=== PATIENT | male | born 1955 | race Two or more races ===

== ENCOUNTER 2020-07-17 12:47 | Outpatient (REF) | payer MEDICARE, SELFPAY | END 2020-07-17 12:48 | disposition home or self-care (01) | LOC: HO.LAB 12:47 | PROVIDERS: Visit Provider Internal Medicine | DX: Z20.828 Contact with and (suspected) exposure to other viral communicable diseases (principal) | CPT/HCPCS: C9803; U0003 ==

== ENCOUNTER 2020-08-19 13:10 | Emergency (ER) | payer MEDICARE, SELFPAY ==
[2020-08-19 13:46] VITALS: BP 115/77; PULSE 86; RESP 18; TEMP 37.2; O2SAT 95; BMI 30.9
--- NOTE | 2020-08-19 13:50 | XR_ITS ---
EXAMINATION: XR HIP, RIGHT CLINICAL INFORMATION: Pain COMPARISON: None TECHNIQUE: Two views of the right hip and one view of the pelvis. FINDINGS: Bone alignment is normal. No fracture or dislocation is seen. There is mild arthritis at the right hip joint with small osteophytes. There is soft tissue calcification adjacent to the right greater trochanter. Bones of the pelvis are unremarkable. There are degenerative changes of the visualized lower lumbar spine. XR/XR hip RT min 2V IMPRESSION: Mild right hip arthritis. Soft tissue calcification adjacent to the right greater trochanter.
[2020-08-19 14:00] VITALS: BP 122/78; PULSE 88; RESP 16; TEMP 37.2; O2SAT 99
--- NOTE | 2020-08-19 15:16 | ED.GENADULT ---
HPI - General Adult General Chief complaint: Extremity Injury, Lower Stated complaint: rt hip pain Time Seen by Provider: 08/19/20 13:50 Source: patient Mode of arrival: ambulatory Limitations: no limitations History of Present Illness HPI narrative: 65-year-old male presenting to the ED with complaints of acute on chronic right hip pain for the past few weeks similar compared to his prior episode in the summer time. Denies any injuries or any other additional complaints or concerns at this time. Related Data Previous Rx's Medication Instructions Recorded oxycodone 5 mg PO Q8H PRN #14 tab 08/19/20 Allergies Allergy/AdvReac Type Severity Reaction Status Date / Time ibuprofen [From MOTRIN] Allergy Intermediate KIDNEY Unverified 04/30/20 15:13 INJURY tramadol [TRAMADOL] Allergy Mild ITCHING Unverified 04/30/20 15:13 Motrin Allergy Unknown Uncoded 04/09/20 00:00 Review of Systems Review of Systems: Constitutional : No trauma, No Weight loss, No Fever, No Chills, ENT/Mouth : No Hearing loss, No Ear Pain, No Nasal Congestion, No Sinus Pain, No Hoarseness, No sore throat, No Rhinorrhea, No Swallowing Difficulty Cardiovascular : No Chest Pain, No SOB Respiratory : No Cough, No Dyspnea Gastrointestinal : No Nausea, No Vomiting, No Diarrhea, No abdominal Pain, No Hematochezia, No Melena Genitourinary : No Dysuria, No Urinary Frequency, No Hematuria, No Urinary or Bowel Incontinence/retention Musculoskeletal : No Back pain, No neck pain, No joint stiffness, + joint swelling Skin : No Skin Lesions, No rash or signs of infection Neuro : No Weakness, No radiation, No Numbness, No Paresthesias, No headache, no loss of bowel or bladder incontinence, no saddle anesthesia Denies history of IV drug usage. Yes all other systems are reviewed and are negative PMFSH Past Medical History Attestation statement: The following information was validated with the patient. Medical History Asthma High cholesterol HTN (hypertension) Hypokalemia Pacemaker Social History Social History Advance Directives: No Advance Directives Information Provided: Yes Physical Exam Vital Signs: Vital Signs: Last Vital Signs Temp 98.9 F 08/19/20 14:00 Pulse 88 08/19/20 14:00 Resp 16 08/19/20 14:00 BP 122/78 08/19/20 14:00 Pulse Ox 99 08/19/20 14:00 Body Mass Index 30.9 vital signs have been reviewed as normal and appeared to be correct. Blood pressure normal. Heart rate normal. Respiration rate normal. Temperature normal. Oxygen saturation normal. Appearance: Alert. Oriented X3. No acute distress. Head: Normal external exam. Normocephalic. Atraumatic. No Spaulding signs noted. No raccoon eyes noted Eyes: PERRLA. EOMI. Conjunctiva and sclera normal. Eyelids normal. ENT: EAC normal. TM's Normal. Pharynx normal. Uvula midline. Moist mucous membranes. No trismus noted. No drooling noted. No muffled voice noted. Neck: Normal inspection. Neck supple. FROM. No adenopathy. Thyroid Normal. No meningeal signs. No neck mass noted. CVS: Normal heart rate and rhythm. Heart sound normal. No murmurs noted. Pulses normal throughout. Respiratory: No respiratory distress. Painless inspiration. Breath sounds normal. No wheezes/rales/rhonchi noted. Chest nontender. No accessory muscle usage noted or decreased air movement noted. Abdomen: Soft and nontender. Bowel sounds normal in all 4 quadrants. No distention noted. No organomegaly noted. No visible injury noted. Back: No CVA tenderness. Full range of motion noted. No obvious deformities, or edema. Mild para-spinal muscular tenderness from lumbar region to coccyx. Full ROM in back and lower extremities. 5/5 strength hip extension/flexion, abduction, adduction. Mild Lumbar pain with hip flexion against resistance. Straight leg raise test negative on right; Straight leg raise test negative on left; Reflexes normal ankle and knee bilaterally; EHL motor strength normal bilaterally Skin: Skin warm and dry. Normal skin color. Normal skin turgor. No rashes/lesions/lacerations noted. Extremities: No lower extremity edema. Extremities exhibit normal range of motion. Extremities nontender. Neuro: Oriented X 3. No motor deficit. No sensory deficit. Reflexes normal. Course Course Course Narrative: Pt c likely muscular pain, but could be herniated disc. Neuro exam shows no deficits. Not c/w AAA/epidural abscess/dissection.No high risk Hx (Incont, fever, immunosupp, recent surgery/LP, coag, signif trauma, wt loss, puls mass, hx/o Ca, TB, or IVDU) to warrant MRI/CT today. Not c/w Pyelo/UTI/kidney stone/spinal fx. Not cauda equina syndrome. Imaging not currently indicated. DC c meds and f/u. Medical Decision Making Medical Records Medical records reviewed: Yes I reviewed the patient's medical records. Discharge Plan Discharge Clinical Impression: Arthritis of hip Patient Disposition: Home, Self-Care Instructions: Arthritis (ED) Prescriptions: New oxycodone 5 mg tablet 5 mg PO Q8H PRN (Reason: pain) Qty: 14 RF: 0 Referrals: Carina Moore MD [Primary Care Provider] - 2 days Print Language: Citizen Of [place]
== END 2020-08-19 16:18 | disposition home or self-care (01) ==
PROVIDERS: Emergency Provider Emergency Medicine; PCP Internal Medicine
DX: M16.11 Unilateral primary osteoarthritis, right hip (principal); Z79.899 Other long term (current) drug therapy
CPT/HCPCS: 73502; 99283; 99284

== ENCOUNTER 2021-01-22 08:58 | Emergency (ER) | payer OTHER, MEDICARE, SELFPAY ==
--- NOTE | 2021-01-22 | ECG_ITS ---
Test Reason : DYSPNEA Blood Pressure : / mmHG Vent. Rate : 072 BPM Atrial Rate : 072 BPM P-R Int : 130 ms QRS Dur : 140 ms QT Int : 424 ms P-R-T Axes : 072 052 097 degrees QTc Int : 464 ms Atrial-sensed ventricular-paced rhythm Abnormal ECG When compared with ECG of 24-SEP-2018 01:22, No significant change was found Referred By: India Patel Electronically Signed By:SHERYL EVANS MD
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
[2021-01-22 09:20] VITALS: BP 138/70; PULSE 73; RESP 16; TEMP 36.8; O2SAT 95; BMI 30.9
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
[2021-01-22] MEDS: oxyCODONE HCl Immed Release 5 MG TABLET PO (10:03)
[2021-01-22 11:17] VITALS: BP 117/68; PULSE 64; RESP 18; TEMP 37.1; O2SAT 96
== END 2021-01-22 11:49 | disposition home or self-care (01) ==
PROVIDERS: Emergency Provider Emergency Medicine; PCP Internal Medicine
DX: S13.4XXA Sprain of ligaments of cervical spine, initial encounter (principal); S29.011A Strain of muscle and tendon of front wall of thorax, initial encounter; S76.011A Strain of muscle, fascia and tendon of right hip, initial encounter; S39.92XA Unspecified injury of lower back, initial encounter; S29.9XXA Unspecified injury of thorax, initial encounter; V43.52XA Car driver injured in collision with other type car in traffic accident, initial encounter; M62.830 Muscle spasm of back; R00.1 Bradycardia, unspecified; I10 Essential (primary) hypertension; E78.5 Hyperlipidemia, unspecified; J45.909 Unspecified asthma, uncomplicated; Z95.0 Presence of cardiac pacemaker; Y93.89 Activity, other specified; Y92.411 Interstate highway as the place of occurrence of the external cause; Y99.8 Other external cause status
CPT/HCPCS: 71046; 72070; 72100; 72125; 73502; 93005; 99284

== ENCOUNTER 2021-03-16 08:45 | Outpatient (REF) | payer MEDICARE, SELFPAY | END 2021-03-16 08:46 | disposition home or self-care (01) | LOC: HO.LAB 08:45 | PROVIDERS: PCP Internal Medicine; Visit Provider Internal Medicine | DX: Z20.822 Contact with and (suspected) exposure to COVID-19 (principal) | CPT/HCPCS: C9803; U0003; U0005 ==

== ENCOUNTER 2021-03-30 12:21 | Emergency (ER) | payer MEDICARE, SELFPAY ==
[2021-03-30 13:20] VITALS: BP 157/84; PULSE 70; RESP 18; TEMP 36.8; O2SAT 98; BMI 30.9
== END 2021-03-30 16:04 | disposition left against medical advice (07) ==
PROVIDERS: Emergency Provider Emergency Medicine; PCP Internal Medicine
DX: R06.02 Shortness of breath (principal)
CPT/HCPCS: 99282; 99283

== ENCOUNTER → 2021-05-03 12:50 | Outpatient (BNVA) | payer MEDICARE, SELFPAY | PROVIDERS: PCP Internal Medicine; Visit Provider Nurse Practitioner Family | DX: M16.11 Unilateral primary osteoarthritis, right hip (principal); M54.2 Cervicalgia | CPT/HCPCS: 99212 ==

== ENCOUNTER → 2021-05-17 13:11 | Outpatient (BNVA) | payer MEDICARE, SELFPAY | PROVIDERS: PCP Internal Medicine; Visit Provider Orthopaedic Surgery | DX: M54.50 Low back pain, unspecified (principal) | CPT/HCPCS: 99202 ==

== ENCOUNTER 2021-09-06 11:58 | Outpatient (REF) | payer MEDICARE, SELFPAY ==
[2021-09-06 12:19] LABS: Binax Internal Control QC Valid; Binax Now Covid-19 Ag Positive (Negative)
== END 2021-09-06 11:59 | disposition home or self-care (01) ==
LOC: HO.LAB 11:58
PROVIDERS: Visit Provider Internal Medicine
DX: Z20.822 Contact with and (suspected) exposure to COVID-19 (principal)
CPT/HCPCS: C9803

== ENCOUNTER → 2021-12-14 07:54 | Outpatient (RCR) | payer MEDICARE, SELFPAY ==
--- NOTE | 2020-05-20 10:04 | MHC.OT.DC ---
[address] [phone] F: [phone] Occupational Therapy Discharge Note Provider: Izzy Kebede MD Diagnosis: L HAND OA Date of Surgery: Date of Evaluation: 04/27/20 Date of Discharge: 05/18/20 Treatments to Date: 6 Cancellations to Date: No Shows to Date: Discharge Status: Achieved Goals Improved Function Independent with HEP Discharge Summary: MR. GEE HAS BEEN SEEN IN OT FOR L HAND OA, WELL TRIGGER FINGER OF INDEX FINGER. HE HAS TIP TO PALM FLEX OF L HAND , FUNCTIONAL GRASP, NO FURTHER LOCKING OF INDEX FINGER AND IMPROVED STRENGTH. HIS RESTING HAND PAIN HAS IMPROVED, HOWEVER, HE STILL EXPERIENCES PAIN WITH END RANGE FLEXION AT [facility]. HIS OT GOALS HAVE BEEN MET. IT IS RECOMMENDED THAT HE TRANSITION TO A HOME BASED PROGRAM FOR ONGOING MANAGEMENT OF HIS OA SYMPTOMS. Please Sign and return to therapist, thank you for your referral.
== END | disposition home or self-care (01) ==
LOC: HO.OT 05-18 11:24
PROVIDERS: PCP Internal Medicine; Visit Provider Student in an Organized Health Care Education/Training Program
DX: M19.042 Primary osteoarthritis, left hand (principal)
CPT/HCPCS: 97035; 97110

== ENCOUNTER 2022-01-28 07:31 | Outpatient (REF) | payer MEDICARE, SELFPAY ==
--- NOTE | ~2022-01-28 | XR_ITS ---
EXAMINATION: XR HIP, RIGHT CLINICAL INFORMATION: Pain COMPARISON: Previous x-ray January 2021 TECHNIQUE: Two views of the right hip. FINDINGS: Bone alignment is normal. No fracture or dislocation is seen. There is mild joint space narrowing at the right hip joint. No osteophyte formation is seen. There is faint soft tissue calcification or ossification adjacent to the greater trochanter. XR/XR hip RT min 2V IMPRESSION: Mild joint space narrowing. Faint soft tissue calcification or ossification adjacent to the greater trochanter.
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
== END 2022-01-28 07:32 | disposition home or self-care (01) ==
LOC: HO.XRAY 07:31
PROVIDERS: PCP Internal Medicine; Visit Provider Internal Medicine
DX: M54.50 Low back pain, unspecified (principal); M25.551 Pain in right hip
CPT/HCPCS: 72110; 73502

== ENCOUNTER → 2022-03-28 13:03 | Outpatient (BNVA) | payer MEDICARE, SELFPAY | PROVIDERS: PCP Internal Medicine; Visit Provider Orthopaedic Surgery | DX: M70.71 Other bursitis of hip, right hip (principal) | CPT/HCPCS: 99212 ==

== ENCOUNTER → 2022-05-03 13:12 | Outpatient (BNVA) | payer MEDICARE, SELFPAY | PROVIDERS: PCP Internal Medicine; Visit Provider Student in an Organized Health Care Education/Training Program | DX: M25.551 Pain in right hip (principal); G89.29 Other chronic pain; M25.511 Pain in right shoulder; E11.9 Type 2 diabetes mellitus without complications; M54.50 Low back pain, unspecified; M54.2 Cervicalgia; M25.542 Pain in joints of left hand; M25.541 Pain in joints of right hand | CPT/HCPCS: 99212 ==

== ENCOUNTER → 2022-05-04 12:37 | Outpatient (BNVA) | payer MEDICARE, SELFPAY | PROVIDERS: PCP Internal Medicine; Visit Provider Nurse Practitioner Family | DX: G47.33 Obstructive sleep apnea (adult) (pediatric) (principal); E66.9 Obesity, unspecified; R40.0 Somnolence; Z95.0 Presence of cardiac pacemaker | CPT/HCPCS: 99202 ==

== ENCOUNTER 2022-05-05 10:47 | Outpatient (REF) | payer MEDICARE, SELFPAY ==
--- NOTE | ~2022-05-05 | XR_ITS ---
EXAMINATION: XR HAND/WRIST, RIGHT XR HAND/WRIST, LEFT CLINICAL INFORMATION: Pain. COMPARISON: Left hand radiographs dated 01/01/2020. TECHNIQUE: AP, oblique, lateral, and scaphoid views of the right and left hand and wrist. FINDINGS: Right Hand and Wrist: Remote amputations of the 2nd middle and distal phalanges as well as the 3rd proximal, middle, and distal phalanges. No associated osseous erosion or abnormal soft tissue calcification. No acute fracture or dislocation. Joint space narrowing with marginal osteophytes at the 4th metacarpophalangeal joint. Tiny marginal osteophytes at the 1st carpometacarpal joint. No concerning lytic or blastic osseous lesion. Left Hand and Wrist: No acute fracture or dislocation. Normal carpal alignment. Mild joint space narrowing at the 1st carpometacarpal joint. No concerning lytic or blastic osseous lesion. No abnormal soft tissue calcification. 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 Remote amputations at the 2nd and 3rd digits without evidence of complication. Left Hand and Wrist: Mild arthrosis at the 1st carpometacarpal joint. No acute osseous abnormality.
--- NOTE | ~2022-05-05 | XR_ITS ---
EXAMINATION: XR HAND/WRIST, RIGHT XR HAND/WRIST, LEFT CLINICAL INFORMATION: Pain. COMPARISON: Left hand radiographs dated 01/01/2020. TECHNIQUE: AP, oblique, lateral, and scaphoid views of the right and left hand and wrist. FINDINGS: Right Hand and Wrist: Remote amputations of the 2nd middle and distal phalanges as well as the 3rd proximal, middle, and distal phalanges. No associated osseous erosion or abnormal soft tissue calcification. No acute fracture or dislocation. Joint space narrowing with marginal osteophytes at the 4th metacarpophalangeal joint. Tiny marginal osteophytes at the 1st carpometacarpal joint. No concerning lytic or blastic osseous lesion. Left Hand and Wrist: No acute fracture or dislocation. Normal carpal alignment. Mild joint space narrowing at the 1st carpometacarpal joint. No concerning lytic or blastic osseous lesion. No abnormal soft tissue calcification. 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 Remote amputations at the 2nd and 3rd digits without evidence of complication. Left Hand and Wrist: Mild arthrosis at the 1st carpometacarpal joint. No acute osseous abnormality.
[2022-05-05 11:07] LABS: MANUAL DIFF FLAG NO
[2022-05-05 11:41] LABS: Basophils Absolute Auto 0.1 X10*3/uL (0.0-0.2); Eosinophils Absolute Auto 1.6 X10*3/uL (0.0-0.4); Eosinophils Percent Auto 15.2 % (0-4); Hematocrit 41.6 % (42.0-52.0); Hemoglobin 13.4 g/dl (14.0-18.0); Imm Gran Abs Auto 0.04 X10*3/uL (0.00-0.03); Imm Gran Pct Auto 0.4 % (0.0-0.4); Lymphocytes Absolute Auto 2.8 X10*3/uL (1.2-4.9); Lymphocytes Percent Auto 27.2 % (20-40); Mean Corpuscular HGB Conc 32.2 g/dl (31.0-36.0); Mean Corpuscular Hemoglobin 29.8 pg (27.0-33.0); Mean Corpuscular Volume 92.4 fL (80.0-98.0); Mean Platelet Volume 9.5 fL (9.4-12.4); Monocytes Absolute Auto 1.1 X10*3/uL (0.1-1.2); Monocytes Percent Auto 10.9 % (2-11); Neutrophils Absolute Auto 4.6 x10*3/uL (2.0-8.3); Neutrophils Percent Auto 45.3 % (45-73); Platelet Count 408 X10*3/uL (160-400); Red Cell Distribution Width 13.6 % (11.0-16.0); White Blood Count 10.2 X10*3/uL (4.8-10.8)
[2022-05-05 11:48] LABS: Estimated Average Glucose 151 mg/dL; Hemoglobin A1C 180.3764 umol/L; Hemoglobin A1c % 6.9 %
[2022-05-05 12:20] LABS: Alanine Aminotransferase 21 U/L (0-40); Albumin Level 4.3 g/dL (3.5-5.0); Alkaline Phosphatase 64 U/L (39-117); Anion Gap 15 (12-20); Aspartate Amino Transferase 20 U/L (5-37); Bilirubin Total 0.4 mg/dL (0.0-1.0); Blood Urea Nitrogen 16 mg/dL (9-16); C Reactive Protein 1.02 mg/dL (< or = 0.50); Calcium 10.2 mg/dL (8.4-10.2); Carbon Dioxide 34 mmol/L (22-29); Chloride 95 mmol/L (96-108); Estimated Glomerular Filt Rate > 60; Glucose Random 157 mg/dL (60-115); Potassium 4.7 mmol/L (3.3-5.1); Sodium 139 mmol/L (135-145); Total Protein 8.2 g/dL (6.5-8.0)
[2022-05-05 12:40] LABS: Erythrocyte Sedimentation Rate 30 MM/HR (0-15)
== END 2022-05-05 10:48 | disposition home or self-care (01) ==
LOC: HO.LAB 10:47
PROVIDERS: PCP Internal Medicine; Visit Provider Student in an Organized Health Care Education/Training Program
DX: M25.541 Pain in joints of right hand (principal); M25.542 Pain in joints of left hand; E11.9 Type 2 diabetes mellitus without complications
CPT/HCPCS: 36415; 73110; 73130; 80053; 83036; 85025; 85652; 86140

== ENCOUNTER → 2022-05-10 10:33 | Outpatient (BNVA) | payer MEDICARE, SELFPAY | PROVIDERS: PCP Internal Medicine; Visit Provider Urology | DX: E11.69 Type 2 diabetes mellitus with other specified complication (principal); N52.1 Erectile dysfunction due to diseases classified elsewhere; F52.0 Hypoactive sexual desire disorder | CPT/HCPCS: 99202 ==

== ENCOUNTER → 2022-05-31 09:57 | Outpatient (BNVA) | payer MEDICARE, SELFPAY | PROVIDERS: PCP Internal Medicine; Visit Provider Nurse Practitioner Family | DX: M54.50 Low back pain, unspecified (principal); M62.838 Other muscle spasm; M25.551 Pain in right hip; M70.61 Trochanteric bursitis, right hip; M16.11 Unilateral primary osteoarthritis, right hip; M47.812 Spondylosis without myelopathy or radiculopathy, cervical region | CPT/HCPCS: 99202 ==

== ENCOUNTER → 2022-07-05 13:46 | Outpatient (BNVA) | payer MEDICARE, SELFPAY | PROVIDERS: PCP Internal Medicine; Visit Provider Nurse Practitioner Family | DX: G47.33 Obstructive sleep apnea (adult) (pediatric) (principal); R40.0 Somnolence; E66.9 Obesity, unspecified; Z68.31 Body mass index [BMI] 31.0-31.9, adult | CPT/HCPCS: 99212 ==

== ENCOUNTER → 2022-07-25 10:42 | Outpatient (REF) | payer MEDICARE, SELFPAY | LOC: HO.SL 10:42 | PROVIDERS: Visit Provider Nurse Practitioner Family | DX: R40.0 Somnolence (principal); E66.9 Obesity, unspecified; G47.33 Obstructive sleep apnea (adult) (pediatric) | CPT/HCPCS: 95806 ==

== ENCOUNTER 2022-08-01 11:47 | Outpatient (REF) | payer OTHER, SELFPAY ==
[2022-08-06 23:28] LABS: Testosterone, Free 25.9 pg/mL (35.0-155.0); Testosterone, Total 169 ng/dL (250-1100)
== END 2022-08-01 11:48 | disposition home or self-care (01) ==
LOC: HO.LAB 11:47
PROVIDERS: PCP Internal Medicine; Visit Provider Urology
DX: E29.1 Testicular hypofunction (principal); F52.0 Hypoactive sexual desire disorder
CPT/HCPCS: 36415; 84402; 84403

== ENCOUNTER → 2022-08-23 13:34 | Outpatient (BNVA) | payer OTHER, SELFPAY | PROVIDERS: PCP Internal Medicine; Visit Provider Urology | DX: E11.69 Type 2 diabetes mellitus with other specified complication (principal); N52.1 Erectile dysfunction due to diseases classified elsewhere; E29.1 Testicular hypofunction; Z79.899 Other long term (current) drug therapy | CPT/HCPCS: 99212 ==

== ENCOUNTER → 2022-10-07 18:30 | Outpatient (REF) | payer OTHER, SELFPAY | LOC: HO.SL 18:30 | PROVIDERS: PCP Internal Medicine; Visit Provider Nurse Practitioner Family | DX: G47.33 Obstructive sleep apnea (adult) (pediatric) (principal) | CPT/HCPCS: 95811 ==

== ENCOUNTER → 2022-10-31 08:45 | Outpatient (BNVA) | payer OTHER, SELFPAY | PROVIDERS: PCP Internal Medicine; Visit Provider Nurse Practitioner Family | DX: G47.33 Obstructive sleep apnea (adult) (pediatric) (principal); R40.0 Somnolence | CPT/HCPCS: 99212 ==

== ENCOUNTER 2023-02-22 10:26 | Outpatient (REF) | payer OTHER, SELFPAY ==
[2023-02-22 12:48] LABS: Prostate Specific Antigen 2.37 ng/mL (<0.05-4.0)
[2023-02-28 14:34] LABS: Testosterone, Free 28.9 pg/mL (35.0-155.0); Testosterone, Total 190 ng/dL (250-1100)
== END 2023-02-22 10:27 | disposition home or self-care (01) ==
LOC: HO.LAB 10:26
PROVIDERS: PCP Internal Medicine; Visit Provider Urology
DX: E11.69 Type 2 diabetes mellitus with other specified complication (principal); N52.1 Erectile dysfunction due to diseases classified elsewhere; F52.0 Hypoactive sexual desire disorder; Z12.5 Encounter for screening for malignant neoplasm of prostate
CPT/HCPCS: 36415; 84153; 84402; 84403

== ENCOUNTER 2023-03-03 13:05 | Outpatient (AMB) | payer OTHER, SELFPAY ==
--- NOTE | 2023-03-03 13:13 | A.OFFVIS_ITS ---
Intake Intake Visit Reasons: 6 month labs Intake Note: Patient is present for follow up labs/erectile dysfunction (psa 2.37) (testosterone total 190) Urology Medications: tadalafil Blood Thinner: none Associate Counsel Required: Yes Associate Counsel Name: Fabrice [id number] Accompanied by: Self / Same As Patient Allergies ibuprofen [From MOTRIN] Allergy (Intermediate, Verified 03/03/23 13:50) KIDNEY INJURY tramadol [TRAMADOL] Allergy (Mild, Verified 03/03/23 13:50) ITCHING Motrin Allergy (Mild, Uncoded 03/03/23 13:50) rash Medication List - Last Reconciled 03/03/23 by TRACY NunezP- acetaminophen (Tylenol Extra Strength) 1,000 mg (2 x 500 mg) PO QID PRN albuterol sulfate 90 mcg/actuation (Ventolin HFA) 0 mcg inhalation alcohol swabs (Alcohol Prep Pads) 0 pad topical amlodipine 5 mg PO DAILY blood sugar diagnostic (FreeStyle Lite Strips) As directed blood-glucose meter (FreeStyle [place] Lite kit) As directed chlorthalidone 25 mg PO DAILY clonazepam 0.5 mg PO ONCE PRN diclofenac sodium 1% (Arthritis Pain (diclofenac)) 4 grams topical QID 30 days fluticasone propionate 220 mcg/actuation (Flovent HFA) 2 puffs inhalation BID glipizide ER 2.5 mg PO QAM ketotifen fumarate 0.025%(0.035%) 1 drp ophthalmic (eye) BID PRN lancets (FreeStyle Lancets) As directed metformin 500 mg PO BID methocarbamol 750 mg PO Q8H 30 days metoprolol succinate ER 100 mg PO DAILY montelukast 10 mg PO BEDTIME pantoprazole 40 mg PO DAILY tadalafil 10 mg PO DAILY 90 days tramadol 50 mg PO Q8H PRN zolpidem 10 mg PO BEDTIME HPI HPI Comments History of Present Illness Details Fabrice is a pleasant 67 year old male patient of Dr. Emery. He has a PMH of anal fistula, anxiety, asthma, cervical radiculitis, diabetes mellitus, diverticulosis, dysphagia, fibromatosis, finger amputee, hypercholesteremia, sleep apnea, hypertension, hyperlipidemia, hypogonadism, hypokalemia, and pacemaker. He presents to the office today for follow-up of his erectile dysfunction in the setting of diabetes and hypogonadism in the setting of obstructive sleep apnea. In discussion with the patient today he reports to be doing and feeling well. Of note, patient previously followed up on with Dr. Jackson approximately 6 months ago at which time PSA and testosterone levels were ordered. These results were reviewed with the patient today. PSA 03/05--2.4 Total Testosterone 03/05--190 Total Testosterone 08/04--169 Patient reports to be having somewhat manageable erections on 10 mg of Cialis and would like a refill on the medication. However, he continues with fatigue and moodiness. He reports to have been on testosterone injection therapy many years ago however due to COVID had not been following up with Urology to continue. Discussed redraw of Testosterone upon 2 hours of wakening. Discussed at length the importance of managing diabetes for improvement in erections, testosterone levels, and overall health and well being. Also discussed importance of compliance with CPAP machine for improvement in erections, testosterone levels, and overall health and well being. In office urinalysis results reviewed with the patient. When asked patient denies any urinary issues or concerns. He denies urinary urgency, urinary frequency, incontinence, nocturia, hematuria, dysuria, foul smelling urine, changes to urinary stream, flank pain, fever, and or chills. He is happy with his current voiding parameters. Erectile dysfunction Diabetic Progressive Failed on demand medications Current therapy tadalafil 10 mg daily Multiple cardiovascular risk factors - hypertension, dyslipidemia, cardiomyopathy Investigations - 08/04 T 170 F 26 HBA1c 6.9 PFSH Medical History Anal fistula Anxiety Asthma Cervical radiculitis Diabetes mellitus Diverticulosis of large intestine without hemorrhage Dysphagia Erectile dysfunction due to diseases classified elsewhere Fibromatosis Finger amputee High cholesterol HTN (hypertension) Hyperlipidemia Hypogonadism in male Hypokalemia Pacemaker Surgical History History of surgery History of surgery on arm Family History Father Stroke Maternal Uncle Diabetes Mother Asthma Diabetes Arthritis Social History Household Members: None Housing: Apartment Alcohol intake: current Alcohol intake frequency: a few times a month Alcohol type: hard liquor Patient Tobacco Use Status: Former Tobacco user Quit Date: 47 years ago Current occupational status: disabled Review of Systems Const Reports as per HPI Eyes Reports no additional complaints ENT Reports no additional complaints Card Reports as per HPI Resp Reports as per HPI GI Reports as per HPI Reports as per HPI Musc Reports as per HPI Neuro Reports as per HPI Psych Reports as per HPI Endo Reports as per HPI Physical Exam Const General: cooperative, comfortable, no acute distress, well developed, alert and awake Nutritional Appearance: overweight Orientation/consciousness: patient oriented x3 Limitations: no limitations HEENT Head: Yes normal to inspection, Yes normocephalic and Yes atraumatic Ears: hearing grossly normal bilaterally Eyes General: appearance normal, both eyes and all related structures Neck Neck: Yes normal visual inspection and Yes trachea midline Chest Chest palpation & inspection: normal inspection of the chest Resp Effort & Inspection: normal respiratory effort and able to speak in complete sentences Cardio Rate: regular rate GI Inspection: Yes normal to inspection General: Yes no CVA tenderness Back/Spine/Pelvis Back: no CVA tenderness Skin General skin exam: no rashes or lesions noted Neuro General: patient oriented x3 Extrem General: Yes normal to inspection Psych Appearance: grossly normal and well kempt Mental Status: mental status grossly normal Speech and movement: Normal speech and movement present and Clear speech present Affect: normal affect Attitude: cooperative Thought process: Normal thought process present Thought content: Normal thought content present Insight: Fair insight present (Psych) Judgement: Fair judgement present (Psych) Results AMB Urinalysis, Automated UA Leukoctes 0 Jose/uL Last Edit by Kivun Hadash on 03/03/23 13:28 UA Nitrite Last Edit by Kivun Hadash on 03/03/23 13:28 UA Urobilinogen 0.2 mg/dL Last Edit by Kivun Hadash on 03/03/23 13:28 UA Protein 0 mg/dL Last Edit by Kivun Hadash on 03/03/23 13:28 UA pH 6.0 Last Edit by Kivun Hadash on 03/03/23 13:28 UA Blood 0 Kaveh/uL Last Edit by Kivun Hadash on 03/03/23 13:28 UA Specific [place] 1.020 Last Edit by Kivun Hadash on 03/03/23 13:28 UA Ketone Last Edit by Angelo Weiss on 03/03/23 13:28 UA Bilirubin 0 mg/dL Last Edit by Angelo Weiss on 03/03/23 13:28 UA Glucose 0 mg/dL Last Edit by Angelo Weiss on 03/03/23 13:28 Results Reviewed Results Reviewed: Laboratory Last Values Urine pH (Auto) 6.0 03/03/23 13:18 Specific [place] (Auto) 1.020 03/03/23 13:18 Urine Protein (Auto) 0 mg/dL 03/03/23 13:18 Glucose (UA)(Auto) 0 mg/dL 03/03/23 13:18 Urine Blood (Auto) 0 Kaveh/uL 03/03/23 13:18 Urine Bilirubin (Auto) 0 mg/dL 03/03/23 13:18 Urine Urobilinogen (Auto) 0.2 mg/dL 03/03/23 13:18 Leukocyte Esterase (Auto) 0 Jose/uL 03/03/23 13:18 Assessment & Plan Assessment & Plan (1) Hypogonadism in male: Code(s): E29.1 - Testicular hypofunction (2) Erectile dysfunction associated with type 2 diabetes mellitus: Code(s): E11.69 - Type 2 diabetes mellitus with other specified complication; N52.1 - Erectile dysfunction due to diseases classified elsewhere Plan In office urinalysis results reviewed with the patient today; as noted above Recent testosterone and PSA results reviewed with the patient today. Patient reports somewhat improvement in erections with 10 mg of Cialis; refill provided Discussed redraw of testosterone free and total to hours upon wakening Patient otherwise denies any urinary issues or concerns at this time Discussed at length importance of weight loss, brisk walking, and adequate sleep to assist with improvement in erections, testosterone levels, and overall health and well-being. Discussed at length importance of compliance with CPAP machine as well as managing diabetes for improvement in erections, testosterone levels, and overall health and well-being. Testosterone free and total ordered Follow-up in 1-2 months with lab to be completed prior; or sooner with any issues, concerns, and or questions. Orders: Orders Testosterone, Free/Total Today E11.69 - Type 2 diabetes mellitus with other specified complication, N52.1 - Erectile dysfunction due to diseases classified elsewhere AMB Urinalysis Automated Today Z13.9 - Encounter for screening, unspecified Medications: Refilled tadalafil 10 mg PO DAILY 90 days 90 tabs 1RF sexual activity E11.69 - Type 2 diabetes mellitus with other specified complication, N52.1 - Erectile dysfunction due to diseases classified elsewhere Patient Instructions: The patient had an opportunity to ask questions regarding the treatment plan. All questions were answered. Physical exam, labs, and imaging were discussed and reviewed in detail. As well as risks, benefits, and discussion of treatment choices. No major barriers to understanding were identified. The patient expressed understanding and agreement with the above treatment plan. The patient was made aware they should contact our office by phone for worsening of their current condition, the appearance of new symptoms, or with any questions or concerns. Compliance is encouraged with any medications and follow up testing that is ordered. It is a privilege to be allowed the opportunity to participate in? your urological care.? Again, if you have any questions or concerns If you have any questions or concerns please do not hesitate to contact me. The office is [phone]. This note is constructed using voice recognition software. While every effort has been made to ensure accuracy siebel administrator errors may have been included. Yours sincerely, FILEMON Nunez Coding Level of Care Code Est Pt Level 4 (57406) Diagnoses Hypogonadism in male E29.1 Erectile dysfunction associated with type 2 diabetes mellitus E11.69; N52.1 Time Spent (min) 45
== END 2023-03-03 14:27 | disposition home or self-care (01) ==
PROVIDERS: Visit Provider Nurse Practitioner Family
DX: E29.1 Testicular hypofunction (principal); E11.69 Type 2 diabetes mellitus with other specified complication; N52.1 Erectile dysfunction due to diseases classified elsewhere
CPT/HCPCS: 99214

== ENCOUNTER → 2023-03-03 13:05 | Outpatient (BNVA) | payer OTHER, SELFPAY | PROVIDERS: Visit Provider Nurse Practitioner Family | DX: E11.69 Type 2 diabetes mellitus with other specified complication (principal); N52.1 Erectile dysfunction due to diseases classified elsewhere; E29.1 Testicular hypofunction; Z79.899 Other long term (current) drug therapy | CPT/HCPCS: 99212 ==

== ENCOUNTER 2023-03-06 07:56 | Outpatient (REF) | payer OTHER, SELFPAY ==
[2023-03-10 18:14] LABS: Testosterone, Free 26.1 pg/mL (35.0-155.0); Testosterone, Total 174 ng/dL (250-1100)
== END 2023-03-06 07:57 | disposition home or self-care (01) ==
LOC: HO.LAB 07:56
PROVIDERS: PCP Internal Medicine; Visit Provider Nurse Practitioner Family
DX: E11.69 Type 2 diabetes mellitus with other specified complication (principal); N52.1 Erectile dysfunction due to diseases classified elsewhere
CPT/HCPCS: 36415; 84402; 84403

== ENCOUNTER 2023-03-24 15:28 | Outpatient (AMB) | payer OTHER, SELFPAY ==
--- NOTE | 2023-03-24 15:29 | A.OFFVIS_ITS ---
Intake Intake Visit Reasons: 3 week labs(set) Intake Note: Patient is present for tele visit follow up labs/erectile dysfunction (free testosterone 26.1) (testosterone total 174) Urology Medications: tadalafil Blood Thinner: none Bag Sealer Required: Yes Allergies ibuprofen [From MOTRIN] Allergy (Intermediate, Verified 03/27/23 22:07) KIDNEY INJURY tramadol [TRAMADOL] Allergy (Mild, Verified 03/27/23 22:07) ITCHING Motrin Allergy (Mild, Uncoded 03/27/23 22:07) rash Medication List - Last Reconciled 03/27/23 by BRAYDEN Nunez- acetaminophen (Tylenol Extra Strength) 1,000 mg (2 x 500 mg) PO QID PRN albuterol sulfate 90 mcg/actuation (Ventolin HFA) 0 mcg inhalation alcohol swabs (Alcohol Prep Pads) 0 pad topical amlodipine 5 mg PO DAILY blood sugar diagnostic (FreeStyle Lite Strips) As directed blood-glucose meter (FreeStyle [place] Lite kit) As directed chlorthalidone 25 mg PO DAILY clonazepam 0.5 mg PO ONCE PRN diclofenac sodium 1% (Arthritis Pain (diclofenac)) 4 grams topical QID 30 days fluticasone propionate 220 mcg/actuation (Flovent HFA) 2 puffs inhalation BID glipizide ER 2.5 mg PO QAM ketotifen fumarate 0.025%(0.035%) 1 drp ophthalmic (eye) BID PRN lancets (FreeStyle Lancets) As directed metformin 500 mg PO BID methocarbamol 750 mg PO Q8H 30 days metoprolol succinate ER 100 mg PO DAILY montelukast 10 mg PO BEDTIME needle (disp) 18 G (BD Regular Bevel [place]) As directed pantoprazole 40 mg PO DAILY sacubitril-valsartan 24-26 mg (Entresto) 1 tab PO BID syringe with needle (BD Luer-Janet Syringe) As directed tadalafil 10 mg PO DAILY 90 days testosterone cypionate (Depo-Testosterone) 200 mg IM Q2W 4 weeks tramadol 50 mg PO Q8H PRN zolpidem 10 mg PO BEDTIME HPI HPI Comments History of Present Illness Details Fabrice is a pleasant 67 year old male patient of Dr. Emery. He has a PMH of anal fistula, anxiety, asthma, cervical radiculitis, diabetes mellitus, diverticulosis, dysphagia, fibromatosis, finger amputee, hypercholesteremia, sleep apnea, hypertension, hyperlipidemia, hypogonadism, hypokalemia, and pacemaker. He is being followed-up on today via telehealth for his erectile dysfunction in the setting of diabetes and hypogonadism in the setting of obstructive sleep apnea. Of note, patient was seen approximately 3 weeks ago at which time redraw of testosterone was ordered for further assessment evaluation. These results reviewed with the patient today. In discussion with the patient today he reports to be doing and feeling well. PSA 03/05--2.4 Total Testoserone 03/05--174 Total Testosterone 03/05--190 Total Testosterone 08/04--169 Patient reports to be having somewhat manageable erections on 10 mg of Cialis. However, he continues with fatigue and moodiness. Patient with a history of testosterone injection therapy many years ago however due to COVID had not been following up with Urology at which time refills were not provided and patient has since been off Testosterone replacment. Discussed at length the importance of managing diabetes for improvement in erections, testosterone levels, and overall health and well being. Also discussed importance of compliance with CPAP machine for improvement in erections, testosterone levels, and overall health a nd well being. When asked patient denies any urinary issues or concerns. He denies urinary urgency, urinary frequency, incontinence, nocturia, hematuria, dysuria, foul smelling urine, changes to urinary stream, flank pain, fever, and or chills. He is happy with his current voiding parameters. Erectile dysfunction Diabetic Progressive Failed on demand medications Current therapy tadalafil 10 mg daily Multiple cardiovascular risk factors - hypertension, dyslipidemia, cardiomyopathy Investigations - 08/04 T 170 F 26 HBA1c 6.9 [facility] Medical History Anal fistula Anxiety Asthma Cervical radiculitis Diabetes mellitus Diverticulosis of large intestine without hemorrhage Dysphagia Erectile dysfunction due to diseases classified elsewhere Fibromatosis Finger amputee High cholesterol HTN (hypertension) Hyperlipidemia Hypogonadism in male Hypokalemia Pacemaker Surgical History History of surgery History of surgery on arm Family History Father Stroke Maternal Uncle Diabetes Mother Asthma Diabetes Arthritis Social History Household Members: None Housing: Apartment Alcohol intake: current Alcohol intake frequency: a few times a month Alcohol type: hard liquor Patient Tobacco Use Status: Former Tobacco user Quit Date: 47 years ago Current occupational status: disabled Review of Systems Const Reports as per HPI Eyes Reports no additional complaints ENT Reports no additional complaints Card Reports as per HPI Resp Reports as per HPI GI Reports as per HPI Reports as per HPI Musc Reports as per HPI Neuro Reports as per HPI Psych Reports as per HPI Endo Reports as per HPI Physical Exam Const General: cooperative Orientation/consciousness: patient oriented x3 Resp Effort & Inspection: able to speak in complete sentences Neuro General: patient oriented x3 Psych Speech and movement: Clear speech present Attitude: cooperative Thought process: Normal thought process present Thought content: Normal thought content present Insight: Fair insight present (Psych) Judgement: Fair judgement present (Psych) Assessment & Plan Assessment & Plan (1) Hypogonadism in male: Code(s): E29.1 - Testicular hypofunction (2) Erectile dysfunction associated with type 2 diabetes mellitus: Code(s): E11.69 - Type 2 diabetes mellitus with other specified complication; N52.1 - Erectile dysfunction due to diseases classified elsewhere (3) Lack of libido: Code(s): F52.0 - Hypoactive sexual desire disorder (4) Daytime sleepiness: Code(s): R40.0 - Somnolence Plan Recent testosterone results reviewed with the patient today as noted above. Patient reports somewhat improvement in erections with 10 mg of Cialis; will continue Patient otherwise denies any urinary issues or concerns at this time Discussed at length importance of weight loss, brisk walking, and adequate sleep to assist with improvement in erections, testosterone levels, and overall health and well-being. Discussed at length importance of compliance with CPAP machine as well as managing diabetes for improvement in erections, testosterone levels, and overall health and well-being. Testosterone ordered; educated patient to obtain from pharmacy (testosterone and syringes) and follow-up with nursing in 1-2 weeks for injection teaching with supplies and medication to be brought to office day of nursing appointment. Follow-up in 3 months with labs to be completed prior; or sooner with any issues, concerns, and or questions. Orders: Orders Testosterone, Total 3 Months E29.1 - Testicular hypofunction Complete Blood Count no Diff 3 Months E29.1 - Testicular hypofunction Medications: New testosterone cypionate (Depo-Testosterone) 200 mg IM Q2W 2 mL 5RF 4 weeks [id number] syringe with needle (BD Luer-Janet Syringe) As directed 30 ea 0RF E29.1 - Test icular hypofunction needle (disp) 18 G (BD Regular Bevel [place]) As directed 30 ea 0RF E29.1 - Testicular hypofunction Patient Instructions: The patient had an opportunity to ask questions regarding the treatment plan. All questions were answered. Physical exam, labs, and imaging were discussed and reviewed in detail. As well as risks, benefits, and discussion of treatment choices. No major barriers to understanding were identified. The patient expressed understanding and agreement with the above treatment plan. The patient was made aware they should contact our office by phone for worsening of their current condition, the appearance of new symptoms, or with any questions or concerns. Compliance is encouraged with any medications and follow up testing that is ordered. It is a privilege to be allowed the opportunity to participate in? your urological care.? Again, if you have any questions or concerns If you have any questions or concerns please do not hesitate to contact me. The office is [phone]. This note is constructed using voice recognition software. While every effort has been made to ensure accuracy cup machine operator errors may have been included. Yours sincerely, [facility] Telehealth Location of provider rendering services: practice address Location of patient: address on file Patient Identification confirmed using: Name, : Yes Telehealth method: voice only Patient verbally consented to treatment: Yes Patient verbally consented to billing insurance company: Yes Patient informed of any privacy concerns related to visit: Yes Minutes spent on Phone/Video with Pt.: 20 Coding Level of Care Code Tele Est Pt Level 4 (20214) Diagnoses Hypogonadism in male E29.1 Erectile dysfunction associated with type 2 diabetes mellitus E11.69; N52.1 Lack of libido F52.0 Daytime sleepiness R40.0
== END 2023-03-24 15:55 | disposition home or self-care (01) ==
LOC: HO.HUSH 15:28
PROVIDERS: PCP Internal Medicine; Visit Provider Nurse Practitioner Family
DX: E29.1 Testicular hypofunction (principal); N52.1 Erectile dysfunction due to diseases classified elsewhere; F52.0 Hypoactive sexual desire disorder; R40.0 Somnolence; E11.69 Type 2 diabetes mellitus with other specified complication
CPT/HCPCS: 99442

== ENCOUNTER → 2023-03-24 15:28 | Outpatient (BNVA) | payer OTHER, SELFPAY | PROVIDERS: PCP Internal Medicine; Visit Provider Nurse Practitioner Family ==

== ENCOUNTER 2023-04-21 13:55 | Outpatient (AMB) | payer OTHER, SELFPAY ==
--- NOTE | 2023-04-21 13:58 | A.OFFVIS_ITS ---
Intake Vital Signs 04/21/23 14:01 Height 5 ft 4 in Weight 183 lb 6 oz BMI 31.5 BP 130/76 Blood Pressure Location Rt brachial Position Sitting Pulse 81 Pulse Source Pulse Oximeter Pulse Oximetry (%) 94 Oxygen Delivery Method Room Air Intake Visit Reasons: 3m follow up - LVM Intake Note: pt presents todat for REGLA fup. States he doesnt use machine, says asthma doesnt let him use it Allergies ibuprofen [From MOTRIN] Allergy (Intermediate, Verified 04/21/23 14:03) KIDNEY INJURY tramadol [TRAMADOL] Allergy (Mild, Verified 04/21/23 14:03) ITCHING Motrin Allergy (Mild, Uncoded 03/27/23 22:07) rash HPI HPI Comments History of Present Illness Details 68 y/o male patient presents for follow up REGLA on BiPAP. Pt's home sleep study result was significant for severe degree of sleep apnea and hypoxemia. The AHI was 34/hr and oxygen nikki was 62%. The patient underwent titration study, titrated on CPAP 5-58meF4O and BiPAP 15/10-20/11. The breathing stabilized on BiPAP 20/11. The oxygen remained in mid 80s. A short run of V tach was seen. He did not tolerate with previous CPAP. Pt started BiPAP 20/11. The compliance and therapy response (01/13/23-04/12/23) reviewed. The usage days 8 days and the average usage hours 3 hrs and 50 min. The AHI was 3/hr. Pt reports that he has asthma, and has more asthma attack after using BiPAP. Using BiPAP makes his mouth and throat very dry and difficulty breathing. He can't sleep with CPAP, he only sleeps 2 hrs. [facility] Medical History (Updated 04/21/23 @ 14:16 by Jack Daugherty CNP) Hyperlipidemia Fibromatosis Dysphagia Anxiety Cervical radiculitis Hypogonadism in male Erectile dysfunction due to diseases classified elsewhere Anal fistula Diverticulosis of large intestine without hemorrhage Diabetes mellitus Finger amputee Pacemaker High cholesterol Hypokalemia HTN (hypertension) Surgical History History of surgery History of surgery on arm Family History Father Stroke Maternal Uncle Diabetes Mother Asthma Diabetes Arthritis Social History Household Members: None Housing: Apartment Alcohol intake: current Alcohol intake frequency: a few times a month Alcohol type: hard liquor Patient Tobacco Use Status: Former Tobacco user Quit Date: 47 years ago Current occupational status: disabled Review of Systems Const All systems reviewed & are unremarkable except as noted in HPI and below ENT Reports Normal hearing present Neuro Reports Normal hearing present Physical Exam Vital Signs: Last Vital Signs Pulse 81 04/21/23 14:01 BP 130/76 04/21/23 14:01 Pulse Ox 94 04/21/23 14:01 Oxygen Delivery Method Room Air 04/21/23 14:01 BMI result Body Mass Index 31.5 Const General: cooperative and tired appearing Nutritional Appearance: overweight Orientation/consciousness: patient oriented x3 Neck Neck: Yes full ROM and Yes supple Resp Effort & Inspection: normal respiratory effort and able to speak in complete sentences Neuro General: patient oriented x3 and moves all extremities Cranial nerves: Yes Normal facial strength present, Yes Midline tongue present, Yes Symmetric palate elevation present, Yes Normal hearing present, Yes Ability to bilaterally rotate head present and Yes Ability to bilaterally elevate shoulders present Cognition (Neuro): normal cognition Psych Appearance: grossly normal Mental Status: mental status grossly normal Speech and movement: Normal speech and movement present Affect: normal affect Attitude: cooperative Assessment & Plan Assessment & Plan (1) Asthma: Code(s): J45.909 - Unspecified asthma, uncomplicated Plan Refer patient to [facility]yster opener for asthma evaluation and REGLA treatment. Orders: Referrals Pulmonology Referral G47.33 - Obstructive sleep apnea (adult) (pediatric), J45.909 - Unspecified asthma, uncomplicated Coding Level of Care Code Est Pt Level 3 (37714) Diagnoses Asthma J45.909
[2023-04-21 14:01] VITALS: BP 130/76; PULSE 81; O2SAT 94; BMI 31.5
== END 2023-04-21 14:18 | disposition home or self-care (01) ==
PROVIDERS: Visit Provider Nurse Practitioner Family
DX: J45.909 Unspecified asthma, uncomplicated (principal)
CPT/HCPCS: 99213

== ENCOUNTER → 2023-04-21 13:55 | Outpatient (BNVA) | payer OTHER, SELFPAY | PROVIDERS: Visit Provider Nurse Practitioner Family | DX: J45.909 Unspecified asthma, uncomplicated (principal); G47.33 Obstructive sleep apnea (adult) (pediatric) | CPT/HCPCS: 99212 ==

== ENCOUNTER → 2023-07-19 09:47 | Outpatient (BNVA) | payer OTHER, SELFPAY | PROVIDERS: PCP Internal Medicine; Visit Provider Nurse Practitioner Family ==

== ENCOUNTER 2023-09-08 11:19 | Outpatient (REF) | payer OTHER, SELFPAY ==
[2023-09-08 11:57] LABS: Hematocrit 43.3 % (42.0-52.0); Hemoglobin 13.9 g/dl (14.0-18.0); Mean Corpuscular HGB Conc 32.1 g/dl (31.0-36.0); Mean Corpuscular Hemoglobin 30.4 pg (27.0-33.0); Mean Corpuscular Volume 94.7 fL (80.0-98.0); Mean Platelet Volume 9.6 fL (9.4-12.4); Platelet Count 349 X10*3/uL (160-400); Red Blood Count 4.57 X10*6/uL (4.60-5.80); Red Cell Distribution Width 13.7 % (11.0-16.0); White Blood Count 9.5 X10*3/uL (4.8-10.8)
[2023-09-08 12:55] LABS: PSA,Total (Free>4and<10) 2.97 ng/mL (0.00-4.00)
[2023-09-13 16:04] LABS: Testosterone, Total 392 ng/dL (250-1100)
== END 2023-09-08 11:20 | disposition home or self-care (01) ==
LOC: HO.LAB 11:19
PROVIDERS: PCP Internal Medicine; Visit Provider Nurse Practitioner Family
DX: Z12.5 Encounter for screening for malignant neoplasm of prostate (principal); E29.1 Testicular hypofunction
CPT/HCPCS: 36415; 84153; 84402; 84403; 85027

== ENCOUNTER 2023-09-29 12:50 | Outpatient (AMB) | payer OTHER, SELFPAY ==
--- NOTE | 2023-09-29 13:00 | A.OFFVIS_ITS ---
Intake Intake Visit Reasons: 3 month follow up/ labs(set) Intake Note: Patient is present for tele visit follow up labs/erectile dysfunction Free testosterone: 67 Testosterone total: 392 PSA: 2.97 Urology Medications: tadalafil, xyosted Blood Thinner: Aspirin low dose Patient stated he uses Aspirin as needed for chest pain. Novelty Balloon Assembler And Packer Required: Yes Novelty Balloon Assembler And Packer Name: KEVIN HAINES-CMI Accompanied by: Self / Same As Patient Allergies ibuprofen [From MOTRIN] Allergy (Intermediate, Verified 09/29/23 14:09) KIDNEY INJURY tramadol [TRAMADOL] Allergy (Mild, Verified 09/29/23 14:09) ITCHING Motrin Allergy (Mild, Uncoded 09/29/23 14:09) rash Medication List - Last Reconciled 09/29/23 by BRAYDEN Nunez-VAN acetaminophen (Tylenol Extra Strength) 1,000 mg (2 x 500 mg) PO QID PRN albuterol sulfate 90 mcg/actuation (Ventolin HFA) 0 mcg inhalation alcohol swabs (Alcohol Prep Pads) 0 pad topical amlodipine 5 mg PO DAILY aspirin 81 mg PO DAILY PRN blood sugar diagnostic (FreeStyle Lite Strips) As directed blood-glucose meter (FreeStyle [place] Lite kit) As directed chlorthalidone 25 mg PO DAILY clonazepam 0.5 mg PO ONCE PRN fluticasone propionate 220 mcg/actuation (Flovent HFA) 2 puffs inhalation BID glipizide ER 2.5 mg PO QAM ketotifen fumarate 0.025%(0.035%) 1 drp ophthalmic (eye) BID PRN lancets (FreeStyle Lancets) As directed metformin 500 mg PO BID metoprolol succinate ER 100 mg PO DAILY montelukast 10 mg PO BEDTIME multivitamin (Multiple Vitamins tablet) 1 tab PO DAILY needle (disp) 18 G (BD Regular [place]) As directed pantoprazole 40 mg PO DAILY sacubitril-valsartan 24-26 mg (Entresto) 1 tab PO BID syringe with needle (BD Luer-Janet Syringe) As directed tadalafil 10 mg PO DAILY 90 days testosterone enanthate (Xyosted) 50 mg (0.5 mL) subcut QWEEK 4 weeks tramadol 50 mg PO Q8H PRN ubidecarenone-omega 3-vit E 25-150-200 mg-mg-unit (Co Z-[id number] E-Fish Oil) 1 cap PO DAILY zolpidem 10 mg PO BEDTIME HPI HPI Comments History of Present Illness Details Fabrice is a pleasant 68 year old male patient of Dr. Emery. He has a PMH of anal fistula, anxiety, asthma, cervical radiculitis, diabetes mellitus, diverticulosis, dysphagia, fibromatosis, finger amputee, hypercholesteremia, sleep apnea, hypertension, hyperlipidemia, hypogonadism, hypokalemia, and pacemaker. He presents to the office today for follow-up of his erectile dysfunction in the setting of diabetes and hypogonadism in the setting of obstructive sleep apnea. Since his last office visit here approximately 6 months ago patient was switched over to Zyosted given variability in labs and patient was reporting continuation of fatigue and moodiness. In discussion with the patient today he reports feeling significantly better with Zyosted. Recent CBC, PSA, and testosterone labs reviewed with the patient today. PSA: 03/05 2.3, 09/06 3.0 Total Testoserone: 08/04 169, 03/05 190, 03/05 174, 09/06 392 Free Testosterone: 08/04 25.9, 03/05 28.9, 03/05 26.1, 09/06 67.0 H&H: 13.9/43.3 Patient reports to be having manageable erections on 10 mg of Cialis. Discussed at length the importance of managing diabetes for improvement in erections, testosterone levels, and overall health and well being. Also discussed importance of compliance with CPAP machine for improvement in erections, testosterone levels, and overall health and well being. When asked patient denies any urinary issues or concerns. He denies urinary urgency, urinary frequency, incontinence, nocturia, hematuria, dysuria, foul smelling urine, changes to urinary stream, flank pain, fever, and or chills. He is happy with his current voiding parameters. Erectile dysfunction Diabetic Progressive Failed on demand medications Current therapy tadalafil 10 mg daily Multiple cardiovascular risk factors - hypertension, dyslipidemia, cardiomyopathy Investigations - 08/04 T 170 F 26 HBA1c 6.9 PFSH Medical History Hyperlipidemia Fibromatosis Dysphagia Anxiety Cervical radiculitis Hypogonadism in male Erectile dysfunction due to diseases classified elsewhere Anal fistula Diverticulosis of large intestine without hemorrhage Diabetes mellitus Finger amputee Pacemaker High cholesterol Hypokalemia HTN (hypertension) Surgical History History of surgery History of surgery on arm Family History Father Stroke Maternal Uncle Diabetes Mother Asthma Diabetes Arthritis Social History Household Members: None Housing: Apartment Alcohol intake: current Alcohol intake frequency: a few times a month Alcohol type: hard liquor Patient Tobacco Use Status: Former Tobacco user Quit Date: 47 years ago Current occupational status: disabled Review of Systems Const Reports as per HPI Eyes Reports no additional complaints ENT Reports no additional complaints Card Reports as per HPI Resp Reports as per HPI GI Reports as per HPI Reports as per HPI Musc Reports as per HPI Neuro Reports as per HPI Psych Reports as per HPI Endo Reports as per HPI Physical Exam Const General: cooperative Orientation/consciousness: patient oriented x3 Resp Effort & Inspection: able to speak in complete sentences Neuro General: patient oriented x3 Psych Speech and movement: Clear speech present Attitude: cooperative Thought process: Normal thought process present Thought content: Normal thought content present Insight: Fair insight present (Psych) Judgement: Fair judgement present (Psych) Assessment & Plan Assessment & Plan (1) Hypogonadism in male: Code(s): E29.1 - Testicular hypofunction (2) Erectile dysfunction associated with type 2 diabetes mellitus: Code(s): E11.69 - Type 2 diabetes mellitus with other specified complication; N52.1 - Erectile dysfunction due to diseases classified elsewhere (3) Lack of libido: Code(s): F52.0 - Hypoactive sexual desire disorder (4) Daytime sleepiness: Code(s): R40.0 - Somnolence Plan Recent labs reviewed with results reviewed with the patient today as noted above. Continue 10 mg of Cialis as prescribed; refill provided Continued Zyosted as prescribed; refill provided Patient otherwise denies any urinary issues or concerns at this time. He is happy with his current voiding parameters. Discussed at length importance of weight loss, brisk walking, and adequate sleep to assist with improvement in erections, testosterone levels, and overall health and well-being. Discussed at length importance of compliance with CPAP machine as well as managing diabetes for improvement in erections, testosterone levels, and overall health and well-being. Will obtain CBC, Testosterone free and total and PSA in 3 months Follow-up in 3 months with labs to be completed prior; or sooner with any issues, concerns, and or questions. Orders: Orders AMB Urinalysis Automated 09/29/23 R33.9 - Retention of urine, unspecified Complete Blood Count no Diff 3 Months E29.1 - Testicular hypofunction Testosterone, Free/Total 3 Months E11.69 - Type 2 diabetes mellitus with other specified complication, N52.1 - Erectile dysfunction due to diseases classified elsewhere Prostate Specific Antigen 3 Months E11.69 - Type 2 diabetes mellitus with other specified complication, E29.1 - Testicular hypofunction, F52.0 - Hypoactive sexual desire disorder, N52.1 - Erectile dysfunction due to diseases classified elsewhere Medications: Refilled tadalafil 10 mg PO DAILY 90 days 90 tabs 1RF sexual activity E11.69 - Type 2 diabetes mellitus with other specified complication, N52.1 - Erectile dysfunction due to diseases classified elsewhere testosterone enanthate (Xyosted) 50 mg (0.5 mL) subcut QWEEK 4 weeks 2 mL 5RF Patient Instructions: The patient had an opportunity to ask questions regarding the treatment plan. All questions were answered. Physical exam, labs, and imaging were discussed and reviewed in detail. As well as risks, benefits, and discussion of treatment choices. No major barriers to understanding were identified. The patient expressed understanding and agreement with the above treatment plan. The patient was made aware they should contact our office by phone for worsening of their current condition, the appearance of new symptoms, or with any questions or concerns. Compliance is encouraged with any medications and follow up testing that is ordered. It is a privilege to be allowed the opportunity to participate in? your urological care.? Again, if you have any questions or concerns If you have any questions or concerns please do not hesitate to contact me. The office is [phone]. This note is constructed using voice recognition software. While every effort has been made to ensure accuracy kitchen bath designer errors may have been included. Yours sincerely, FILEMON Nunez Coding Level of Care Code Est Pt Level 3 (67809) Diagnoses Hypogonadism in male E29.1 Erectile dysfunction associated with type 2 diabetes mellitus E11.69; N52.1 Lack of libido F52.0 Daytime sleepiness R40.0
== END 2023-09-29 13:28 | disposition home or self-care (01) ==
PROVIDERS: PCP Internal Medicine; Visit Provider Nurse Practitioner Family
DX: E29.1 Testicular hypofunction (principal); E11.69 Type 2 diabetes mellitus with other specified complication; N52.1 Erectile dysfunction due to diseases classified elsewhere; F52.0 Hypoactive sexual desire disorder; R40.0 Somnolence
CPT/HCPCS: 99213

== ENCOUNTER → 2023-09-29 12:50 | Outpatient (BNVA) | payer OTHER, SELFPAY | PROVIDERS: PCP Internal Medicine; Visit Provider Nurse Practitioner Family | DX: E29.1 Testicular hypofunction (principal); E11.69 Type 2 diabetes mellitus with other specified complication; N52.1 Erectile dysfunction due to diseases classified elsewhere; F52.0 Hypoactive sexual desire disorder; R40.0 Somnolence | CPT/HCPCS: 99212 ==

== ENCOUNTER 2023-12-22 12:35 | Outpatient (REF) | payer OTHER, SELFPAY ==
[2023-12-22 14:03] LABS: Hematocrit 50.8 % (42.0-52.0); Hemoglobin 16.4 g/dl (14.0-18.0); Mean Corpuscular HGB Conc 32.3 g/dl (31.0-36.0); Mean Corpuscular Hemoglobin 30.5 pg (27.0-33.0); Mean Corpuscular Volume 94.4 fL (80.0-98.0); Mean Platelet Volume 9.7 fL (9.4-12.4); Platelet Count 314 X10*3/uL (160-400); Red Blood Count 5.38 X10*6/uL (4.60-5.80); Red Cell Distribution Width 13.9 % (11.0-16.0); White Blood Count 9.8 X10*3/uL (4.8-10.8)
[2023-12-22 15:12] LABS: Prostate Specific Antigen 4.07 ng/mL (<0.05-4.0)
[2023-12-28 16:43] LABS: Testosterone, Free 152.8 pg/mL (35.0-155.0); Testosterone, Total 564 ng/dL (250-1100)
== END 2023-12-22 12:36 | disposition home or self-care (01) ==
LOC: HO.LAB 12:35
PROVIDERS: PCP Internal Medicine; Visit Provider Nurse Practitioner Family
DX: Z12.5 Encounter for screening for malignant neoplasm of prostate (principal); E29.1 Testicular hypofunction; E11.69 Type 2 diabetes mellitus with other specified complication; F52.0 Hypoactive sexual desire disorder; N52.1 Erectile dysfunction due to diseases classified elsewhere
CPT/HCPCS: 36415; 84153; 84402; 84403; 85027

== ENCOUNTER 2024-01-01 13:30 | Outpatient (AMB) | payer OTHER, SELFPAY ==
--- NOTE | 2024-01-01 13:34 | MHC.OFFVIS ---
Vital Signs 01/01/24 13:35 01/01/24 14:16 Height 5 ft 4 in Weight 191 lb 12.835 oz BMI 32.9 BP 79/40 L 90/60 Blood Pressure Location Lt brachial Lt brachial Position Sitting Sitting Pulse 81 76 Pulse Source Palpation Intake Visit Reasons: Epigastric Pains Intake Note: Fabrice presents in the office as a new patient for epigastric pains. CC: sometime she gets pains in his stomach and when he has it it can get very severe. Right now he has pains in his ribs and thinks they may be broken he fell 15 days ago. Paint Maker Required: No Allergies ibuprofen [From MOTRIN] Allergy (Intermediate, Verified 01/01/24 15:13) KIDNEY INJURY tramadol [TRAMADOL] Allergy (Mild, Verified 01/01/24 15:13) ITCHING Motrin Allergy (Mild, Uncoded 01/01/24 15:13) rash HPI Comments Details: A 68 y/o DM male- multiple comorbid illness- referred for abdominal pain and nausea- he says he had nausea- and pain after eating- a few months ago- he has been taking pantoprazole but the pain has improved-he has not had any further issues with his diet He tells me that he has had 2 colonoscopies-not sure when or where. He says he feel about 3 weeks ago- and fx ribs- he is going-to see pcp-however does not know when, but soon per his report He has rib pain-- taking tylenol- does nothing- pain has not improved- he has increased pain when he coughs- jordan can move left arm-and other times he is able to raise it above his head as well as back in 4 - but unable to take a deep breath-he has SOBOE-worse when he climbs stairs He wants to go to ED- He has not been evaluated-not seen by U/c or walk in Appetite is good No bowel issues He says he has no longer a diabetic-reviewed medication list -however taking farxiga- metformin and glipizide [facility] Medical History Hyperlipidemia Fibromatosis Dysphagia Anxiety Cervical radiculitis Hypogonadism in male Erectile dysfunction due to diseases classified elsewhere Anal fistula Diverticulosis of large intestine without hemorrhage Diabetes mellitus Finger amputee Pacemaker High cholesterol Hypokalemia HTN (hypertension) Surgical History History of surgery History of surgery on arm Family History Father Stroke Maternal Uncle Diabetes Mother Asthma Diabetes Arthritis Social History Household Members: None Housing: Apartment Alcohol intake: current Alcohol intake frequency: a few times a week Alcohol type: hard liquor Patient Tobacco Use Status: Former Tobacco user Quit Date: 47 years ago Smoked in Last 30 Days: No Use of substances other than those prescribed or required for medical reasons: No Advance Directives: No Advance Directives Information Provided: No Do you have a plan to hurt others: No Plan Current occupational status: disabled Review of Systems Const All systems reviewed & are unremarkable except as noted in HPI and below Card Denies chest pain, Reports dyspnea and Reports dyspnea on exertion Resp Reports dyspnea and Reports dyspnea on exertion GI Denies heartburn, Denies nausea and Denies vomiting Psych Reports anxiety Physical Exam Vital Signs: Last Vital Signs Pulse 76 01/01/24 14:16 BP 90/60 01/01/24 14:16 BMI result Body Mass Index 32.9 PE not completed Const General: No comfortable Orientation/consciousness: patient oriented x3 Limitations: no limitations Eyes Conjunctivae: conjunctival abnormal (Injected no drainage) bilateral Resp Other: unable to perform Effort & Inspection: normal respiratory effort and able to speak in complete sentences Neuro General: patient oriented x3 Psych Mental Status: mental status grossly normal Speech and movement: Clear speech present Affect: Labile affect present Attitude: cooperative Thought content: Normal thought content present Assessment & Plan Assessment & Plan (1) GERD (gastroesophageal reflux disease): Code(s): K21.9 - Gastro-esophageal reflux disease without esophagitis Category: Medical Plan: Improved with PPI Dietary modification (2) Rib pain on right side: Comment: Unable to complete physical exam-unable to take deep breath, uncomfortable-pacing Code(s): R07.81 - Pleurodynia Category: Medical Plan: To ED-likely get image (3) Poor historian: Code(s): Z78.9 - Other specified health status Category: Medical Plan: Slow detail Plan TO ED-he will call to rule follow-up for GI Patient Instructions: To ED Coding Level of Care Code New Pt Level 4 (79068) Diagnoses GERD (gastroesophageal reflux disease) K21.9 Rib pain on right side R07.81 Poor historian Z78.9 Time Spent (min) 15 Comment To ED
[2024-01-01 13:35] VITALS: BP 79/40; PULSE 81; BMI 32.9
[2024-01-01 14:16] VITALS: BP 90/60; PULSE 76
== END 2024-01-01 15:13 | disposition home or self-care (01) ==
PROVIDERS: PCP Internal Medicine; Visit Provider Physician Assistant
DX: K21.9 Gastro-esophageal reflux disease without esophagitis (principal); R07.81 Pleurodynia; Z78.9 Other specified health status
CPT/HCPCS: 99204

== ENCOUNTER → 2024-01-01 13:30 | Outpatient (BNVA) | payer OTHER, SELFPAY | PROVIDERS: PCP Internal Medicine; Visit Provider Physician Assistant ==

== ENCOUNTER 2024-01-01 14:22 | Emergency (ER) | payer OTHER, SELFPAY ==
--- NOTE | ~2024-01-01 | XR_ITS ---
EXAMINATION: XR RIBS, RIGHT CLINICAL INFORMATION: Right rib pain COMPARISON: Chest x-ray on 01/22/2021 TECHNIQUE: 3 views of the right ribs, PA chest x-ray were obtained. INDICATION: Right chest and rib pain FINDINGS: PA chest x-ray, frontal and oblique x-rays of Right ribs show normal cardiac size and prominent pulmonary vascularity. Diffuse vascular and interstitial prominence is seen. There is persistent effacement of left lateral costophrenic angle. Left subclavian approach triple chamber combined implantable cardiac defibrillator and pacemaker is seen with pacemaker wires ending in expected location of right atrium and coronary sinus, defibrillator wire ending in expected location of right ventricle. No pneumothorax is seen. The visualized Right ribs are intact without focal lesion. XR/XR ribs RT min 3V w CXR1V IMPRESSION: 1. Recurrent Pulmonary vascular congestion. 2. Persistent effacement of left lateral costophrenic angle, compatible with chronic lateral left lung base atelectasis or small left pleural effusion. 3. No interval change in position of pacemaker wires and defibrillator wire. 4. No evidence of right rib fracture.
--- NOTE | ~2024-01-01 | CT_ITS ---
EXAMINATION: CT CHEST WITHOUT CONTRAST CLINICAL INFORMATION: Rib pain after fall COMPARISON: Rib radiographs performed immediately prior CT abdomen pelvis 03/09/2018 Thoracic spine radiographs 01/22/2021 TECHNIQUE: Multidetector volumetric CT imaging of the chest was done. Axial MIP volume rendering provided. Sagittal and coronal reformatted images were obtained. This CT examination was performed using dose optimization techniques as appropriate, variously including the following: *Automated exposure control *Adjustment of mA and/or kV according to patient size (this includes techniques or standardized protocols for targeted exams where dose is matched to indication/reason for exam; i.e. extremities or head) *Use of iterative reconstruction technique DLP: 314 mGy-cm FINDINGS: COMPUTER SYSTEMS INFORMATION DIRECTOR: A left chest wall 3-lead pacemaker is present. LUNGS: Some left basilar atelectasis is present. Mild diffuse bronchial thickening is seen. There is a small perifissural lymph node seen in the right upper lobe measuring 4 mm (5:217). The lungs are otherwise clear with no evidence of inflammation or concerning nodules. MEDIASTINUM: The mediastinum is normal. CORONARY ARTERY CALCIFICATION: None visualized on this study. PLEURA: There is no pleural effusion. No pleural mass or thickening. AXILLA: No lymphadenopathy. 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 The pancreatic tail and left kidney are in the splenic fossa. OSSEOUS STRUCTURES: Mild degenerative changes are present. Some minimal compression of an upper thoracic vertebral body unchanged when compared to the chest CT from 03/15/2010. CT/CT chest wo IV con IMPRESSION: 1. No evidence of a rib fracture. 2. Incidental note made of mild bronchial thickening, 4 mm right upper lobe perifissural lymph node and unchanged mild compression of an upper thoracic vertebral body. Fleischner guidelines were followed.
[2024-01-01 15:11] VITALS: BP 116/71; PULSE 78; RESP 16; TEMP 36.4; O2SAT 94; BMI 33.1
--- NOTE | 2024-01-01 15:11 | ED_ITS ---
HPI - General Adult General Chief complaint: Fall Stated complaint: Fall/Broken R rib? Time Seen by Provider: 01/01/24 22:06 Source: patient Mode of arrival: ambulatory Limitations: no limitations History of Present Illness ED Provider: Dr Interiano HPI narrative: Patient apparently had a mechanical fall 2 weeks ago tripped and fell landed on his fist on the right side complaining of pain in the right lower ribs since then pain gets worse when he takes a deep breath cough no shortness a breath no other injuries Related Data Home Medications ?Medication ?Instructions ?Recorded ?Confirmed albuterol sulfate 90 mcg/actuation 0 mcg inhalation 05/03/22 09/29/23 aerosol inhaler (Ventolin HFA) chlorthalidone 25 mg tablet 25 mg PO DAILY 05/03/22 09/29/23 fluticasone propionate 220 2 puff inhalation BID 05/03/22 09/29/23 mcg/actuation HFA aerosol inhaler (Flovent HFA) glipizide 2.5 mg tablet, extended 2.5 mg PO QAM 05/03/22 09/29/23 release 24 hr ketotifen fumarate 0.025 % (0.035 1 drp ophthalmic (eye) BID PRN 05/03/22 09/29/23 %) eye drops allergies metformin 500 mg tablet 500 mg PO BID 05/03/22 09/29/23 metoprolol succinate 100 mg 100 mg PO DAILY 05/03/22 09/29/23 tablet,extended release 24 hr montelukast 10 mg tablet 10 mg PO BEDTIME 05/03/22 09/29/23 pantoprazole 40 mg tablet,delayed 40 mg PO DAILY 05/03/22 09/29/23 release zolpidem 10 mg tablet 10 mg PO BEDTIME 05/03/22 09/29/23 alcohol swabs (Alcohol Prep Pads) 0 pad topical 05/04/22 09/29/23 blood sugar diagnostic (FreeStyle #10 ea 05/04/22 09/29/23 Lite Strips) blood-glucose meter (FreeStyle #1 ea 05/04/22 09/29/23 [place] Lite kit) lancets 28 gauge (FreeStyle #100 ea 05/04/22 09/29/23 Lancets) clonazepam 0.5 mg tablet 0.5 mg PO ONCE PRN 07/05/22 09/29/23 aspirin 81 mg chewable tablet 81 mg PO DAILY PRN 09/29/23 09/29/23 multivitamin (Multiple Vitamins 1 tab PO DAILY 09/29/23 09/29/23 tablet) ubidecarenone-omega 3-vit E 25 1 cap PO DAILY 09/29/23 09/29/23 mg-150 (90-60) mg-200 unit capsule (Co P-30-Posemii E-Fish Oil) amlodipine 10 mg tablet 10 mg PO DAILY 01/01/24 dapagliflozin propanediol 10 mg 10 mg PO DAILY 01/01/24 tablet (Farxiga) fluticasone furoate 200 1 inh inhalation DAILY 01/01/24 mcg/actuation blister powder for inhalation (Arnuity Ellipta) sacubitril 49 mg-valsartan 51 mg 1 tab PO BID 01/01/24 tablet (Entresto) Previous Rx's ?Medication ?Instructions ?Recorded acetaminophen 500 mg tablet 1,000 mg (2 x 500 mg) PO QID PRN 01/22/21 (Tylenol Extra Strength) fever or pain #14 tabs needle (disp) 18 G 18 gauge x 1 #30 ea 03/24/23 1/2 (BD Regular Bevel [place]) syringe with needle 3 mL 22 gauge #30 ea 03/24/23 x 1 (BD Luer-Janet Syringe) tadalafil 10 mg tablet 10 mg PO DAILY sexual activity 90 09/30/23 days #90 tabs testosterone enanthate 50 mg/0.5 50 mg (0.5 mL) subcut QWEEK 4 09/30/23 mL subcutaneous auto-injector weeks #2 mL (Xyosted) oxycodone 5 mg tablet 5 mg PO Q6H PRN pain #20 tabs 01/01/24 Allergies Allergy/AdvReac Type Severity Reaction Status Date / Time ibuprofen [From MOTRIN] Allergy Intermediate KIDNEY Verified 01/01/24 15:13 INJURY tramadol [TRAMADOL] Allergy Mild ITCHING Verified 01/01/24 15:13 Motrin Allergy Mild rash Uncoded 01/01/24 15:13 Review of Systems Review of Systems: Yes all other systems are reviewed and are negative PMFSH Past Medical History Medical History Hyperlipidemia Fibromatosis Dysphagia Anxiety Cervical radiculitis Hypogonadism in male Erectile dysfunction due to diseases classified elsewhere Anal fistula Diverticulosis of large intestine without hemorrhage Diabetes mellitus Finger amputee Pacemaker High cholesterol Hypokalemia HTN (hypertension) Surgical History History of surgery History of surgery on arm Family History Family History Father Stroke Maternal Uncle Diabetes Mother Asthma Diabetes Arthritis Social History Social History Household Members: None Housing: Apartment Alcohol intake: current Alcohol intake frequency: a few times a week Alcohol type: hard liquor Patient Tobacco Use Status: Former Tobacco user Quit Date: 47 years ago Smoked in Last 30 Days: No Use of substances other than those prescribed or required for medical reasons: No Advance Directives: No Advance Directives Information Provided: No Do you have a plan to hurt others: No Plan Current occupational status: disabled Physical Exam ED Vital Signs: Vital Signs - 24 hr 01/01/24 15:11 01/01/24 21:20 01/01/24 21:32 Temperature 97.6 F 97.6 F 98.0 F Pulse Rate 78 77 74 Respiratory Rate 16 18 16 Blood Pressure 116/71 125/79 124/74 Pulse Oximetry 94 97 96 Oxygen Delivery Method Room Air Room Air Room Air BMI result Body Mass Index 33.1 Appearance: Alert. Oriented X3. No acute distress. ENT: Pharynx normal. Oral Mucosa moist Neck: Normal inspection. Neck supple. CVS: Normal heart rate and rhythm. Pulses normal. Respiratory: No respiratory distress. Equal air entry bilateral, prolonged expiration, local tenderness right 6th -7th rib right axillary area Abdomen: Soft and nontender. Bowel sounds are present, no mass palpable, no CVA tenderness Skin: Skin warm and dry. Normal skin color. Normal skin turgor. Extremities: No lower extremity edema. No calf tenderness Neuro: Oriented X 3. Course Course Course Narrative: This is an RME: Additional HPI, ROS, PE not included below will be deferred to primary provider. RME assessment and note performed by: Violet Torres PA-C This is a 68 y/o M, hx of hyperlipidemia, anxiety, diverticulosis, DM, HLD, HTN, who presents to the ER with complaints of right sided rib pain s/p mechanical fall which occured 2 weeks ago. He tripped and fell onto his right rib. Plan: xr ribs and chest ordered Medical Decision Making Medical Decision Making [facility] Narrative: Will discharge patient home on oxycodone CT scan negative for rib fracture no internal injury Differential Diagnosis Differential Diagnoses: The differential diagnosis associated with the presentation includes Rib fracture/rib contusion/lung contusion Independent Interpretation I performed an independent interpretation of an: Plain X-Ray and CT Scan Interpretation: No rib fracture Radiology Impression Discussion of test interpretation with radiology: I have reviewed the radiologist's reading. Discharge Plan Discharge Clinical Impression: Contusion of rib on right side Patient Disposition: Home, Self-Care Instructions: Rib Contusion (ED) Additional Instructions: Your CT scan is negative for rib fracture likely you have rib contusion from the fall take pain medication as prescribed for severe pain Prescriptions: New oxycodone 5 mg tablet 5 mg PO Q6H PRN (Reason: pain) Qty: 20 0RF Rx Instructions: Partial Fill upon patient request. No Action acetaminophen [Tylenol Extra Strength] 500 mg tablet 1,000 mg PO QID PRN (Reason: fever or pain) Qty: 14 0RF fluticasone propionate [Flovent HFA] 220 mcg/actuation HFA aerosol inhaler 2 puff inhalation BID zolpidem 10 mg tablet 10 mg PO BEDTIME ketotifen fumarate 0.025 % (0.035 %) drops 1 drp ophthalmic (eye) BID PRN (Reason: allergies) albuterol sulfate [Ventolin HFA] 90 mcg/actuation HFA aerosol inhaler 0 mcg inhalation pantoprazole 40 mg tablet,delayed release (DR/EC) 40 mg PO DAILY montelukast 10 mg tablet 10 mg PO BEDTIME metoprolol succinate 100 mg tablet extended release 24 hr 100 mg PO DAILY chlorthalidone 25 mg tablet 25 mg PO DAILY metformin 500 mg tablet 500 mg PO BID glipizide 2.5 mg tablet extended release 24hr 2.5 mg PO QAM clonazepam 0.5 mg tablet 0.5 mg PO ONCE PRN (DME) FreeStyle Lite Strips Strip See Rx Instructions .ROUTE BID Qty: 10 Rx Instructions: As directed alcohol swabs [Alcohol Prep Pads] Pads, Medicated 0 pad topical (DME) lancets [FreeStyle Lancets] 28 gauge misc See Rx Instructions .ROUTE BID Qty: 100 Rx Instructions: As directed (DME) blood-glucose meter [FreeStyle [place] Lite] Kit See Rx Instructions .ROUTE .MEDSUPPLY Qty: 1 Rx Instructions: As directed Co X-37-[id number] E-Fish Oil 25-150-200 mg-mg-unit capsule 1 cap PO DAILY multivitamin [Multiple Vitamins] Tablet 1 tab PO DAILY aspirin 81 mg tablet,chewable 81 mg PO DAILY PRN tadalafil 10 mg tablet 10 mg PO DAILY 90 Days Qty: 90 1RF Xyosted 50 mg/0.5 mL auto-injector 50 mg subcut QWEEK 28 Days Qty: 2 5RF (DME) BD Luer-Janet Syringe 3 mL 22 gauge x 1 syringe See Rx Instructions .MEDSUPPLY Qty: 30 0RF Rx Instructions: As directed (DME) BD Regular Bevel Underwood 18 gauge x 1 1/2 needle See Rx Instructions .MEDSUPPLY Qty: 30 0RF Rx Instructions: As directed Entresto 49-51 mg tablet 1 tab PO BID dapagliflozin propanediol [Farxiga] 10 mg tablet 10 mg PO DAILY Arnuity Ellipta 200 mcg/actuation blister with device 1 inh inhalation DAILY amlodipine 10 mg tablet 10 mg PO DAILY Print Language: Romanian
[2024-01-01 21:20] VITALS: BP 125/79; PULSE 77; RESP 18; TEMP 36.4; O2SAT 97
[2024-01-01 21:32] VITALS: BP 124/74; PULSE 74; RESP 16; TEMP 36.7; O2SAT 96
[2024-01-01] MEDS: oxyCODONE HCl Immed Release 5 MG TABLET PO (22:45)
[2024-01-01 22:49] VITALS: BP 124/72; PULSE 74; RESP 16; TEMP 36.7; O2SAT 96
== END 2024-01-01 22:49 | disposition home or self-care (01) ==
PROVIDERS: Emergency Provider Internal Medicine; PCP Internal Medicine
DX: S20.211A Contusion of right front wall of thorax, initial encounter (principal); W01.0XXA Fall on same level from slipping, tripping and stumbling without subsequent striking against object, initial encounter; Y93.9 Activity, unspecified; Y92.9 Unspecified place or not applicable; Y99.9 Unspecified external cause status
CPT/HCPCS: 71101; 71250; 99202; 99284

== ENCOUNTER 2024-01-05 09:14 | Outpatient (AMB) | payer OTHER, SELFPAY ==
--- NOTE | 2024-01-05 09:15 | MHC.OFFVIS ---
Intake Visit Reasons: Follow up labs Intake Note: Patient is present for tele visit follow up labs/erectile dysfunction Free testosterone: 152.8 Testosterone total: 564 PSA: 4.07 Urology Medications: tadalafil, xyosted Blood Thinner: Aspirin Patient stated he uses Aspirin as needed for chest pain. 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 Accompanied by: Self / Same As Patient Allergies ibuprofen [From MOTRIN] Allergy (Intermediate, Verified 01/05/24 09:18) KIDNEY INJURY tramadol [TRAMADOL] Allergy (Mild, Verified 01/05/24 09:18) ITCHING Motrin Allergy (Mild, Uncoded 01/05/24 09:18) rash Medication List - Last Reconciled 01/05/24 by BRAYDEN Nunez-VAN acetaminophen (Tylenol Extra Strength) 1,000 mg (2 x 500 mg) PO QID PRN albuterol sulfate 90 mcg/actuation (Ventolin HFA) 0 mcg inhalation alcohol swabs (Alcohol Prep Pads) 0 pad topical amlodipine 10 mg PO DAILY aspirin 81 mg PO DAILY PRN blood sugar diagnostic (FreeStyle Lite Strips) As directed blood-glucose meter (FreeStyle [place] Lite kit) As directed chlorthalidone 25 mg PO DAILY clonazepam 0.5 mg PO ONCE PRN dapagliflozin propanediol (Farxiga) 10 mg PO DAILY fluticasone furoate 200 mcg/actuation (Arnuity Ellipta) 1 inh inhalation DAILY fluticasone propionate 220 mcg/actuation (Flovent HFA) 2 puffs inhalation BID glipizide ER 2.5 mg PO QAM ketotifen fumarate 0.025%(0.035%) 1 drp ophthalmic (eye) BID PRN lancets (FreeStyle Lancets) As directed metformin 500 mg PO BID metoprolol succinate ER 100 mg PO DAILY montelukast 10 mg PO BEDTIME multivitamin (Multiple Vitamins tablet) 1 tab PO DAILY needle (disp) 18 G (BD Regular Bevel [place]) As directed oxycodone 5 mg PO Q6H PRN pantoprazole 40 mg PO DAILY sacubitril-valsartan 49-51 mg (Entresto) 1 tab PO BID syringe with needle (BD Luer-Janet Syringe) As directed tadalafil 10 mg PO DAILY 90 days testosterone enanthate (Xyosted) 50 mg (0.5 mL) subcut QWEEK 4 weeks ubidecarenone-omega 3-vit E 25-150-200 mg-mg-unit (Co Y-76-Xtpgefp E-Fish Oil) 1 cap PO DAILY zolpidem 10 mg PO BEDTIME HPI Comments Details: Fabrice is a pleasant 68 year old male patient of Dr. Emery. He has a PMH of anal fistula, anxiety, asthma, cervical radiculitis, diabetes mellitus, diverticulosis, dysphagia, fibromatosis, finger amputee, hypercholesteremia, sleep apnea, hypertension, hyperlipidemia, hypogonadism, hypokalemia, and pacemaker. He presents to the office today for follow-up of his erectile dysfunction in the setting of diabetes and hypogonadism in the setting of obstructive sleep apnea via telehealth. In discussion with the patient today he reports to be doing and feeling well. Recent labs reviewed with the patient today as noted and trended below. PSA: 03/05 2.3, 09/06 3.0, 01/04 4.1 Total Testoserone: 08/04 169, 03/05 190, 03/05 174, 09/06 392, 01/04 564 Free Testosterone: 08/04 25.9, 03/05 28.9, 03/05 26.1, 09/06 67.0, H&H: 09/06 13.9/43.3, 01/04 16.4/50.8 Patient reports to be having somewhat manageable erections on 10 mg of Cialis daily however at times does continue to be unable to obtain erections. Discussed at length the importance of managing diabetes for improvement in erections, testosterone levels, and overall health and well being. Also discussed importance of compliance with CPAP machine for improvement in erections, testosterone levels, and overall health and well being. When asked patient denies any urinary issues or concerns. He denies urinary urgency, urinary frequency, incontinence, nocturia, hematuria, dysuria, foul smelling urine, changes to urinary stream, flank pain, fever, and or chills. He is happy with his current voiding parameters. Erectile dysfunction Diabetic Progressive Failed on demand medications Current therapy tadalafil 10 mg daily Multiple cardiovascular risk factors - hypertension, dyslipidemia, cardiomyopathy Investigations - 08/04 T 170 F 26 HBA1c 6.9 PFSH Medical History Hyperlipidemia Fibromatosis Dysphagia Anxiety Cervical radiculitis Hypogonadism in male Erectile dysfunction due to diseases classified elsewhere Anal fistula Diverticulosis of large intestine without hemorrhage Diabetes mellitus Finger amputee Pacemaker High cholesterol Hypokalemia HTN (hypertension) Surgical History History of surgery History of surgery on arm Family History Father Stroke Maternal Uncle Diabetes Mother Asthma Diabetes Arthritis Social History Household Members: None Housing: Apartment Alcohol intake: current Alcohol intake frequency: a few times a week Alcohol type: hard liquor Patient Tobacco Use Status: Former Tobacco user Quit Date: 47 years ago Current occupational status: disabled Review of Systems Const Reports as per HPI Eyes Reports no additional complaints ENT Reports no additional complaints Card Reports as per HPI Resp Reports as per HPI GI Reports as per HPI Reports as per HPI Musc Reports as per HPI Neuro Reports as per HPI Psych Reports as per HPI Endo Reports as per HPI Physical Exam Const General: cooperative Resp Effort & Inspection: able to speak in complete sentences Psych Attitude: cooperative Thought process: Normal thought process present Thought content: Normal thought content present Insight: Fair insight present (Psych) Judgement: Fair judgement present (Psych) Telehealth Telehealth Telehealth Platform: [employer] Location of provider rendering services: practice address Location of patient: address on file Patient Identification confirmed using: Name, : Yes Telehealth method: voice only Patient verbally consented to treatment: Yes Patient verbally consented to billing insurance company: Yes Minutes spent on Phone/Video with Pt.: 15 Assessment & Plan Assessment & Plan (1) Hypogonadism in male: Code(s): E29.1 - Testicular hypofunction Category: Medical (2) Erectile dysfunction associated with type 2 diabetes mellitus: Code(s): E11.69 - Type 2 diabetes mellitus with other specified complication; N52.1 - Erectile dysfunction due to diseases classified elsewhere Category: Medical (3) Lack of libido: Code(s): F52.0 - Hypoactive sexual desire disorder Category: Medical (4) Daytime sleepiness: Code(s): R40.0 - Somnolence Category: Medical Plan Recent labs reviewed with results reviewed with the patient today as noted above; discussed slightly elevated PSA Will continue with surveillance monitoring at this time. Continue 10 mg of Cialis as prescribed; refill provided Discussed taking 10 mg p.r.n. 1 hour prior to sexual activity as well as daily dosing. Continued Zyosted as prescribed; refill provided Patient otherwise denies any urinary issues or concerns at this time. He is happy with his current voiding parameters. Discussed at length importance of weight loss, brisk walking, and adequate sleep to assist with improvement in erections, testosterone levels, and overall health and well-being. Discussed at length importance of compliance with CPAP machine as well as managing diabetes for improvement in erections, testosterone levels, and overall health and well-being. Will obtain CBC, Testosterone free and total and PSA in 3 months Follow-up in 3 months with labs to be completed prior; or sooner with any issues, concerns, and or questions. Orders: Orders Testosterone, Free/Total 3 Months E29.1 - Testicular hypofunction PSA,Total (Free>4and<10) 3 Months E29.1 - Testicular hypofunction Complete Blood Count no Diff 3 Months E29.1 - Testicular hypofunction Medications: Refilled testosterone enanthate (Xyosted) 50 mg (0.5 mL) subcut QWEEK 4 weeks 2 mL 5RF tadalafil 10 mg PO DAILY 90 days 90 tabs 1RF sexual activity E11.69 - Type 2 diabetes mellitus with other specified complication, N52.1 - Erectile dysfunction due to diseases classified elsewhere Patient Instructions: The patient had an opportunity to ask questions regarding the treatment plan. All questions were answered. Physical exam, labs, and imaging were discussed and reviewed in detail. As well as risks, benefits, and discussion of treatment choices. No major barriers to understanding were identified. The patient expressed understanding and agreement with the above treatment plan. The patient was made aware they should contact our office by phone for worsening of their current condition, the appearance of new symptoms, or with any questions or concerns. Compliance is encouraged with any medications and follow up testing that is ordered. It is a privilege to be allowed the opportunity to participate in? your urological care.? Again, if you have any questions or concerns If you have any questions or concerns please do not hesitate to contact me. The office is [phone]. This note is constructed using voice recognition software. While every effort has been made to ensure accuracy virtual recruiter errors may have been included. Yours sincerely, BRAYDEN Nunez-VAN Coding Level of Care Code Tele Est Pt Level 3 (69712) Diagnoses Hypogonadism in male E29.1 Erectile dysfunction associated with type 2 diabetes mellitus E11.69; N52.1 Lack of libido F52.0 Daytime sleepiness R40.0
== END 2024-01-05 11:18 | disposition home or self-care (01) ==
LOC: HO.HUSH 09:14
PROVIDERS: PCP Internal Medicine; Visit Provider Nurse Practitioner Family
DX: E29.1 Testicular hypofunction (principal); E11.69 Type 2 diabetes mellitus with other specified complication; N52.1 Erectile dysfunction due to diseases classified elsewhere; F52.0 Hypoactive sexual desire disorder; R40.0 Somnolence
CPT/HCPCS: 99442

== ENCOUNTER → 2024-01-05 09:14 | Outpatient (BNVA) | payer OTHER, SELFPAY | PROVIDERS: PCP Internal Medicine; Visit Provider Nurse Practitioner Family ==

== ENCOUNTER 2024-02-29 09:15 | Outpatient (REF) | payer OTHER, SELFPAY ==
[2024-02-29 10:29] LABS: Hematocrit 52.4 % (42.0-52.0); Hemoglobin 17.2 g/dl (14.0-18.0); Mean Corpuscular HGB Conc 32.8 g/dl (31.0-36.0); Mean Corpuscular Hemoglobin 30.4 pg (27.0-33.0); Mean Corpuscular Volume 92.7 fL (80.0-98.0); Mean Platelet Volume 9.5 fL (9.4-12.4); Platelet Count 287 X10*3/uL (160-400); Red Blood Count 5.65 X10*6/uL (4.60-5.80); Red Cell Distribution Width 15.3 % (11.0-16.0); White Blood Count 7.6 X10*3/uL (4.8-10.8)
[2024-02-29 11:31] LABS: PSA,Total (Free>4and<10) 3.47 ng/mL (0.00-4.00)
[2024-03-05 19:43] LABS: Testosterone, Free 134.8 pg/mL (35.0-155.0); Testosterone, Total 807 ng/dL (250-1100)
== END 2024-02-29 09:16 | disposition home or self-care (01) ==
LOC: HO.LAB 09:15
PROVIDERS: PCP Internal Medicine; Visit Provider Nurse Practitioner Family
DX: E29.1 Testicular hypofunction (principal); Z12.5 Encounter for screening for malignant neoplasm of prostate
CPT/HCPCS: 36415; 84153; 84402; 84403; 85027

== ENCOUNTER 2024-03-14 09:12 | Outpatient (REF) | payer OTHER, SELFPAY ==
[2024-03-14 10:08] LABS: Cholesterol 221 mg/dL (<200); HDL Cholesterol 32 mg/dL (>40); LDL Cholesterol Calculated 154 mg/dL (<100); Triglycerides 177 mg/dL (<150)
[2024-03-14 11:08] LABS: Reflex LDLD? No
== END 2024-03-14 09:13 | disposition home or self-care (01) ==
LOC: HO.LAB 09:12
PROVIDERS: PCP Internal Medicine; Visit Provider Internal Medicine
DX: I10 Essential (primary) hypertension (principal)
CPT/HCPCS: 36415; 80061

== ENCOUNTER 2024-03-18 14:11 | Outpatient (AMB) | payer OTHER, SELFPAY ==
--- NOTE | 2024-03-18 14:12 | MHC.OFFVIS ---
Intake Visit Reasons: 3m/PSA(set) Intake Note: Patient is present for tele visit follow up labs/erectile dysfunction Free testosterone: 134.8 Testosterone total: 807 PSA: 3.47 Urology Medications: tadalafil, xyosted Blood Thinner: Aspirin Nutrition Instructor Required: No Accompanied by: Self / Same As Patient Allergies ibuprofen [From MOTRIN] Allergy (Intermediate, Verified 03/18/24 14:24) KIDNEY INJURY tramadol [TRAMADOL] Allergy (Mild, Verified 03/18/24 14:24) ITCHING Motrin Allergy (Mild, Uncoded 03/18/24 14:24) rash Medication List - Last Reconciled 03/18/24 by BRAYDEN Nunez- acetaminophen (Tylenol Extra Strength) 1,000 mg (2 x 500 mg) PO QID PRN albuterol sulfate 90 mcg/actuation (Ventolin HFA) 0 mcg inhalation alcohol swabs (Alcohol Prep Pads) 0 pad topical amlodipine 10 mg PO DAILY aspirin 81 mg PO DAILY PRN blood sugar diagnostic (FreeStyle Lite Strips) As directed blood-glucose meter (FreeStyle [place] Lite kit) As directed chlorthalidone 25 mg PO DAILY clonazepam 0.5 mg PO ONCE PRN dapagliflozin propanediol (Farxiga) 10 mg PO DAILY fluticasone furoate 200 mcg/actuation (Arnuity Ellipta) 1 inh inhalation DAILY fluticasone propionate 220 mcg/actuation (Flovent HFA) 2 puffs inhalation BID glipizide ER 2.5 mg PO QAM ketotifen fumarate 0.025%(0.035%) 1 drp ophthalmic (eye) BID PRN lancets (FreeStyle Lancets) As directed metformin 500 mg PO BID metoprolol succinate ER 100 mg PO DAILY montelukast 10 mg PO BEDTIME multivitamin (Multiple Vitamins tablet) 1 tab PO DAILY needle (disp) 18 G (BD Regular Bevel [place]) As directed oxycodone 5 mg PO Q6H PRN pantoprazole 40 mg PO DAILY sacubitril-valsartan 49-51 mg (Entresto) 1 tab PO BID syringe with needle (BD Luer-Janet Syringe) As directed tadalafil 10 mg PO DAILY 90 days testosterone enanthate (Xyosted) 50 mg (0.5 mL) subcut QWEEK 4 weeks ubidecarenone-omega 3-vit E 25-150-200 mg-mg-unit (Co P-52-Uiwyiqx E-Fish Oil) 1 cap PO DAILY zolpidem 10 mg PO BEDTIME HPI Comments Details: Fabrice is a pleasant 68 year old male patient of Dr. Emery. He has a PMH of anal fistula, anxiety, asthma, cervical radiculitis, diabetes mellitus, diverticulosis, dysphagia, fibromatosis, finger amputee, hypercholesteremia, sleep apnea, hypertension, hyperlipidemia, hypogonadism, hypokalemia, and pacemaker. He is being followed up on today via telehealth for his erectile dysfunction in the setting of diabetes and hypogonadism in the setting of obstructive sleep apnea. In discussion with the patient today he reports to be doing and feeling well. Recent labs reviewed with the patient today as noted and trended below. PSA: 03/05 2.3, 09/06 3.0, 01/04 4.1, 03/06 3.4 Total Testoserone: 08/04 169, 03/05 190, 03/05 174, 09/06 392, 01/04 564, 03/06 807 Free Testosterone: 08/04 25.9, 03/05 28.9, 03/05 26.1, 09/06 67.0, 03/06 134.5 H&H: 09/06 13.9/43.3, 01/04 16.4/50.8, 03/06 17.2/52.4 Patient reports to be having manageable erections on 10 mg of Cialis daily. Discussed at length the importance of managing diabetes for improvement in erections, testosterone levels, and overall health and well being. Also discussed importance of compliance with CPAP machine for improvement in erections, testosterone levels, and overall health and well being. When asked patient denies any urinary issues or concerns. He denies urinary urgency, urinary frequency, incontinence, nocturia, hematuria, dysuria, foul smelling urine, changes to urinary stream, flank pain, fever, and or chills. He is happy with his current voiding parameters. Erectile dysfunction Diabetic Progressive Failed on demand medications Current therapy tadalafil 10 mg daily Multiple cardiovascular risk factors - hypertension, dyslipidemia, cardiomyopathy Investigations - 08/04 T 170 F 26 HBA1c 6.9 PFSH Medical History Hyperlipidemia Fibromatosis Dysphagia Anxiety Cervical radiculitis Hypogonadism in male Erectile dysfunction due to diseases classified elsewhere Anal fistula Diverticulosis of large intestine without hemorrhage Diabetes mellitus Finger amputee Pacemaker High cholesterol Hypokalemia HTN (hypertension) Surgical History History of surgery History of surgery on arm Family History Father Stroke Maternal Uncle Diabetes Mother Asthma Diabetes Arthritis Social History Household Members: None Housing: Apartment Alcohol intake: current Alcohol intake frequency: a few times a week Alcohol type: hard liquor Patient Tobacco Use Status: Former Tobacco user Current occupational status: disabled Review of Systems Const Reports as per HPI Eyes Reports no additional complaints ENT Reports no additional complaints Card Reports as per HPI Resp Reports as per HPI GI Reports as per HPI Reports as per HPI Musc Reports as per HPI Neuro Reports as per HPI Psych Reports as per HPI Endo Reports as per HPI Physical Exam Const General: cooperative Resp Effort & Inspection: able to speak in complete sentences Psych Attitude: cooperative Thought process: Normal thought process present Thought content: Normal thought content present Insight: Fair insight present (Psych) Judgement: Fair judgement present (Psych) Telehealth Telehealth Telehealth Platform: [employer] [facility] Location of provider rendering services: practice address Location of patient: address on file Patient Identification confirmed using: Name, : Yes Telehealth method: video Patient verbally consented to treatment: Yes Patient verbally consented to billing insurance company: Yes Patient informed of any privacy concerns related to visit: Yes Assessment & Plan Assessment & Plan (1) Hypogonadism in male: Code(s): E29.1 - Testicular hypofunction Category: Medical (2) Erectile dysfunction associated with type 2 diabetes mellitus: Code(s): E11.69 - Type 2 diabetes mellitus with other specified complication; N52.1 - Erectile dysfunction due to diseases classified elsewhere Category: Medical (3) Lack of libido: Code(s): F52.0 - Hypoactive sexual desire disorder Category: Medical (4) Daytime sleepiness: Code(s): R40.0 - Somnolence Category: Medical Plan Recent labs reviewed with results reviewed with the patient today as noted above; Continue 10 mg of Cialis as prescribed; refill provided Discussed taking 10 mg p.r.n. 1 hour prior to sexual activity as well as daily dosing; refills provided. Continued Zyosted as prescribed; refill provided Patient otherwise denies any urinary issues or concerns at this time. He is happy with his current voiding parameters. Discussed at length importance of weight loss, brisk walking, and adequate sleep to assist with improvement in erections, testosterone levels, and overall health and well-being. Discussed at length importance of compliance with CPAP machine as well as managing diabetes for improvement in erections, testosterone levels, and overall health and well-being. Will obtain CBC, Testosterone free and total and PSA in 3 months Follow-up in 3 months with labs to be completed prior; or sooner with any issues, concerns, and or questions. Orders: Orders PSA,Total (Free>4and<10) 3 Months E29.1 - Testicular hypofunction Testosterone, Free/Total 3 Months E29.1 - Testicular hypofunction Complete Blood Count no Diff 3 Months E29.1 - Testicular hypofunction Medications: Refilled testosterone enanthate (Xyosted) 50 mg (0.5 mL) subcut QWEEK 4 weeks 2 mL 5RF E29.1 - Testicular hypofunction tadalafil 10 mg PO DAILY 90 days 90 tabs 1RF sexual activity E11.69 - Type 2 diabetes mellitus with other specified complication, N52.1 - Erectile dysfunction due to diseases classified elsewhere Patient Instructions: The patient had an opportunity to ask questions regarding the treatment plan. All questions were answered. Physical exam, labs, and imaging were discussed and reviewed in detail. As well as risks, benefits, and discussion of treatment choices. No major barriers to understanding were identified. The patient expressed understanding and agreement with the above treatment plan. The patient was made aware they should contact our office by phone for worsening of their current condition, the appearance of new symptoms, or with any questions or concerns. Compliance is encouraged with any medications and follow up testing that is ordered. It is a privilege to be allowed the opportunity to participate in? your urological care.? Again, if you have any questions or concerns If you have any questions or concerns please do not hesitate to contact me. The office is [phone]. This note is constructed using voice recognition software. While every effort has been made to ensure accuracy evp and chief operating officer errors may have been included. Yours sincerely, BRAYDEN Nunez-VAN Coding Level of Care Code Tele Est Pt Level 3 (94929) Complex EM visit Add On G2211 Diagnoses Hypogonadism in male E29.1 Erectile dysfunction associated with type 2 diabetes mellitus E11.69; N52.1 Lack of libido F52.0 Daytime sleepiness R40.0 Time Spent (min) 15
== END 2024-03-18 14:28 | disposition home or self-care (01) ==
LOC: HO.HUSH 14:11
PROVIDERS: PCP Internal Medicine; Visit Provider Nurse Practitioner Family
DX: E29.1 Testicular hypofunction (principal); E11.69 Type 2 diabetes mellitus with other specified complication; N52.1 Erectile dysfunction due to diseases classified elsewhere; F52.0 Hypoactive sexual desire disorder; R40.0 Somnolence
CPT/HCPCS: 99213; G2211

== ENCOUNTER → 2024-03-18 14:11 | Outpatient (BNVA) | payer OTHER, SELFPAY | PROVIDERS: PCP Internal Medicine; Visit Provider Nurse Practitioner Family ==

== ENCOUNTER 2024-05-22 11:56 | Outpatient (REF) | payer OTHER, SELFPAY ==
[2024-05-22 13:53] LABS: Hematocrit 50.5 % (42.0-52.0); Hemoglobin 16.7 g/dl (14.0-18.0); Mean Corpuscular HGB Conc 33.1 g/dl (31.0-36.0); Mean Corpuscular Hemoglobin 31.1 pg (27.0-33.0); Mean Platelet Volume 10.2 fL (9.4-12.4); Platelet Count 308 X10*3/uL (160-400); Red Blood Count 5.37 X10*6/uL (4.60-5.80); Red Cell Distribution Width 14.2 % (11.0-16.0); White Blood Count 10.6 X10*3/uL (4.8-10.8)
[2024-05-22 14:24] LABS: PSA,Total (Free>4and<10) 3.46 ng/mL (0.00-4.00)
[2024-06-04 11:42] LABS: Testosterone, Total 457 ng/dL (250-1100)
== END 2024-05-22 11:57 | disposition home or self-care (01) ==
LOC: HO.LAB 11:56
PROVIDERS: PCP Internal Medicine; Visit Provider Nurse Practitioner Family
DX: E29.1 Testicular hypofunction (principal); Z12.5 Encounter for screening for malignant neoplasm of prostate
CPT/HCPCS: 36415; 84153; 84402; 84403; 85027

== ENCOUNTER → 2024-06-18 11:21 | Outpatient (AMB) | payer OTHER, SELFPAY ==
--- NOTE | 2024-06-18 11:23 | A.OFFVIS_ITS ---
Intake Visit Reasons: 3 montth follow up Intake Note: Patient is present for 3M F/U Urology Medication:TADALAFIL,TESTOSTERONE Antibiotic Allergy:NONE Blood Thinner:ASPIRIN Presser And Blocker Knitted Goods Required: Yes Presser And Blocker Knitted Goods Name: BEATRICE OSBORNEVANGIE Allergies ibuprofen [From MOTRIN] Allergy (Intermediate, Verified 06/18/24 13:18) KIDNEY INJURY tramadol [TRAMADOL] Allergy (Mild, Verified 06/18/24 13:18) ITCHING Motrin Allergy (Mild, Uncoded 06/18/24 13:18) rash Medication List - Last Reconciled 06/18/24 by BRAYDEN Nunez- acetaminophen (Tylenol Extra Strength) 1,000 mg (2 x 500 mg) PO QID PRN albuterol sulfate 90 mcg/actuation (Ventolin HFA) 0 mcg inhalation alcohol swabs (Alcohol Prep Pads) 0 pad topical amlodipine 10 mg PO DAILY aspirin 81 mg PO DAILY PRN blood sugar diagnostic (FreeStyle Lite Strips) As directed blood-glucose meter (FreeStyle [place] Lite kit) As directed chlorthalidone 25 mg PO DAILY clonazepam 0.5 mg PO ONCE PRN dapagliflozin propanediol (Farxiga) 10 mg PO DAILY fluticasone furoate 200 mcg/actuation (Arnuity Ellipta) 1 inh inhalation DAILY fluticasone propionate 220 mcg/actuation (Flovent HFA) 2 puffs inhalation BID glipizide ER 2.5 mg PO QAM ketotifen fumarate 0.025%(0.035%) 1 drp ophthalmic (eye) BID PRN lancets (FreeStyle Lancets) As directed metformin 500 mg PO BID metoprolol succinate ER 100 mg PO DAILY montelukast 10 mg PO BEDTIME multivitamin (Multiple Vitamins tablet) 1 tab PO DAILY needle (disp) 18 G (BD Regular Bevel [place]) As directed oxycodone 5 mg PO Q6H PRN pantoprazole 40 mg PO DAILY sacubitril-valsartan 49-51 mg (Entresto) 1 tab PO BID syringe with needle (BD Luer-Janet Syringe) As directed tadalafil 10 mg PO DAILY 90 days testosterone enanthate (Xyosted) 50 mg (0.5 mL) subcut QWEEK 4 weeks ubidecarenone-omega 3-vit E 25-150-200 mg-mg-unit (Co F-21-Ixpwvxk E-Fish Oil) 1 cap PO DAILY zolpidem 10 mg PO BEDTIME HPI Comments Details: Fabrice is a pleasant 69 year old male patient of Dr. Emery. He has a PMH of anal fistula, anxiety, asthma, cervical radiculitis, diabetes mellitus, diverticulosis, dysphagia, fibromatosis, finger amputee, hypercholesteremia, sleep apnea, hypertension, hyperlipidemia, hypogonadism, hypokalemia, and pacemaker. He presents to the office today for follow-up of his erectile dysfunction in the setting of diabetes and hypogonadism in the setting of obstructive sleep apnea. In discussion with the patient today he reports to be doing and feeling well. Recent labs reviewed with the patient today as noted and trended below. PSA: 03/05 2.3, 09/06 3.0, 01/04 4.1, 03/06 3.4, 06/06 3.46 Total Testoserone: 08/04 169, 03/05 190, 03/05 174, 09/06 392, 01/04 564, 03/06 807, 06/06 457 Free Testosterone: 08/04 25.9, 03/05 28.9, 03/05 26.1, 09/06 67.0, 03/06 134.5, 06/06 TNP H&H: 09/06 13.9/43.3, 01/04 16.4/50.8, 03/06 17.2/52.4, 06/06 16.7/50.5 Patient reports to be having manageable erections on 10 mg of Cialis daily. Discussed at length the importance of managing diabetes for improvement in erections, testosterone levels, and overall health and well being. Also discussed importance of compliance with CPAP machine for improvement in erections, testosterone levels, and overall health and well being. When asked patient denies any urinary issues or concerns. He denies urinary urgency, urinary frequency, incontinence, nocturia, hematuria, dysuria, foul smelling urine, changes to urinary stream, flank pain, fever, and or chills. In office urinalysis results reviewed with the patient today. He is happy with his current voiding parameters. Erectile dysfunction Diabetic Progressive Failed on demand medications Current therapy tadalafil 10 mg daily Multiple cardiovascular risk factors - hypertension, dyslipidemia, cardiomyopathy Investigations - 08/04 T 170 F 26 HBA1c 6.9 PFSH Medical History Hyperlipidemia Fibromatosis Dysphagia Anxiety Cervical radiculitis Hypogonadism in male Erectile dysfunction due to diseases classified elsewhere Anal fistula Diverticulosis of large intestine without hemorrhage Diabetes mellitus Finger amputee Pacemaker High cholesterol Hypokalemia HTN (hypertension) Surgical History History of surgery History of surgery on arm Family History Father Stroke Maternal Uncle Diabetes Mother Asthma Diabetes Arthritis Social History Household Members: None Housing: Apartment Alcohol intake: current Alcohol intake frequency: a few times a week Alcohol type: hard liquor Patient Tobacco Use Status: Former Tobacco user Current occupational status: disabled Review of Systems Const Reports as per HPI Eyes Reports no additional complaints ENT Reports no additional complaints Card Reports as per HPI Resp Reports as per HPI GI Reports as per HPI Reports as per HPI Musc Reports as per HPI Neuro Reports as per HPI Psych Reports as per HPI Endo Reports as per HPI Physical Exam Const General: cooperative, healthy appearing, comfortable, no acute distress, well developed, alert and awake Nutritional Appearance: overweight Orientation/consciousness: patient oriented x3 Limitations: no limitations HEENT Head: Yes normal to inspection, Yes normocephalic and Yes atraumatic Ears: hearing grossly normal bilaterally Eyes General: appearance normal, both eyes and all related structures Neck Neck: Yes normal visual inspection and Yes trachea midline Chest Chest palpation & inspection: normal inspection of the chest Resp Effort & Inspection: normal respiratory effort and able to speak in complete sentences Cardio Rate: regular rate GI Inspection: Yes normal to inspection General: Yes no CVA tenderness Back/Spine/Pelvis Back: no CVA tenderness Skin General skin exam: no rashes or lesions noted Neuro General: patient oriented x3 Extrem General: Yes normal to inspection Psych Appearance: grossly normal and well kempt Mental Status: mental status grossly normal Speech and movement: Normal speech and movement present and Clear speech present Affect: normal affect Attitude: cooperative Thought process: Normal thought process present Thought content: Normal thought content present Insight: Fair insight present (Psych) Judgement: Fair judgement present (Psych) Results AMB Urinalysis, Automated UA Leukoctes 0 Jose/uL Last Edit by Jose Rice [facility] on 06/18/24 11:35 UA Nitrite Negative Last Edit by Jose Rice [facility] on 06/18/24 11:35 UA Urobilinogen 0.2 mg/dL Last Edit by Jose Rice [facility] on 06/18/24 11:3 5 UA Protein 0 mg/dL Last Edit by Jose Rice [facility] on 06/18/24 11:35 UA pH 6.0 Last Edit by Jose Rice [facility] on 06/18/24 11:35 UA Blood 0 Kaveh/uL Last Edit by Jose Rice [facility] on 06/18/24 11:35 UA Specific Line [place] 1.010 Last Edit by Jose Rice [facility] on 06/18/24 11: 35 UA Ketone Negative Last Edit by Jose Rice [facility] on 06/18/24 11:35 UA Bilirubin 0 mg/dL Last Edit by Jose Rice [facility] on 06/18/24 11:35 UA Glucose 1000 mg/dL Last Edit by Jose Rice [facility] on 06/18/24 11:35 Results Reviewed Results Reviewed: Laboratory Last Values Urine pH (Auto) 6.0 06/18/24 11:34 Specific Line [place] (Auto) 1.010 06/18/24 11:34 Urine Protein (Auto) 0 mg/dL 06/18/24 11:34 Glucose (UA)(Auto) 1000 mg/dL 06/18/24 11:34 Urine Ketones (Auto) Negative 06/18/24 11:34 Urine Blood (Auto) 0 Kaveh/uL 06/18/24 11:34 Urine Nitrite (Auto) Negative 06/18/24 11:34 Urine Bilirubin (Auto) 0 mg/dL 06/18/24 11:34 Urine Urobilinogen (Auto) 0.2 mg/dL 06/18/24 11:34 Leukocyte Esterase (Auto) 0 Jose/uL 06/18/24 11:34 Assessment & Plan Assessment & Plan (1) Hypogonadism in male: Code(s): E29.1 - Testicular hypofunction Category: Medical (2) Erectile dysfunction associated with type 2 diabetes mellitus: Code(s): E11.69 - Type 2 diabetes mellitus with other specified complication; N52.1 - Erectile dysfunction due to diseases classified elsewhere Category: Medical (3) Lack of libido: Code(s): F52.0 - Hypoactive sexual desire disorder Category: Medical (4) Daytime sleepiness: Code(s): R40.0 - Somnolence Category: Medical Plan In office urinalysis results reviewed with the patient today; as noted above Recent labs reviewed with results reviewed with the patient today as noted abov e; Continue 10 mg of Cialis as prescribed; refill provided Discussed taking 10 mg p.r.n. 1 hour prior to sexual activity as well as daily dosing; refills provided. Continued Zyosted as prescribed; refill provided Patient otherwise denies any urinary issues or concerns at this time. He is happy with his current voiding parameters. Discussed at length importance of weight loss, brisk walking, and adequate sleep to assist with improvement in erections, testosterone levels, and overall health and well-being. Discussed at length importance of compliance with CPAP machine as well as managing diabetes for improvement in erections, testosterone levels, and overall health and well-being. Will obtain CBC, Testosterone free and total and PSA in 6months Follow-up in 6 months with labs to be completed prior; or sooner with any issues, concerns, and or questions. Orders: Orders Complete Blood Count no Diff 6 Months E29.1 - Testicular hypofunction Testosterone, Free/Total 6 Months E11.69 - Type 2 diabetes mellitus with other specified complication, N52.1 - Erectile dysfunction due to diseases classified elsewhere AMB Urinalysis Automated Today Z13.9 - Encounter for screening, unspecified Prostate Specific Antigen 6 Months E11.69 - Type 2 diabetes mellitus with other specified complication, E29.1 - Testicular hypofunction, N52.1 - Erectile dysfunction due to diseases classified elsewhere Patient Instructions: The patient had an opportunity to ask questions regarding the treatment plan. All questions were answered. Physical exam, labs, and imaging were discussed and reviewed in detail. As well as risks, benefits, and discussion of treatment choices. No major barriers to understanding were identified. The patient expressed understanding and agreement with the above treatment plan. The patient was made aware they should contact our office by phone for worsening of their current condition, the appearance of new symptoms, or with any questions or concerns. Compliance is encouraged with any medications and follow up testing that is ordered. It is a privilege to be allowed the opportunity to participate in? your urological care.? Again, if you have any questions or concerns If you have any questions or concerns please do not hesitate to contact me. The office is [phone]. This note is constructed using voice recognition software. While every effort has been made to ensure accuracy chemical processing laborer errors may have been included. Yours sincerely, FILEMON Nunez Coding Level of Care Code Est Pt Level 3 (69081) Complex EM visit Add On G2211 Diagnoses Hypogonadism in male E29.1 Erectile dysfunction associated with type 2 diabetes mellitus E11.69; N52.1 Lack of libido F52.0 Daytime sleepiness R40.0
== END ==
LOC: HO.HUSH 11:22
PROVIDERS: PCP Internal Medicine; Visit Provider Nurse Practitioner Family
DX: E29.1 Testicular hypofunction (principal); E11.69 Type 2 diabetes mellitus with other specified complication; N52.1 Erectile dysfunction due to diseases classified elsewhere; F52.0 Hypoactive sexual desire disorder; R40.0 Somnolence; Z13.9 Encounter for screening, unspecified
CPT/HCPCS: 99213; G2211

== ENCOUNTER → 2024-06-18 11:21 | Outpatient (BNVA) | payer OTHER, SELFPAY | PROVIDERS: PCP Internal Medicine; Visit Provider Nurse Practitioner Family | DX: E29.1 Testicular hypofunction (principal); E11.69 Type 2 diabetes mellitus with other specified complication; N52.1 Erectile dysfunction due to diseases classified elsewhere; F52.0 Hypoactive sexual desire disorder | CPT/HCPCS: 81003; 99212 ==

== ENCOUNTER 2024-08-20 12:14 | Outpatient (REF) | payer OTHER, SELFPAY ==
[2024-08-20 14:01] LABS: Microalbumin Urine < 5.0 mg/L
[2024-08-20 14:17] LABS: Alanine Aminotransferase 42 U/L (0-40); Albumin Level 4.2 g/dL (3.5-5.0); Alkaline Phosphatase 68 U/L (39-117); Anion Gap 10 (12-20); Aspartate Amino Transferase 39 U/L (5-37); Bilirubin Total 0.5 mg/dL (0.0-1.0); Blood Urea Nitrogen 25 mg/dL (9-16); Calcium 9.7 mg/dL (8.4-10.2); Carbon Dioxide 32 mmol/L (22-29); Chloride 103 mmol/L (96-108); Cholesterol 179 mg/dL (<200); Estimated Glomerular Filt Rate > 60; Glucose Random 86 mg/dL (60-115); HDL Cholesterol 39 mg/dL (>40); LDL Cholesterol Calculated 102 mg/dL (<100); Potassium 4.8 mmol/L (3.3-5.1); Sodium 140 mmol/L (135-145); Total Protein 8.6 g/dL (6.5-8.0); Triglycerides 192 mg/dL (<150)
== END 2024-08-20 12:15 | disposition home or self-care (01) ==
LOC: HO.HHCL 12:14
PROVIDERS: Visit Provider Internal Medicine
DX: E11.9 Type 2 diabetes mellitus without complications (principal)
CPT/HCPCS: 36415; 80053; 80061; 82043; 82570

== ENCOUNTER 2024-08-29 16:09 | Outpatient (REF) | payer OTHER, SELFPAY ==
[2024-09-02 10:02] LABS: Aminoclonazepam, GCMS Urine 61 (H)
[2024-09-02 10:03] LABS: Alphahydroxymidazolam,GCMS Ur NEGATIVE; Alphahydroxytriazolam, GCMS Ur NEGATIVE; Alprazolam, GCMS Urine NEGATIVE; Flurazepam Metabolite,GCMS Ur NEGATIVE; Lorazepam GCMS Urine NEGATIVE; Nordiazepam, GCMS Urine NEGATIVE; Oxazepam, GCMS Urine NEGATIVE; Temazepam, GCMS Urine NEGATIVE
== END 2024-08-29 16:10 | disposition home or self-care (01) ==
LOC: HO.HHCLNP 16:09
PROVIDERS: Visit Provider Internal Medicine
DX: G89.29 Other chronic pain (principal)
CPT/HCPCS: 80346

== ENCOUNTER 2024-12-16 10:25 | Outpatient (REF) | payer OTHER, SELFPAY ==
[2024-12-16 10:56] LABS: Hemoglobin 12.9 g/dl (14.0-18.0); Mean Corpuscular HGB Conc 32.3 g/dl (31.0-36.0); Mean Corpuscular Volume 96.2 fL (80.0-98.0); Mean Platelet Volume 10.1 fL (9.4-12.4); Platelet Count 292 X10*3/uL (160-400); Red Blood Count 4.16 X10*6/uL (4.60-5.80); Red Cell Distribution Width 14.2 % (11.0-16.0); White Blood Count 9.5 X10*3/uL (4.8-10.8)
--- OUTSIDE RECORDS SUMMARY | 2024-12-16 11:47 | XMS_ITS | Encounter Summary ---
Author Organization [employer] Address [address] [place] [address] Care Team Providers Care Grove Superintendent Name Role Phone Carina Moore MD Primary Care Provide r Encounter Details Date Type Department Care Team (Late st Contact Info) Description 02/07/2024 Telephone [facility] MEDICINE [address] [place], [place] [phone] Carina Moore MD [address] [place], [place] [phone] Social History Tobacco Use Types Packs/Day Years Used Date Smoking Tobacco: Never Passive Smoke Exposure: Never Smokeless Tobacco: Never Depression Answer Date Recorded Patient Health Questionnaire-9 Score 0 12/20/2022 Housing Stability Answer Date Recorded What is your housing situation today? I have nino ortega 05/29/[address] you li ve. Do you have problems with any of the following? None of the above 05/29/2023 Food Insecurity Answer Date Recorded Within the past 12 months, y ou worried that your food would run out before you got money to buy more: Never True 05/29/2023 Within the past 12 months,th e food you bought just didn't last and you didn't have enough money to get more: Never True Transportation Answer Date Recorded In the past 12 months, has l ack of transportation kept you from medical appts, meetings, work or from getting things needed for daily living? No 05/29/2023 Utilities Answer Date Recorded In the past 12 months, has t he electric, gas, oil or water company threatened to shut off services in your home? No 05/29/2023 Depression Answer Date Recorded Patient Health Questionnaire-2 Score 0 12/20/2022 Sex and Gender Information Value Date Recorded Sex Assigned at Male 06/13/2022 10:14 AM EDT Legal Sex Male 10:14 AM EDT Gender Identity Male 06/13/2022 10:14 AM EDT Sexual Orientation Straight 06/13/2022 10 :14 AM EDT documented as of this encounter Plan of Treatment Upcoming Encounters Date Type Department Care Team (Late st Contact Info) Description 03/10/2025 11:15 AM EDT Office Visit [facility] MEDICINE [address] [place] [address] Carina Moore MD [address] [place], [place] [phone] documented as of this encounter Visit Diagnoses Not on filedocumented in this encounter Additional Health Concerns Assessment Noted Time PHQ-9 Depression Total Score: 0 12/21/19 23 10:37 AM EDT documented as of this encounter Care Teams Grove Superintendent Relationship Specialty Start Date End Date Carina Moore MD [address] [place] [address] PCP - General Family Medicine 04/25/18 documented as of this encounter
--- OUTSIDE RECORDS SUMMARY | 2024-12-16 11:48 | XMS_ITS | Encounter Summary ---
Author Organization [employer] Address [address] [facility] [address] [place] [address] Care Team Providers Care Feedlot Manager Name Role Phone Carina Moore MD Primary Care Provide r Reason for Visit * Reason Comments Med Refill Encounter Details Date Type Department Care Team ([facility] st Contact Info) Description 10/14/2024 Refill [facility] [place] [facility] [address] [place], [place] [phone] Carina Moore MD [address] [place], [place] [phone] Other chronic pain; Anxiety Social History Tobacco Use Types Packs/Day Years [...] Description 03/10/2025 11:15 AM EDT Office Visit [facility] [place] [facility] [address] [place] [address] Carina Moore MD [address] [place] [address] documented as of this encounter Visit Diagnoses Diagnosis Other chronic pain Anxiety Anxiety state, unspecified documented in this encounter Additional Health Concerns Assessment Noted Time PHQ-9 Depression Total Score: 0 12/21/19 23 10:37 AM EDT documented as of this encounter Care Teams Feedlot Manager Relationship Specialty Start Date End Date Carina Moore MD [address] [place] [address] PCP - General Family Medicine 04/25/18 documented as of this encounter
--- OUTSIDE RECORDS SUMMARY | 2024-12-16 11:48 | XMS_ITS | Clinical Summary ---
Author Organization [employer] Address [address] [facility] 7[address] [place] [address] Care Team Providers Care Food Preparation Kitchen Aide Name Role Phone Carina Moore MD Primary Care Provide r Allergies Active Allergy Reactions Criticality Noted Date Comments Ibuprofen 01/27/2015 Levofloxacin 06/22/2016 Other reaction(s): Rash Medications FREESTYLE LITE test stripIndication s:Type 2 diabetes mellitus with hyperglycemia, unspecified whether long-term insulin use ([facility]) CHECK BY FINGERSTICK ROUTE 2 TIMES EVERY DAY 100 each 3 09/07/19 23 Active metoprolol succinate XL (Toprol-XL) 100 MG 24 hr tablet TOME RYLAN TABLETA TODOS LOS D 11/12/19 23 Active metoprolol succinate XL (Toprol-XL) 100 MG 24 hr tablet TAKE 1 TABLET BY MOUTH EVERY DAY 90 tablet 3 02/08/20 24 Active Diclofenac Sodium 1 % gelIndications: Other chronic pain Apply 2 g topically if needed in the morning, at noon, in the evening, and at bedtime (pain). 150 g 3 05/14/20 24 Active naloxone (Narcan) 4 mg/0.1 mL nasal sprayIndication s:Other chronic pain Administer 1 spray (4 mg) into affected nostril(s) if needed for opioid reversal. May repeat every 2-3 minutes if needed, alternating nostrils, until medical assistance becomes available. 2 each 3 05/14/20 24 025 Active metFORMIN (Glucophage) 500 MG tabletIndicatio ns:Type 2 diabetes mellitus without complication, unspecified whether ferry terminal agent insulin use ([facility]) TOME 1 TABLETA POR VIA ORAL DOS VECES AL MIKE 180 tablet 1 07/17/20 24 Active fluticasone furoate (Arnuity Ellipta) 200 MCG/ACT inhaler INHALE UN SOPLIDO POR VIA ORAL TODOS [place] 30 each 3 07/17/20 24 Active chlorthalidone (Hygroton) 25 MG tablet TOME RYLAN TABLETA TODOS [place] [facility] 90 tablet 3 09/09/19 25 Active pantoprazole (ProtoNix) 40 MG EC tablet TOME 1 TABLETA POR VIA ORAL TODOS [place] 90 tablet 1 09/09/19 25 Active Ketotifen Fumarate 0.035 % solution PLACE 1 DROP IN THE AFFECTED EYE(S) TWICE DAILY NEEDED FOR ALLERGIES 15 mL 1 09/24/19 25 Active montelukast (Singulair) 10 MG tabletIndicatio ns:Mild intermittent asthma without complication TAKE 1 TABLET BY MOUTH EVERY DAY 90 tablet 1 10/29/19 25 Active atorvastatin (Lipitor) 40 MG tabletIndicatio ns:Essential hypertension TOME 1 TABLETA POR VIA ORAL TODOS [place] 90 tablet 1 11/02/19 25 Active traMADol (Ultram) 50 MG tabletIndicatio ns:Other chronic pain TOME RYLAN TABLETA POR VIA ORAL CADA OCHO HORAS PARA DOLOR JAVY CUANDO SEA NECESARIO 84 tablet 11/23/19 25 025 Active clonazePAM (KlonoPIN) 0.5 MG tabletIndicatio ns:Anxiety TOME 1 TABLETA POR VIA ORAL DOS VECES AL MIKE 28 tablet 11/23/19 25 Active albuterol 108 (90 Base) MCG/ACT inhalerIndicati ons:Mild persistent asthma without complication INHALE DANDO DOS SOPLIDOS POR VIA ORAL CADA CUATRO A SEIS HORAS CUANDO SEA NECESARIO 18 g 1 11/23/19 25 Active acetaminophen (Tylenol 8 Hour) 650 MG ER tabletIndicatio ns:Polyarthralg ia Take 2 tablets (1,300 mg) by mouth every 8 (eight) hours if needed for mild pain for up to 20 days. Do not crush, chew, or split. 60 tablet 1 12/07/19 25 025 Active Multiple Vitamin (multivitamin) tabletIndicatio ns:Polyarthralg ia Take 1 tablet by mouth Once per day. 30 tablet 2 12/07/19 Active terbinafine (LamISIL) 250 MG tabletIndicatio ns:Onychomycosi s Take 1 tablet (250 mg) by mouth Once per day. 90 tablet 08/20/19 25 025 albuterol 108 (90 Base) MCG/ACT inhalerIndicati ons:Mild persistent asthma without complication INHALE DANDO DOS SOPLIDOS POR VIA ORAL CADA CUATRO A SEIS HORAS CUANDO SEA NECESARIO 18 g 1 09/24/19 25 025 Discontinued clonazePAM (KlonoPIN) 0.5 MG tabletIndicatio ns:Anxiety TOME 1 TABLETA POR VIA ORAL DOS VECES AL MIKE 14 tablet 10/23/19 25 025 Discontinued traMADol (Ultram) 50 MG tabletIndicatio ns:Other chronic pain TOME RYLAN TABLETA POR VIA ORAL CADA OCHO HORAS PARA DOLOR JAVY CUANDO SEA NECESARIO 84 tablet 10/26/19 25 025 Discontinued Active Problems Problem Noted Date Diagnosed Date Stage 3a chronic kidney disease 12/06/2024 Assessment & Plan (12/06/2024 5:00 PM EDT): I reviewed cardiology note, it is concerning that he is creatinine is climbing up now to 1.4 I will refer this patient to nephrology for further workup and recommendations Cardiomyopathy 01/10/2024 CS (cervical spondylosis) 01/10/2024 GERD (gastroesophageal reflux disease) Myofascial pain 01/10/2024 Epigastric pain 11/08/2023 Polyarthralgia 11/08/2023 Fall against object 03/16/2023 Assessment & Plan (03/16/2023 12:30 PM EDT): Physical exam reassuring, I advise to f/u also with cardiology Type 2 diabetes mellitus 12/20/2022 Assessment & Plan (12/06/2024 5:01 PM EDT): Diabetes is: controlled - Lab Results Component Value Date HGBA1C 6.9 (A) 12/06/2024 HGBA1C 7.1 (A) 08/20/2024 HGBA1C 6.1 (A) 11/08/2023 - Lab Results Component Value Date MICROALBUR <5.0 08/20/2024 CREATININE 1.15 08/20/2024 -Changes: None - Diabetic eye exam: Pending - Diabetic foot exam: Pending - Continue lifestyle modifications - Continue current medications - Follow up: 3 months Assessment & Plan (08/20/2024 4:00 PM EST): Diabetes is: almost at goal - Lab Results Component Value Date HGBA1C 7.1 (A) 08/20/2024 HGBA1C 6.1 (A) 11/08/2023 HGBA1C 6.5 (A) 12/20/2022 - Lab Results Component Value Date MICROALBUR <5.0 08/20/2024 CREATININE 1.15 08/20/2024 -Changes: none - Diabetic eye exam:pending - Diabetic foot exam:pending - Continue lifestyle modifications - Continue current medications - Follow up: 3 months Assessment & Plan (11/08/2023 4:29 PM EDT): Diabetes is: controlled - Lab Results Component Value Date HGBA1C 6.1 (A) 11/08/2023 HGBA1C 6.5 (A) 12/20/2022 HGBA1C 10.2 (H) 02/09/2022 - Lab Results Component Value Date CREATININE 1.09 05/05/2022 -Changes: I disocntinue glipizide - Diabetic eye exam:up to date - Diabetic foot exam:up to date - Continue lifestyle modifications - Continue current medications - Follow up: 3 months Assessment & Plan (03/16/2023 12:30 PM EDT): Controled continue with current interventions Assessment & Plan (12/21/2022 4:34 PM EDT): - Lab Results Component Value Date HGBA1C 6.5 (A) 12/20/2022 HGBA1C 10.2 (H) 02/09/2022 - Lab Results Component Value Date CREATININE 1.09 05/05/2022 - - Diabetic eye exam:up to date - Diabetic foot exam: pending - Continue lifestyle modifications - Continue current medications Chronic low back pain 12/13/2022 Erectile dysfunction 12/13/2022 Heel pain 12/13/2022 Hip pain 12/13/2022 Moderate asthma 12/13/2022 Neck pain 12/13/2022 Perirectal abscess 12/17/2018 Gastrointestinal hemorrhage 05/15/2018 Insomnia 05/03/2018 Allergic conjunctivitis 02/19/2018 Benzodiazepine dependence 02/19/2018 Chronic generalized pain disorder 02/19/2018 Assessment & Plan (03/16/2023 12:31 PM EDT): Patient will be schedule for COT appointment Left bundle branch block (LBBB) 02/19/2018 Assessment & Plan (12/21/2022 4:35 PM EDT): F/u with cardiology he has an appointment 12/21/22 Hypertension 02/19/2018 Assessment & Plan (12/06/2024 5:00 PM EDT): Blood pressure seems to be under control continue with low-sodium diet and send medication regimen Assessment & Plan (08/20/2024 4:01 PM EST): I advised: - Aerobic exercise to reduce BP. Initial goal of 30 min walk 3-5x/week. Increase as tolerated. - low-sodium diet (goal: <2g/day) and heart healthy diet such as DASH to reduce BP and prevent ASCVD. - Home BP monitoring 1-2 x day with goal of <140/90. - Seek immediate medical attention for chest pain, palpitations, SOB, syncope, or sudden changes in mental status. - Do not change or discontinue current prescriptions without first consulting health care provider Assessment & Plan (11/08/2023 4:29 PM EDT): - Aerobic exercise to reduce BP. Initial goal of 30 min walk 3-5x/week. Increase as tolerated. - low-sodium diet (goal: <2g/day) and heart healthy diet such as DASH to reduce BP and prevent ASCVD. - Home BP monitoring 1-2 x day with goal of <140/90. - Seek immediate medical attention for chest pain, palpitations, SOB, syncope, or sudden changes in mental status. - Do not change or discontinue current prescriptions without first consulting health care provider Assessment & Plan (03/16/2023 12:29 PM EDT): - Aerobic exercise to reduce BP. Initial goal of 30 min walk 3-5x/week. Increase as tolerated. - low-sodium diet (goal: <2g/day) and heart healthy diet such as DASH to reduce BP and prevent ASCVD. - Home BP monitoring 1-2 x day with goal of <140/90. - Seek immediate medical attention for chest pain, palpitations, SOB, syncope, or sudden changes in mental status. - Do not change or discontinue current prescriptions without first consulting health care provider Assessment & Plan (12/21/2022 4:33 PM EDT): - Aerobic exercise to reduce BP. Initial goal of 30 min walk 3-5x/week. Increase as tolerated. - low-sodium diet (goal: <2g/day) and heart healthy diet such as DASH to reduce BP and prevent ASCVD. - Home BP monitoring 1-2 x day with goal of <140/90. - Seek immediate medical attention for chest pain, palpitations, SOB, syncope, or sudden changes in mental status. - Do not change or discontinue current prescriptions without first consulting health care provider Hyperlipidemia 02/19/2018 Cardiac resynchronization th erapy defibrillator (POSTING CLERK-D) in place 02/19/2018 Male hypogonadism 02/19/2018 Uncomplicated asthma 02/19/2018 Class 1 obesity 02/19/2018 REGLA (obstructive sleep apnea) 02/19/2018 Onychomycosis 02/19/2018 Cardiac pacemaker in situ 06/23/2017 Encounters Date Type Department Care Team Description 12/16/2024 Orders Only GENERIC EXTERNAL DATA DEPARTMENT Provider, Generic External Data 12/06/2024 11:00 AM EDT Office Visit [facility] MEDICINE [address] [place] [address] Carina Moore MD Primary hypertension (Primary Dx); Type 2 diabetes mellitus without complication, without long-term current use of insulin (CMS/HCC); Polyarthralgia; Stage 3a chronic kidney disease (CMS/HCC) 12/06/2024 Travel 12/04/2024 Telephone [facility] MED[facility] [address] [place] [address] Carina Moore MD Chart Prep 11/22/2024 Refill [facility] [address] [place] [address] Carina Moore MD Other chronic pain; Anxiety; Mild persistent asthma without complication 11/06/2024 Telephone [facility] [address] [place] [address] Carina Moore MD telephone call 11/01/2024 Refill [facility] [address] [place] [address] Carina Moore MD Essential hypertension 10/28/2024 Refill [facility] [address] [place] [address] Tigist Paul NP Mild intermittent asthma without complication 10/21/2024 Refill [facility] [address] [place] [address] Carina Moore MD Anxiety; Other chronic pain 10/14/2024 Refill [facility] [address] [place] [address] Carina Moore MD Other chronic pain; Anxiety 09/24/2024 Refill [facility] [address] [place] [address] Cyndi Leach MD 09/24/2024 Refill [facility] MED[facility] [address] [place] [address] Carina Moore MD Other chronic pain; Anxiety; Mild persistent asthma without complication from Last 3 Months Immunizations Name Administration Dates Next Due Influenza Whole 06/16/2014,06/06/2013,06/02/2008 Influenza injectable quadriv alent IIV4 with preservative 06/05/2015 Influenza, Split (incl. arin fied surface antigen) 06/28/2012 Influenza, seasonal, injecta ble, preservative free 06/15/2016 Pneumococcal Conjugate PCV 20 11/08/2023 Pneumococcal Polysaccharide PPSV23 08/14/2008 Tdap 06/28/2012 Zoster, live 09/25/2018 Social History Tobacco Use Types Packs/Day Years Used Date Smoking Tobacco: Never Passive Smoke Exposure: Never Smokeless Tobacco: Never Tobacco Cessation:Counseling Given: Not Answered Alcohol Use Standard Drinks/Week Comments Never 0 (1 standard drink = 0.6 oz pur e alcohol) Depression Answer Date Recorded Patient Health Questionnaire-9 [...] Orientation Straight 06/13/2022 10 :14 AM EDT Last Filed Vital Signs Vital Sign Reading Time Taken Comments Blood Pressure 121/69 12/06/2024 10:59 AM EDT Pulse 78 12/06/2024 10:59 AM EDT Temperature 36.7 ??C (98 ??F) 12/06/2024 10:59 AM EDT Respiratory Rate 20 12/06/2024 10:59 AM EDT Oxygen Saturation 99% 08/20/2024 11:41 AM EST Inhaled Oxygen Concentration - - Weight 85.7 kg (189 lb) 12/06/2024 10:59 AM EDT Height 162.6 cm (5' 4 ) 12/06/2024 10:59 AM EDT Body Mass Index 32.44 12/06/2024 10:59 AM EDT Plan of Treatment Upcoming Encounters Date Type Department Care Team (Late st Contact Info) Description 03/10/2025 11:15 AM EDT Office Visit [facility] MEDICINE [address] [place] [address] Carina Moore MD [address] [place], [place] [phone] Health Maintenance Due Date Last Done Comments CT Colonography 1954 FIT DNA/Cologuard 1954 FIT 1954 FOBT 1954 Sigmoidoscopy 1954 Diabetes: Foot Exam 1964 Eye Exam 1964 Alcohol/Substance Use Screening 1966 Hepatitis C Screening 1972 RSV Patients and Patients Aged 60 years or older (1 - Risk 60-74 years 1-dose series) 2014 Zoster Vaccines (2 of 3) 11/20/2018 09/25/2018 DTaP/Tdap/Td Vaccines (2 - Td or Tdap) 06/28/2022 06/28/2012 Depression Screening 12/21/2023 12/20/2022, 12/21/19 23 COVID-19 Vaccine (3 - season) 2024 12/23/2020, 11/25/2020 Influenza Vaccine (#1) 2024 6, 06/05/2015, 06/16/2014, Additional history exists SDOH Screening 10/30/2024 10/31/2023 Diabetes: Hemoglobin A1C 06/07/2025 025, 08/20/2024, 11/08/2023, Additional history exists Diabetes: Urine Protein Screening 08/20/2025 08/20/2024 Lipid Panel 08/20/2025 08/20/2024, 08/0 08/2023, 02/09/2022 Colonoscopy 11/18/2025 11/19/2015 Colorectal Cancer Screening 11/18/2025 Tobacco Screening 12/06/2025 12/06/2024 Pneumococcal Vaccine: 50+ Years Completed 11/08/2023, 08/14/2008 HIB Vaccines Aged Out No longer eligi ble based on patient's age to complete this topic HPV Vaccines Aged Out No longer eligi ble based on patient's age to complete this topic Hepatitis A Vaccines Aged Out No long er eligible based on patient's age to complete this topic Hepatitis B Vaccines Aged Out No long er eligible based on patient's age to complete this topic IPV Vaccines Aged Out No longer eligi ble based on patient's age to complete this topic Meningococcal Vaccine Aged Out No mt [facility] eligible based on patient's age to complete this topic RSV under 20 months Aged Out No longe r eligible based on patient's age to complete this topic Rotavirus Vaccines Aged Out No longer eligible based on patient's age to complete this topic Procedures Procedure Name Priority Date/Time Associated Diagnosis Comments CBC Routine 12/16/2024 10:40 AM EDT POCT GLYCATED HEMOGLOBIN, TOTAL Routine 12/06/2024 11:00 AM EDT Type 2 diabetes mellitus without complication, without long-term current use of insulin ([facility]/HCC) POCT GLUCOSE Routine 12/06/2024 11:00 AM EDT Type 2 diabetes mellitus without complication, without long-term current use of insulin (CMS/HCC) ALBUMIN, RANDOM URINE W/CREATININE Routine 08/20/2024 12:15 PM EST Type 2 diabetes mellitus without complication, without long-term current use of insulin (CMS/HCC) LIPID PANEL, STANDARD Routine 08/20/2024 12:15 PM EST Type 2 diabetes mellitus without complication, without long-term current use of insulin (CMS/HCC) HM COLONOSCOPY Routine 11/19/2015 from Last 3 Months or Most Recently Relevant to Health Maintenance Results * (ABNORMAL) CBC (12/16/2024 10:40 AM EDT) White Blood Count 9.5 4.8 - 10.8 X10*3/uL [facility] Red Blood Count 4.16(L) 4.60 - 5.80 X10*6/uL [facility] Hemoglobin 12.9(L) 14.0 - 18.0 g/dl [facility] Hematocrit 40.0(L) 42.0 - 52.0 % [facility] Mean Corpuscular Volume 96.2 80.0 - 98.0 fL [facility] Mean Corpuscular Hemoglobin 31.0 27.0 - 33.0 pg [facility] Mean Corpuscular HGB Conc 32.3 31.0 - 36.0 g/dl [facility] Red Cell Distribution Width 14.2 11.0 - 16.0 % [facility] Platelet Count 292 160 - 400 X10*3/uL [facility] Mean Platelet Volume 10.1 9.4 - 12.4 fL [facility] NRBC Pct Auto 0.0 0.0 - 0.2 /100WBC [facility] NRBC Abs Auto 0.000 0.0 - 0.012 X10*3/uL [facility] 12/16/2024 10:4 0 AM EDT 12/16/2024 10:40 AM EDT us Generic External Data Provider LAB BLOOD ORDERAB LES Final Result Performing Organization Address City/State/[facility] Co de Phone Number [facility] [address] [place] [phone] * (ABNORMAL) POCT HGB A1C (12/06/2024 11:00 AM EDT) Pathologist [facility] Hemoglobin A1C 6.9(A) 4.0 - 6.0 % QC Media Lot # [id number] Lot# Expiration Date 805,[id number] Blood 12/06/2024 11:0 0 AM EDT us Carina Emery MD POINT OF CARE TEST EN TER/EDIT ORDERABLES Final Result * POCT Glucose (12/06/2024 11:00 AM EDT) Glucose Blood, POC 158 60 - 200 mg/dL QC Media Lot # [id number] Lot# Expiration Date ,[id number],010 Blood Capillary blood specimen / Unknown 12/06/2024 11:00 AM EDT us Carina Emery MD POINT OF CARE TEST EN TER/EDIT ORDERABLES Final Result * Albumin, Random Urine W/Creatinine (08/20/2024 12:15 PM EST) Pathologist [facility] Creatinine, Urine 58.40 mg/dL [facility] Microalbumin Urine <5.0 mg/L [facility] Microalbum Creatinine Ratio Ur TNP <30 ug/mg cr [facility] Comment:Unable to calculate albumin/creatinine ratio due to lowmicroalbumin or creatinine result. Urine (Urine, Random) 08/20/2024 12:15 PM EST 08/20/2024 1:02 PM EST us Carina Emery MD LAB URINE ORDERABLES Final Result [facility] [address] [place] [phone] * (ABNORMAL) Lipid Panel, Standard (08/20/2024 12:15 PM EST) Triglycerides 192(H) <150 mg/dL [facility] Comment:Desirable Triglyceri de: less than 150 mg/dLBorderline High Triglyceride 150-199 mg/dLHigh Triglyceride: 200-499 mg/dLVery High Triglyceride: greater than or equal to 5OO mg/dL Cholesterol 179 <200 mg/dL [facility] Comment:Desirable Cholestero l: less than 200 mg/dLBorderline High Cholesterol: 200-239 mg/dLHigh Cholesterol: greater than 239 mg/dL LDL Cholesterol Calculated 102(H) <100 mg/dL [facility] Comment:Desirable LDL: less than 100 mg/dLNear Optimal/Above Optimal LDL: 110- 129 mg/dLBorderline High LDL: 130-159 mg/dLHigh LDL: 160-189 mg/dLVery High LDL: greater than or equal to 190 mg/dL HDL Cholesterol 39(L) >40 mg/dL [facility] Comment:Desirable HDL: great er than 40 mg/dL Note: This HDL assay may give artificially low results in patients with liver disease. Blood Venous blood specimen / Unknown 08/20/2024 12:15 PM EST 08/20/2024 1:00 PM EST us Carina Emery MD LAB BLOOD ORDERABLES Final Result [facility] [address] [place] [phone] [phone] * Colonoscopy (11/19/2015) us Historical Provider HEALTH MAINTENANCE Final Result from Last 3 Months or Most Recently Relevant to Health Maintenance Insurance [facility] LONG-TERM OPTIONS (O D-SNP) Care Teams Food Preparation Kitchen Aide Relationship Specialty Start Date End Date Carina Moore MD [address] [place] [address] PCP - General Family Medicine 04/25/18
--- OUTSIDE RECORDS SUMMARY | 2024-12-16 11:48 | XMS_ITS | Encounter Summary ---
Author Organization [email or web address] Address [address] [facility] [address] [place] [address] Care Team Providers Care Informix Developer Name Role Phone Carina Moore MD Primary Care Provide r Reason for Visit * Reason Comments Med Refill Encounter Details Date Type Department Care Team ([facility] st Contact Info) Description 04/09/2024 Refill [facility] [address] [place], [place] [phone] Carina Moore MD [address] [place], [place] [phone] Type 2 diabetes mellitus without complication, unspecified whether alf insulin use ([facility]) Social History Tobacco Use Types Packs/Day Years Used Date Smoking Tobacco: Never Passive Smoke Exposure: Never Smokeless Tobacco: Never Depression Answer Date Recorded Patient Health Questionnaire-9 Score 0 12/20/2022 Housing Stability Answer Date Recorded What is your housing situation today? I have ninocarrie ortega 05/29/[address] you [...] Description 03/10/2025 11:15 AM EDT Office Visit [facility] [address] [place] [address] Carina Moore MD [address] [place] [address] documented as of this encounter Visit Diagnoses Diagnosis Type 2 diabetes mellitus without complication, unspecified whether alf insulin use ([facility]) documented in this encounter Additional Health Concerns Assessment Noted Time PHQ-9 Depression Total Score: 0 12/21/19 23 10:37 AM EDT documented as of this encounter Care Teams Informix Developer Relationship Specialty Start Date End Date Carina Moore MD [address] [place] [address] PCP - General Family Medicine 04/25/18 documented as of this encounter
--- OUTSIDE RECORDS SUMMARY | 2024-12-16 11:48 | XMS_ITS | Encounter Summary ---
Author Organization [facility] Address [address] [place] [address] [address] [place] [address] Care Team Providers Care Drilling Field Operator Name Role Phone Carina Moore MD Primary Care Provide r Encounter Details Date Type Department Care Team ([facility] Contact Info) Description 12/22/2022 Telephone [facility] MEDICINE [address] [place] [phone] Carina Moore MD [address] [place] [phone] Social History Tobacco Use Types Packs/Day Years Used Date Smoking Tobacco: Never Passive Smoke Exposure: Never Smokeless Tobacco: Never Depression Answer Date Recorded Patient Health Questionnaire-9 Score 0 12/20/2022 Depression Answer Date Recorded Patient Health Questionnaire-2 Score 0 12/20/2022 Sex and Gender Information Value Date Recorded Sex Assigned at Male 06/13/2022 10:14 AM EDT Legal Sex Male 10:14 AM EDT Gender Identity Male 06/13/2022 10:14 AM EDT Sexual Orientation Straight 06/13/2022 10 :14 AM EDT COVID-19 Exposure Response Date Recorded In the last 10 days, have yo u been in contact with someone who was confirmed or suspected to have Coronavirus/COVID-19? No / Unsure 12/20/2022 10:23 AM EDT documented as of this encounter Plan of Treatment Upcoming Encounters Date Type Department Care Team ([facility] Contact Info) Description 03/10/2025 11:15 AM EDT Office Visit [facility] MED[facility]INE [address] [place] [phone] Carina Moore MD [address] [place] [address] documented as of this encounter Visit Diagnoses Not on filedocumented in this encounter Additional Health Concerns Assessment Noted Time PHQ-9 Depression Total Score: 0 12/21/19 23 10:37 AM EDT documented as of this encounter Care Teams Drilling Field Operator Relationship Specialty Start Date End Date Carina Moore MD [address] [place] [address] PCP - General Family Medicine 04/25/18 documented as of this encounter
--- OUTSIDE RECORDS SUMMARY | 2024-12-16 11:48 | XMS_ITS | Encounter Summary ---
Author Organization [employer] Address [address] [facility] 7t [place] [address] Care Team Providers Care Lead Assembler Name Role Phone Carina Moore MD Primary Care Provide r Encounter Details Date Type Department Care Team (Late Contact Info) Description 02/07/2023 Orders Only [facility] MED [facility] PEDS [address] [place], [place] [phone] Tabby Howe LPN Social History Tobacco Use Types Packs/Day Years [...] Encounters Date Type Department Care Team (Late Contact Info) Description 03/10/2025 11:15 AM EDT Office Visit [facility] MEDICINE [address] [place] [address] Carina Moore MD [address] [place], [place] [phone] documented as of this encounter Visit Diagnoses Not on filedocumented in this encounter Additional Health Concerns Assessment Noted Time PHQ-9 Depression Total Score: 0 12/21/19 23 10:37 AM EDT documented as of this encounter Care Teams Lead Assembler Relationship Specialty Start Date End Date Carina Moore MD [address] [place] [phone] PCP - General Family Medicine 04/25/18 documented as of this encounter
--- OUTSIDE RECORDS SUMMARY | 2024-12-16 11:48 | XMS_ITS | Encounter Summary ---
Author Organization [employer] [facility] Address [address] [place] [address] [address] [place] [address] Care Team Providers Care Coke Drawer Name Role Phone Carina Moore MD Primary Care Provide r Reason for Visit * Reason Comments Med Refill Encounter Details Date Type Department Care Team (Late Contact Info) Description 10/14/2022 Refill [facility] MED[facility]INE [address] [place] [phone] Cyndi Leach MD [address] [place] [phone] Other chronic pain; Anxiety; Insomnia, unspecified type Social History Tobacco Use Types Packs/Day Years Used Date Smoking Tobacco: Never Assessed Sex and Gender Information Value Date Recorded [...] Visit [facility] [address] [place] [phone] Carina Moore MD [address] [place] [address] [phone] documented as of this encounter Visit Diagnoses Diagnosis Other chronic pain Anxiety Anxiety state, unspecified Insomnia, unspecified type documented in this encounter Care Teams Coke Drawer Relationship Specialty Start Date End Date Carina Moore MD [address] [place] [address] PCP - General Family Medicine 04/25/18 documented as of this encounter
--- OUTSIDE RECORDS SUMMARY | 2024-12-16 11:48 | XMS_ITS | Encounter Summary ---
Author Organization [facility] Address [address] [place] [address] 7t [place] [address] Care Team Providers Care Machine Set Up Operator Paper Goods Name Role Phone Carina Moore MD Primary Care Provide r Reason for Visit * Reason Comments Med Refill Encounter Details Date Type Department Care Team ([facility] Contact Info) Description 12/19/2022 Refill [facility] MEDICINE [address] [place] [phone] Carina Moore MD [address] [place] [address] [phone] Anxiety; Other chronic pain; Insomnia, unspecified type Social History Tobacco Use Types Packs/Day Years Used Date Smoking Tobacco: Never Assessed Depression Answer Date Recorded Patient Health Questionnaire-9 [...] Upcoming Encounters Date Type Department Care Team ([facility] Contact Info) Description 03/10/2025 11:15 AM EDT Office Visit [facility] MEDICINE [address] [place] [phone] Carina Moore MD [address] [place] [address] documented as of this encounter Visit Diagnoses Diagnosis Anxiety Anxiety state, unspecified Other chronic pain Insomnia, unspecified type documented in this encounter Care Teams Machine Set Up Operator Paper Goods Relationship Specialty Start Date End Date Carina Moore MD [address] [place] [phone] PCP - General Family Medicine 04/25/18 documented as of this encounter
--- OUTSIDE RECORDS SUMMARY | 2024-12-16 11:48 | XMS_ITS | Encounter Summary ---
Author Organization [facility] Address [address] [facility] 7t [place] [address] Care Team Providers Care Conveyor Weigher Operator Name Role Phone Carina Moore MD Primary Care Provide r Encounter Details Date Type Department Care Team (Late st Contact Info) Description 09/19/2022 Orders Only [facility] MED & PEDS [address] [place] [address] Tabby Howe LPN Social History Tobacco Use [...] Description 03/10/2025 11:15 AM EDT Office Visit [facility] MEDICINE [address] [place] [address] Carina oMore MD [address] [place] [address] documented as of this encounter Visit Diagnoses Not on filedocumented in this encounter Care Teams Conveyor Weigher Operator Relationship Specialty Start Date End Date Carina Moore MD [address] [place] [address] [phone] PCP - General Family Medicine 04/25/18 documented as of this encounter
--- OUTSIDE RECORDS SUMMARY | 2024-12-16 11:48 | XMS_ITS | Encounter Summary ---
Author Organization [employer] Address [address] [facility] [address]t [place] [address] Care Team Providers Care Paint Grinder Stone Mill Name Role Phone Carina Moore MD Primary Care Provide r Encounter Details Date Type Department Care Team ([facility] Contact Info) Description 12/20/2022 Orders Only [facility] CH[facility] MED & PEDS [address] [place], [place] [phone] Tabby Howe LPN Social History Tobacco Use [...] Upcoming Encounters Date Type Department Care Team ([facility] Contact Info) Description 03/10/2025 11:15 AM EDT Office Visit [facility] MEDICINE [address] [place] [address] Carina Moore MD [address] [place], [place] [phone] documented as of this encounter Visit Diagnoses Not on filedocumented in this encounter Additional Health Concerns Assessment Noted Time PHQ-9 Depression Total Score: 0 12/21/19 23 10:37 AM EDT documented as of this encounter Care Teams Paint Grinder Stone Mill Relationship Specialty Start Date End Date Carina Moore MD [address] [place] [address] PCP - General Family Medicine 04/25/18 documented as of this encounter
--- OUTSIDE RECORDS SUMMARY | 2024-12-16 11:48 | XMS_ITS | Encounter Summary ---
Author Organization [employer] Address [address] [facility] 7t [place] [address] Care Team Providers Care Employment Coordinator Name Role Phone Carina Moore MD Primary Care Provide r Encounter Details Date Type Department Care Team (Late st Contact Info) Description 09/08/[address] [facility] MED & PEDS [address] [place], [place] [phone] Sarah Acuña LPN Social History Tobacco Use Types Packs/Day [...] Description 03/10/2025 11:15 AM EDT Office [address] [facility] MEDICINE [address] [place], [place] [phone] Carina Moore MD [address] [place], [place] [phone] documented as of this encounter Procedures Procedure Name Priority Date/Time Associated Diagnosis Comments PSA, TOTAL WITH REFLEX TO PSA, FREE Routine 09/08/2023 11:32 AM EST CBC Routine 09/08/2023 11:32 AM EST TESTOSTERONE, FREE (DIALYSIS) AND TOTAL,MS Routine 09/08/2023 11:32 AM EST documented in this encounter Results * Testosterone, Free (Dialysis) And Total, MS (09/08/2023 11:32 AM EST) Testosterone, Total 392 250 - 1100 ng/dL [facility] Comment:Men with clinically significant hypogonadalsymptoms and testosterone values repeatedly inthe range of the 200-300 ng/dL or less, maybenefit from testosterone treatment afteradequate risk and benefits counseling.For additional information, please refer [email or web address].Dovetail/faq/[email or web address](This link is being provided for informational/educational purposes only.)This test was developed and its analytical performancecharacteristics have been determined by [employer] [place], [place]. It hasnot been cleared or approved by the U.S. Food and DrugAdministration. This assay has been validated pursuantto the CLIA regulations and is used for clinicalpurposes. Testosterone, Free 67.0 35.0 - 155.0 pg/mL [facility] Comment:This test was develo ped and its analytical performancecharacteristics have been determined by [employer] [place], [place]. It hasnot been cleared or approved by the U.S. Food and DrugAdministration. This assay has been validated pursuantto the CLIA regulations and is used for clinicalpurposes.THIS TEST WAS PERFORMED AT:[employer] [place] [address]QHLNVQTWARREN STEEL MD,PHD 09/08/2023 11:3 2 AM EST 09/08/2023 11:32 AM EST us Generic External Data Provider LAB BLOOD ORDERAB LES Final Result Performing Organization Address [facility] Co de Phone Number [facility] [address] [place] [phone] * PSA, Total With Reflex to PSA, Free (09/08/2023 11:32 AM EST) PSA,Total (Free>4and<10) 2.97 0.00 - 4.00 ng/mL [facility] Comment:A Free PSA was not p erformed: The percentage of Free PSA can be used to enhance the differentiation of prostate cancer from benign prostatic disease in subjects whose PSA levels are between 4.0 and 10.0 ng/mL. For subjects whose PSA levels are below 4.0 or above 10.0 ng/mL, the risk of prostate cancer is determined on the basis of the PSA alone. Therefore the % Free PSA is recommended only for those subjects whose PSA levels are between 4.0 and 10.0 ng/mL.PSA methodology: Armando Alinity i ChemiluminescentMicroparticle Immunoassay (CMIA) 09/08/2023 11:3 2 AM EST 09/08/2023 11:32 AM EST us Generic External Data Provider LAB BLOOD ORDERAB LES Final Result Performing Organization Address [facility]/ZIP Co de Phone Number [facility] [address] [place] [phone] * (ABNORMAL) CBC (09/08/2023 11:32 AM EST) White Blood Count 9.5 4.8 - 10.8 X10*3/uL [facility] Red Blood Count 4.57(L) 4.60 - 5.80 X10*6/uL [facility] Hemoglobin 13.9(L) 14.0 - 18.0 g/dl [facility] Hematocrit 43.3 42.0 - 52.0 % [facility] Mean Corpuscular Volume 94.7 80.0 - 98.0 fL [facility] Mean Corpuscular Hemoglobin 30.4 27.0 - 33.0 pg [facility] Mean Corpuscular HGB Conc 32.1 31.0 - 36.0 g/dl [facility] Red Cell Distribution Width 13.7 11.0 - 16.0 % [facility] Platelet Count 349 160 - 400 X10*3/uL [facility] Mean Platelet Volume 9.6 9.4 - 12.4 fL [facility] NRBC Pct Auto 0.0 0.0 - 0.2 /100WBC [facility] NRBC Abs Auto 0.000 0.0 - 0.012 X10*3/uL [facility] 09/08/2023 11:3 2 AM EST 09/08/2023 11:32 AM EST us Generic External Data Provider LAB BLOOD ORDERAB LES Final Result [facility] [address] [place] [phone] documented in this encounter Visit Diagnoses Not on filedocumented in this encounter Additional Health Concerns Assessment Noted Time PHQ-9 Depression Total Score: 0 12/21/19 23 10:37 AM EDT documented as of this encounter Care Teams Employment Coordinator Relationship Specialty Start Date End Date Carina Moore MD [address] [place] [phone] PCP - General Family Medicine 04/25/18 documented as of this encounter
--- OUTSIDE RECORDS SUMMARY | 2024-12-16 11:48 | XMS_ITS | Encounter Summary ---
Author Organization [employer] [facility] Address [address] [place] [address] 7t [place] [address] Care Team Providers Care Fluid Power Mechanic Name Role Phone Carina Moore MD Primary Care Provide r Encounter Details Date Type Department Care Team (Late Contact Info) Description 04/24/2023 Orders Only [facility] MEDICINE [address] [place] [phone] Provider, MD Charu Social History Tobacco Use Types Packs/Day Years [...] Description 03/10/2025 11:15 AM EDT Office Visit [facility] MEDICINE [address] [place] [phone] Carina Moore MD [address] [place] [phone] documented as of this encounter Procedures Procedure Name Priority Date/Time Associated Diagnosis Comments HM COLONOSCOPY Routine 11/19/2015 documented in this encounter Results * Hm Colonoscopy (11/19/2015) Historical Provider HEALTH MAINTENANCE Final Result documented in this encounter Visit Diagnoses Not on filedocumented in this encounter Additional Health Concerns Assessment Noted Time PHQ-9 Depression Total Score: 0 12/21/19 23 10:37 AM EDT documented as of this encounter Care Teams Fluid Power Mechanic Relationship Specialty Start Date End Date Carina Moore MD [address] [place] [phone] PCP - General Family Medicine 04/25/18 documented as of this encounter
--- OUTSIDE RECORDS SUMMARY | 2024-12-16 11:48 | XMS_ITS | Encounter Summary ---
Author Organization [employer] Address [address] [facility] 7t [place] [address] Care Team Providers Care Crowning Hammer Operator Name Role Phone Carina Moore MD Primary Care Provide r Encounter Details Date Type Department Care Team ([facility] Contact Info) Description 12/16/2024 Orders Only [facility] EXTERNAL DATA DEPARTMENT Provider, Generic External Data Social History Tobacco Use Types Packs/Day Years Used Date Smoking Tobacco: Never Passive Smoke Exposure: Never Smokeless Tobacco: Never Alcohol Use Standard Drinks/Week Comments Never 0 [...] Description 03/10/2025 11:15 AM EDT Office Visit [facility] MEDICINE [address] [place] [address] Carina Moore MD [address] [place] [address] documented as of this encounter Procedures Procedure Name Priority Date/Time Associated Diagnosis Comments CBC Routine 12/16/2024 10:40 AM EDT documented in this encounter Results * (ABNORMAL) CBC (12/16/2024 10:40 AM EDT) White Blood Count 9.5 4.8 - 10.8 X10*3/uL [facility] Red Blood Count 4.16(L) 4.60 - 5.80 X10*6/uL [facility] Hemoglobin 12.9(L) 14.0 - 18.0 g/dl [facility] Hematocrit 40.0(L) 42.0 - 52.0 % [facility] Mean Corpuscular Volume 96.2 80.0 - 98.0 fL [facility] Mean Corpuscular Hemoglobin 31.0 27.0 - 33.0 pg [facility] Mean Corpuscular HGB Conc 32.3 31.0 - 36.0 g/dl [facility] Red Cell Distribution Width 14.2 11.0 - 16.0 % [facility] Platelet Count 292 160 - 400 X10*3/uL [facility] Mean Platelet Volume 10.1 9.4 - 12.4 fL [facility] NRBC Pct Auto 0.0 0.0 - 0.2 /100WBC [facility] NRBC Abs Auto 0.000 0.0 - 0.012 X10*3/uL [facility] 12/16/2024 10:4 0 AM EDT 12/16/2024 10:40 AM EDT us Generic External Data Provider LAB BLOOD ORDERAB LES Final Result [facility] [address] [place] [phone] documented in this encounter Visit Diagnoses Not on filedocumented in this encounter Additional Health Concerns Assessment Noted Time PHQ-9 Depression Total Score: 0 12/21/19 23 10:37 AM EDT documented as of this encounter Care Teams Crowning Hammer Operator Relationship Specialty Start Date End Date Carina Moore MD [address] [place] [phone] PCP - General Family Medicine 04/25/18 documented as of this encounter
--- OUTSIDE RECORDS SUMMARY | 2024-12-16 11:48 | XMS_ITS | Encounter Summary ---
Author Organization [employer] Address [address] [facility] 7t [place] [address] Care Team Providers Care School Clerk Name Role Phone Carina Moore MD Primary Care Provide r Reason for Visit * Reason Comments Med Refill Encounter Details Date Type Department Care Team ([facility] st Contact Info) Description 06/12/2023 Refill [facility] MEDICINE [address] [place], [place] [phone] Carina Moore MD [address] [place], [place] [phone] Onychomycosis Social History Tobacco Use Types Packs/Day Years [...] Description 03/10/2025 11:15 AM EDT Office Visit [facility] MEDICINE [address] [place] [address] Carina Moore MD [address] [place] [address] documented as of this encounter Visit Diagnoses Diagnosis Onychomycosis Dermatophytosis of nail documented in this encounter Additional Health Concerns Assessment Noted Time PHQ-9 Depression Total Score: 0 12/21/19 23 10:37 AM EDT documented as of this encounter Care Teams School Clerk Relationship Specialty Start Date End Date Carina Moore MD [address] [place] [address] PCP - General Family Medicine 04/25/18 documented as of this encounter
[2024-12-16 12:22] LABS: Prostate Specific Antigen 3.07 ng/mL (<0.05-4.0)
[2024-12-21 11:13] LABS: Testosterone, Free 12 pg/mL (30.0-135.0); Testosterone, Total 100 ng/dL (250-1100)
== END 2024-12-16 10:26 | disposition home or self-care (01) ==
LOC: HO.LAB 10:25
PROVIDERS: PCP Internal Medicine; Visit Provider Nurse Practitioner Family
DX: E29.1 Testicular hypofunction (principal); E11.69 Type 2 diabetes mellitus with other specified complication; N52.1 Erectile dysfunction due to diseases classified elsewhere; Z12.5 Encounter for screening for malignant neoplasm of prostate
CPT/HCPCS: 36415; 84153; 84402; 84403; 85027

== ENCOUNTER 2025-01-15 10:44 | Outpatient (AMB) | payer OTHER, SELFPAY ==
--- NOTE | 2025-01-15 10:42 | MHC.OFFVIS ---
Intake Visit Reasons: Labs f/u Intake Note: Pt presents to the office today for a follow up/labs Urology meds:Tadalafil Blood thinners:Aspirin Nursing Home Admissions Director Services: Nursing Home Admissions Director Present Nursing Home Admissions Director Name: jose f Arteaga Allergies ibuprofen [From MOTRIN] Allergy (Intermediate, Verified 01/15/25 21:56) KIDNEY INJURY tramadol [TRAMADOL] Allergy (Mild, Verified 01/15/25 21:56) ITCHING Motrin Allergy (Mild, Uncoded 01/15/25 21:56) rash Medication List - Last Reconciled 01/15/25 by BRAYDEN Nunez- albuterol sulfate 90 mcg/actuation (Ventolin HFA) 0 mcg inhalation amlodipine 5 mg PO DAILY atorvastatin 40 mg PO DAILY blood sugar diagnostic (FreeStyle Lite Strips) As directed blood-glucose meter (FreeStyle [place] Lite kit) As directed chlorthalidone 25 mg PO DAILY clonazepam 0.5 mg PO ONCE PRN dapagliflozin propanediol (Farxiga) 10 mg PO DAILY fluticasone furoate 200 mcg/actuation (Arnuity Ellipta) 1 inh inhalation DAILY lancets (FreeStyle Lancets) As directed metformin 500 mg PO DAILY metoprolol succinate ER 200 mg PO DAILY montelukast 10 mg PO BEDTIME multivitamin (Multiple Vitamins tablet) 1 tab PO DAILY needle (disp) 18 G (BD Regular [place]) As directed pantoprazole 40 mg PO DAILY sacubitril-valsartan 49-51 mg (Entresto) 0.5 tabs PO BID syringe with needle (BD Luer-Janet Syringe) As directed tadalafil 10 mg PO DAILY 90 days testosterone enanthate (Xyosted) 50 mg (0.5 mL) subcut QWEEK 4 weeks HPI Comments Details: Fabrice is a pleasant 69 year old Armenian speaking male patient of Dr. Emery. He has a PMH of anal fistula, anxiety, asthma, cervical radiculitis, diabetes mellitus, diverticulosis, dysphagia, fibromatosis, finger amputee, hypercholesteremia, sleep apnea, hypertension, hyperlipidemia, hypogonadism, hypokalemia, and pacemaker. He presents to the office today for follow-up of his erectile dysfunction in the setting of diabetes and hypogonadism in the setting of obstructive sleep apnea. In discussion with the patient today he reports to be doing and feeling well. He reports since his last office visit here he was unable to obtain Xyosted as pharmacy stated it was not covered by his insurance. He reports previously he was able to obtain prescription without any issues and has not change his insurance. He discusses his frustration regarding this issue. Recent labs reviewed with the patient today as noted and trended below. PSA: 03/05 2.3, 09/06 3.0, 01/04 4.1, 03/06 3.4, 06/06 3.46, 01/05 3.1 Total Testoserone: 08/04 169, 03/05 190, 03/05 174, 09/06 392, 01/04 564, 03/06 807, 06/06 457, 01/05 100 Free Testosterone: 08/04 25.9, 03/05 28.9, 03/05 26.1, 09/06 67.0, 03/06 134.5, 06/06 TNP, 01/05 12 H&H: 09/06 13.9/43.3, 01/04 16.4/50.8, 03/06 17.2/52.4, 06/06 16.7/50.5, 01/05 12.9/40.0 Patient reports to be having manageable erections on 10 mg of Cialis daily. Discussed at length the importance of managing diabetes for improvement in erections, testosterone levels, and overall health and well being. Also discussed importance of compliance with CPAP machine for improvement in erections, testosterone levels, and overall health and well being. When asked patient denies any urinary issues or concerns. He denies urinary urgency, urinary frequency, incontinence, nocturia, hematuria, dysuria, foul smelling urine, changes to urinary stream, flank pain, fever, and or chills. In office urinalysis results reviewed with the patient today. He is happy with his current voiding parameters. Erectile dysfunction Diabetic Progressive Failed on demand medications Current therapy tadalafil 10 mg daily Multiple cardiovascular risk factors - hypertension, dyslipidemia, cardiomyopathy Investigations - 08/04 T 170 F 26 HBA1c 6.9 PFSH Medical History Chronic kidney disease, stage 3a Myofascial pain GERD (gastroesophageal reflux disease) Cervical spondylosis Cardiomyopathy Polyarthralgia Epigastric pain Type 2 diabetes mellitus Perirectal abscess Onychomycosis REGLA (obstructive sleep apnea) Neck pain Class 1 obesity Moderate asthma Insomnia Cardiac resynchronization therapy defibrillator (HEALTH COORDINATOR-D) in place Gastrointestinal hemorrhage Left bundle branch block Chronic generalized pain disorder Chronic low back pain Benzodiazepine dependence Allergic conjunctivitis Hyperlipidemia Fibromatosis Dysphagia Anxiety Cervical radiculitis Hypogonadism in male Erectile dysfunction due to diseases classified elsewhere Anal fistula Diverticulosis of large intestine without hemorrhage Diabetes mellitus Finger amputee Pacemaker High cholesterol Hypokalemia HTN (hypertension) Surgical History History of surgery History of surgery on arm Family History Father Stroke Maternal Uncle Diabetes Mother Asthma Diabetes Arthritis Social History Household Members: None Housing: Apartment Alcohol intake: current Alcohol intake frequency: a few times a week Alcohol type: hard liquor Patient Tobacco Use Status: Former Tobacco user Current occupational status: disabled Review of Systems Const Reports as per HPI Eyes Reports no additional complaints ENT Reports no additional complaints Card Reports as per HPI Resp Reports as per HPI GI Reports as per HPI Reports as per HPI Musc Reports as per HPI Neuro Reports as per HPI Psych Reports as per HPI Endo Reports as per HPI Physical Exam Const General: cooperative, healthy appearing, comfortable, no acute distress, well developed, alert and awake Nutritional Appearance: overweight Orientation/consciousness: patient oriented x3 Limitations: no limitations HEENT Head: Yes normal to inspection, Yes normocephalic and Yes atraumatic Ears: hearing grossly normal bilaterally Eyes General: appearance normal, both eyes and all related structures Neck Neck: Yes normal visual inspection and Yes trachea midline Chest Chest palpation & inspection: normal inspection of the chest Resp Effort & Inspection: normal respiratory effort and able to speak in complete sentences Cardio Rate: regular rate GI Inspection: Yes normal to inspection General: Yes no CVA tenderness Back/Spine/Pelvis Back: no CVA tenderness Skin General skin exam: no rashes or lesions noted Neuro General: patient oriented x3 Extrem General: Yes normal to inspection Psych Appearance: grossly normal and well kempt Mental Status: mental status grossly normal Speech and movement: Normal speech and movement present and Clear speech present Affect: normal affect Attitude: cooperative Thought process: Normal thought process present Thought content: Normal thought content present Insight: Fair insight present (Psych) Judgement: Fair judgement present (Psych) Results AMB Urinalysis, Automated UA Leukoctes 0 Jose/uL Last Edit by Shelly Grant CMA on 01/15/25 10:51 UA Nitrite Negative Last Edit by Shelly Grant CMA on 01/15/25 10:51 UA Urobilinogen 0.2 mg/dL Last Edit by Shelly Grant CMA on 01/15/25 10:51 UA Protein 15 mg/dL Last Edit by Shelly Grant CMA on 01/15/25 10:51 UA pH 5.5 Last Edit by Shelly Grant, JETHRO on 01/15/25 10:51 UA Blood 0 Kaveh/uL Last Edit by Shelly Grant, JETHRO on 01/15/25 10:51 UA Specific [place] 1.015 Last Edit by Shelly Grant CMA on 01/15/25 10:51 UA Ketone Negative Last Edit by Shelly Grant CMA on 01/15/25 10:51 UA Bilirubin 0 mg/dL Last Edit by Shelly Grant CMA on 01/15/25 10:51 UA Glucose 1000 mg/dL Last Edit by Shelly Grant CMA on 01/15/25 10:51 Results Reviewed Results Reviewed: Laboratory Last Values Urine pH (Auto) 5.5 01/15/25 10:49 Specific [place] (Auto) 1.015 01/15/25 10:49 Urine Protein (Auto) 15 mg/dL 01/15/25 10:49 Glucose (UA)(Auto) 1000 mg/dL 01/15/25 10:49 Urine Ketones (Auto) Negative 01/15/25 10:49 Urine Blood (Auto) 0 Kaveh/uL 01/15/25 10:49 Urine Nitrite (Auto) Negative 01/15/25 10:49 Urine Bilirubin (Auto) 0 mg/dL 01/15/25 10:49 Urine Urobilinogen (Auto) 0.2 mg/dL 01/15/25 10:49 Leukocyte Esterase (Auto) 0 Jose/uL 01/15/25 10:49 Assessment & Plan Assessment & Plan (1) Hypogonadism in male: Code(s): E29.1 - Testicular hypofunction Category: Medical (2) Erectile dysfunction associated with type 2 diabetes mellitus: Code(s): E11.69 - Type 2 diabetes mellitus with other specified complication; N52.1 - Erectile dysfunction due to diseases classified elsewhere Category: Medical (3) Lack of libido: Code(s): F52.0 - Hypoactive sexual desire disorder Category: Medical Plan In office urinalysis results reviewed with the patient today; as noted above Recent labs reviewed with results reviewed with the patient today as noted above. Continue 10 mg of Cialis as prescribed; refill provided Restart Zyosted as prescribed; will attempt to obtain PA if needed. We discussed reassessment/ further treatment options of testosterone replacement if Zyosted unable to be convered by insurance. Patient otherwise denies any urinary issues or concerns at this time. He is happy with his current voiding parameters. Discussed at length importance of weight loss, brisk walking, and adequate sleep to assist with improvement in erections, testosterone levels, and overall health and well-being. Discussed at length importance of compliance with CPAP machine as well as managing diabetes for improvement in erections, testosterone levels, and overall health and well-being. Will obtain CBC, Testosterone free and total and PSA in 3 months Follow-up in 3 months with labs to be completed prior; or sooner with any issues, concerns, and or questions. Orders: Orders AMB Urinalysis Automated Today Z13.9 - Encounter for screening, unspecified Prostate Specific Antigen 3 Months E29.1 - Testicular hypofunction Testosterone, Free/Total 3 Months E29.1 - Testicular hypofunction Complete Blood Count no Diff 3 Months E29.1 - Testicular hypofunction Medications: Refilled testosterone enanthate (Xyosted) 50 mg (0.5 mL) subcut QWEEK 4 weeks 2 mL 3RF E29.1 - Testicular hypofunction Patient Instructions: The patient had an opportunity to ask questions regarding the treatment plan. All questions were answered. Physical exam, labs, and imaging were discussed and reviewed in detail. As well as risks, benefits, and discussion of treatment choices. No major barriers to understanding were identified. The patient expressed understanding and agreement with the above treatment plan. The patient was made aware they should contact our office by phone for worsening of their current condition, the appearance of new symptoms, or with any questions or concerns. Compliance is encouraged with any medications and follow up testing that is ordered. It is a privilege to be allowed the opportunity to participate in? your urological care.? Again, if you have any questions or concerns If you have any questions or concerns please do not hesitate to contact me. The office is [phone]. This note is constructed using voice recognition software. While every effort has been made to ensure accuracy bottle and glass inspector errors may have been included. Yours sincerely, FILEMON Nunez Coding Level of Care Code Est Pt Level 4 (45504) Complex EM visit Add On G2211 Diagnoses Hypogonadism in male E29.1 Erectile dysfunction associated with type 2 diabetes mellitus E11.69; N52.1 Lack of libido F52.0 Time Spent (min) 30
--- OUTSIDE RECORDS SUMMARY | 2025-01-15 11:30 | XMS_ITS | Encounter Summary ---
Author Organization [employer] Address [address] [place] [address] Care Team Providers Care Advisory Internship Name Role Phone Carina Moore MD Primary Care Provide r Encounter Details Date Type Department Care Team (Late st Contact Info) Description 02/07/2024 Telephone [facility] [address] [place], [place] [phone] Carina Moore MD [address] [place], [place] [phone] Social History Tobacco Use Types Packs/Day Years [...] Description 03/10/2025 11:15 AM EDT Office Visit [facility] [address] [place] [address] Carina Moore MD [address] [place], [place] [phone] documented as of this encounter Visit Diagnoses Not on filedocumented in this encounter Additional Health Concerns Assessment Noted Time PHQ-9 Depression Total Score: 0 12/21/19 23 10:37 AM EDT documented as of this encounter Care Teams Advisory Internship Relationship Specialty Start Date End Date Carina Moore MD [address] [place] [id number] PCP - General Family Medicine 04/25/18 documented as of this encounter
== END 2025-01-15 11:23 | disposition home or self-care (01) ==
LOC: HO.HUSH 10:44
PROVIDERS: PCP Internal Medicine; Visit Provider Nurse Practitioner Family
DX: E29.1 Testicular hypofunction (principal); E11.69 Type 2 diabetes mellitus with other specified complication; N52.1 Erectile dysfunction due to diseases classified elsewhere; F52.0 Hypoactive sexual desire disorder; Z13.9 Encounter for screening, unspecified
CPT/HCPCS: 99214; G2211

== ENCOUNTER → 2025-01-15 10:44 | Outpatient (BNVA) | payer OTHER, SELFPAY | PROVIDERS: PCP Internal Medicine; Visit Provider Nurse Practitioner Family | DX: E11.22 Type 2 diabetes mellitus with diabetic chronic kidney disease (principal); I12.9 Hypertensive chronic kidney disease with stage 1 through stage 4 chronic kidney disease, or unspecified chronic kidney disease; N18.31 Chronic kidney disease, stage 3a; E11.69 Type 2 diabetes mellitus with other specified complication; E29.1 Testicular hypofunction; F52.0 Hypoactive sexual desire disorder; N52.1 Erectile dysfunction due to diseases classified elsewhere | CPT/HCPCS: 81003; 99202; 99212 ==

== ENCOUNTER 2025-01-15 13:01 | Outpatient (AMB) | payer OTHER, SELFPAY ==
--- NOTE | 2025-01-15 13:47 | HO.NEPHOV_ITS ---
Vital Signs 01/15/25 13:50 Height 5 ft 4 in Weight 185 lb 2 oz BMI 31.8 BP 84/60 L Blood Pressure Location Rt brachial Position Sitting Pulse 75 Pulse Source Pulse Oximeter Pulse Oximetry (%) 95 Oxygen Delivery Method Room Air Intake Visit Reasons: ENP: Primary HTN, CKD Stage 3a Fitter Tacker Required: Yes Fitter Tacker Language: Ur Coordinator Services: Fitter Tacker Offered & Declined ([facility] Fitter Tacker services refused ) Accompanied by: Self / Same As Patient Allergies ibuprofen (From MOTRIN) Allergy (Intermediate, Verified 01/15/25 21:56) KIDNEY INJURY tramadol (TRAMADOL) Allergy (Mild, Verified 01/15/25 21:56) ITCHING Motrin Allergy (Mild, Uncoded 01/15/25 21:56) rash HPI Comments Details: Thank you for referring Fabrice for evaluation of his AMRITA on CKD. He is 69 years of age and has H/O DM, HTN as well as cardiomyopathy. He is on Farxiga as well as Entresto. He denies any SOB, weight gain, PND, orthostatic symptoms edema, orthopnea, deafness, sinusitis, hematuria, proteinuria or retinopathy. He has no H/O hepatitis, skin rashes, hypercalcemia, new bone or back pain . He does not take excess NSAID's. 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-D) in place Gastrointestinal hemorrhage Left bundle branch block Chronic generalized pain disorder Chronic low back pain Benzodiazepine dependence Allergic conjunctivitis Hyperlipidemia Fibromatosis Dysphagia Anxiety Cervical radiculitis Hypogonadism in male Erectile dysfunction due to diseases classified elsewhere Anal fistula Diverticulosis of large intestine without hemorrhage Diabetes mellitus Finger amputee Pacemaker High cholesterol Hypokalemia HTN (hypertension) Surgical History History of surgery History of surgery on arm Family History Father Stroke Maternal Uncle Diabetes Mother Asthma Diabetes Arthritis Social History Household Members: None Housing: Apartment Alcohol intake: current Alcohol intake frequency: a few times a week Alcohol type: hard liquor Patient Tobacco Use Status: Former Tobacco user Current occupational status: disabled Review of Systems Const All systems reviewed & are unremarkable except as noted in HPI and below Physical Exam Vital Signs: Last Vital Signs Pulse 75 01/15/25 13:50 BP 84/60 L 01/15/25 13:50 Pulse Ox 95 01/15/25 13:50 Oxygen Delivery Method Room Air 01/15/25 13:50 BMI result Body Mass Index 31.8 Const General: comfortable and no acute distress Orientation/consciousness: patient oriented x3 HEENT Head: Yes normocephalic Mouth: Normal oral and palatal mucosa present Eyes EOM: EOMs intact bilaterally Neck Neck: Yes supple Resp Auscultation: clear to auscultation bilaterally Cardio Jugular venous distension: no JVD Rate: regular rate GI Palpation (GI): Soft to palpation Auscultation: normal bowel sounds General: Yes no CVA tenderness Back/Spine/Pelvis Back: no CVA tenderness Skin General skin exam: no rashes or lesions noted Neuro General: patient oriented x3 and moves all extremities Extrem General: Yes no pedal edema Results AMB Urinalysis, Automated UA Leukoctes 0 Jose/uL Last Edit by Shelly Grant CMA on 01/15/25 10:51 UA Nitrite Negative Last Edit by Shelly Grant CMA on 01/15/25 10:51 UA Urobilinogen 0.2 mg/dL Last Edit by Shelly Grant CMA on 01/15/25 10:51 UA Protein 15 mg/dL Last Edit by Shelly Grant CMA on 01/15/25 10:51 UA pH 5.5 Last Edit by Shelly Grant CMA on 01/15/25 10:51 UA Blood 0 Kaveh/uL Last Edit by Shelly Grant CMA on 01/15/25 10:51 UA Specific [place] 1.015 Last Edit by Shelly Grant CMA on 01/15/25 10:51 UA Ketone Negative Last Edit by Shelly Grant CMA on 01/15/25 10:51 UA Bilirubin 0 mg/dL Last Edit by Shelly Grant CMA on 01/15/25 10:51 UA Glucose 1000 mg/dL Last Edit by Shelly Grant CMA on 01/15/25 10:51 Results Reviewed Nephrology Results: Hgb, (14.0-18.0) 12.9 g/dl L Δ 12/16/24 WBC, (4.8-10.8) 9.5 X10*3/uL 12/16/24 Plt Count, (160-400) 292 X10*3/uL 12/16/24 Sodium, (135-145) 140 mmol/L 08/20/24 Potassium, (3.3-5.1) 4.8 mmol/L 08/20/24 Chloride, (96-108) 103 mmol/L 08/20/24 Carbon Dioxide, (22-29) 32 mmol/L H 08/20/24 BUN, (9-16) 25 mg/dL H 08/20/24 Creatinine, (0.5-1.4) 1.15 mg/dL 08/20/24 Calcium, (8.4-10.2) 9.7 mg/dL 08/20/24 Urine Creatinine 58.40 mg/dL 08/20/24 Assessment & Plan Assessment & Plan (1) Chronic kidney disease, stage 3a: Code(s): N18.31 - Chronic kidney disease, stage 3a Category: Medical (2) HTN (hypertension): Code(s): I10 - Essential (primary) hypertension Category: Medical Qualifiers: Hypertension type: primary hypertension Qualified Code(s): I10 - Essential (primary) hypertension Plan Fabrice has CKD 3 at baseline most likely due to vascular disease. He has long standing DM without proteinuria. He intermittently may be having altered autoregulation within the kidney due to fluctuant hemodynamics due to his cardiomyopathy and being on Entresto as well as chlorthalidone & Farxiga. He needs to monitor his weight, limit his salt intake and avoid NSAID's. I have ordered imaging studies and follow up blood work . I shall adjust his medications based on evolving data. Answered all questions and F/U was given Orders: Orders US renal doppler 1 Month N18.31 - Chronic kidney disease, stage 3a US renal BI 1 Month N18.31 - Chronic kidney disease, stage 3a Creatinine 1 Month N18.31 - Chronic kidney disease, stage 3a Blood Urea Nitrogen 1 Month N18.31 - Chronic kidney disease, stage 3a Electrolytes 1 Month N18.31 - Chronic kidney disease, stage 3a Coding Level of Care Code New Pt Level 4 (28689) Diagnoses Chronic kidney disease, stage 3a N18.31 Primary hypertension I10 Hypertension type: primary hypertension
[2025-01-15 13:50] VITALS: BP 84/60; PULSE 75; O2SAT 95; BMI 31.8
== END 2025-01-15 14:12 | disposition home or self-care (01) ==
LOC: HO.HKA 13:02
PROVIDERS: PCP Internal Medicine; Referring Provider Internal Medicine; Visit Provider Internal Medicine Nephrology
DX: N18.31 Chronic kidney disease, stage 3a (principal); I10 Essential (primary) hypertension
CPT/HCPCS: 99204

== ENCOUNTER 2025-03-06 08:17 | Outpatient (REF) | payer OTHER, SELFPAY ==
--- NOTE | ~2025-03-06 | US_ITS ---
EXAMINATION: Ultrasound renal Doppler. Ultrasound renal bilaterally. CLINICAL INFORMATION: CKD Stage 3a . COMPARISON: Correlated to CT dated December 27, 2018. TECHNIQUE: Real-time ultrasound kidneys using grayscale and color Doppler technique. Spectral color Doppler analysis of the main renal arteries and the abdominal aorta at the main renal artery origin. FINDINGS: Right kidney: 11 x 5 x 5 cm. Volume: 121 cc. Normal echotexture. Normal renal cortical thickness. No hydronephrosis. No gross solid or cystic lesion. Left kidney: 10 x 4 x 4 cm. Volume: 92 cc. Normal echotexture. Normal renal cortical thickness. No hydronephrosis. No gross solid or cystic lesion. Spectral Doppler analysis: Right Kidney: -Peak systolic velocity in the proximal right renal artery = 100 cm/s. Normal waveforms. -Peak systolic velocity in the mid right renal artery = 120 cm/s. Normal waveforms. -Peak systolic velocity in the distal right renal artery = 76 cm/s. Normal waveforms. -Patent right renal vein. -Upper pole interlobar artery resistive index of 0.7. -Midpole interlobar artery resistive index of 0.6. -Lower pole interlobar artery resistive index of 0.7. RAR right = 1.28 Left Kidney: -Peak systolic velocity in the proximal left renal artery = 85 cm/s. Normal waveforms. -Peak systolic velocity in the mid left renal artery = 92 cm/s. Normal waveforms. -Peak systolic velocity in the distal left renal artery = 69 cm/s. Normal waveforms. -Patent left renal vein. -Upper pole interlobar artery resistive index of 0.7. -Mid pole interlobar artery resistive index of 0.7. -lower pole interlobar artery resistive index of 0.76. RAR left = 1.08 Aorta: -Peak systolic velocity = 78 cm/s. US/US renal doppler IMPRESSION: No hydronephrosis. No hemodynamically significant stenosis by ultrasound criteria at either main renal artery. Electronically signed by: Chandu Haider MD 03/06/2025 10:17 AM EDT
--- NOTE | ~2025-03-06 | US_ITS ---
EXAMINATION: Ultrasound renal Doppler. Ultrasound renal bilaterally. CLINICAL INFORMATION: CKD Stage 3a . COMPARISON: Correlated to CT dated December 27, 2018. TECHNIQUE: Real-time ultrasound kidneys using grayscale and color Doppler technique. Spectral color Doppler analysis of the main renal arteries and the abdominal aorta at the main renal artery origin. FINDINGS: Right kidney: 11 x 5 x 5 cm. Volume: 121 cc. Normal echotexture. Normal renal cortical thickness. No hydronephrosis. No gross solid or cystic lesion. Left kidney: 10 x 4 x 4 cm. Volume: 92 cc. Normal echotexture. Normal renal cortical thickness. No hydronephrosis. No gross solid or cystic lesion. Spectral Doppler analysis: Right Kidney: -Peak systolic velocity in the proximal right renal artery = 100 cm/s. Normal waveforms. -Peak systolic velocity in the mid right renal artery = 120 cm/s. Normal waveforms. -Peak systolic velocity in the distal right renal artery = 76 cm/s. Normal waveforms. -Patent right renal vein. -Upper pole interlobar artery resistive index of 0.7. -Midpole interlobar artery resistive index of 0.6. -Lower pole interlobar artery resistive index of 0.7. RAR right = 1.28 Left Kidney: -Peak systolic velocity in the proximal left renal artery = 85 cm/s. Normal waveforms. -Peak systolic velocity in the mid left renal artery = 92 cm/s. Normal waveforms. -Peak systolic velocity in the distal left renal artery = 69 cm/s. Normal waveforms. -Patent left renal vein. -Upper pole interlobar artery resistive index of 0.7. -Mid pole interlobar artery resistive index of 0.7. -lower pole interlobar artery resistive index of 0.76. RAR left = 1.08 Aorta: -Peak systolic velocity = 78 cm/s. US/US renal BI IMPRESSION: No hydronephrosis. No hemodynamically significant stenosis by ultrasound criteria at either main renal artery. Electronically signed by: Chandu Haider MD 03/06/2025 10:17 AM EDT
--- OUTSIDE RECORDS SUMMARY | 2025-03-06 08:30 | XMS_ITS | Encounter Summary ---
Author Organization [employer] Address [address] [place] [address] Care Team Providers Care Supervisor Forming And Tempering Name Role Phone Carina Moore MD Primary Care Provide r Encounter Details Date Type Department Care Team (Late st Contact Info) Description 02/07/2024 Telephone [facility] [address] [place] [address] Carina Moore MD [address] [place], [place] [phone] Social History Tobacco Use Types Packs/Day Years [...] Description 03/10/2025 11:15 AM EDT Office Visit [facility] [address] [place] [phone] Carina Moore MD [address] [place] [phone] 04/04/2025 10:30 AM EDT Telemedicine [address] [phone] Myra Bishop RN documented as of this encounter Visit Diagnoses Not on filedocumented in this encounter Additional Health Concerns Assessment Noted Time PHQ-9 Depression Total Score: 0 12/21/19 23 10:37 AM EDT documented as of this encounter Care Teams Supervisor Forming And Tempering Relationship Specialty Start Date End Date Carina Moore MD [address] [place] [phone] PCP - General Family Medicine 04/25/18 documented as of this encounter
== END 2025-03-06 08:18 | disposition home or self-care (01) ==
LOC: HO.US 08:17
PROVIDERS: PCP Internal Medicine; Visit Provider Internal Medicine Nephrology
DX: N18.31 Chronic kidney disease, stage 3a (principal)
CPT/HCPCS: 76775; 93975

== ENCOUNTER → 2025-03-06 08:19 | Outpatient (BNV) | payer OTHER, SELFPAY | PROVIDERS: PCP Internal Medicine; Visit Provider Radiology Diagnostic Radiology | DX: N18.31 Chronic kidney disease, stage 3a (principal) | CPT/HCPCS: 76775; 93975 ==

== ENCOUNTER 2025-03-10 12:02 | Outpatient (REF) | payer OTHER, SELFPAY ==
--- OUTSIDE RECORDS SUMMARY | 2025-03-10 13:05 | XMS_ITS | Encounter Summary ---
Author Organization [employer] Address [address] [facility] [address] [place] [address] Care Team Providers Care Community Service Aide Name Role Phone Carina Moore MD Primary Care Provide r Encounter Details Date Type Department Care Team (Late st Contact Info) Description 02/07/2024 Telephone [facility] [address] [place] [address] Carina Moore MD [address] [place], [place] [phone] Social History Tobacco Use Types Packs/Day Years [...] Care Team (Late st Contact Info) Description 04/04/2025 10:30 AM EDT Telemedicine [facility] [address] [place] [address] Myra Bishop, TOÑO documented as of this encounter Visit Diagnoses Not on filedocumented in this encounter Additional Health Concerns Assessment Noted Time PHQ-9 Depression Total Score: 0 12/21/19 23 10:37 AM EDT documented as of this encounter Care Teams Community Service Aide Relationship Specialty Start Date End Date Carina Moore MD [address] [place] [address] PCP - General Family Medicine 04/25/18 documented as of this encounter
[2025-03-10 13:39] LABS: Blood Urea Nitrogen 24 mg/dL (9-16)
[2025-03-10 13:43] LABS: Alanine Aminotransferase 26 U/L (0-40); Albumin Level 4.2 g/dL (3.5-5.0); Alkaline Phosphatase 55 U/L (39-117); Anion Gap 13 (12-20); Aspartate Amino Transferase 36 U/L (5-37); Blood Urea Nitrogen 24 mg/dL (9-16); Calcium 9.4 mg/dL (8.4-10.2); Carbon Dioxide 30 mmol/L (22-29); Chloride 103 mmol/L (96-108); Cholesterol 168 mg/dL (<200); Estimated Glomerular Filt Rate > 60; HDL Cholesterol 42 mg/dL (>40); Potassium 5.5 mmol/L (3.3-5.1); Sodium 140 mmol/L (135-145); Total Protein 7.5 g/dL (6.5-8.0); Triglycerides 179 mg/dL (<150)
== END 2025-03-10 12:03 | disposition home or self-care (01) ==
LOC: HO.HHCL 12:02
PROVIDERS: Internal Medicine Nephrology; PCP Internal Medicine; Visit Provider Internal Medicine
DX: E11.22 Type 2 diabetes mellitus with diabetic chronic kidney disease (principal); N18.31 Chronic kidney disease, stage 3a
CPT/HCPCS: 36415; 80053; 80061; 82043; 82570; 84520

== ENCOUNTER 2025-03-14 14:07 | Outpatient (AMB) | payer OTHER, SELFPAY ==
--- OUTSIDE RECORDS SUMMARY | 2025-03-14 14:10 | XMS_ITS | Encounter Summary ---
Author Organization [employer] Address [address] [facility] [address] [place] [address] Care Team Providers Care Supervisor Scrap Preparation Name Role Phone Carina Moore MD Primary Care Provide r Encounter Details Date Type Department Care Team (Late st Contact Info) Description 02/07/2024 Telephone [facility] [address] [place], [place] [phone] Carina Moore MD [address] [place], [place] [phone] Social History Tobacco Use Types Packs/Day Years [...] Info) Description 04/04/2025 10:30 AM EDT Telemedicine [facility] [address] [place] [address] Myra Bishop, TOÑO documented as of this encounter Visit Diagnoses Not on filedocumented in this encounter Additional Health Concerns Assessment Noted Time PHQ-9 Depression Total Score: 0 12/21/19 23 10:37 AM EDT documented as of this encounter Care Teams Supervisor Scrap Preparation Relationship Specialty Start Date End Date Carina Moore MD [address] [place] [address] PCP - General Family Medicine 04/25/18 documented as of this encounter
--- NOTE | 2025-03-14 14:22 | HO.NEPHOV ---
Vital Signs 03/14/25 14:23 Height 5 ft 4 in Weight 184 lb 6 oz BMI 31.6 BP 94/60 Blood Pressure Location Rt brachial Position Sitting Pulse 75 Pulse Source Pulse Oximeter Pulse Oximetry (%) 94 Oxygen Delivery Method Room Air Intake Visit Reasons: FU/ Conf Psychiatry Adult Physician Required: Yes Psychiatry Adult Physician Language: Mortgage Loan Assistant Services: Psychiatry Adult Physician [place]fered & Declined [place] [place] Accompanied by: Self / Same As Patient Allergies ibuprofen (From MOTRIN) Allergy (Intermediate, Verified 03/14/25 14:22) KIDNEY INJURY tramadol (TRAMADOL) Allergy (Mild, Verified 03/14/25 14:22) ITCHING Motrin Allergy (Mild, Uncoded 01/15/25 21:56) rash Medication List - Last Reconciled 03/14/25 by Marlyn Pablo, DNP, PULP GRINDER FEEDER-BC albuterol sulfate 90 mcg/actuation (Ventolin HFA) 0 mcg inhalation amlodipine 5 mg PO DAILY atorvastatin 40 mg PO DAILY blood sugar diagnostic (FreeStyle Lite Strips) As directed blood-glucose meter (FreeStyle [place] Lite kit) As directed chlorthalidone 25 mg PO DAILY clonazepam 0.5 mg PO ONCE PRN dapagliflozin propanediol (Farxiga) 10 mg PO DAILY fluticasone furoate 200 mcg/actuation (Arnuity Ellipta) 1 inh inhalation DAILY lancets (FreeStyle Lancets) As directed metformin 500 mg PO DAILY metoprolol succinate ER 200 mg PO DAILY montelukast 10 mg PO BEDTIME multivitamin (Multiple Vitamins tablet) 1 tab PO DAILY needle (disp) 18 G (BD Regular Bevel [place]) As directed pantoprazole 40 mg PO DAILY sacubitril-valsartan 49-51 mg (Entresto) 0.5 tabs PO BID syringe with needle (BD Luer-Janet Syringe) As directed tadalafil 10 mg PO DAILY 90 days testosterone enanthate (Xyosted) 50 mg (0.5 mL) subcut QWEEK 4 weeks HPI Comments Details: Fabrice is followed by Dr Hemphill for CKD, referred originally for AMRITA. He is 69 years of age and has H/O DM, HTN as well as cardiomyopathy. He is on Farxiga as well as Entresto. He denies any SOB, weight gain, PND, orthostatic symptoms edema, orthopnea, deafness, sinusitis, hematuria, proteinuria or retinopathy. He has no H/O hepatitis, skin rashes, hypercalcemia, new bone or back pain . He does not take excess NSAID's. His serum creatinine is stable at 1.13, in October was 1.15. [facility] Medical History Chronic kidney disease, stage 3a Myofascial pain GERD (gastroesophageal reflux disease) Cervical spondylosis Cardiomyopathy Polyarthralgia Epigastric pain Type 2 diabetes mellitus Perirectal abscess Onychomycosis REGLA (obstructive sleep apnea) Neck pain Class 1 obesity Moderate asthma Insomnia Cardiac resynchronization therapy defibrillator (ELECTRICAL WORKER-D) in place Gastrointestinal hemorrhage Left bundle branch block Chronic generalized pain disorder Chronic low back pain Benzodiazepine dependence Allergic conjunctivitis Hyperlipidemia Fibromatosis Dysphagia Anxiety Cervical radiculitis Hypogonadism in male Erectile dysfunction due to diseases classified elsewhere Anal fistula Diverticulosis of large intestine without hemorrhage Diabetes mellitus Finger amputee Pacemaker High cholesterol Hypokalemia HTN (hypertension) Surgical History History of surgery History of surgery on arm Family History Father Stroke Maternal Uncle Diabetes Mother Asthma Diabetes Arthritis Social History Household Members: None Housing: Apartment Alcohol intake: current Alcohol intake frequency: a few times a week Alcohol type: hard liquor Patient Tobacco Use Status: Former Tobacco user Current occupational status: disabled Physical Exam Vital Signs: Last Vital Signs Pulse 75 03/14/25 14:23 BP 94/60 03/14/25 14:23 Pulse Ox 94 03/14/25 14:23 Oxygen Delivery Method Room Air 03/14/25 14:23 BMI result Body Mass Index 31.6 Const General: comfortable and no acute distress Orientation/consciousness: patient oriented x3 HEENT Head: Yes normocephalic Mouth: Normal oral and palatal mucosa present Eyes EOM: EOMs intact bilaterally Neck Neck: Yes supple Resp Auscultation: clear to auscultation bilaterally Cardio Jugular venous distension: no JVD Rate: regular rate GI Palpation (GI): Soft to palpation Auscultation: normal bowel sounds General: Yes no CVA tenderness Back/Spine/Pelvis Back: no CVA tenderness Skin General skin exam: no rashes or lesions noted Neuro General: patient oriented x3 and moves all extremities Extrem General: Yes no pedal edema and No edema Results Reviewed Nephrology Results: Hgb, (14.0-18.0) 12.9 g/dl L Δ 12/16/24 WBC, (4.8-10.8) 9.5 X10*3/uL 12/16/24 Plt Count, (160-400) 292 X10*3/uL 12/16/24 Sodium, (135-145) 140 mmol/L 03/10/25 Potassium, (3.3-5.1) 5.5 mmol/L H 03/10/25 Chloride, (96-108) 103 mmol/L 03/10/25 Carbon Dioxide, (22-29) 30 mmol/L H 03/10/25 BUN, (9-16) 24 mg/dL H 03/10/25 Creatinine, (0.5-1.4) 1.13 mg/dL 03/10/25 Calcium, (8.4-10.2) 9.4 mg/dL 03/10/25 Urine Creatinine 76.07 mg/dL 03/10/25 Renal US 03/06/25 Assessment & Plan Assessment & Plan (1) HTN (hypertension): Code(s): I10 - Essential (primary) hypertension Category: Medical Qualifiers: Hypertension type: primary hypertension Qualified Code(s): I10 - Essential (primary) hypertension (2) Chronic kidney disease, stage 3a: Code(s): N18.31 - Chronic kidney disease, stage 3a Category: Medical (3) Hyperkalemia: Code(s): E87.5 - Hyperkalemia Category: Medical Plan Fabrice has CKD 3 at baseline most likely due to vascular disease. He has long standing DM without proteinuria. He intermittently may be having altered autoregulation within the kidney due to fluctuant hemodynamics due to his cardiomyopathy and being on Entresto as well as chlorthalidone & Farxiga. His potassium is low, his blood pressure is also on the low side today- pt is not symptomatic. Will give 30gm kayexalate x3 days and re-check BMP next week. Will reduce blood pressure medications, though patient is not clear on current medication list, states some of medications on current list are inaccurrate, but he cannot verify which ones he is currently taking. Asked him to return next week and bring his prescription medications with him so we can verify which pills he is taking, and will adjust from there given hypotension. Also advised to start low potassium diet. He needs to monitor his weight, limit his salt intake and avoid NSAID's. Answered all questions and F/U was given. Medications: New sodium polystyrene sulfonate 30 grams PO DAILY 90 grams 0RF 3 days E87.5 - Hyperkalemia Coding Level of Care Code Est Pt Level 4 (59848) Diagnoses Primary hypertension I10 Hypertension type: primary hypertension Chronic kidney disease, stage 3a N18.31 Hyperkalemia E87.5
[2025-03-14 14:23] VITALS: BP 94/60; PULSE 75; O2SAT 94; BMI 31.6
== END 2025-03-14 14:42 | disposition home or self-care (01) ==
LOC: HO.HKA 14:08
PROVIDERS: PCP Internal Medicine; Visit Provider Internal Medicine Nephrology
DX: I10 Essential (primary) hypertension (principal); N18.31 Chronic kidney disease, stage 3a; E87.5 Hyperkalemia
CPT/HCPCS: 99214

== ENCOUNTER → 2025-03-14 14:07 | Outpatient (BNVA) | payer OTHER, SELFPAY | PROVIDERS: PCP Internal Medicine; Visit Provider Internal Medicine Nephrology | DX: I10 Essential (primary) hypertension (principal); N18.31 Chronic kidney disease, stage 3a; E87.5 Hyperkalemia | CPT/HCPCS: 99212 ==

== ENCOUNTER 2025-03-20 10:49 | Outpatient (REF) | payer OTHER, SELFPAY ==
[2025-03-20 12:55] LABS: Anion Gap 12 (12-20); Carbon Dioxide 29 mmol/L (22-29); Chloride 105 mmol/L (96-108); Potassium 5.1 mmol/L (3.3-5.1); Sodium 141 mmol/L (135-145)
== END 2025-03-20 10:50 | disposition home or self-care (01) ==
LOC: HO.LAB 10:49
PROVIDERS: Absent Provider Internal Medicine Nephrology; PCP Internal Medicine; Visit Provider Nurse Practitioner Family
DX: I12.9 Hypertensive chronic kidney disease with stage 1 through stage 4 chronic kidney disease, or unspecified chronic kidney disease (principal); E11.22 Type 2 diabetes mellitus with diabetic chronic kidney disease; N18.31 Chronic kidney disease, stage 3a; E78.5 Hyperlipidemia, unspecified; E11.69 Type 2 diabetes mellitus with other specified complication; N52.1 Erectile dysfunction due to diseases classified elsewhere; Z79.4 Long term (current) use of insulin; Z87.891 Personal history of nicotine dependence; Z79.899 Other long term (current) drug therapy; Z79.84 Long term (current) use of oral hypoglycemic drugs
CPT/HCPCS: 36415; 80051; 99212

== ENCOUNTER 2025-03-20 10:49 | Outpatient (AMB) | payer OTHER, SELFPAY ==
[2025-03-20 10:59] VITALS: BP 110/60; PULSE 73; O2SAT 95; BMI 31.8
--- NOTE | 2025-03-20 10:59 | HO.NEPHOV ---
Vital Signs 03/20/25 10:59 Height 5 ft 4 in Weight 185 lb BMI 31.8 BP 110/60 Blood Pressure Location Rt brachial Position Sitting Pulse 73 Pulse Source Pulse Oximeter Pulse Oximetry (%) 95 Oxygen Delivery Method Room Air Intake Visit Reasons: 1wk f/u-LVM Excavator Operator Required: No Excavator Operator Services: Excavator Operator Offered & Declined Accompanied by: Self / Same As Patient Allergies ibuprofen (From MOTRIN) Allergy (Intermediate, Verified 03/20/25 11:02) KIDNEY INJURY tramadol (TRAMADOL) Allergy (Mild, Verified 03/20/25 11:02) ITCHING Motrin Allergy (Mild, Uncoded 01/15/25 21:56) rash Medication List - Last Reconciled 03/20/25 by Marlyn Pablo, DNP, DIESEL STATIONARY ENGINEER-BC albuterol sulfate 90 mcg/actuation (Ventolin HFA) 0 mcg inhalation atorvastatin 40 mg PO DAILY blood sugar diagnostic (FreeStyle Lite Strips) As directed blood-glucose meter (FreeStyle [place] Lite kit) As directed clonazepam 0.5 mg PO ONCE PRN dapagliflozin propanediol (Farxiga) 10 mg PO DAILY fluticasone furoate 200 mcg/actuation (Arnuity Ellipta) 1 inh inhalation DAILY lancets (FreeStyle Lancets) As directed metformin 500 mg PO DAILY metoprolol succinate ER 200 mg PO DAILY montelukast 10 mg PO BEDTIME multivitamin (Multiple Vitamins tablet) 1 tab PO DAILY needle (disp) 18 G (BD Regular Bevel [place]) As directed pantoprazole 40 mg PO DAILY sacubitril-valsartan 49-51 mg (Entresto) 1 tab PO BID syringe with needle (BD Luer-Janet Syringe) As directed tadalafil 10 mg PO DAILY PRN tirzepatide (Mounjaro) 2.5 mg subcut QWEEK tramadol 50 mg PO DAILY PRN HPI Comments Details: Fabrice is followed by Dr Hemphill for CKD, referred originally for AMRITA. He is 69 years of age and has H/O DM, HTN as well as cardiomyopathy. He is on Farxiga as well as Entresto. He denies any SOB, weight gain, PND, orthostatic symptoms edema, orthopnea, deafness, sinusitis, hematuria, proteinuria or retinopathy. He has no H/O hepatitis, skin rashes, hypercalcemia, new bone or back pain . He does not take excess NSAID's. His serum creatinine is stable at 1.13, in October was 1.15. potassium was elevated at 5.5, pt given 30grams kayexalate x3 days. Reports dizziness resolved. blood pressures improved today. Patient confirms he is taking entresto and metoprolol as listed above. 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 Gastrointestinal hemorrhage Left bundle branch block Chronic generalized pain disorder Chronic low back pain Benzodiazepine dependence Allergic conjunctivitis Hyperlipidemia Fibromatosis Dysphagia Anxiety Cervical radiculitis Hypogonadism in male Erectile dysfunction due to diseases classified elsewhere Anal fistula Diverticulosis of large intestine without hemorrhage Diabetes mellitus Finger amputee Pacemaker High cholesterol Hypokalemia HTN (hypertension) Surgical History History of surgery History of surgery on arm Family History Father Stroke Maternal Uncle Diabetes Mother Asthma Diabetes Arthritis Social History Household Members: None Housing: Apartment Alcohol intake: current Alcohol intake frequency: a few times a week Alcohol type: hard liquor Patient Tobacco Use Status: Former Tobacco user Current occupational status: disabled Review of Systems Const All systems reviewed & are unremarkable except as noted in HPI and below Physical Exam Vital Signs: Last Vital Signs Pulse 73 03/20/25 10:59 BP 110/60 03/20/25 10:59 Pulse Ox 95 03/20/25 10:59 Oxygen Delivery Method Room Air 03/20/25 10:59 BMI result Body Mass Index 31.8 Const General: comfortable and no acute distress Orientation/consciousness: patient oriented x3 HEENT Head: Yes normocephalic Mouth: Normal oral and palatal mucosa present Eyes EOM: EOMs intact bilaterally Neck Neck: Yes supple Resp Auscultation: clear to auscultation bilaterally Cardio Jugular venous distension: no JVD Rate: regular rate GI Palpation (GI): Soft to palpation Auscultation: normal bowel sounds General: Yes no CVA tenderness Back/Spine/Pelvis Back: no CVA tenderness Skin General skin exam: no rashes or lesions noted Neuro General: patient oriented x3 and moves all extremities Extrem General: Yes no pedal edema and No edema Results Reviewed Nephrology Results: Hgb, (14.0-18.0) 12.9 g/dl L Δ 12/16/24 WBC, (4.8-10.8) 9.5 X10*3/uL 12/16/24 Plt Count, (160-400) 292 X10*3/uL 12/16/24 Sodium, (135-145) 140 mmol/L 03/10/25 Potassium, (3.3-5.1) 5.5 mmol/L H 03/10/25 Chloride, (96-108) 103 mmol/L 03/10/25 Carbon Dioxide, (22-29) 30 mmol/L H 03/10/25 BUN, (9-16) 24 mg/dL H 03/10/25 Creatinine, (0.5-1.4) 1.13 mg/dL 03/10/25 Calcium, (8.4-10.2) 9.4 mg/dL 03/10/25 Urine Creatinine 76.07 mg/dL 03/10/25 Renal US 03/06/25 Assessment & Plan Assessment & Plan (1) HTN (hypertension): Code(s): I10 - Essential (primary) hypertension Category: Medical Qualifiers: Hypertension type: primary hypertension Qualified Code(s): I10 - Essential (primary) hypertension (2) Chronic kidney disease, stage 3a: Code(s): N18.31 - Chronic kidney disease, stage 3a Category: Medical (3) Hyperkalemia: Code(s): E87.5 - Hyperkalemia Category: Medical Plan Fabrice has CKD 3 at baseline most likely due to vascular disease. He has long standing DM without proteinuria. He intermittently may be having altered autoregulation within the kidney due to fluctuant hemodynamics due to his cardiomyopathy and being on Entresto as well as metoprolol & Farxiga. His potassium was elevated and blood pressure low last visit- he took 30gm kayexalate x3 days as prescribed, will re-check potassium today. Advised to start low potassium diet. He needs to monitor his weight, limit his salt intake and avoid NSAID's. Answered all questions and F/U was given. Orders: Orders Electrolytes Today Marlyn Pablo DNP, DIESEL STATIONARY ENGINEER-BC E87.5 - Hyperkalemia Medications: Changed From tadalafil 10 mg PO DAILY 90 days 90 tabs 1RF sexual activity E11.69 - Type 2 diabetes mellitus with other specified complication, N52.1 - Erectile dysfunction due to diseases classified elsewhere To tadalafil 10 mg PO DAILY PRN E11.69 - Type 2 diabetes mellitus with other specified complication, N52.1 - Erectile dysfunction due to diseases classified elsewhere Sherron Gandhi, DIESEL STATIONARY ENGINEER-BC Coding Level of Care Code Est Pt Level 3 (45674) Diagnoses Primary hypertension I10 Hypertension type: primary hypertension Chronic kidney disease, stage 3a N18.31 Hyperkalemia E87.5
--- OUTSIDE RECORDS SUMMARY | 2025-03-20 11:32 | XMS_ITS | Encounter Summary ---
Author Organization [employer] Address [address] [place] [address] Care Team Providers Care Rock Singer Name Role Phone Carina Moore MD Primary Care Provide r Encounter Details Date Type Department Care Team (Late st Contact Info) Description 02/07/2024 Telephone [facility] [address] [place], [place] [phone] Carina Moore MD [address] [place], [place] [phone] Social History Tobacco Use Types Packs/Day Years [...] Info) Description 04/04/2025 10:30 AM EDT Telemedicine [facility] [address] [place] [address] Myra Bishop, TOÑO documented as of this encounter Visit Diagnoses Not on filedocumented in this encounter Additional Health Concerns Assessment Noted Time PHQ-9 Depression Total Score: 0 12/21/19 23 10:37 AM EDT documented as of this encounter Care Teams Rock Singer Relationship Specialty Start Date End Date Carina Moore MD [address] [place] [address] PCP - General Family Medicine 04/25/18 documented as of this encounter
== END 2025-03-20 11:26 | disposition home or self-care (01) ==
LOC: HO.HKA 10:50
PROVIDERS: PCP Internal Medicine; Visit Provider Nurse Practitioner Family
DX: I10 Essential (primary) hypertension (principal); N18.31 Chronic kidney disease, stage 3a; E87.5 Hyperkalemia
CPT/HCPCS: 99213

== ENCOUNTER 2025-04-10 10:29 | Outpatient (REF) | payer OTHER, SELFPAY ==
[2025-04-10 11:38] LABS: Hematocrit 36.7 % (42.0-52.0); Hemoglobin 12.3 g/dl (14.0-18.0); Mean Corpuscular HGB Conc 33.5 g/dl (31.0-36.0); Mean Corpuscular Hemoglobin 31.5 pg (27.0-33.0); Mean Corpuscular Volume 94.1 fL (80.0-98.0); NRBC Abs Auto 0.000 X10*3/uL (0.0-0.012); NRBC Pct Auto 0.0 /100WBC (0.0-0.2); Platelet Count 295 X10*3/uL (160-400); Red Blood Count 3.90 X10*6/uL (4.60-5.80); White Blood Count 7.9 X10*3/uL (4.8-10.8)
[2025-04-10 11:48] LABS: Anion Gap 9 (12-20); Carbon Dioxide 28 mmol/L (22-29); Chloride 106 mmol/L (96-108); Estimated Glomerular Filt Rate > 60; Potassium 4.3 mmol/L (3.3-5.1); Sodium 139 mmol/L (135-145)
--- OUTSIDE RECORDS SUMMARY | 2025-04-10 11:49 | XMS_ITS | Encounter Summary ---
Author Organization [employer] Address [address] [facility] 7t [place] [address] Care Team Providers Care Pound Attendant Name Role Phone Carina Moore MD Primary Care Provide r Reason for Visit * Reason Comments Med Refill Encounter Details Date Type Department Care Team (Late Contact Info) Description 10/14/2022 Refill [facility] [address] [place] [address] [phone] Cyndi Leach MD [address] [place] [address] [phone] Other chronic pain; Anxiety; Insomnia, unspecified type [...] Department Care Team (Late Contact Info) Description 06/13/2025 10:30 AM EDT Telemedicine [facility] [address] [place] [address] [phone] Myra Bishop RN 06/16/2025 11:15 AM EST Office Visit [facility] [address] [place] [address] [phone] Carina Moore MD [address] [place] [address] [phone] documented as of this encounter Visit Diagnoses Diagnosis Other chronic pain Anxiety Anxiety state, unspecified Insomnia, unspecified type documented in this encounter Care Teams Pound Attendant Relationship Specialty Start Date End Date Carina Moore MD [address] [place] [phone] PCP - General Family Medicine 04/25/18 documented as of this encounter
--- OUTSIDE RECORDS SUMMARY | 2025-04-10 11:49 | XMS_ITS | Encounter Summary ---
Author Organization [employer] Address [address] [facility] [address] [place] [address] Care Team Providers Care Incubator Operator Name Role Phone Carina Moore MD Primary Care Provide r Encounter Details Date Type Department Care Team ([facility] st Contact Info) Description 12/20/2022 Orders Only [facility] [address] [place] [address] Tabby Howe LPN Social History Tobacco Use [...] AM EDT documented as of this encounter Functional Status * Over the past 2 weeks, how often have you been bothered by any of the following problems? Question Answer Date of Assessment Author Patient Health Questionnaire -2 Score 0 12/20/2022 10:37 AM EDT Juanita Garcia MA * Over the past 2 weeks, how often have you been bothered by any of the following problems? Question Answer Date of Assessment Author Little interest or pleasure in doing things Not at all 12/20/2022 10:37 AM Juanita Sullivan MA Feeling down, depressed, or hopeless Not at all 12/20/2022 10:37 AM Juanita Sullivan MA Trouble falling or staying asleep, or sleeping too much Not at all 12/20/2022 10:37 AM Juanita Sullivan MA Feeling tired or having lambert le energy Not at all 12/20/2022 10:37 AM Juanita Sullivan MA Poor appetite or overeating Not at all 12/20/2022 10 :37 AM Juanita Sullivan MA Feeling bad about yourself - or that you are a failure or have let yourself or your family down Not at all 12/20/2022 10:37 AM Juanita Sullivan MA Trouble concentrating on things, such as reading the newspaper or watching television Not at all 12/20/2022 10:37 AM Juanita Sullivan MA Moving or speaking so slowly that other people could have noticed? Or the opposite - being so fidgety or restless that you have been moving around a lot more than usual. Not at all 12/20/2022 10:37 AM Juanita Sullivan MA Thoughts that you would be better off or hurting yourself in some way Not at all 12/20/2022 10:37 AM Juanita Sullivan MA Patient Health Questionnaire -9 Score 0 12/20/2022 10:37 AM Juanita Sullivan MA documented as of this encounter Plan of Treatment Upcoming Encounters Date Type Department Care Team (Late st Contact Info) Description 06/13/2025 10:30 AM EDT Telemedicine [facility] [address] [place] [phone] yMra Bishop RN 06/16/2025 11:15 AM EST Office Visit [facility] [address] [place] [phone] Carina Moore MD [address] [place] [address] documented as of this encounter Visit Diagnoses Not on filedocumented in this encounter Additional Health Concerns Assessment Noted Time PHQ-9 Depression Total Score: 0 12/21/19 23 10:37 AM EDT documented as of this encounter Care Teams Incubator Operator Relationship Specialty Start Date End Date Carina Moore MD [address] [place] [address] PCP - General Family Medicine 04/25/18 documented as of this encounter
--- OUTSIDE RECORDS SUMMARY | 2025-04-10 11:49 | XMS_ITS | Encounter Summary ---
Author Organization [employer] Address [address] [facility] 7t [place] [address] Care Team Providers Care Manager Branch Name Role Phone Carina Moore MD Primary Care Provide r Encounter Details Date Type Department Care Team (Late Contact Info) Description 12/22/2022 Telephone [facility] [address] [place] [phone] Carina Moore MD [address] [place] [phone] Social History Tobacco Use Types Packs/Day Years [...] Info) Description 06/13/2025 10:30 AM EDT Telemedicine [facility] [address] [place] [phone] Myra Bishop RN 06/16/2025 11:15 AM EST Office Visit [facility] [address] [place] [address] Carina Moore MD [address] [place] [address] documented as of this encounter Visit Diagnoses Not on filedocumented in this encounter Additional Health Concerns Assessment Noted Time PHQ-9 Depression Total Score: 0 12/21/19 23 10:37 AM EDT documented as of this encounter Care Teams Manager Branch Relationship Specialty Start Date End Date Carina Moore MD [address] [place] [address] PCP - General Family Medicine 04/25/18 documented as of this encounter
--- OUTSIDE RECORDS SUMMARY | 2025-04-10 11:49 | XMS_ITS | Encounter Summary ---
Author Organization [employer] Address [address] [facility] 7t [place] [address] Care Team Providers Care Space And Missile Operations Name Role Phone Carina Moore MD Primary Care Provide r Encounter Details Date Type Department Care Team ([facility] Contact Info) Description 04/10/2025 Orders Only GENERIC EXTERNAL DATA DEPARTMENT Provider, Generic External Data Social History Tobacco Use Types Packs/Day Years Used Date Smoking Tobacco: Former Cigarettes Passive Smoke Exposure: Past Smokeless Tobacco: Never Alcohol Use Standard Drinks/Week Comments Never 0 (1 standard drink = 0.6 oz pur e alcohol) Depression Answer Date Recorded Patient Health Questionnaire-9 Score 0 03/10/2025 Patient Health Questionnaire-9 Score 0 03/10/2025 Last PHQ-9: Questionnaire Data Not on file 0 03/10/2025 Housing Stability Answer Date Recorded What is your housing situation today? I have nino ortega 03/10/[address] you li ve. Do you have problems with any of the following? None of the above 03/10/2025 Food Insecurity Answer Date Recorded Within the past 12 months, y ou worried that your food would run out before you got money to buy more: Never True 03/10/2025 Within the past 12 months,th e food you bought just didn't last and you didn't have enough money to get more: Never True Transportation Answer Date Recorded In the past 12 months, has l ack of transportation kept you from medical appts, meetings, work or from getting things needed for daily living? No 03/10/2025 Utilities Answer Date Recorded In the past 12 months, has t he electric, gas, oil or water company threatened to shut off services in your home? No 03/10/2025 Depression Answer Date Recorded Patient Health Questionnaire-2 Score 0 03/10/2025 Internet Access Answer Date Recorded Internet Access Q1 Yes 03/10/2025 Internet Access Q2 Not on file 03/10/2025 Sex and Gender Information Value Date Recorded Sex Assigned at Male 06/13/2022 10:14 AM EDT Legal Sex Male 10:14 AM EDT Gender Identity Male 06/13/2022 10:14 AM EDT Sexual Orientation Straight 06/13/2022 10 :14 AM EDT documented as of this encounter Plan of Treatment Upcoming Encounters Date Type Department Care Team (Late st Contact Info) Description 06/13/2025 10:30 AM EDT Telemedicine [facility] [address] [place] [phone] Myra Bishop RN 06/16/2025 11:15 AM EST Office Visit [address] [phone] Carina Moore MD [address] [place] [address] [phone] documented as of this encounter Procedures Procedure Name Priority Date/Time Associated Diagnosis Comments CBC Routine 04/10/2025 10:55 AM EDT documented in this encounter Results * (ABNORMAL) CBC (04/10/2025 10:55 AM EDT) White Blood Count 7.9 4.8 - 10.8 X10*3/uL [facility] Red Blood Count 3.90(L) 4.60 - 5.80 X10*6/uL [facility] Hemoglobin 12.3(L) 14.0 - 18.0 g/dl [facility] Hematocrit 36.7(L) 42.0 - 52.0 % [facility] Mean Corpuscular Volume 94.1 80.0 - 98.0 fL [facility] Mean Corpuscular Hemoglobin 31.5 27.0 - 33.0 pg [facility] Mean Corpuscular HGB Conc 33.5 31.0 - 36.0 g/dl [facility] Red Cell Distribution Width 12.9 11.0 - 16.0 % [facility] Platelet Count 295 160 - 400 X10*3/uL [facility] Mean Platelet Volume 9.9 9.4 - 12.4 fL [facility] NRBC Pct Auto 0.0 0.0 - 0.2 /100WBC [facility] NRBC Abs Auto 0.000 0.0 - 0.012 X10*3/uL [facility] 04/10/2025 10:5 5 AM EDT 04/10/2025 10:55 AM EDT us Generic External Data Provider LAB BLOOD ORDERAB LES Final Result [facility] [address] [place] [phone] documented in this encounter Visit Diagnoses Not on filedocumented in this encounter Additional Health Concerns Assessment Noted Time PHQ-9 Depression Total Score: 0 03/10/20 25 11:35 AM EDT documented as of this encounter Care Teams Space And Missile Operations Relationship Specialty Start Date End Date Carina Moore MD [address] [place] [phone] PCP - General Family Medicine 04/25/18 documented as of this encounter
--- OUTSIDE RECORDS SUMMARY | 2025-04-10 11:49 | XMS_ITS | Encounter Summary ---
Author Organization [employer] Address [address] [facility] 7t [place] [address] Care Team Providers Care Customer Support Consultant Name Role Phone Carina Moore MD Primary Care Provide r Reason for Visit * Reason Comments Med Refill Encounter Details Date Type Department Care Team ([facility] st Contact Info) Description 12/19/2022 Refill [facility] [address] [place], [place] [phone] Carina Moore MD [address] [place], [place] [phone] Anxiety; Other chronic pain; Insomnia, unspecified type [...] Info) Description 06/13/2025 10:30 AM EDT Telemedicine [facility] [address] [place] [phone] Myra Bishop RN 06/16/2025 11:15 AM EST Office Visit [facility] [address] [place] [phone] Carina Moore MD [address] [place] [address] documented as of this encounter Visit Diagnoses Diagnosis Anxiety Anxiety state, unspecified Other chronic pain Insomnia, unspecified type documented in this encounter Care Teams Customer Support Consultant Relationship Specialty Start Date End Date Carina Moore MD [address] [place] [address] PCP - General Family Medicine 04/25/18 documented as of this encounter
--- OUTSIDE RECORDS SUMMARY | 2025-04-10 11:49 | XMS_ITS | Encounter Summary ---
Author Organization [employer] Address [address] [facility] 7t [place] [address] Care Team Providers Care Feed Mill Manager Name Role Phone Carina Moore MD Primary Care Provide r Encounter Details Date Type Department Care Team ([facility] st Contact Info) Description 04/04/2025 Orders Only [facility] [address] [place] [address] Carina Moore MD [address] [place] [address] Social History Tobacco Use Types Packs/Day Years [...] this encounter Functional Status * Over the last 2 weeks, how often have you been bothered by any of the following problems? Question Answer Date of Assessment Author Feeling nervous, anxious, or on edge 3 03/15 10:18 AM EWAT Myra Bishop RN Not being able to stop or co ntrol worrying 3 04/04/2025 10:18 AM EDT Myra Bishop R N Worrying too much about diff erent things 3 04/04/2025 10:18 AM Myra Sanchez R N Trouble relaxing 3 04/04/2025 10:18 AM Myra Sanchez RN Being so restless that it is hard to sit still 2 04/04/2025 10:18 AM Myra Sanchez R N Becoming easily annoyed or irritable 1 03/15 10:18 AM Myra Sanchez RN Feeling afraid as if somethi ng awful might happen 1 04/04/2025 10:18 AM Myra Sanchez R N FAVIAN-7 Total Score 16 04/04/2025 10:18 AM Myra Sanchez RN documented as of this encounter Plan of Treatment Upcoming Encounters Date Type Department Care Team (Late st Contact Info) Description 06/13/2025 10:30 AM EDT Telemedicine [facility] [address] [place] [address] [phone] Myra Bishop RN 06/16/2025 11:15 AM EST Office Visit [facility] [address] [place] [address] Carina Moore MD [address] [place] [address] documented as of this encounter Visit Diagnoses Not on filedocumented in this encounter Additional Health Concerns Assessment Noted Time PHQ-9 Depression Total Score: 0 03/10/20 25 11:35 AM EDT documented as of this encounter Care Teams Feed Mill Manager Relationship Specialty Start Date End Date Carina Moore MD [address] [place] [address] PCP - General Family Medicine 04/25/18 documented as of this encounter
--- OUTSIDE RECORDS SUMMARY | 2025-04-10 11:49 | XMS_ITS | Encounter Summary ---
Author Organization [employer] Address [address] [facility] 7t [place] [address] Care Team Providers Care Mill Tender Warm Up Name Role Phone Carina Moore MD Primary Care Provide r Reason for Visit * Reason Comments Med Refill Encounter Details Date Type Department Care Team ([facility] st Contact Info) Description 06/12/2023 Refill [facility] [address] [place], [place] [phone] Carina Moore MD [address] [place], [place] [phone] Onychomycosis Social History Tobacco Use Types Packs/Day [...] Info) Description 06/13/2025 10:30 AM EDT Telemedicine [facility] [address] [place] [phone] Myra Bishop RN 06/16/2025 11:15 AM EST Office Visit [facility] [address] [place] [phone] Carina Moore MD [address] [place] [phone] documented as of this encounter Visit Diagnoses Diagnosis Onychomycosis Dermatophytosis of nail documented in this encounter Additional Health Concerns Assessment Noted Time PHQ-9 Depression Total Score: 0 12/21/19 23 10:37 AM EDT documented as of this encounter Care Teams Mill Tender Warm Up Relationship Specialty Start Date End Date Carina Moore MD [address] [place] [phone] PCP - General Family Medicine 04/25/18 documented as of this encounter
--- OUTSIDE RECORDS SUMMARY | 2025-04-10 11:49 | XMS_ITS | Encounter Summary ---
Author Organization [employer] Address [address] [facility] 7t [place] [address] Care Team Providers Care Physicist Light And [employer] Name Role Phone Carina Moore MD Primary Care Provide r Reason for Visit * Reason Comments Med Refill Encounter Details Date Type Department Care Team ([facility] st Contact Info) Description 10/14/2024 Refill [facility] [address] [place], [place] [phone] Carina Moore MD [address] [place], [place] [phone] Other chronic pain; Anxiety Social History Tobacco [...] Info) Description 06/13/2025 10:30 AM EDT Telemedicine [facility] [address] [place] [phone] Myra Bishop RN 06/16/2025 11:15 AM EST Office Visit [facility] [address] [place] [phone] Carina Moore MD [address] [place] [address] [phone] documented as of this encounter Visit Diagnoses Diagnosis Other chronic pain Anxiety Anxiety state, unspecified documented in this encounter Additional Health Concerns Assessment Noted Time PHQ-9 Depression Total Score: 0 12/21/19 23 10:37 AM EDT documented as of this encounter Care Teams Physicist Light And Optics Relationship Specialty Start Date End Date Carina Moore MD [address] [place] [phone] PCP - General Family Medicine 04/25/18 documented as of this encounter
--- OUTSIDE RECORDS SUMMARY | 2025-04-10 11:49 | XMS_ITS | Encounter Summary ---
Author Organization [employer] Address [address] [facility] [address] 7[address] [place] [address] Care Team Providers Care Pulping Machine Operator Name Role Phone Carina Moore MD Primary Care Provide r Encounter Details Date Type Department Care Team (Late st Contact Info) Description 02/07/2024 Telephone [facility] [address] [place], [place] [phone] Carina Moore MD [address] [place], [place] [phone] Social History Tobacco Use Types Packs/Day Years [...] Info) Description 06/13/2025 10:30 AM EDT Telemedicine [facility] [address] [place] [phone] Myra Bishop RN 06/16/2025 11:15 AM EST Office Visit [facility] [address] [place] [phone] Carina Moore MD [address] [place] [phone] documented as of this encounter Visit Diagnoses Not on filedocumented in this encounter Additional Health Concerns Assessment Noted Time PHQ-9 Depression Total Score: 0 12/21/19 23 10:37 AM EDT documented as of this encounter Care Teams Pulping Machine Operator Relationship Specialty Start Date End Date Carina Moore MD [address] [place] [phone] PCP - General Family Medicine 04/25/18 documented as of this encounter
--- OUTSIDE RECORDS SUMMARY | 2025-04-10 11:49 | XMS_ITS | Clinical Summary ---
Author Organization [employer] Address [address] [place] [address] Care Team Providers Care Payroll Accounting Manager Name Role Phone Carina Moore MD Primary Care Provide r Allergies Active Allergy Reactions Criticality Noted Date Comments Ibuprofen 01/27/2015 Levofloxacin 06/22/2016 Other reaction(s): Rash Medications FREESTYLE LITE test stripIndication s:Type 2 diabetes mellitus with hyperglycemia, unspecified whether chcf insulin use ([facility]) CHECK BY FINGERSTICK ROUTE 2 TIMES EVERY DAY 100 each 3 09/07/19 23 Active Diclofenac Sodium 1 % gelIndications: Other [...] 2 each 3 05/14/20 24 025 Active pantoprazole (ProtoNix) 40 MG EC tablet TOME 1 TABLETA POR VIA ORAL TODOS [place] 90 tablet 1 09/09/19 25 Active montelukast (Singulair) 10 MG tabletIndicatio ns:Mild intermittent asthma without complication TAKE 1 TABLET BY MOUTH EVERY DAY 90 tablet 1 10/29/19 25 Active atorvastatin (Lipitor) 40 MG tabletIndicatio ns:Essential hypertension TOME 1 TABLETA POR VIA ORAL TODOS [place] 90 tablet 1 11/02/19 25 Active Arnuity Ellipta 200 MCG/ACT inhaler INHALE UN SOPLIDO POR VIA ORAL TODOS [place] 30 each 3 12/18/19 25 Active metFORMIN (Glucophage) 500 MG tabletIndicatio ns:Type 2 diabetes mellitus without complication, unspecified whether termite helper insulin use ([facility]) TAKE 1 TABLET BY MOUTH TWICE A DAY 180 tablet 1 01/14/20 25 Active Ketotifen Fumarate 0.035 % solution PLACE 1 DROP IN THE AFFECTED EYE(S) TWICE DAILY NEEDED FOR ALLERGIES 15 mL 1 02/28/20 25 Active Tirzepatide (Mounjaro) 2.5 MG/0.5ML solution auto-injectorIn dications:Type 2 diabetes mellitus with stage 3 chronic kidney disease, without long-term current use of insulin, unspecified whether stage 3a or 3b CKD ([facility]) Inject 2.5 mg under the skin 1 (one) time per week. 2 mL 2 03/10/20 25 Active metoprolol succinate XL (Toprol-XL) 100 MG 24 hr tablet TAKE 1 TABLET BY MOUTH EVERY DAY 90 tablet 3 03/14/20 25 Active Multiple Vitamin (One-Daily Multi-Vitamin) tabletIndicatio ns:Polyarthralg ia TAKE 1 TABLET BY MOUTH EVERY DAY 90 tablet 3 03/14/20 25 Active albuterol 108 (90 Base) MCG/ACT inhalerIndicati ons:Mild persistent asthma without complication INHALE DANDO DOS SOPLIDOS POR VIA ORAL CADA CUATRO A SEIS HORAS CUANDO SEA NECESARIO 18 g 1 03/20/20 25 Active traMADol (Ultram) 50 MG tabletIndicatio ns:Other chronic pain TAKE 1 TABLET (50 MG) BY MOUTH EVERY 8 (EIGHT) HOURS IF NEEDED FOR SEVERE PAIN FOR UP TO 28 DAYS *DNF 02/22/25* 84 tablet 03/26/20 25 025 Active clonazePAM (KlonoPIN) 0.5 MG tabletIndicatio ns:Anxiety TOME 1 TABLETA POR VIA ORAL DOS VECES AL MIKE 28 tablet 03/20/20 25 Active metoprolol succinate XL (Toprol-XL) 100 MG 24 hr tablet TOME RYLAN TABLETA TODOS LOS D 11/12/19 23 025 Discontinued metoprolol succinate XL (Toprol-XL) 100 MG 24 hr tablet TAKE 1 TABLET BY MOUTH EVERY DAY 90 tablet 3 02/08/20 24 025 Discontinued Multiple Vitamin (multivitamin) tabletIndicatio ns:Polyarthralg ia Take 1 tablet by mouth Once per day. 30 tablet 2 12/07/19 25 025 Discontinued albuterol 108 (90 Base) MCG/ACT inhalerIndicati ons:Mild persistent asthma without complication INHALE DANDO DOS SOPLIDOS POR VIA ORAL CADA CUATRO A SEIS HORAS CUANDO SEA NECESARIO 18 g 1 01/10/20 25 025 Discontinued clonazePAM (KlonoPIN) 0.5 MG tabletIndicatio ns:Anxiety TOME 1 TABLETA POR VIA ORAL DOS VECES AL MIKE 28 tablet 02/19/20 25 025 Discontinued traMADol (Ultram) 50 MG tabletIndicatio ns:Other chronic pain Take 1 tablet (50 mg) by mouth every 8 (eight) hours if needed for severe pain for up to 28 days. Do not start before February 22, 2025. 84 tablet 02/23/20 25 025 Discontinued Active Problems Problem Noted Date Diagnosed Date Long-term current use of opiate analgesic 2024 Long-term current use of benzodiazepine 04/04/20 Chronic congestive heart rafael lure, unspecified heart failure type 03/10/2025 Assessment & Plan (03/10/2025 1:47 PM EDT): Patient has been followed closely by cardiology Stage 3a chronic kidney disease 12/06/2024 Assessment & Plan (12/06/2024 5:00 PM EDT): I reviewed cardiology note, it is concerning that he is creatinine is climbing up now to 1.4 I will refer this patient to nephrology for further workup and recommendations Cardiomyopathy 01/10/2024 CS (cervical spondylosis) 01/10/2024 GERD (gastroesophageal reflux disease) Polyarthralgia 11/08/2023 Type 2 diabetes mellitus 12/20/2022 Assessment & Plan (03/10/2025 1:49 PM EDT): Diabetes is: almost at goal - Lab Results Component Value Date HGBA1C 6.9 (A) 12/06/2024 HGBA1C 7.1 (A) 08/20/2024 HGBA1C 6.1 (A) 11/08/2023 - Lab Results Component Value Date MICROALBUR <5.0 08/20/2024 CREATININE 1.13 03/10/2025 -Changes: Continue with metformin, Farxiga and I added today Mounjaro 2.5 mg weekly - Diabetic eye exam: Pending - Diabetic foot exam: Pending - Continue lifestyle modifications - Continue current medications - Follow up: 3 months Assessment & Plan (12/06/2024 5:01 PM EDT): [...] low back pain 12/13/2022 Erectile dysfunction 12/13/2022 Moderate asthma 12/13/2022 Neck pain 12/13/2022 Gastrointestinal hemorrhage 05/15/2018 Insomnia 05/03/2018 Benzodiazepine dependence 02/19/2018 Chronic generalized pain disorder 02/19/2018 Assessment & Plan (03/16/2023 12:31 PM EDT): Patient will be schedule for COT appointment Left bundle branch block (LBBB) 02/19/2018 Assessment & Plan (12/21/2022 4:35 PM EDT): F/u with cardiology he has an appointment 12/21/22 Hypertension 02/19/2018 Assessment & Plan (03/10/2025 1:48 PM EDT): In light of the pressure seems to be under control I discontinued both medications amlodipine 5 mg and chlorthalidone 25 mg, I advised to continue with metoprolol and Entresto, to monitor his blood pressure at home and bring log whenever he has an appointment with me or specialist like materials tech or trauma program manager Assessment & Plan (12/06/2024 5:00 PM EDT): [...] Hyperlipidemia 02/19/2018 Cardiac resynchronization th erapy defibrillator (PRODUCTION LINE OPERATOR-D) in place 02/19/2018 Male hypogonadism 02/19/2018 Class 1 obesity 02/19/2018 REGLA (obstructive sleep apnea) 02/19/2018 Onychomycosis 02/19/2018 Cardiac pacemaker in situ 06/23/2017 Resolved Problems Problem Noted Date Diagnosed Date Resolved Date Myofascial pain 01/10/2024 03/10/2025 Epigastric pain 11/08/2023 03/10/2025 Fall against object 03/16/2023 03/10/20 25 Assessment & Plan (03/16/2023 12:30 PM EDT): Physical exam reassuring, I advise to f/u also with cardiology Heel pain 12/13/2022 03/10/2025 Hip pain 12/13/2022 03/10/2025 Perirectal abscess 12/17/2018 Allergic conjunctivitis 02/19/201802/12 Uncomplicated asthma 02/19/2018 025 Encounters Date Type Department Care Team Description 04/10/2025 Orders Only GENERIC EXTERNAL DATA DEPARTMENT Provider, Generic External Data 04/04/2025 10:30 AM EDT Telemedicine [facility] [address] [place] [address] Myra Bishop RN Long-term current use of opiate analgesic; Long-term current use of benzodiazepine 04/04/2025 Orders Only [facility] [address] [place] [address] Carina Moore MD 04/04/2025 Telephone [facility] [address] [place] [address] Myra Bishop RN [employer] Agreement renewed 04/04/2025 Travel 03/20/2025 Refill [facility] [address] [place] [address] Carina Moore MD Other chronic pain; Anxiety 03/20/2025 Orders Only GENERIC EXTERNAL DATA DEPARTMENT Provider, Generic External Data 03/20/2025 Refill [facility] [address] [place] [address] Carina Moore MD Mild persistent asthma without complication 03/13/2025 Refill [facility] [address] [place] [address] Carina Moore MD Polyarthralgia 03/10/2025 11:15 AM EDT Office Visit [facility] [address] [place] [address] Carina Moore MD Primary hypertension (Primary Dx); Chronic congestive heart failure, unspecified heart failure type (CMS/HCC); Benzodiazepine dependence (CMS/HCC); Type 2 diabetes mellitus with stage 3 chronic kidney disease, without long-term current use of insulin, unspecified whether stage 3a or 3b CKD (CMS/HCC) 03/10/2025 Orders Only GENERIC EXTERNAL DATA DEPARTMENT Provider, Generic External Data 03/10/2025 Travel 03/06/2025 Telephone [facility] [address], [place] [phone] Carina Moore MD 03/06/2025 Orders Only [facility] External Provider, [facility] 02/28/2025 Patient Outreach [facility] [address] [place] [address] Carina Moore MD Pre-visit Planning ((Unable to reach for PVP screening, LVM) to be completed in office ) 02/26/2025 Refill [facility] [address], [place] [phone] Carina Moore MD 02/17/2025 Refill [facility] [address], [place] [phone] Tabby Cottrell DO Other chronic pain; Anxiety 01/23/2025 Refill [facility] [address], [place] [phone] Carina Moore MD Other chronic pain; Anxiety 01/12/2025 Refill [facility] [address] [place] [address] Carina Moore MD Type 2 diabetes mellitus without complication, unspecified whether termite helper insulin use ([facility]) 01/09/2025 Refill [facility] [address] [place] [address] Cyndi Leach MD Mild persistent asthma without complication from Last 3 Months Immunizations Immunization Administration Dates Next Due Influenza Whole 06/16/2014,06/06/2013,06/02/2008 [...] Passive Smoke Exposure: Past Smokeless Tobacco: Never Tobacco Cessation:Counseling Given: Not [...] t he electric, gas, oil or water [employer] threatened to shut off services in your [...] Sign Reading Time Taken Comments Blood Pressure 126/70 03/10/2025 11:31 AM EDT Pulse 70 03/10/2025 11:31 AM EDT Temperature 36.5 C (97.7 F) 03/10/2025 11:31 AM EDT Respiratory Rate 16 03/10/2025 11:31 AM EDT Oxygen Saturation 99% 08/20/2024 11:41 AM EST Inhaled Oxygen Concentration - - Weight 85 kg (187 lb 6 oz) 03/10/2025 11:31 AM E DT Height 162.6 cm (5' 4 ) 03/10/2025 11:31 AM EDT Body Mass Index 32.16 03/10/2025 11:31 AM EDT Plan of Treatment Upcoming Encounters Date Type Department Care Team (Late st Contact Info) Description 06/13/2025 10:30 AM EDT Telemedicine [address] [phone] Myra Bishop RN 06/16/2025 11:15 AM EST Office Visit [facility] [address] [place] [phone] Carina Moore MD [address] [place] [phone] Health Maintenance Due Date Last Done Comments CT Colonography 1955 FIT DNA/Cologuard 1955 FIT 1955 FOBT 1955 Sigmoidoscopy 1955 Diabetes: Foot Exam 1964 Eye Exam 1965 Hepatitis C Screening 1972 RSV Patients and Patients Aged 60 years or older (1 - Risk 60-74 years 1-dose series) 2014 Zoster Vaccines (2 of 3) 11/20/2018 09/25/2018 DTaP/Tdap/Td Vaccines (2 - Td or Tdap) 06/28/2022 06/28/2012 COVID-19 Vaccine (3 - season) 2024 12/23/2020, 11/25/2020 Influenza Vaccine (#1) 2025 6, 06/05/2015, 06/16/2014, Additional history exists Diabetes: Hemoglobin A1C 06/07/2025 025, 08/20/2024, 11/08/2023, Additional history exists Colonoscopy 11/18/2025 11/19/2015 Colorectal Cancer Screening 11/18/2025 Alcohol/Substance Use Screening 03/10/2026 03/10/2025 Depression Screening 03/10/2026 03/10/2025, 03/10/20 25 Lipid Panel 03/10/2026 03/10/2025, 01/0 02/2025, 03/14/2024, Additional history exists SDOH Screening 03/10/2026 03/10/2025 Tobacco Screening 03/10/2026 03/10/2025 Pneumococcal Vaccine: 50+ Years Completed 11/08/2023, 08/14/2008 [...] patient's age to complete this topic Meningococcal B Vaccine Aged Out No l onger eligible based on patient's age to complete [...] Comments CBC Routine 04/10/2025 10:55 AM EDT ELECTROLYTE PANEL Routine 03/20/2025 11: 54 AM EDT UREA NITROGEN (BUN) Routine 03/10/2025 1 2:06 PM EDT COMPREHENSIVE METABOLIC PANEL Routine 03/10/2025 12:06 PM EDT Type 2 diabetes mellitus with stage 3 chronic kidney disease, without long-term current use of insulin, unspecified whether stage 3a or 3b CKD (CMS/HCC) ALBUMIN, RANDOM URINE W/CREATININE Routine 03/10/2025 12:06 PM EDT Type 2 diabetes mellitus with stage 3 chronic kidney disease, without long-term current use of insulin, unspecified whether stage 3a or 3b CKD (CMS/HCC) LIPID PANEL, STANDARD Routine 03/10/2025 12:06 PM EDT Type 2 diabetes mellitus with stage 3 chronic kidney disease, without long-term current use of insulin, unspecified whether stage 3a or 3b CKD (CMS/HCC) US RENAL DOPPLER Routine 03/06/2025 9:15 AM EDT US RENAL COMPLETE Routine 03/06/2025 9:1 5 AM EDT POCT GLYCATED HEMOGLOBIN, TOTAL Routine 12/06/2024 11:00 AM EDT Type 2 diabetes mellitus without complication, without long-term current use of insulin (CMS/HCC) HM COLONOSCOPY Routine 11/19/2015 from Last 3 Months or Most Recently Relevant to Health Maintenance Results * (ABNORMAL) CBC (04/10/2025 10:55 AM EDT) White Blood Count 7.9 4.8 - 10.8 X10*3/uL [facility] Red Blood Count 3.90(L) 4.60 - 5.80 X10*6/uL [facility] Hemoglobin 12.3(L) 14.0 - 18.0 g/dl [facility] Hematocrit 36.7(L) 42.0 - 52.0 % [facility] Mean Corpuscular Volume 94.1 80.0 - 98.0 fL [facility] Mean Corpuscular Hemoglobin 31.5 27.0 - 33.0 pg [facility] Mean Corpuscular HGB Conc 33.5 31.0 - 36.0 g/dl [facility] Red Cell Distribution Width 12.9 11.0 - 16.0 % [facility] Platelet Count 295 160 - 400 X10*3/uL [facility] Mean Platelet Volume 9.9 9.4 - 12.4 fL [facility] NRBC Pct Auto 0.0 0.0 - 0.2 /100WBC [facility] NRBC Abs Auto 0.000 0.0 - 0.012 X10*3/uL [facility] 04/10/2025 10:5 5 AM EDT 04/10/2025 10:55 AM EDT us Generic External Data Provider LAB BLOOD ORDERAB LES Final Result Performing Organization Address [facility]/ZIP Co de Phone Number [facility] [address] [place] [address] [phone] * Electrolyte Panel (03/20/2025 11:54 AM EDT) Sodium 141 135 - 145 mmol/L [facility] Potassium 5.1 3.3 - 5.1 mmol/L [facility] Chloride 105 96 - 108 mmol/L [facility] Carbon Dioxide 29 22 - 29 mmol/L [facility] Anion Gap 12 12 - 20 [facility] 03/20/2025 11:5 4 AM EDT 03/20/2025 11:54 AM EDT us Generic External Data Provider LAB BLOOD ORDERAB LES Final Result Performing Organization Address City/[facility]/ZIP Co de Phone Number [facility] [address] [place] [phone] * Albumin, Random Urine W/Creatinine (03/10/2025 12:06 PM EDT) Creatinine, Urine 76.07 mg/dL [facility] Microalbumin Urine <5.0 mg/L [facility] Microalbum Creatinine Ratio Ur TNP <30 ug/mg cr [facility] Comment:Unable to calculate albumin/creatinine ratio due to lowmicroalbumin or creatinine result. Urine (Urine, Random) 03/10/2025 12:06 PM EDT 03/10/2025 1:39 PM EDT us Carina Emery MD LAB URINE ORDERABLES Final Result Performing Organization Address [facility]/ZIP Co de Phone Number [facility] [address] [place] [phone] * (ABNORMAL) BUN (Blood Urea Nitrogen) (03/10/2025 12:06 PM EDT) Urea Nitrogen (BUN) 24(H) 9 - 16 mg/dL [facility] 03/10/2025 12:0 6 PM EDT 03/10/2025 1:03 PM EDT us Generic External Data Provider LAB BLOOD ORDERAB LES Final Result Performing Organization Address [facility]/ZIP Co de Phone Number [facility] [address] [place] [phone] * (ABNORMAL) Lipid Panel, Standard (03/10/2025 12:06 PM EDT) Triglycerides 179(H) <150 mg/dL [facility] Comment:Desirable Triglyceri de: less than 150 mg/dLBorderline High Triglyceride 150-199 mg/dLHigh Triglyceride: 200-499 mg/dLVery High Triglyceride: greater than or equal to 5OO mg/dL Cholesterol 168 <200 mg/dL [facility] Comment:Desirable Cholestero l: less than 200 mg/dLBorderline High Cholesterol: 200-239 mg/dLHigh Cholesterol: greater than 239 mg/dL LDL Cholesterol Calculated 91 <100 mg/dL [facility] Comment:Desirable LDL: less than 100 mg/dLNear Optimal/Above Optimal LDL: 110- 129 mg/dLBorderline High LDL: 130-159 mg/dLHigh LDL: 160-189 mg/dLVery High LDL: greater than or equal to 190 mg/dL HDL Cholesterol 42 >40 mg/dL [facility] Comment:Desirable HDL: great er than 40 mg/dL Note: This HDL assay may give artificially low results in patients with liver disease. Blood Venous blood specimen / Unknown 03/10/2025 12:06 PM EDT 03/10/2025 1:03 PM EDT us Carina Emery MD LAB BLOOD ORDERABLES Final Result [facility] [address] [place] [phone] * (ABNORMAL) Comprehensive Metabolic Panel (03/10/2025 12:06 PM EDT) Sodium 140 135 - 145 mmol/L [facility] Potassium 5.5(H) 3.3 - 5.1 mmol/L [facility] Chloride 103 96 - 108 mmol/L [facility] Carbon Dioxide 30(H) 22 - 29 mmol/L [facility] Anion Gap 13 12 - 20 [facility] Urea Nitrogen (BUN) 24(H) 9 - 16 mg/dL [facility] Creatinine, Serum 1.13 0.5 - 1.4 mg/dL [facility] Estimated Glomerular Filt Rate >60 [facility] Comment:Chronic Kidney Disea se: Estimated GFR < 60 mL/min/[id number] Kidney Disease: Estimated GFR < 15 mL/min/1.73m2 Glucose 90 60 - 115 mg/dL [facility] Calcium 9.4 8.4 - 10.2 mg/dL [facility] Bilirubin, Total 0.4 0.0 - 1.0 mg/dL [facility] Aspartate Amino Transferase 36 5 - 37 U/L [facility] Alanine Aminotransferase 26 0 - 40 U/L [facility] Total Protein 7.5 6.5 - 8.0 g/dL [facility] Albumin Level 4.2 3.5 - 5.0 g/dL [facility] Alkaline Phosphatase 55 39 - 117 U/L [facility] Blood Venous blood specimen / Unknown 03/10/2025 12:06 PM EDT 03/10/2025 1:03 PM EDT us Carina Emery MD LAB BLOOD ORDERABLES Final Result Performing Organization Address City/State/[facility] Co de Phone Number [facility] [address] [place] [phone] * US RENAL DOPPLER (03/06/2025 9:15 AM EDT) Anatomical Region Laterality Modality Abdomen Ultrasound 03/06/2025 9:15 AM EDT Narrative 03/06/2025 10:20 AM EDT [place] [address] Ultrasound Report Signed Patient: Fabrice Hold[facility] MR#: [id number] : 1955 Acct:[id number] Age/Sex: 69 / M ADM Date: 03/06/25 Loc: . Attending Dr: Abran Hemphill MD Ordering Physician: Abran Hemphill MD Date of Service: 03/06/25 Procedure(s): US renal doppler Accession Number(s): [id number] cc: Carina Moore MD; Abran Hemphill MD EXAMINATION: Ultrasound renal Doppler. Ultrasound renal bilaterally. CLINICAL INFORMATION: CKD Stage 3a . COMPARISON: Correlated to CT dated December 27, 2018. TECHNIQUE: Real-time ultrasound kidneys using grayscale and color Doppler technique. Spectral color Doppler analysis of the main renal arteries and the abdominal aorta at the main renal artery origin. FINDINGS: Right kidney: 11 x 5 x 5 cm. Volume: 121 cc. Normal echotexture. Normal renal cortical thickness. No hydronephrosis. No gross solid or cystic lesion. Left kidney: 10 x 4 x 4 cm. Volume: 92 cc. Normal echotexture. Normal renal cortical thickness. No hydronephrosis. No gross solid or cystic lesion. Spectral Doppler analysis: Right Kidney: -Peak systolic velocity in the proximal right renal artery = 100 cm/s. Normal waveforms. -Peak systolic velocity in the mid right renal artery = 120 cm/s. Normal waveforms. -Peak systolic velocity in the distal right renal artery = 76 cm/s. Normal waveforms. -Patent right renal vein. -Upper pole interlobar artery resistive index of 0.7. -Midpole interlobar artery resistive index of 0.6. -Lower pole interlobar artery resistive index of 0.7. RAR right = 1.28 Left Kidney: -Peak systolic velocity in the proximal left renal artery = 85 cm/s. Normal waveforms. -Peak systolic velocity in the mid left renal artery = 92 cm/s. Normal waveforms. -Peak systolic velocity in the distal left renal artery = 69 cm/s. Normal waveforms. -Patent left renal vein. -Upper pole interlobar artery resistive index of 0.7. -Mid pole interlobar artery resistive index of 0.7. -lower pole interlobar artery resistive index of 0.76. RAR left = 1.08 Aorta: -Peak systolic velocity = 78 cm/s. US/US renal doppler IMPRESSION: No hydronephrosis. No hemodynamically significant stenosis by ultrasound criteria at either main renal artery. Electronically signed by: Chandu Haider MD 03/06/2025 10:17 AM EDT Dictated By: Chandu Carmichael MD Signed By: <Electronically signed by Chandu Swann MD in OV> 03/06/25 1017 DD/ 0915 TD/TT: 03/06/25 0942 Casino Supervisor: Procedure Note Donotuseinterpreter, Image - 03/06/2025 [place] [address] Ultrasound Report Signed Patient: Fabrice Holden AMR#: [id number] : 4Acct:[id number] Age/Sex: 69 / MADM Date: 03/06/25 Loc: HO.US Attending Dr: Abran Hemphill MD Ordering Physician: Abran Hemphill MD Date of Service: 03/06/25 Procedure(s): US renal doppler Accession Number(s): [id number] cc: Carina Moore MD; Abran Hemphill MD EXAMINATION: Ultrasound renal Doppler. Ultrasound renal bilaterally. CLINICAL INFORMATION: CKD Stage 3a . COMPARISON: Correlated to CT dated December 27, 2018. TECHNIQUE: Real-time ultrasound kidneys using grayscale and color Doppler technique. Spectral color Doppler analysis of the main renal arteries and the abdominal aorta at the main renal artery origin. FINDINGS: Right kidney: 11 x 5 x 5 cm. Volume: 121 cc. Normal echotexture. Normal renal cortical thickness. No hydronephrosis. No gross solid or cystic lesion. Left kidney: 10 x 4 x 4 cm. Volume: 92 cc. Normal echotexture. Normal renal cortical thickness. No hydronephrosis. No gross solid or cystic lesion. Spectral Doppler analysis: Right Kidney: -Peak systolic velocity in the proximal right renal artery = 100 cm/s. Normal waveforms. -Peak systolic velocity in the mid right renal artery = 120 cm/s. Normal waveforms. -Peak systolic velocity in the distal right renal artery = 76 cm/s. Normal waveforms. -Patent right renal vein. -Upper pole interlobar artery resistive index of 0.7. -Midpole interlobar artery resistive index of 0.6. -Lower pole interlobar artery resistive index of 0.7. RAR right = 1.28 Left Kidney: -Peak systolic velocity in the proximal left renal artery = 85 cm/s. Normal waveforms. -Peak systolic velocity in the mid left renal artery = 92 cm/s. Normal waveforms. -Peak systolic velocity in the distal left renal artery = 69 cm/s. Normal waveforms. -Patent left renal vein. -Upper pole interlobar artery resistive index of 0.7. -Mid pole interlobar artery resistive index of 0.7. -lower pole interlobar artery resistive index of 0.76. RAR left = 1.08 Aorta: -Peak systolic velocity = 78 cm/s. US/US renal doppler IMPRESSION: No hydronephrosis. No hemodynamically significant stenosis by ultrasound criteria at either main renal artery. Electronically signed by: Chandu Haider MD 03/06/2025 10:17 AM EDT RP Dictated By: Chandu Carmichael MD Signed By: <Electronically signed by Chandu Swann MDin OV> 03/06/25 1017 DD/ 0915 TD/TT: 03/06/25 0942 Casino Supervisor: us [facility] External Provider IMG US PROCEDURES Edited Result - Final * US Renal Complete (03/06/2025 9:15 AM EDT) Anatomical Region Laterality Modality Kidney Ultrasound 03/06/2025 9:15 AM EDT Narrative 03/06/2025 10:20 AM EDT [place] [address] Ultrasound Report Signed Patient: Fabrice Holden MR#: [id number] : 1955 Acct:[id number] Age/Sex: 69 / M ADM Date: 03/06/25 Loc: HO.US Attending Dr: Abran Hemphill MD Ordering Physician: Abran Hemphill MD Date of Service: 03/06/25 Procedure(s): US renal BI Accession Number(s): [id number] cc: Craina Moore MD; Abran Hemphill MD EXAMINATION: Ultrasound renal Doppler. Ultrasound renal bilaterally. CLINICAL INFORMATION: CKD Stage 3a . COMPARISON: Correlated to CT dated December 27, 2018. TECHNIQUE: Real-time ultrasound kidneys using grayscale and color Doppler technique. Spectral color Doppler analysis of the main renal arteries and the abdominal aorta at the main renal artery origin. FINDINGS: Right kidney: 11 x 5 x 5 cm. Volume: 121 cc. Normal echotexture. Normal renal cortical thickness. No hydronephrosis. No gross solid or cystic lesion. Left kidney: 10 x 4 x 4 cm. Volume: 92 cc. Normal echotexture. Normal renal cortical thickness. No hydronephrosis. No gross solid or cystic lesion. Spectral Doppler analysis: Right Kidney: -Peak systolic velocity in the proximal right renal artery = 100 cm/s. Normal waveforms. -Peak systolic velocity in the mid right renal artery = 120 cm/s. Normal waveforms. -Peak systolic velocity in the distal right renal artery = 76 cm/s. Normal waveforms. -Patent right renal vein. -Upper pole interlobar artery resistive index of 0.7. -Midpole interlobar artery resistive index of 0.6. -Lower pole interlobar artery resistive index of 0.7. RAR right = 1.28 Left Kidney: -Peak systolic velocity in the proximal left renal artery = 85 cm/s. Normal waveforms. -Peak systolic velocity in the mid left renal artery = 92 cm/s. Normal waveforms. -Peak systolic velocity in the distal left renal artery = 69 cm/s. Normal waveforms. -Patent left renal vein. -Upper pole interlobar artery resistive index of 0.7. -Mid pole interlobar artery resistive index of 0.7. -lower pole interlobar artery resistive index of 0.76. RAR left = 1.08 Aorta: -Peak systolic velocity = 78 cm/s. US/US renal BI IMPRESSION: No hydronephrosis. No hemodynamically significant stenosis by ultrasound criteria at either main renal artery. Electronically signed by: Chandu Haider MD 03/06/2025 10:17 AM EDT Dictated By: Chandu Carmichael MD Signed By: <Electronically signed by Chandu Swann MD in OV> 03/06/25 1017 DD/ 0915 TD/TT: 03/06/25 0942 Casino Supervisor: Procedure Note Donotuseinterpreter, Image - 03/06/[address] [address] Ultrasound Report Signed Patient: Fabrice Holden AMR#: [id number] : 4Acct:[id number] Age/Sex: 69 / MADM Date: 03/06/25 Loc: HO.US Attending Dr: Abran Hemphill MD Ordering Physician: Abran Hemphill MD Date of Service: 03/06/25 Procedure(s): US renal BI Accession Number(s): [id number] cc: Carina Moore MD; Abran Hemphill MD EXAMINATION: Ultrasound renal Doppler. Ultrasound renal bilaterally. CLINICAL INFORMATION: CKD Stage 3a . COMPARISON: Correlated to CT dated December 27, 2018. TECHNIQUE: Real-time ultrasound kidneys using grayscale and color Doppler technique. Spectral color Doppler analysis of the main renal arteries and the abdominal aorta at the main renal artery origin. FINDINGS: Right kidney: 11 x 5 x 5 cm. Volume: 121 cc. Normal echotexture. Normal renal cortical thickness. No hydronephrosis. No gross solid or cystic lesion. Left kidney: 10 x 4 x 4 cm. Volume: 92 cc. Normal echotexture. Normal renal cortical thickness. No hydronephrosis. No gross solid or cystic lesion. Spectral Doppler analysis: Right Kidney: -Peak systolic velocity in the proximal right renal artery = 100 cm/s. Normal waveforms. -Peak systolic velocity in the mid right renal artery = 120 cm/s. Normal waveforms. -Peak systolic velocity in the distal right renal artery = 76 cm/s. Normal waveforms. -Patent right renal vein. -Upper pole interlobar artery resistive index of 0.7. -Midpole interlobar artery resistive index of 0.6. -Lower pole interlobar artery resistive index of 0.7. RAR right = 1.28 Left Kidney: -Peak systolic velocity in the proximal left renal artery = 85 cm/s. Normal waveforms. -Peak systolic velocity in the mid left renal artery = 92 cm/s. Normal waveforms. -Peak systolic velocity in the distal left renal artery = 69 cm/s. Normal waveforms. -Patent left renal vein. -Upper pole interlobar artery resistive index of 0.7. -Mid pole interlobar artery resistive index of 0.7. -lower pole interlobar artery resistive index of 0.76. RAR left = 1.08 Aorta: -Peak systolic velocity = 78 cm/s. US/US renal BI IMPRESSION: No hydronephrosis. No hemodynamically significant stenosis by ultrasound criteria at either main renal artery. Electronically signed by: Chandu Haider MD 03/06/2025 10:17 AM EDT Dictated By: Chandu Carmichael MD Signed By: <Electronically signed by Chandu Swann MDin OV> 03/06/25 1017 DD/ 0915 TD/TT: 03/06/25 0942 Casino Supervisor: [facility] External Provider IMG US PROCEDURES Edited Result - Final * (ABNORMAL) POCT HGB A1C (12/06/2024 11:00 AM EDT) Hemoglobin A1C 6.9(A) 4.0 - 6.0 % QC Media Lot # [id number] Lot# Expiration Date 345 Blood 12/06/2024 11:0 0 AM EDT Carina Emery MD POINT OF CARE TEST EN TER/EDIT ORDERABLES Final Result * Colonoscopy (11/19/2015) Historical Provider HEALTH MAINTENANCE Final Result from Last 3 Months or Most Recently Relevant to Health Maintenance Insurance [facility] OPTIONS (O D-SNP) Care Teams Payroll Accounting Manager Relationship Specialty Start Date End Date Carina Moore MD [address] [place] [phone] PCP - General Family Medicine 04/25/18
--- OUTSIDE RECORDS SUMMARY | 2025-04-10 11:49 | XMS_ITS | Encounter Summary ---
Author Organization [employer] Address [address] [facility] 7t [place] [address] Care Team Providers Care Arboriculturist Name Role Phone Carina Moore MD Primary Care Provide r Reason for Visit * Reason Comments Med Refill Encounter Details Date Type Department Care Team ([facility] st Contact Info) Description 04/09/2024 Refill [facility] [address] [place], [place] [phone] Carina Moore MD [address] [place], [place] [phone] Type 2 diabetes mellitus without complication, unspecified whether long term care pharmacist insulin use ([facility]) Social History Tobacco Use [...] Info) Description 06/13/2025 10:30 AM EDT Telemedicine [facility] [address] [place] [phone] Myra Bishop RN 06/16/2025 11:15 AM EST Office Visit [facility] [address] [place] [phone] Carina Moore MD [address] [place] [phone] documented as of this encounter Visit Diagnoses Diagnosis Type 2 diabetes mellitus without complication, unspecified whether long term care pharmacist insulin use ([facility]) documented in this encounter Additional Health Concerns Assessment Noted Time PHQ-9 Depression Total Score: 0 12/21/19 23 10:37 AM EDT documented as of this encounter Care Teams Arboriculturist Relationship Specialty Start Date End Date Carina Moore MD [address] [place] [phone] PCP - General Family Medicine 04/25/18 documented as of this encounter
--- OUTSIDE RECORDS SUMMARY | 2025-04-10 11:50 | XMS_ITS | Encounter Summary ---
Author Organization [employer] Address [address] [place] [address] 7t [place] [address] Care Team Providers Care Centrex Radio Operator Name Role Phone Carina Moore MD Primary Care Provide r Encounter Details Date Type Department Care Team (Late Contact Info) Description 04/24/2023 Orders Only [address] [address] Provider, MD Charu Social History Tobacco Use [...] Info) Description 06/13/2025 10:30 AM EDT Telemedicine [address] [address] Myra Bishop RN 06/16/2025 11:15 AM EST Office Visit [address] [phone] Carina Moore MD [address] [place] [address] [phone] documented as of this encounter Procedures Procedure Name Priority Date/Time Associated Diagnosis Comments HM COLONOSCOPY Routine 11/19/2015 documented in this encounter Results * Hm Colonoscopy (11/19/2015) us Historical Provider HEALTH MAINTENANCE Final Result documented in this encounter Visit Diagnoses Not on filedocumented in this encounter Additional Health Concerns Assessment Noted Time PHQ-9 Depression Total Score: 0 12/21/19 23 10:37 AM EDT documented as of this encounter Care Teams Centrex Radio Operator Relationship Specialty Start Date End Date Carina Moore MD [address] [place] [phone] PCP - General Family Medicine 04/25/18 documented as of this encounter
--- OUTSIDE RECORDS SUMMARY | 2025-04-10 11:50 | XMS_ITS | Encounter Summary ---
Author Organization [employer] Address [address] [facility] [address]t [place] [address] Care Team Providers Care Ux Interaction Designer Name Role Phone Carina Moore MD Primary Care Provide r Encounter Details Date Type Department Care Team (Late st Contact Info) Description 09/19/2022 Orders Only [facility] & PEDS [address] [place] [address] Tabby Howe LPN Social History Tobacco Use [...] Info) Description 06/13/2025 10:30 AM EDT Telemedicine [address] [address] Myra Bishop RN 06/16/2025 11:15 AM EST Office Visit [facility] [address] [place] [phone] Carina Moore MD [address] [place] [address] [phone] documented as of this encounter Visit Diagnoses Not on filedocumented in this encounter Care Teams Ux Interaction Designer Relationship Specialty Start Date End Date Carina Moore MD [address] [place] [address] [phone] PCP - General Family Medicine 04/25/18 documented as of this encounter
--- OUTSIDE RECORDS SUMMARY | 2025-04-10 11:50 | XMS_ITS | Encounter Summary ---
Author Organization [employer] Address [address] [facility] [address] [place] [address] Care Team Providers Care Distribution Estimator Name Role Phone Carina Moore MD Primary Care Provide r Encounter Details Date Type Department Care Team ([facility] st Contact Info) Description 09/08/2023 Orders Only [facility] MED & PEDS [address] [place], [place] [phone] Sarah Acuña LPN Social History Tobacco Use Types Packs/Day Years Used Date Smoking Tobacco: Never Passive Smoke Exposure: Never Smokeless Tobacco: Never Depression Answer Date Recorded Patient Health Questionnaire-9 Score 0 12/20/2022 Housing Stability Answer Date Recorded What is your housing situation today? I have nino shnanon 05/29/[address] you li [...] Info) Description 06/13/2025 10:30 AM EDT Telemedicine [facility] [address] [place] [phone] Myra Bishop RN 06/16/2025 11:15 AM EST Office Visit [facility] [address] [place] [phone] Carina Moore MD [address] [place], [place] [phone] documented as of this encounter Procedures Procedure [...] Testosterone, Total 392 250 - 1100 ng/dL [facility] Comment:Men with clinically significant hypogonadalsymptoms and testosterone values repeatedly inthe range of the 200-300 ng/dL or less, maybenefit from testosterone treatment afteradequate risk and benefits counseling.For additional information, please refer [email or web address].eVigilo/faq/[email or web address](This link is being provided for informational/educational purposes only.)This test was developed and its analytical performancecharacteristics have been determined by [employer] [place], [place]. It hasnot been cleared or approved by the U.S. Food and DrugAdministration. This assay has been validated pursuantto the CLIA regulations and is used for clinicalpurposes. Testosterone, Free 67.0 35.0 - 155.0 pg/mL [facility] Comment:This test was develo ped and its analytical performancecharacteristics have been determined by [employer] [place], [place]. It hasnot been cleared or approved by the U.S. Food and DrugAdministration. This assay has been validated pursuantto the CLIA regulations and is used for clinicalpurposes.THIS TEST WAS PERFORMED AT:[employer] [place] [id number] STEEL MD,PHD 09/08/2023 11:3 2 AM EST 09/08/2023 11:32 AM EST us Generic External Data Provider LAB BLOOD ORDERAB LES Final Result [facility] [address] [place] [phone] * PSA, Total With Reflex to PSA, Free (09/08/2023 11:32 AM EST) PSA,Total (Free>4and<10) 2.97 0.00 - 4.00 ng/mL [facility] Comment:A Free PSA was not p [...] ORDERAB LES Final Result Performing Organization Address City/[facility]/ZIP Co de Phone Number [facility] [address] [place] [phone] * (ABNORMAL) CBC (09/08/2023 11:32 AM EST) White Blood Count 9.5 4.8 - 10.8 X10*3/uL [facility] Red Blood Count 4.57(L) 4.60 - 5.80 X10*6/uL [facility] Hemoglobin 13.9(L) 14.0 - 18.0 g/dl [facility] Hematocrit 43.3 42.0 - 52.0 % [facility] Mean Corpuscular Volume 94.7 80.0 - 98.0 fL [facility] Mean Corpuscular Hemoglobin 30.4 27.0 - 33.0 pg [facility] Mean Corpuscular HGB Conc 32.1 31.0 - 36.0 g/dl [facility] Red Cell Distribution Width 13.7 11.0 - 16.0 % [facility] Platelet Count 349 160 - 400 X10*3/uL [facility] Mean Platelet Volume 9.6 9.4 - 12.4 fL [facility] NRBC Pct Auto 0.0 0.0 - 0.2 /100WBC [facility] NRBC Abs Auto 0.000 0.0 - 0.012 X10*3/uL [facility] 09/08/2023 11:3 2 AM EST 09/08/2023 11:32 AM EST us Generic External Data Provider LAB BLOOD ORDERAB LES Final Result Performing Organization Address City/[facility]/ZIP Co de Phone Number [facility] [address] [place] [phone] documented in this encounter Visit Diagnoses Not on filedocumented in this encounter Additional Health Concerns Assessment Noted Time PHQ-9 Depression Total Score: 0 12/21/19 23 10:37 AM EDT documented as of this encounter Care Teams Distribution Estimator Relationship Specialty Start Date End Date Barciona Emery, Kathy, MD [address] [place] [phone] PCP - General Family Medicine 04/25/18 documented as of this encounter
--- OUTSIDE RECORDS SUMMARY | 2025-04-10 11:50 | XMS_ITS | Encounter Summary ---
Author Organization [employer] Address [address] [facility] [address] [place] [address] Care Team Providers Care Corporate Travel Expert Name Role Phone Carina Moore MD Primary Care Provide r Encounter Details Date Type Department Care Team (Late Contact Info) Description 02/07/2023 Orders Only [facility] CH[facility] MED & PEDS [address] [place], [place] [phone] Tabby Howe LPN Social History Tobacco Use [...] Info) Description 06/13/2025 10:30 AM EDT Telemedicine [facility] MEDICINE [address] [place] [address] [phone] Myra Bishop RN 06/16/2025 11:15 AM EST Office Visit [facility] [address] [place] [address] [phone] Carina Moore MD [address] [place] [phone] documented as of this encounter Visit Diagnoses Not on filedocumented in this encounter Additional Health Concerns Assessment Noted Time PHQ-9 Depression Total Score: 0 12/21/19 23 10:37 AM EDT documented as of this encounter Care Teams Corporate Travel Expert Relationship Specialty Start Date End Date Carina Moore MD [address] [place] [address] PCP - General Family Medicine 04/25/18 documented as of this encounter
[2025-04-10 12:22] LABS: Prostate Specific Antigen 2.31 ng/mL (<0.05-4.0)
[2025-04-17 16:03] LABS: Testosterone, Free 20.1 pg/mL (30.0-135.0)
== END 2025-04-10 10:30 | disposition home or self-care (01) ==
LOC: HO.LAB 10:29
PROVIDERS: Internal Medicine Nephrology; PCP Internal Medicine; Visit Provider Nurse Practitioner Family
DX: N18.31 Chronic kidney disease, stage 3a (principal); E29.1 Testicular hypofunction; Z12.5 Encounter for screening for malignant neoplasm of prostate
CPT/HCPCS: 36415; 80051; 82565; 84153; 84402; 84403; 85027

== ENCOUNTER 2025-04-22 10:59 | Outpatient (AMB) | payer OTHER, SELFPAY ==
--- NOTE | 2025-04-22 11:10 | MHC.OFFVIS ---
Intake Visit Reasons: 3m/CBC/PSA/Testo Intake Note: Patient is present for 3M/CBC/PSA/TESTO Urology Medication:TADALAFIL Antibiotic Allergy:NONE Blood Thinner:NONE Manager Project Management Required: No Manager Project Management Services: Manager Project Management Present Manager Project Management Name: Sarah Allergies ibuprofen (From MOTRIN) Allergy (Intermediate, Verified 04/22/25 11:52) KIDNEY INJURY tramadol (TRAMADOL) Allergy (Mild, Verified 04/22/25 11:52) ITCHING Motrin Allergy (Mild, Uncoded 04/22/25 11:52) rash Medication List - Last Reconciled 04/22/25 by FILEMON Nunez albuterol sulfate 90 mcg/actuation (Ventolin HFA) 0 mcg inhalation atorvastatin 40 mg PO DAILY blood sugar diagnostic (FreeStyle Lite Strips) As directed blood-glucose meter (FreeStyle Darrow Lite kit) As directed clonazepam 0.5 mg PO ONCE PRN dapagliflozin propanediol (Farxiga) 10 mg PO DAILY fluticasone furoate 200 mcg/actuation (Arnuity Ellipta) 1 inh inhalation DAILY lancets (FreeStyle Lancets) As directed metformin 500 mg PO DAILY metoprolol succinate ER 200 mg PO DAILY montelukast 10 mg PO BEDTIME multivitamin (Multiple Vitamins tablet) 1 tab PO DAILY needle (disp) 18 G (BD Regular Bevel Etters) As directed pantoprazole 40 mg PO DAILY sacubitril-valsartan 49-51 mg (Entresto) 1 tab PO BID syringe with needle (BD Luer-Janet Syringe) As directed tadalafil 10 mg PO DAILY PRN testosterone enanthate (Xyosted) 50 mg (0.5 mL) subcut QWEEK 4 weeks tirzepatide (Mounjaro) 2.5 mg subcut QWEEK tramadol 50 mg PO DAILY PRN HPI Comments Details: Fabrice is a pleasant 70 year old [place] speaking male patient of Dr. Emery. He has a PMH of anal fistula, anxiety, asthma, cervical radiculitis, diabetes mellitus, diverticulosis, dysphagia, fibromatosis, finger amputee, hypercholesteremia, sleep apnea, hypertension, hyperlipidemia, hypogonadism, hypokalemia, and pacemaker. He presents to the office today for follow-up of his erectile dysfunction in the setting of diabetes and hypogonadism in the setting of obstructive sleep apnea. In discussion with the patient today he reports to be doing and feeling well. He reports since his last office visit here he was unable to obtain Xyosted. He is requesting refill be sent to [facility] [facility] pharmacy. He does want to proceed with testosterone replacement. He continues to manage his erectile dysfunction with 10 mg of Cialis daily and does feel this has been helpful. Labs are as follows: PSA: 03/05 2.3, 09/06 3.0, 01/04 4.1, 03/06 3.4, 06/06 3.46, 01/05 3.1, 04/07 2.3 Total Testoserone: 08/04 169, 03/05 190, 03/05 174, 09/06 392, 01/04 564, 03/06 807, 06/06 457, 01/05 100, 04/07 146 Free Testosterone: 08/04 25.9, 03/05 28.9, 03/05 26.1, 09/06 67.0, 03/06 134.5, 06/06 TNP, 01/05 12, 04/07 20.1 H&H: 09/06 13.9/43.3, 01/04 16.4/50.8, 03/06 17.2/52.4, 06/06 16.7/50.5, 01/05 12.9/40.0, 04/07 12.3/36.7 Discussed at length the importance of managing diabetes for improvement in erections, testosterone levels, and overall health and well being. Also discussed importance of compliance with CPAP machine for improvement in erections, testosterone levels, and overall health and well being. When asked patient denies any urinary issues or concerns. He denies urinary urgency, urinary frequency, incontinence, nocturia, hematuria, dysuria, foul smelling urine, changes to urinary stream, flank pain, fever, and or chills. In office urinalysis results reviewed with the patient today. He is happy with his current voiding parameters. Erectile dysfunction Diabetic Progressive Failed on demand medications Current therapy tadalafil 10 mg daily Multiple cardiovascular risk factors - hypertension, dyslipidemia, cardiomyopathy Investigations - 08/04 T 170 F 26 HBA1c 6.9 PFSH Medical History Chronic kidney disease, stage 3a Myofascial pain GERD (gastroesophageal reflux disease) Cervical spondylosis Cardiomyopathy Polyarthralgia Epigastric pain Type 2 diabetes mellitus Perirectal abscess Onychomycosis REGLA (obstructive sleep apnea) Neck pain Class 1 obesity Moderate asthma Insomnia Cardiac resynchronization therapy defibrillator (STOCK TRACER-D) in place Gastrointestinal hemorrhage Left bundle branch block Chronic generalized pain disorder Chronic low back pain Benzodiazepine dependence Allergic conjunctivitis Hyperlipidemia Fibromatosis Dysphagia Anxiety Cervical radiculitis Hypogonadism in male Erectile dysfunction due to diseases classified elsewhere Anal fistula Diverticulosis of large intestine without hemorrhage Diabetes mellitus Finger amputee Pacemaker High cholesterol Hypokalemia HTN (hypertension) Surgical History History of surgery History of surgery on arm Family History Father Stroke Maternal Uncle Diabetes Mother Asthma Diabetes Arthritis Social History Household Members: None Housing: Apartment Alcohol intake: current Alcohol intake frequency: a few times a week Alcohol type: hard liquor Patient Tobacco Use Status: Former Tobacco user Current occupational status: disabled Review of Systems Const Reports as per HPI Eyes Reports no additional complaints ENT Reports no additional complaints Card Reports as per [facility] Resp Reports as per HPI GI Reports as per HPI Reports as per HPI Musc Reports as per HPI Neuro Reports as per HPI Psych Reports as per HPI Endo Reports as per HPI Physical Exam Const General: cooperative, healthy appearing, comfortable, no acute distress, well developed, alert and awake Nutritional Appearance: overweight Orientation/consciousness: patient oriented x3 Limitations: no limitations HEENT Head: Yes normal to inspection, Yes normocephalic and Yes atraumatic Ears: hearing grossly normal bilaterally Eyes General: appearance normal, both eyes and all related structures Neck Neck: Yes normal visual inspection and Yes trachea midline Chest Chest palpation & inspection: normal inspection of the chest Resp Effort & Inspection: normal respiratory effort and able to speak in complete sentences Cardio Rate: regular rate GI Inspection: Yes normal to inspection General: Yes no CVA tenderness Back/Spine/Pelvis Back: no CVA tenderness Skin General skin exam: no rashes or lesions noted Neuro General: patient oriented x3 Extrem General: Yes normal to inspection Psych Appearance: grossly normal and well kempt Mental Status: mental status grossly normal Speech and movement: Normal speech and movement present and Clear speech present Affect: normal affect Attitude: cooperative Thought process: Normal thought process present Thought content: Normal thought content present Insight: Fair insight present (Psych) Judgement: Fair judgement present (Psych) Results AMB Urinalysis, Automated UA Leukoctes 0 Jose/uL Last Edit by Jose Rice CCM on 04/22/25 11:21 UA Nitrite Negative Last Edit by Jose Rice [facility] on 04/22/25 11:21 UA Urobilinogen 0.2 mg/dL Last Edit by Jose Rice [facility] on 04/22/25 11:21 UA Protein 0 mg/dL Last Edit by Jose Rice [facility] on 04/22/25 11:21 UA pH 6.0 Last Edit by Jose Rice [facility] on 04/22/25 11:21 UA Blood 0 Kvaeh/uL Last Edit by Jose Rice [facility] on 04/22/25 11:21 UA Specific [place] 1.015 Last Edit by Jose Rice [facility] on 04/22/25 11:21 UA Ketone Negative Last Edit by Jose Rice [facility] on 04/22/25 11:21 UA Bilirubin 0 mg/dL Last Edit by Jose Rice [facility] on 04/22/25 11:21 UA Glucose 1000 mg/dL Last Edit by Jose Rice [facility] on 04/22/25 11:21 Results Reviewed Results Reviewed: Laboratory Last Values Urine pH (Auto) 6.0 04/22/25 11:20 Specific [place] (Auto) 1.015 04/22/25 11:20 Urine Protein (Auto) 0 mg/dL 04/22/25 11:20 Glucose (UA)(Auto) 1000 mg/dL 04/22/25 11:20 Urine Ketones (Auto) Negative 04/22/25 11:20 Urine Blood (Auto) 0 Kaveh/uL 04/22/25 11:20 Urine Nitrite (Auto) Negative 04/22/25 11:20 Urine Bilirubin (Auto) 0 mg/dL 04/22/25 11:20 Urine Urobilinogen (Auto) 0.2 mg/dL 04/22/25 11:20 Leukocyte Esterase (Auto) 0 Jose/uL 04/22/25 11:20 Assessment & Plan Assessment & Plan (1) Hypogonadism in male: Code(s): E29.1 - Testicular hypofunction Category: Medical (2) Lack of libido: Code(s): F52.0 - Hypoactive sexual desire disorder Category: Medical (3) Erectile dysfunction associated with type 2 diabetes mellitus: Code(s): E11.69 - Type 2 diabetes mellitus with other specified complication; N52.1 - Erectile dysfunction due to diseases classified elsewhere Category: Medical Plan In office urinalysis results reviewed with the patient today; as noted above Recent labs reviewed with results reviewed with the patient today as noted above. Continue 10 mg of Cialis as prescribed; refill provided Restart Zyosted as prescribed; sent [facility] [place] [facility] pharmacy as requested by patient We discussed reassessment/ further treatment options of testosterone replacement if Zyosted unable to be convered by insurance. Patient otherwise denies any urinary issues or concerns at this time. He is happy with his current voiding parameters. Discussed at length importance of weight loss, brisk walking, and adequate sleep to assist with improvement in erections, testosterone levels, and overall health and well-being. Discussed at length importance of compliance with CPAP machine as well as managing diabetes for improvement in erections, testosterone levels, and overall health and well-being. Will obtain CBC, A1c, Testosterone free and total and PSA in 3 months Follow-up in 3 months with labs to be completed prior; or sooner with any issues, concerns, and or questions. Orders: Orders AMB Urinalysis Automated Today Z13.9 - Encounter for screening, unspecified Prostate Specific Antigen 3 Months E11.69 - Type 2 diabetes mellitus with other specified complication, E29.1 - Testicular hypofunction, F52.0 - Hypoactive sexual desire disorder, N52.1 - Erectile dysfunction due to diseases classified elsewhere Testosterone, Free/Total 3 Months E11.69 - Type 2 diabetes mellitus with other specified complication, N52.1 - Erectile dysfunction due to diseases classified elsewhere Hemoglobin A1c Today E11.9 - Type 2 diabetes mellitus without complications Complete Blood Count no Diff 3 Months E29.1 - Testicular hypofunction Medications: Refilled testosterone enanthate (Xyosted) 50 mg (0.5 mL) subcut QWEEK 2 mL 3RF 4 weeks E29.1 - Testicular hypofunction Patient Instructions: The patient had an opportunity to ask questions regarding the treatment plan. All questions were answered. Physical exam, labs, and imaging were discussed and reviewed in detail. As well as risks, benefits, and discussion of treatment choices. No major barriers to understanding were identified. The patient expressed understanding and agreement with the above treatment plan. The patient was made aware they should contact our office by phone for worsening of their current condition, the appearance of new symptoms, or with any questions or concerns. Compliance is encouraged with any medications and follow up testing that is ordered. It is a privilege to be allowed the opportunity to participate in? your urological care.? Again, if you have any questions or concerns If you have any questions or concerns please do not hesitate to contact me. The office is [phone]. This note is constructed using voice recognition software. While every effort has been made to ensure accuracy captain of guards errors may have been included. Yours sincerely, FILEMON Nunez Coding Level of Care Code Est Pt Level 3 (83310) Complex EM visit Add On G2211 Diagnoses Hypogonadism in male E29.1 Lack of libido F52.0 Erectile dysfunction associated with type 2 diabetes mellitus E11.69; N52.1
--- OUTSIDE RECORDS SUMMARY | 2025-04-22 13:18 | XMS_ITS | Clinical Summary ---
Author Organization [employer] Address [address] [facility] 7t [place] [address] Care Team Providers Care Rehabilitation Inspector Name Role Phone Carina Moore MD Primary Care Provide r Allergies Active Allergy Reactions Criticality Noted Date Comments Ibuprofen 01/27/2015 Levofloxacin 06/22/2016 Other reaction(s): Rash Medications FREESTYLE LITE test stripIndication s:Type 2 diabetes mellitus with hyperglycemia, unspecified whether salvage determiner insulin use (CMS/FORMER[facility]) CHECK BY FINGERSTICK ROUTE 2 TIMES EVERY [...] ARANGO 90 tablet 1 09/09/19 25 Active Arnuity Ellipta 200 MCG/ACT inhaler INHALE UN SOPLIDO POR VIA ORAL TODOS [place] 30 each 3 12/18/19 25 Active metFORMIN (Glucophage) 500 MG tabletIndicatio ns:Type 2 diabetes mellitus without complication, unspecified whether retirement insulin use (CMS/HCC) TAKE 1 TABLET BY MOUTH TWICE A [...] whether stage 3a or 3b CKD (CMS/HCC) Inject 2.5 mg under the skin 1 [...] AL MIKE 28 tablet 03/20/20 25 Active montelukast (Singulair) 10 MG tabletIndicatio ns:Mild intermittent asthma without complication TAKE 1 TABLET BY MOUTH EVERY DAY 90 tablet 1 04/11/20 25 Active atorvastatin (Lipitor) 40 MG tabletIndicatio ns:Essential hypertension TOME 1 TABLETA POR VIA ORAL TODOS [place] 90 tablet 1 04/21/20 25 Active montelukast (Singulair) 10 MG tabletIndicatio ns:Mild intermittent asthma without complication TAKE 1 TABLET BY MOUTH EVERY DAY 90 tablet 1 10/29/19 25 025 Discontinued atorvastatin (Lipitor) 40 MG tabletIndicatio ns:Essential hypertension TOME 1 TABLETA POR VIA ORAL TODOS [place] 90 tablet 1 11/02/19 025 Discontinued Active Problems Problem Noted Date [...] an appointment with me or specialist like circulation tender or rebrander Assessment & Plan (12/06/2024 5:00 PM EDT): [...] Hyperlipidemia 02/19/2018 Cardiac resynchronization th erapy defibrillator ([employer]) in place 02/19/2018 Male hypogonadism 02/19/2018 Class [...] Encounters Date Type Department Care Team Description 04/22/2025 Refill [facility] MEDICINE [address] [place] [address] Carina Moore MD Other chronic pain; Anxiety 04/19/2025 Refill [facility] MEDICINE [address] [place] [address] Carina Moore MD Essential hypertension 04/11/2025 Refill C MEDICINE [address] [place] [address] Carina Moore MD Mild intermittent asthma without complication 04/10/2025 Orders Only GENERIC EXTERNAL DATA DEPARTMENT Provider, Generic External Data 04/04/2025 10:30 AM EDT Telemedicine [facility] MEDICINE [address], [place] [address] Myra Bishop RN Long-term current use of opiate analgesic; Long-term current use of benzodiazepine 04/04/2025 Orders Only [facility] MEDICINE [address] [place] [address] Carina Moore MD 04/04/2025 Telephone [facility] [address] [facility] [place] [address] Myra Bishop, RN LABELING SPECIALIST Agreement renewed 04/04/2025 Travel 03/20/2025 Refill C MEDICINE [address] [place] [address] Carina Moore MD Other chronic pain; Anxiety 03/20/2025 Orders Only GENERIC EXTERNAL DATA DEPARTMENT Provider, Generic External Data 03/20/2025 Refill [facility] MEDICINE [address] [place] [address] Carina Moore MD Mild persistent asthma without complication 03/13/2025 Refill [facility] MEDICINE [address] [place] [address] Carina Moore MD Polyarthralgia 03/10/2025 11:15 AM EDT Office Visit [facility] MEDICINE [address] [place] [address] Carina Moore MD Primary hypertension (Primary Dx); Chronic congestive heart failure, unspecified heart failure type (CMS/HCC); Benzodiazepine dependence (CMS/[facility]ER[facility]); Type 2 diabetes mellitus with stage 3 chronic kidney disease, without long-term current use of insulin, unspecified whether stage 3a or 3b CKD ([facility]/HCC) 03/10/2025 Orders Only GENERIC EXTERNAL DATA DEPARTMENT Provider, Generic External Data 03/10/2025 Travel 03/06/2025 Telephone [facility] MEDICINE [address] [place] [address] Carina Moore MD 03/06/2025 Orders Only [facility] External Provider, [facility] 02/28/2025 Patient Outreach [facility] MEDICINE [address] [place] [address] Carina Moore MD Pre-visit Planning ((Unable to reach for PVP screening, LVM) to be completed in office ) 02/26/2025 Refill [facility] MED & PEDS [address] [place], [place] [phone] Carina Moore MD 02/17/2025 Refill [facility] MEDICINE [address] [place], [place] [phone] Tabby Cottrell DO Other chronic pain; Anxiety 01/23/2025 Refill [facility] MEDICINE [address] [place] [address] Carina Moore MD Other chronic pain; Anxiety from Last 3 Months Immunizations Immunization Administration [...] Info) Description 06/13/2025 10:30 AM EDT Telemedicine [facility] MEDICINE [address] [place] [phone] Myra Bishop RN 06/16/2025 11:15 AM EST Office Visit [facility] MEDICINE [address] [place] [phone] Carina Moore MD [address] [place] [address] [phone] Health Maintenance Due Date Last Done Comments [...] 06/28/2022 06/28/2012 COVID-19 Vaccine (3 - season) 2025 12/23/2020, 11/25/2020 Influenza Vaccine (#1) 2025 6, 06/05/2015, 06/16/2014, Additional history exists Diabetes: Hemoglobin A1C 06/07/202512/06/ 025, 08/20/2024, 11/08/2023, Additional history exists Colonoscopy 11/18/2025 11/19/2015 Colorectal Cancer Screening 11/18/2025 Alcohol/Substance Use Screening 03/10/2026 03/10/2025 Depression Screening 03/10/2026 03/10/2025, 03/10/20 Lipid Panel 03/10/2026 03/10/2025, 02/2025, 03/14/2024, Additional history exists SDOH Screening [...] Procedure Name Priority Date/Time Associated Diagnosis Comments TESTOSTERONE, FREE (DIALYSIS) AND TOTAL,MS Routine 04/10/2025 10:55 AM EDT PSA, TOTAL Routine 04/10/2025 10:55 AM EDT CREATININE, SERUM Routine 04/10/2025 10: 55 AM EDT ELECTROLYTE PANEL Routine 04/10/2025 10: 55 AM EDT CBC Routine 04/10/2025 10:55 AM EDT ELECTROLYTE [...] complication, without long-term current use of insulin ([facility]) HM COLONOSCOPY Routine 11/19/2015 from Last 3 Months or Most Recently Relevant to Health Maintenance Results * Creatinine, Serum (04/10/2025 10:55 AM EDT) Creatinine, Serum 1.16 0.5 - 1.4 mg/dL [facility] Estimated Glomerular Filt Rate >60 [facility] Comment:Chronic Kidney Disea se: Estimated GFR < 60 mL/min/1.12t2Dhbrim Kidney Disease: Estimated GFR < 15 mL/min/1.73m2 04/10/2025 10:5 5 AM EDT 04/10/2025 10:55 AM EDT us Generic External Data Provider LAB BLOOD ORDERAB LES Final Result [facility] [address] [place] [address] [phone] * (ABNORMAL) CBC (04/10/2025 10:55 AM EDT) [facility] White Blood Count 7.9 4.8 - 10.8 X10*3/uL [facility] Red Blood Count 3.90(L) 4.60 - 5.80 X10*6/uL [facility] Hemoglobin 12.3(L) 14.0 - 18.0 g/dl [facility] Hematocrit 36.7(L) 42.0 - 52.0 % [facility] Mean Corpuscular Volume 94.1 80.0 - 98.0 fL [facility] Mean Corpuscular Hemoglobin 31.5 27.0 - 33.0 pg [facility] Mean Corpuscular HGB Conc 33.5 31.0 - 36.0 g/dl [facility] Red Cell Distribution Width 12.9 11.0 - 16.0 % [facility] Platelet Count 295 160 - 400 X10*3/uL [facility] Mean Platelet Volume 9.9 9.4 - 12.4 fL [facility] NRBC Pct Auto 0.0 0.0 - 0.2 /100WBC [facility] NRBC Abs Auto 0.000 0.0 - 0.012 X10*3/uL [facility] 04/10/2025 10:5 5 AM EDT 04/10/2025 10:55 AM EDT us Generic External Data Provider LAB BLOOD ORDERAB LES Final Result Performing Organization Address City/[facility]/ZIP Co de Phone Number [facility] [address] [place] [address] [phone] * (ABNORMAL) Testosterone, Free (Dialysis) And Total, MS (04/10/2025 10:55 AM EDT) [facility] Testosterone, Total 146(A) 250 - 1100 ng/dL [facility] Comment:Men with clinically significant hypogonadalsymptoms and testosterone values repeatedly inthe range of the 200-300 ng/dL or less, maybenefit from testosterone treatment afteradequate risk and benefits counseling.For additional information, please refer [email or web address]/faq/[email or web address](This link is being provided for informational/educational purposes only.)This test was developed and its analytical performancecharacteristics have been determined by [employer] [place], [place]. It hasnot been cleared or approved by the U.S. Food and DrugAdministration. This assay has been validated pursuantto the CLIA regulations and is used for clinicalpurposes. Testosterone, Free 20.1(A) 30.0 - 135.0 pg/mL [facility] Comment:This test was develo ped and its analytical performancecharacteristics have been determined by [employer] [place], [place]. It hasnot been cleared or approved by the U.S. Food and DrugAdministration. This assay has been validated pursuantto the CLIA regulations and is used for clinicalpurposes.THIS TEST WAS PERFORMED AT:[id number] [place] [address]TYDEMWKWARREN STEEL MD,PHD 04/10/2025 10:5 5 AM EDT 04/10/2025 10:55 AM EDT us Generic External Data Provider LAB BLOOD ORDERAB LES Final Result [facility] [address] [place], [place] [phone] * PSA,Total (04/10/2025 10:55 AM EDT) Prostate Specific Antigen 2.31 <0.05 - 4.0 ng/mL [facility] Comment:PSA methodology: Abb sunday Aliyaakovty i ChemiluminescentMicroparticle Immunoassay (CMIA) 04/10/2025 10:5 5 AM EDT 04/10/2025 10:55 AM EDT us Generic External Data Provider LAB BLOOD ORDERAB LES Final Result Performing Organization Address [facility]/ZIP Co de Phone Number [facility] [address] [place] [address] [phone] * (ABNORMAL) Electrolyte Panel (04/10/2025 10:55 AM EDT) Only the most recent of2 resultswithin the time period is included. Sodium 139 135 - 145 mmol/L [facility] Potassium 4.3 3.3 - 5.1 mmol/L [facility] Chloride 106 96 - 108 mmol/L [facility] Carbon Dioxide 28 22 - 29 mmol/L [facility] Anion Gap 9(L) 12 - 20 [facility] 04/10/2025 10:5 5 AM EDT 04/10/2025 10:55 AM EDT us Generic External Data Provider LAB BLOOD ORDERAB LES Final Result Performing Organization Address [facility] Co de Phone Number [facility] [address] [place] [phone] * Albumin, Random Urine W/Creatinine (03/10/2025 12:06 PM EDT) Creatinine, Urine 76.07 mg/dL [facility] Microalbumin Urine <5.0 mg/L [facility] Microalbum Creatinine Ratio Ur TNP <30 ug/mg cr [facility] Comment:Unable to calculate albumin/creatinine ratio due to lowmicroalbumin or creatinine result. Urine (Urine, Random) 03/10/2025 12:06 PM EDT 03/10/2025 1:39 PM EDT us Carina Emery MD LAB URINE ORDERABLES Final Result Performing Organization Address [facility]/ZIP Co de Phone Number [facility] [address] [place] [phone] [phone] * (ABNORMAL) BUN (Blood Urea Nitrogen) (03/10/2025 12:06 PM EDT) Urea Nitrogen (BUN) 24(H) 9 - 16 mg/dL [facility] 03/10/2025 12:0 6 PM EDT 03/10/2025 1:03 PM EDT us Generic External Data Provider LAB BLOOD ORDERAB LES Final Result [facility] [address] [place] [address] [phone] * (ABNORMAL) Lipid Panel, Standard (03/10/2025 12:06 PM EDT) Triglycerides 179(H) <150 mg/dL [facility] Comment:Desirable Triglyceri de: less than 150 mg/dLBorderline High Triglyceride 150-199 mg/dLHigh Triglyceride: 200-499 mg/dLVery High Triglyceride: greater than or equal to 5OO mg/dL Cholesterol 168 <200 mg/dL [facility] Comment:Desirable Cholestero l: less than 200 mg/dLBorderline High Cholesterol: 200-239 mg/dLHigh Cholesterol: greater than 239 mg/dL LDL Cholesterol Calculated 91 <100 mg/dL [facility] Comment:Desirable LDL: less than 100 mg/dLNear Optimal/Above Optimal LDL: 110- 129 mg/dLBorderline High LDL: 130-159 mg/dLHigh LDL: 160-189 mg/dLVery High LDL: greater than or equal to 190 mg/dL HDL Cholesterol 42 >40 mg/dL [facility] Comment:Desirable HDL: great er than 40 mg/dL Note: This HDL assay may give artificially low results in patients with liver disease. Blood Venous blood specimen / Unknown 03/10/2025 12:06 PM EDT 03/10/2025 1:03 PM EDT us Carina Emery MD LAB BLOOD ORDERABLES Final Result [facility] [address] [place], [place] [phone] * (ABNORMAL) Comprehensive Metabolic Panel (03/10/2025 12:06 PM EDT) Sodium 140 135 - 145 mmol/L [facility] Potassium 5.5(H) 3.3 - 5.1 mmol/L [facility] Chloride 103 96 - 108 mmol/L [facility] Carbon Dioxide 30(H) 22 - 29 mmol/L [facility] Anion Gap 13 12 - 20 [facility] Urea Nitrogen (BUN) 24(H) 9 - 16 mg/dL [facility] Creatinine, Serum 1.13 0.5 - 1.4 mg/dL [facility] Estimated Glomerular Filt Rate >60 [facility] Comment:Chronic Kidney Disea se: Estimated GFR < 60 mL/min/1.52n5Olfccy Kidney Disease: Estimated GFR < 15 mL/min/1.73m2 Glucose 90 60 - 115 mg/dL [facility] Calcium 9.4 8.4 - 10.2 mg/dL [facility] Bilirubin, Total 0.4 0.0 - 1.0 mg/dL [facility] Aspartate Amino Transferase 36 5 - 37 U/L [facility] Alanine Aminotransferase 26 0 - 40 U/L [facility] Total Protein 7.5 6.5 - 8.0 g/dL [facility] Albumin Level 4.2 3.5 - 5.0 g/dL [facility] Alkaline Phosphatase 55 39 - 117 U/L [facility] Blood Venous blood specimen / Unknown 03/10/2025 12:06 PM EDT 03/10/2025 1:03 PM EDT us Carina Emery MD LAB BLOOD ORDERABLES Final Result Performing Organization Address City/[facility]/ZIP Co de Phone Number [facility] [address] [place] [address] [phone] * US RENAL DOPPLER (03/06/2025 9:15 AM EDT) Anatomical Region Laterality Modality Abdomen Ultrasound 03/06/2025 9:15 AM EDT Narrative 03/06/2025 10:20 AM EDT [address] [address] Ultrasound Report Signed Patient: Fabrice Holden MR#: [id number] : 1955 Acct:[id number] Age/Sex: 69 / M ADM Date: 03/06/25 Loc: HO.US Attending Dr: Abran Hemphill MD Ordering Physician: Abran Hemphill MD Date of Service: 03/06/25 Procedure(s): US renal doppler Accession Number(s): [id number] cc: Carina Moore MD; Abran Hemphill MD [...] 03/06/25 1017 DD/ 0915 TD/TT: 03/06/25 0942 Director Of Quantitative Research: Procedure Note Donotuseinterpreter, Image - 03/06/2025 [place] [id number] Ultrasound Report Signed Patient: Fabrice Holden AMR#: [id number] : 4Acct:[id number] Age/Sex: 69 / MADM Date: 03/06/25 Loc: HO.US Attending Dr: Abran Hemphill MD Ordering Physician: Abran Hemphill MD Date of Service: 03/06/25 Procedure(s): US renal doppler Accession Number(s): [id number] cc: Carina Moore MD; Abran Hemphill MD [...] Chandu Swann MDin OV> 03/06/25 1017 DD/ TD/TT: 03/06/25 0942 Director Of Quantitative Research: [facility] External Provider IMG US PROCEDURES Edited Result - Final * US Renal Complete (03/06/2025 9:15 AM EDT) Anatomical Region Laterality Modality Kidney Ultrasound 03/06/2025 9:15 AM EDT Narrative 03/06/2025 10:20 AM EDT [place] [address] Ultrasound Report Signed Patient: Fabrice Holden MR#: [id number] : 1955 Acct:[id number] Age/Sex: 69 / M ADM Date: 03/06/25 Loc: HO.US Attending Dr: Abran Hemphill MD Ordering Physician: Abran Hemphill MD Date of Service: 03/06/25 Procedure(s): US renal BI Accession Number(s): [id number] cc: Carina Moore MD; Abran Hemphill MD [...] 03/06/25 1017 DD/ 0915 TD/TT: 03/06/25 0942 Director Of Quantitative Research: Procedure Note Donotuseinterpreter, Image - 03/06/2025 [place] [address] Ultrasound Report Signed Patient: Fabrice Holden AMR#: [id number] : 4Acct:[id number] Age/Sex: 69 / MADM Date: 03/06/25 Loc: HO.US Attending Dr: Abran Hemphill MD Ordering Physician: Abran Hemphill MD Date of Service: 03/06/25 Procedure(s): US renal BI Accession Number(s): [id number] cc: Carina Moore MD; Abran Hemphill MD [...] 03/06/25 1017 DD/ 0915 TD/TT: 03/06/25 0942 Director Of Quantitative Research: us [facility] External Provider IMG US PROCEDURES Edited Result - Final * (ABNORMAL) POCT HGB A1C (12/06/2024 11:00 AM EDT) Hemoglobin A1C 6.9(A) 4.0 - 6.0 % QC Media Lot # [id number] Lot# Expiration Date [id number] Blood 12/06/2024 11:0 0 AM EDT us Carina Emery MD POINT OF CARE TEST EN TER/EDIT ORDERABLES Final Result * Colonoscopy (11/19/2015) Historical Provider HEALTH MAINTENANCE Final Result from Last 3 Months or Most Recently Relevant to Health Maintenance Insurance [place] [id number] * Guarantor: Fabrice Holden Account Type Relation to Patient Date of Phone Billing Address Personal/Family Self [address] Care Teams Rehabilitation Inspector Relationship Specialty Start Date End Date Carina Moore MD [address] [place] [address] PCP - General Family Medicine 04/25/18
--- OUTSIDE RECORDS SUMMARY | 2025-04-22 13:18 | XMS_ITS | Encounter Summary ---
Author Organization [employer] Address [address] [place] [address] 7t [place] [address] Care Team Providers Care Licensed Club Manager Name Role Phone Carina Moore MD Primary Care Provide r Encounter Details Date Type Department Care Team (Late Contact Info) Description 04/24/2023 Orders Only [address] [address] Provider, MD Charu Social History Tobacco Use [...] Info) Description 06/13/2025 10:30 AM EDT Telemedicine [address] [address] Myra Bishop RN 06/16/2025 11:15 AM EST Office Visit [address] [phone] Carina Moore MD [address] [place] [address] [phone] documented as of this encounter Procedures Procedure [...] documented as of this encounter Care Teams Licensed Club Manager Relationship Specialty Start Date End Date Carina Moore MD [address] [place] [phone] PCP - General Family Medicine 04/25/18 documented as of this encounter
--- OUTSIDE RECORDS SUMMARY | 2025-04-22 13:18 | XMS_ITS | Encounter Summary ---
Author Organization [employer] Address [address] [facility] 7t [place] [address] Care Team Providers Care Greenhouse Technician Name Role Phone Carina Moore MD Primary Care Provide r Encounter Details Date Type Department Care Team (Late Contact Info) Description 02/07/2023 Orders Only [facility] MED & PEDS [address] [place], [place] [phone] Tabby Howe LPN Social History Tobacco Use [...] Info) Description 06/13/2025 10:30 AM EDT Telemedicine [facility] MEDICINE [address] [place] [address] [phone] Myra Bishop RN 06/16/2025 11:15 AM EST Office Visit [facility] MEDICINE [address] [place] [address] [phone] Carina Moore MD [address] [place] [address] [phone] documented as of this encounter Visit Diagnoses Not on filedocumented in this encounter Additional Health Concerns Assessment Noted Time PHQ-9 Depression Total Score: 0 12/21/19 23 10:37 AM EDT documented as of this encounter Care Teams Greenhouse Technician Relationship Specialty Start Date End Date Carina Moore MD [address] [place] [address] PCP - General Family Medicine 04/25/18 documented as of this encounter
--- OUTSIDE RECORDS SUMMARY | 2025-04-22 13:18 | XMS_ITS | Encounter Summary ---
Author Organization [employer] Address [address] [facility] 7t [place] [address] Care Team Providers Care Renal Dietitian Name Role Phone Carina Moore MD Primary Care Provide r Reason for Visit * Reason Comments Med Refill Encounter Details Date Type Department Care Team ([facility] st Contact Info) Description 12/19/2022 Refill [facility] MEDICINE [address] [place], [place] [phone] Carina Moore MD [address] [place], [place] [phone] Anxiety; Other chronic pain; Insomnia, unspecified type [...] EDT Telemedicine [facility] MEDICINE [address] [place] [phone] Myra Bishop RN 06/16/2025 11:15 AM EST Office Visit [facility] MEDICINE [address] [place] [phone] Carina Moore MD [address] [place] [address] documented as of this encounter Visit Diagnoses Diagnosis Anxiety Anxiety state, unspecified Other chronic pain Insomnia, unspecified type documented in this encounter Care Teams Renal Dietitian Relationship Specialty Start Date End Date Carina Moore MD [address] [place] [address] PCP - General Family Medicine 04/25/18 documented as of this encounter
--- OUTSIDE RECORDS SUMMARY | 2025-04-22 13:18 | XMS_ITS | Encounter Summary ---
Author Organization [employer] Address [address] 7t [place] [address] Care Team Providers Care Painter Airbrush Name Role Phone Carina Moore MD Primary Care Provide r Encounter Details Date Type Department Care Team ([facility] st Contact Info) Description 09/08/2023 Orders Only [facility] CHC MED & PEDS [address] [place], [place] [phone] Sarah Acuña LPN Social History Tobacco Use Types Packs/Day Years Used Date Smoking Tobacco: Never Passive Smoke Exposure: Never Smokeless Tobacco: Never Depression Answer Date Recorded Patient Health Questionnaire-9 Score 0 12/20/2022 Housing Stability Answer Date Recorded What is your housing situation today? I have nino shannon 05/29/[address] you li [...] Info) Description 06/13/2025 10:30 AM EDT Telemedicine [facility] MEDICINE [address] [place] [address] [phone] Myra Bishop RN 06/16/2025 11:15 AM EST Office Visit [facility] MEDICINE [address] [place] [address] 288[address] Carina Moore MD [address] [place], [place] [phone] documented as of this encounter Procedures Procedure [...] Testosterone, Total 392 250 - 1100 ng/dL [facility] Comment:Men with clinically significant hypogonadalsymptoms and testosterone values repeatedly inthe range of the 200-300 ng/dL or less, maybenefit from testosterone treatment afteradequate risk and benefits counseling.For additional information, please refer [email or web address]/faq/[email or web address](This link is being provided for informational/educational purposes only.)This test was developed and its analytical performancecharacteristics have been determined by [employer] [place], [place]. It hasnot been cleared or approved by the U.S. Food and DrugAdministration. This assay has been validated pursuantto the CLIA regulations and is used for clinicalpurposes. Testosterone, Free 67.0 35.0 - 155.0 pg/mL [facility] Comment:This test was develo ped and its analytical performancecharacteristics have been determined by [employer] [place], [place]. It hasnot been cleared or approved by the U.S. Food and DrugAdministration. This assay has been validated pursuantto the CLIA regulations and is used for clinicalpurposes.THIS TEST WAS PERFORMED AT:[id number] [place] [address]LSDJFHYWARREN STEEL MD,PHD 09/08/2023 11:3 2 AM EST 09/08/2023 11:32 AM EST us Generic External Data Provider LAB BLOOD ORDERAB LES Final Result [facility] [address] [place] [phone] * PSA, Total With Reflex to PSA, Free (09/08/2023 11:32 AM EST) PSA,Total (Free>4and<10) 2.97 0.00 - 4.00 ng/mL [facility] Comment:A Free PSA was not p [...] ORDERAB LES Final Result Performing Organization Address City/[facility]/ZIP Co de Phone Number [facility] [address] [place] [address] [phone] * (ABNORMAL) CBC (09/08/2023 11:32 AM EST) White Blood Count 9.5 4.8 - 10.8 X10*3/uL [facility] Red Blood Count 4.57(L) 4.60 - 5.80 X10*6/uL [facility] Hemoglobin 13.9(L) 14.0 - 18.0 g/dl [facility] Hematocrit 43.3 42.0 - 52.0 % [facility] Mean Corpuscular Volume 94.7 80.0 - 98.0 fL [facility] Mean Corpuscular Hemoglobin 30.4 27.0 - 33.0 pg [facility] Mean Corpuscular HGB Conc 32.1 31.0 - 36.0 g/dl [facility] Red Cell Distribution Width 13.7 11.0 - 16.0 % [facility] Platelet Count 349 160 - 400 X10*3/uL [facility] Mean Platelet Volume 9.6 9.4 - 12.4 fL [facility] NRBC Pct Auto 0.0 0.0 - 0.2 /100WBC [facility] NRBC Abs Auto 0.000 0.0 - 0.012 X10*3/uL [facility] 09/08/2023 11:3 2 AM EST 09/08/2023 11:32 AM EST us Generic External Data Provider LAB BLOOD ORDERAB LES Final Result Performing Organization Address City/[facility]/ZIP Co de Phone Number [facility] [address] [place] [phone] documented in this encounter Visit Diagnoses Not on filedocumented in this encounter Additional Health Concerns Assessment Noted Time PHQ-9 Depression Total Score: 0 12/21/19 23 10:37 AM EDT documented as of this encounter Care Teams Painter Airbrush Relationship Specialty Start Date End Date Barciona Emery, Kathy, MD [address] [place] [address] PCP - General Family Medicine 04/25/18 documented as of this encounter
--- OUTSIDE RECORDS SUMMARY | 2025-04-22 13:18 | XMS_ITS | Encounter Summary ---
Author Organization [employer] Address [address] [facility] 7t [place] [address] Care Team Providers Care Director Of Research Center Name Role Phone Carina Moore MD Primary Care Provide r Encounter Details Date Type Department Care Team ([facility] st Contact Info) Description 04/04/2025 Orders Only [facility] [address] [place] [phone] Carina Moore MD [address] [place] [address] Social History Tobacco Use Types Packs/Day Years [...] Info) Description 06/13/2025 10:30 AM EDT Telemedicine [facility] [address] [place] [address] [phone] Myra Bishop RN 06/16/2025 11:15 AM EST Office Visit [facility] [address] [place] [address] Carina Moore MD [address] [place] [address] documented as of this encounter Visit Diagnoses Not on filedocumented in this encounter Additional Health Concerns Assessment Noted Time PHQ-9 Depression Total Score: 0 03/10/20 25 11:35 AM EDT documented as of this encounter Care Teams Director Of Research Center Relationship Specialty Start Date End Date Carina Moore MD [address] [place] [address] PCP - General Family Medicine 04/25/18 documented as of this encounter
--- OUTSIDE RECORDS SUMMARY | 2025-04-22 13:18 | XMS_ITS | Encounter Summary ---
Author Organization [employer] Address [address] [facility] 7t [place] [address] Care Team Providers Care Property Officer Name Role Phone Carina Moore MD Primary Care Provide r Reason for Visit * Reason Comments Med Refill Encounter Details Date Type Department Care Team ([facility] st Contact Info) Description 10/14/2024 Refill [facility] [address] [place], [place] [phone] Carina Moore MD [address] [place], [place] [phone] Other chronic pain; Anxiety Social History Tobacco [...] Info) Description 06/13/2025 10:30 AM EDT Telemedicine [facility] MEDICINE [address] [place] [address] Myra Bishop RN 06/16/2025 11:15 AM EST Office Visit [facility] [address] [place] [address] Carina Moore MD [address] [place] [address] [phone] documented as of this encounter Visit Diagnoses Diagnosis Other chronic pain Anxiety Anxiety state, unspecified documented in this encounter Additional Health Concerns Assessment Noted Time PHQ-9 Depression Total Score: 0 12/21/19 23 10:37 AM EDT documented as of this encounter Care Teams Property Officer Relationship Specialty Start Date End Date Carina Moore MD [address] [place] [phone] PCP - General Family Medicine 04/25/18 documented as of this encounter
--- OUTSIDE RECORDS SUMMARY | 2025-04-22 13:18 | XMS_ITS | Encounter Summary ---
Author Organization [employer] Address [address] 7t [place] [address] Care Team Providers Care Window Glazier Helper Name Role Phone Carina Moore MD Primary Care Provide r Encounter Details Date Type Department Care Team ([facility] st Contact Info) Description 12/20/2022 Orders Only [facility] CHC MED & PEDS [address] [place] [address] Tabby Howe LPN Social History Tobacco Use [...] Info) Description 06/13/2025 10:30 AM EDT Telemedicine [facility] MEDICINE [address] [place] [phone] Myra Bishop RN 06/16/2025 11:15 AM EST Office Visit [facility] MED[facility]INE [address] [place] [phone] Carina Moore MD [address] [place] [address] documented as of this encounter Visit Diagnoses Not on filedocumented in this encounter Additional Health Concerns Assessment Noted Time PHQ-9 Depression Total Score: 0 12/21/19 23 10:37 AM EDT documented as of this encounter Care Teams Window Glazier Helper Relationship Specialty Start Date End Date Carina Moore MD [address] [place] [address] PCP - General Family Medicine 04/25/18 documented as of this encounter
--- OUTSIDE RECORDS SUMMARY | 2025-04-22 13:18 | XMS_ITS | Encounter Summary ---
Author Organization [employer] Address [address] [facility] 7t [place] [address] Care Team Providers Care Competitive Intelligence Manager Name Role Phone Carina Moore MD Primary Care Provide r Reason for Visit * Reason Comments Med Refill Encounter Details Date Type Department Care Team ([facility] st Contact Info) Description 04/09/2024 Refill [facility] MEDICINE [address] [place], [place] [phone] Carina Moore MD [address] [place], [place] [phone] Type 2 diabetes mellitus without complication, unspecified whether half-way insulin use ([facility]) Social History Tobacco Use Types Packs/Day Years [...] Info) Description 06/13/2025 10:30 AM EDT Telemedicine [facility] MEDICINE [address] [place] [phone] Myra Bishop RN 06/16/2025 11:15 AM EST Office Visit [facility] MED[facility]INE [address] [place] [address] Carina Moore MD [address] [place] [phone] documented as of this encounter Visit Diagnoses Diagnosis Type 2 diabetes mellitus without complication, unspecified whether half-way insulin use ([facility]) documented in this encounter Additional Health Concerns Assessment Noted Time PHQ-9 Depression Total Score: 0 12/21/19 23 10:37 AM EDT documented as of this encounter Care Teams Competitive Intelligence Manager Relationship Specialty Start Date End Date Carina Moore MD [address] [place] [phone] PCP - General Family Medicine 04/25/18 documented as of this encounter
--- OUTSIDE RECORDS SUMMARY | 2025-04-22 13:18 | XMS_ITS | Encounter Summary ---
Author Organization [employer] Address [address] [facility] 7t [place] [address] Care Team Providers Care Specialty Sales Consultant Name Role Phone Carina Moore MD Primary Care Provide r Reason for Visit * Reason Comments Med Refill Encounter Details Date Type Department Care Team (Late Contact Info) Description 10/14/2022 Refill [facility] MEDICINE [address] [place] [address] [phone] Cyndi Leach MD [address] [place] [address] [phone] Other chronic pain; Anxiety; Insomnia, unspecified type [...] Info) Description 06/13/2025 10:30 AM EDT Telemedicine [facility] MEDICINE [address] [place] [address] [phone] Myra Bishop RN 06/16/2025 11:15 AM EST Office Visit [facility] [address] [place] [address] [phone] Carina Moore MD [address] [place] [address] [phone] documented as of this encounter Visit Diagnoses Diagnosis Other chronic pain Anxiety Anxiety state, unspecified Insomnia, unspecified type documented in this encounter Care Teams Specialty Sales Consultant Relationship Specialty Start Date End Date Carina Moore MD [address] [place] [phone] PCP - General Family Medicine 04/25/18 documented as of this encounter
--- OUTSIDE RECORDS SUMMARY | 2025-04-22 13:18 | XMS_ITS | Encounter Summary ---
Author Organization [employer] Address [address] [facility] 7t [place] [address] Care Team Providers Care Back Roller Name Role Phone Carina Moore MD Primary Care Provide r Encounter Details Date Type Department Care Team (Late Contact Info) Description 12/22/2022 Telephone [facility] MEDICINE [address] [place] [address] Carina Moore MD [address] [place] [phone] Social History Tobacco Use Types Packs/Day Years [...] Description 06/13/2025 10:30 AM EDT Telemedicine [facility] [address] [place] [phone] Myra Bishop RN 06/16/2025 11:15 AM EST Office Visit [facility] [address] [place] [address] Carina Moore MD [address] [place] [address] documented as of this encounter Visit Diagnoses Not on filedocumented in this encounter Additional Health Concerns Assessment Noted Time PHQ-9 Depression Total Score: 0 12/21/19 23 10:37 AM EDT documented as of this encounter Care Teams Back Roller Relationship Specialty Start Date End Date Carina Moore MD [address] [place] [address] PCP - General Family Medicine 04/25/18 documented as of this encounter
--- OUTSIDE RECORDS SUMMARY | 2025-04-22 13:18 | XMS_ITS | Encounter Summary ---
Author Organization [employer] Address [address] [facility] 7t [place] [address] Care Team Providers Care Roving Teller Name Role Phone Carina Moore MD Primary Care Provide r Reason for Visit * Reason Comments Med Refill Encounter Details Date Type Department Care Team ([facility] st Contact Info) Description 04/22/2025 Refill [facility] MEDICINE [address] [place], [place] [phone] Carina Moore MD [address] [place], [place] [phone] Other chronic pain; Anxiety Social History Tobacco [...] Info) Description 06/13/2025 10:30 AM EDT Telemedicine [facility] MEDICINE [address] [place] [phone] Myra Bishop RN 06/16/2025 11:15 AM EST Office Visit [facility] [address] [place] [phone] Carina Moore MD [address] [place] [address] documented as of this encounter Visit Diagnoses Diagnosis Other chronic pain Anxiety Anxiety state, unspecified documented in this encounter Additional Health Concerns Assessment Noted Time PHQ-9 Depression Total Score: 0 03/10/20 25 11:35 AM EDT documented as of this encounter Care Teams Roving Teller Relationship Specialty Start Date End Date Carina Moore MD [address] [place] [phone] PCP - General Family Medicine 04/25/18 documented as of this encounter
--- OUTSIDE RECORDS SUMMARY | 2025-04-22 13:18 | XMS_ITS | Encounter Summary ---
Author Organization [employer] Address [address] [facility] 7t [place] [address] Care Team Providers Care Edi Programmer Analyst Name Role Phone Carina Moore MD Primary Care Provide r Encounter Details Date Type Department Care Team (Late st Contact Info) Description 09/19/2022 Orders Only [facility] CHC MED & PEDS [address] [place], [place] [phone] Tabby Howe LPN Social History Tobacco Use [...] Info) Description 06/13/2025 10:30 AM EDT Telemedicine [address] [address] Myra Bishop RN 06/16/2025 11:15 AM EST Office Visit [facility] MEDICINE [address] [place] [address] Carina Moore MD [address] [place] [address] [phone] documented as of this encounter Visit Diagnoses Not on filedocumented in this encounter Care Teams Edi Programmer Analyst Relationship Specialty Start Date End Date Carina Moore MD [address] [place] [address] [phone] PCP - General Family Medicine 04/25/18 documented as of this encounter
--- OUTSIDE RECORDS SUMMARY | 2025-04-22 13:18 | XMS_ITS | Encounter Summary ---
Author Organization [employer] Address [address] [facility] 7t [place] [address] Care Team Providers Care Control Systems Designer Name Role Phone Carina Moore MD Primary Care Provide r Reason for Visit * Reason Comments Med Refill Encounter Details Date Type Department Care Team ([facility] st Contact Info) Description 06/12/2023 Refill [facility] MED[facility]INE [address] [place], [place] [phone] Carina Moore MD [address] [place], [place] [phone] Onychomycosis Social History Tobacco Use Types Packs/Day [...] Info) Description 06/13/2025 10:30 AM EDT Telemedicine [facility] [address] [place] [address] [phone] Myra Bishop RN 06/16/2025 11:15 AM EST Office Visit [facility] [address] [place] [address] 701[address] Carina Moore MD [address] [place] [phone] documented as of this encounter Visit Diagnoses Diagnosis Onychomycosis Dermatophytosis of nail documented in this encounter Additional Health Concerns Assessment Noted Time PHQ-9 Depression Total Score: 0 12/21/19 23 10:37 AM EDT documented as of this encounter Care Teams Control Systems Designer Relationship Specialty Start Date End Date Carina Moore MD [address] [place] [phone] PCP - General Family Medicine 04/25/18 documented as of this encounter
--- OUTSIDE RECORDS SUMMARY | 2025-04-22 13:18 | XMS_ITS | Encounter Summary ---
Author Organization [employer] Address [address] [facility] 7t [place] [address] Care Team Providers Care Leather Scraper Name Role Phone Carina Moore MD Primary Care Provide r Reason for Visit * Reason Comments Med Refill Encounter Details Date Type Department Care Team ([facility] st Contact Info) Description 04/19/2025 Refill [facility] [address] [place], [place] [phone] Carina Moore MD [address] [place], [place] [phone] Essential hypertension Social History Tobacco Use Types Packs/Day Years [...] Info) Description 06/13/2025 10:30 AM EDT Telemedicine [facility] [address] [place] [address] [phone] Myra Bishop RN 06/16/2025 11:15 AM EST Office Visit [facility] [address] [place] [address] Carina Moore MD [address] [place] [address] documented as of this encounter Visit Diagnoses Diagnosis Essential hypertension Unspecified essential hypertension documented in this encounter Additional Health Concerns Assessment Noted Time PHQ-9 Depression Total Score: 0 03/10/20 25 11:35 AM EDT documented as of this encounter Care Teams Leather Scraper Relationship Specialty Start Date End Date Carina Moore MD [address] [place] [phone] PCP - General Family Medicine 04/25/18 documented as of this encounter
--- OUTSIDE RECORDS SUMMARY | 2025-04-22 13:18 | XMS_ITS | Encounter Summary ---
Author Organization [employer] Address [address] [facility] [address] 7[address] [place] [address] Care Team Providers Care Dishwasher Name Role Phone Carina Moore MD Primary Care Provide r Encounter Details Date Type Department Care Team (Late st Contact Info) Description 02/07/2024 Telephone [facility] MED[facility]INE 230 [place], [place] [phone] Carina Moore MD [address] [place], [place] [phone] Social History Tobacco Use Types Packs/Day Years [...] Info) Description 06/13/2025 10:30 AM EDT Telemedicine [facility] MED[facility] [address] [place] [address] [phone] Myra Bishop RN 06/16/2025 11:15 AM EST Office Visit [facility] [address] [place] [phone] Carina Moore MD [address] [place] [address] documented as of this encounter Visit Diagnoses Not on filedocumented in this encounter Additional Health Concerns Assessment Noted Time PHQ-9 Depression Total Score: 0 12/21/19 23 10:37 AM EDT documented as of this encounter Care Teams Dishwasher Relationship Specialty Start Date End Date Carina Moore MD [address] [place] [phone] PCP - General Family Medicine 04/25/18 documented as of this encounter
== END 2025-04-22 11:46 | disposition home or self-care (01) ==
LOC: HO.HUSH 11:00
PROVIDERS: PCP Internal Medicine; Visit Provider Nurse Practitioner Family
DX: E29.1 Testicular hypofunction (principal); F52.0 Hypoactive sexual desire disorder; E11.69 Type 2 diabetes mellitus with other specified complication; N52.1 Erectile dysfunction due to diseases classified elsewhere; Z13.9 Encounter for screening, unspecified
CPT/HCPCS: 99213; G2211

== ENCOUNTER → 2025-04-22 10:59 | Outpatient (BNVA) | payer OTHER, SELFPAY | PROVIDERS: PCP Internal Medicine; Visit Provider Nurse Practitioner Family | DX: E29.1 Testicular hypofunction (principal); F52.0 Hypoactive sexual desire disorder; E11.69 Type 2 diabetes mellitus with other specified complication; N52.1 Erectile dysfunction due to diseases classified elsewhere; E11.8 Type 2 diabetes mellitus with unspecified complications; Z79.84 Long term (current) use of oral hypoglycemic drugs | CPT/HCPCS: 81003; 99212 ==

== ENCOUNTER 2025-05-12 11:41 | Outpatient (REF) | payer OTHER, SELFPAY ==
[2025-05-12 12:55] LABS: Anion Gap 13 (12-20); Blood Urea Nitrogen 25 mg/dL (9-16); Calcium 9.1 mg/dL (8.4-10.2); Carbon Dioxide 29 mmol/L (22-29); Chloride 106 mmol/L (96-108); Estimated Glomerular Filt Rate 44; Potassium 5.6 mmol/L (3.3-5.1); Sodium 142 mmol/L (135-145)
== END 2025-05-12 11:42 | disposition home or self-care (01) ==
LOC: HO.LAB 11:41
PROVIDERS: PCP Internal Medicine; Visit Provider Nurse Practitioner Family
DX: N18.30 Chronic kidney disease, stage 3 unspecified (principal)
CPT/HCPCS: 36415; 80048

== ENCOUNTER 2025-05-14 10:35 | Outpatient (AMB) | payer OTHER, SELFPAY ==
--- NOTE | 2025-05-14 10:38 | HO.NEPHOV ---
Vital Signs 05/14/25 10:40 Height 5 ft 4 in Weight 181 lb 2 oz BMI 31.1 BP 100/60 Blood Pressure Location Lt brachial Position Sitting Pulse 90 Pulse Source Pulse Oximeter Pulse Oximetry (%) 95 Oxygen Delivery Method Room Air Intake Visit Reasons: FU-Conf Printing Sales Representative Required: Yes Printing Sales Representative Language: Pathology Laboratory Technologist Services: Printing Sales Representative Offered & Declined ([facility] [place] Sales Representative services refused ) Accompanied by: Self / Same As Patient Allergies ibuprofen (From MOTRIN) Allergy (Intermediate, Verified 05/14/25 10:40) KIDNEY INJURY tramadol (TRAMADOL) Allergy (Mild, Verified 05/14/25 10:40) ITCHING Motrin Allergy (Mild, Uncoded 04/22/25 11:52) rash HPI Comments Details: Fabrice was seen for follow up of CKD. He is 70 years of age and has H/O DM, HTN as well as cardiomyopathy. He is on Farxiga as well as Entresto. He denies any SOB, weight gain, PND, orthostatic symptoms edema, orthopnea, deafness, sinusitis, hematuria, proteinuria or retinopathy. He has no H/O hepatitis, skin rashes, hypercalcemia, new bone or back pain . He does not take excess NSAID's. His serum creatinine is marginally worse (1.57). He had been having diarrhea when he was taking Mounjaro and he stopped it. His rise in serum creatinine coincided with diarrhea while on Entresto. [facility] Medical History Chronic kidney disease, stage 3a Myofascial pain GERD (gastroesophageal reflux disease) Cervical spondylosis Cardiomyopathy Polyarthralgia Epigastric pain Type 2 diabetes mellitus Perirectal abscess Onychomycosis REGLA (obstructive sleep apnea) Neck pain Class 1 obesity Moderate asthma Insomnia Cardiac resynchronization therapy defibrillator (GIG TENDER-D) in place Gastrointestinal hemorrhage Left bundle branch block Chronic generalized pain disorder Chronic low back pain Benzodiazepine dependence Allergic conjunctivitis Hyperlipidemia Fibromatosis Dysphagia Anxiety Cervical radiculitis Hypogonadism in male Erectile dysfunction due to diseases classified elsewhere Anal fistula Diverticulosis of large intestine without hemorrhage Diabetes mellitus Finger amputee Pacemaker High cholesterol Hypokalemia HTN (hypertension) Surgical History History of surgery History of surgery on arm Family History Father Stroke Maternal Uncle Diabetes Mother Asthma Diabetes Arthritis Social History Household Members: None Housing: Apartment Alcohol intake: current Alcohol intake frequency: a few times a week Alcohol type: hard liquor Patient Tobacco Use Status: Former Tobacco user Current occupational status: disabled Review of Systems Const All systems reviewed & are unremarkable except as noted in HPI and below Physical Exam Vital Signs: Last Vital Signs Pulse 90 05/14/25 10:40 BP 100/60 05/14/25 10:40 Pulse Ox 95 05/14/25 10:40 Oxygen Delivery Method Room Air 05/14/25 10:40 BMI result Body Mass Index 31.1 Const General: comfortable and no acute distress Orientation/consciousness: patient oriented x3 HEENT Head: Yes normocephalic Mouth: Normal oral and palatal mucosa present Eyes EOM: EOMs intact bilaterally Neck Neck: Yes supple Resp Auscultation: clear to auscultation bilaterally Cardio Jugular venous distension: no JVD Rate: regular rate GI Palpation (GI): Soft to palpation Auscultation: normal bowel sounds General: Yes no CVA tenderness Back/Spine/Pelvis Back: no CVA tenderness Skin General skin exam: no rashes or lesions noted Neuro General: patient oriented x3 and moves all extremities Extrem General: Yes no pedal edema Results Reviewed Nephrology Results: Hgb, (14.0-18.0) 12.3 g/dl L 04/10/25 WBC, (4.8-10.8) 7.9 X10*3/uL 04/10/25 Plt Count, (160-400) 295 X10*3/uL 04/10/25 Sodium, (135-145) 142 mmol/L 05/12/25 Potassium, (3.3-5.1) 5.6 mmol/L H Δ 05/12/25 Chloride, (96-108) 106 mmol/L 05/12/25 Carbon Dioxide, (22-29) 29 mmol/L 05/12/25 BUN, (9-16) 25 mg/dL H 05/12/25 Creatinine, (0.5-1.4) 1.57 mg/dL H 05/12/25 Calcium, (8.4-10.2) 9.1 mg/dL 05/12/25 Urine Creatinine 76.07 mg/dL 03/10/25 Renal US 03/06/25 Assessment & Plan Assessment & Plan (1) HTN (hypertension): Code(s): I10 - Essential (primary) hypertension Category: Medical Qualifiers: Hypertension type: primary hypertension Qualified Code(s): I10 - Essential (primary) hypertension (2) Chronic kidney disease, stage 3a: Code(s): N18.31 - Chronic kidney disease, stage 3a Category: Medical (3) Hyperkalemia: Code(s): E87.5 - Hyperkalemia Category: Medical (4) AMRITA (acute kidney injury): Code(s): N17.9 - Acute kidney failure, unspecified Category: Medical Plan Fabrice has CKD 3 at baseline most likely due to vascular disease. He has long standing DM without proteinuria. He intermittently may be having altered autoregulation within the kidney due to fluctuant hemodynamics due to his cardiomyopathy and being on Entresto as well as Farxiga. Will give 30gm kayexalate one time today and re-check BMP. Also advised to start low potassium diet. He needs to monitor his weight, limit his salt intake and avoid NSAID's. Answered all questions and F/U was given. Orders: Orders Creatinine 1 Month E87.5 - Hyperkalemia Electrolytes 3 Weeks E87.5 - Hyperkalemia, I10 - Essential (primary) hypertension, N17.9 - Acute kidney failure, unspecified, N18.31 - Chronic kidney disease, stage 3a Blood Urea Nitrogen 3 Weeks E87.5 - Hyperkalemia, I10 - Essential (primary) hypertension, N17.9 - Acute kidney failure, unspecified, N18.31 - Chronic kidney disease, stage 3a Creatinine 3 Weeks E87.5 - Hyperkalemia, I10 - Essential (primary) hypertension, N17.9 - Acute kidney failure, unspecified, N18.31 - Chronic kidney disease, stage 3a Protein Creatinine Ratio, Ur 3 Weeks E87.5 - Hyperkalemia, I10 - Essential (primary) hypertension, N17.9 - Acute kidney failure, unspecified, N18.31 - Chronic kidney disease, stage 3a Electrolytes 1 Month E87.5 - Hyperkalemia Blood Urea Nitrogen 1 Month E87.5 - Hyperkalemia Medications: New sodium polystyrene sulfonate 30 grams PO ONCE 30 grams 0RF Coding Level of Care Code Est Pt Level 4 (33936) Diagnoses Primary hypertension I10 Hypertension type: primary hypertension Chronic kidney disease, stage 3a N18.31 Hyperkalemia E87.5 AMRITA (acute kidney injury) N17.9
[2025-05-14 10:40] VITALS: BP 100/60; PULSE 90; O2SAT 95; BMI 31.1
== END 2025-05-14 10:58 | disposition home or self-care (01) ==
LOC: HO.HKA 10:36
PROVIDERS: PCP Internal Medicine; Visit Provider Internal Medicine Nephrology
DX: I10 Essential (primary) hypertension (principal); N18.31 Chronic kidney disease, stage 3a; E87.5 Hyperkalemia; N17.9 Acute kidney failure, unspecified
CPT/HCPCS: 99214

== ENCOUNTER → 2025-05-14 10:35 | Outpatient (BNVA) | payer OTHER, SELFPAY | PROVIDERS: PCP Internal Medicine; Visit Provider Internal Medicine Nephrology | DX: E11.22 Type 2 diabetes mellitus with diabetic chronic kidney disease (principal); I12.9 Hypertensive chronic kidney disease with stage 1 through stage 4 chronic kidney disease, or unspecified chronic kidney disease; N18.31 Chronic kidney disease, stage 3a; N17.9 Acute kidney failure, unspecified; E87.5 Hyperkalemia | CPT/HCPCS: 99212 ==

== ENCOUNTER 2025-07-02 12:44 | Outpatient (REF) | payer OTHER, SELFPAY ==
[2025-07-02 14:00] LABS: Hematocrit 48.0 % (42.0-52.0); Hemoglobin 15.3 g/dl (14.0-18.0); Mean Corpuscular HGB Conc 31.9 g/dl (31.0-36.0); Mean Corpuscular Hemoglobin 31.0 pg (27.0-33.0); Mean Corpuscular Volume 97.4 fL (80.0-98.0); NRBC Abs Auto 0.000 X10*3/uL (0.0-0.012); NRBC Pct Auto 0.0 /100WBC (0.0-0.2); Platelet Count 301 X10*3/uL (160-400); Red Blood Count 4.93 X10*6/uL (4.60-5.80); White Blood Count 9.8 X10*3/uL (4.8-10.8)
[2025-07-02 14:53] LABS: Protein/Creatinine Ratio, Ur 0.10 (<0.2); Total Protein Urine Random 12 mg/dL (<12)
[2025-07-02 15:42] LABS: Anion Gap 12 (12-20); Blood Urea Nitrogen 16 mg/dL (9-16); Carbon Dioxide 28 mmol/L (22-29); Chloride 104 mmol/L (96-108); Estimated Glomerular Filt Rate > 60; Potassium 5.2 mmol/L (3.3-5.1); Sodium 139 mmol/L (135-145)
[2025-07-02 15:58] LABS: Prostate Specific Antigen 3.31 ng/mL (<0.05-4.0)
--- OUTSIDE RECORDS SUMMARY | 2025-07-03 00:14 | XMS_ITS | Encounter Summary ---
Author Organization [employer] Address [address] [place] [address] Care Team Providers Care Plush Dresser Name Role Phone Carina Moore MD Primary Care Provide r Encounter Details Date Type Department Care Team (Late st Contact Info) Description 02/07/2024 Telephone [facility] [address] [place] [address] Carina Moore MD [address] [place], [place] [phone] Social History Tobacco Use Types Packs/Day Years [...] Care Team (Late st Contact Info) Description 10/03/2025 10:00 AM EST Telemedicine [facility] [address] [place] [address] Myra Bishop, TOÑO documented as of this encounter Visit Diagnoses Not on filedocumented in this encounter Additional Health Concerns Assessment Noted Time PHQ-9 Depression Total Score: 0 12/21/19 23 10:37 AM EDT documented as of this encounter Care Teams Plush Dresser Relationship Specialty Start Date End Date Carina Moore MD [address] [place] [address] PCP - General Family Medicine 04/25/18 documented as of this encounter
--- OUTSIDE RECORDS SUMMARY | 2025-07-03 00:14 | XMS_ITS | Encounter Summary ---
Author Organization [employer] Address [address] [facility] 7t [place] [address] Care Team Providers Care Hazmat Technician Name Role Phone Carina Moore MD Primary Care Provide r Reason for Visit * Reason Comments Med Refill Encounter Details Date Type Department Care Team ([facility] st Contact Info) Description 10/14/2024 Refill [facility] [address] [place], [place] [phone] Carina Moore MD [address] [place], [place] [phone] Other chronic pain; Anxiety Social History Tobacco [...] Info) Description 10/03/2025 10:00 AM EST Telemedicine [facility] [address] [place] [address] Myra Bishop RN documented as of this encounter Visit Diagnoses Diagnosis Other chronic pain Anxiety Anxiety state, unspecified documented in this encounter Additional Health Concerns Assessment Noted Time PHQ-9 Depression Total Score: 0 12/21/19 23 10:37 AM EDT documented as of this encounter Care Teams Hazmat Technician Relationship Specialty Start Date End Date Carina Moore MD [address] [place] [address] PCP - General Family Medicine 04/25/18 documented as of this encounter
--- OUTSIDE RECORDS SUMMARY | 2025-07-03 00:14 | XMS_ITS | Encounter Summary ---
Author Organization [employer] Address [address] [facility] [address]t [place] [address] Care Team Providers Care Senior Energy Market Coordinator Name Role Phone Carina Moore MD Primary Care Provide r Encounter Details Date Type Department Care Team ([facility] st Contact Info) Description 04/04/2025 Orders Only [facility] [address] [place] [address] Carina Moore MD [address] [place] [address] Social History Tobacco Use Types Packs/Day Years [...] or on edge 3 03/15 10:18 AM Myra Sanchez RN Not being able to stop or co ntrol worrying 3 04/04/2025 10:18 AM Myra Sanchez R N Worrying too much about diff [...] Info) Description 10/03/2025 10:00 AM EST Telemedicine [facility] [address] [place] [phone] Myra Bishop RN documented as of this encounter Visit Diagnoses Not on filedocumented in this encounter Additional Health Concerns Assessment Noted Time PHQ-9 Depression Total Score: 0 03/10/20 25 11:35 AM EDT documented as of this encounter Care Teams Senior Energy Market Coordinator Relationship Specialty Start Date End Date Carina Moore MD [address] [place] [address] PCP - General Family Medicine 04/25/18 documented as of this encounter
--- OUTSIDE RECORDS SUMMARY | 2025-07-03 00:14 | XMS_ITS | Encounter Summary ---
Author Organization [employer] Address [address] [facility] 7t [place] [address] Care Team Providers Care Semiconductor Engineer Name Role Phone Carina Moore MD Primary Care Provide r Reason for Visit * Reason Comments Med Refill Encounter Details Date Type Department Care Team ([facility] st Contact Info) Description 04/09/2024 Refill [facility] [address] [place], [place] [phone] Carina Moore MD [address] [place], [place] [phone] Type 2 diabetes mellitus without complication, unspecified whether custodial insulin use ([facility]) Social History Tobacco Use Types Packs/Day Years [...] Info) Description 10/03/2025 10:00 AM EST Telemedicine [facility] [address] [place] [address] Myra Bishop RN documented as of this encounter Visit Diagnoses Diagnosis Type 2 diabetes mellitus without complication, unspecified whether manager intermediate insulin use documented in this encounter Additional Health Concerns Assessment Noted Time PHQ-9 Depression Total Score: 0 12/21/19 23 10:37 AM EDT documented as of this encounter Care Teams Semiconductor Engineer Relationship Specialty Start Date End Date Carina Moore MD [address] [place] [address] PCP - General Family Medicine 04/25/18 documented as of this encounter
--- OUTSIDE RECORDS SUMMARY | 2025-07-03 00:14 | XMS_ITS | Encounter Summary ---
Author Organization [employer] Address [address] [place] [address] Care Team Providers Care Forestry Fire Aide Name Role Phone Carina Moore MD Primary Care Provide r Encounter Details Date Type Department Care Team ([facility] st Contact Info) Description 12/20/2022 Orders Only [facility] [address] [place] [address] Tabby Howe LPN Social History Tobacco Use [...] things Not at all 12/20/2022 10:37 AM EDT Juanita Garcia [place] Feeling down, depressed, or hopeless Not at all 12/20/2022 10:37 AM EWAT Juanita Garcia [place] Trouble falling or staying asleep, or sleeping too much Not at all 12/20/2022 10:37 AM EWAT Juanita Garcia MA Feeling tired or having lambert le energy Not at all 12/20/2022 10:37 AM EDT Juanita Garcia [place] Poor appetite or overeating Not at all 12/20/2022 10 :37 AM EDT Juanita Garcia MA Feeling bad about yourself - or that you are a failure or have let yourself or your family down Not at all 12/20/2022 10:37 AM Juanita Sullivan MA Trouble concentrating on things, such as reading the newspaper or watching television Not at all 12/20/2022 10:37 AM EWAT Juanita Garcia MA Moving or speaking so slowly that [...] Questionnaire -9 Score 0 12/20/2022 10:37 AM EDT Juanita Garcia MA documented as of this encounter Plan of Treatment Upcoming Encounters Date Type Department Care Team (Late st Contact Info) Description 10/03/2025 10:00 AM EST Telemedicine [facility] [address] [place] [address] Myra Bishop RN documented as of this encounter Visit Diagnoses Not on filedocumented in this encounter Additional Health Concerns Assessment Noted Time PHQ-9 Depression Total Score: 0 12/21/19 10:37 AM EDT documented as of this encounter Care Teams Forestry Fire Aide Relationship Specialty Start Date End Date Carina Moore MD [address] [facility] [place] [address] PCP - General Family Medicine 04/25/18 documented as of this encounter
--- OUTSIDE RECORDS SUMMARY | 2025-07-03 00:15 | XMS_ITS | Encounter Summary ---
Author Organization [employer] Address [address] [facility] 7t [place] [address] Care Team Providers Care Kier Boiler Name Role Phone Carina Moore MD Primary Care Provide r Encounter Details Date Type Department Care Team (Late Contact Info) Description 12/22/2022 Telephone [facility] [address] [place] [phone] Carina Moore MD [address] [place] [phone] Social History Tobacco Use Types Packs/Day Years [...] Department Care Team (Late Contact Info) Description 10/03/2025 10:00 AM EST Telemedicine [facility] [address] [place] [phone] Myra Bishop RN documented as of this encounter Visit Diagnoses Not on filedocumented in this encounter Additional Health Concerns Assessment Noted Time PHQ-9 Depression Total Score: 0 12/21/19 23 10:37 AM EDT documented as of this encounter Care Teams Kier Boiler Relationship Specialty Start Date End Date Carina Moore MD [address] [place] [address] PCP - General Family Medicine 04/25/18 documented as of this encounter
--- OUTSIDE RECORDS SUMMARY | 2025-07-03 00:15 | XMS_ITS | Encounter Summary ---
Author Organization [employer] Address [address] [facility] 7t [place] [address] Care Team Providers Care Under Ground Miner Name Role Phone Carina Moore MD Primary Care Provide r Reason for Visit * Reason Comments Med Refill Encounter Details Date Type Department Care Team ([facility] st Contact Info) Description 06/12/2023 Refill [facility] [address] [place], [place] [phone] Carina Moore MD [address] [place], [place] [phone] Onychomycosis Social History Tobacco Use Types Packs/Day [...] Info) Description 10/03/2025 10:00 AM EST Telemedicine [facility] [address] [place] [address] Myra Bishop RN documented as of this encounter Visit Diagnoses Diagnosis Onychomycosis Dermatophytosis of nail documented in this encounter Additional Health Concerns Assessment Noted Time PHQ-9 Depression Total Score: 0 12/21/19 23 10:37 AM EDT documented as of this encounter Care Teams Under Ground Miner Relationship Specialty Start Date End Date Carina Moore MD [address] [place] [address] PCP - General Family Medicine 04/25/18 documented as of this encounter
--- OUTSIDE RECORDS SUMMARY | 2025-07-03 00:15 | XMS_ITS | Encounter Summary ---
Author Organization [employer] Address [address] [address] [place] [address] Care Team Providers Care Public Address System Mechanic Name Role Phone Carina Moore MD Primary Care Provide r Encounter Details Date Type Department Care Team ([facility] st Contact Info) Description 09/08/2023 Orders Only [facility]S [address] [place], [place] [phone] Sarah Acuña LPN Social History Tobacco Use [...] Info) Description 10/03/2025 10:00 AM EST Telemedicine [facility] [address] [place] [address] Myra Bishop RN documented as of this encounter Procedures Procedure [...] Testosterone, Total 392 250 - 1100 ng/dL [facility] Comment:Men with clinically significant hypogonadalsymptoms and testosterone values repeatedly inthe range of the 200-300 ng/dL or less, maybenefit from testosterone treatment afteradequate risk and benefits counseling.For additional information, please refer tohttp://education.[employer].ACTIVE Network/faq/[email or web address](This link is being provided for informational/educational purposes only.)This test was developed and its analytical performancecharacteristics have been determined by [employer], [place]. It hasnot been cleared or approved by the U.S. Food and DrugAdministration. This assay has been validated pursuantto the CLIA regulations and is used for clinicalpurposes. Testosterone, Free 67.0 35.0 - 155.0 pg/mL [facility] Comment:This test was develo ped and its analytical performancecharacteristics have been determined by [employer], [place]. It hasnot been cleared or approved by the U.S. Food and DrugAdministration. This assay has been validated pursuantto the CLIA regulations and is used for clinicalpurposes.THIS TEST WAS PERFORMED AT:[id number] [place] [address]UCNGEXUWARREN STEEL MD,PHD 09/08/2023 11:3 2 AM EST 09/08/2023 11:32 AM EST Generic External Data Provider LAB BLOOD ORDERAB LES Final Result Performing Organization Address [facility] Co de Phone Number [facility] [address] [place] [phone] * PSA, Total With Reflex to PSA, Free (09/08/2023 11:32 AM EST) PSA,Total (Free>4and<10) 2.97 0.00 - 4.00 ng/mL [facility] Comment:A Free PSA was not p [...] 2 AM EST 09/08/2023 11:32 AM EST Generic External Data Provider LAB BLOOD ORDERAB LES Final Result Performing Organization Address [facility] Co de Phone Number [facility] [address] [place] [phone] * (ABNORMAL) CBC (09/08/2023 11:32 AM EST) White Blood Count 9.5 4.8 - 10.8 X10*3/uL [facility] Red Blood Count 4.57(L) 4.60 - 5.80 X10*6/uL [facility] Hemoglobin 13.9(L) 14.0 - 18.0 g/dl [facility] Hematocrit 43.3 42.0 - 52.0 % [facility] Mean Corpuscular Volume 94.7 80.0 - 98.0 fL [facility] Mean Corpuscular Hemoglobin 30.4 27.0 - 33.0 pg [facility] Mean Corpuscular HGB Conc 32.1 31.0 - 36.0 g/dl [facility] Red Cell Distribution Width 13.7 11.0 - 16.0 % [facility] Platelet Count 349 160 - 400 X10*3/uL [facility] Mean Platelet Volume 9.6 9.4 - 12.4 fL [facility] NRBC Pct Auto 0.0 0.0 - 0.2 /100WBC [facility] NRBC Abs Auto 0.000 0.0 - 0.012 X10*3/uL [facility] 09/08/2023 11:3 2 AM EST 09/08/2023 11:32 AM EST us Generic External Data Provider LAB BLOOD ORDERAB LES Final Result Performing Organization Address City/State/[facility] Co de Phone Number [facility] [address] [place] [phone] documented in this encounter Visit Diagnoses Not on filedocumented in this encounter Additional Health Concerns Assessment Noted Time PHQ-9 Depression Total Score: 0 12/21/19 23 10:37 AM EDT documented as of this encounter Care Teams Public Address System Mechanic Relationship Specialty Start Date End Date Carina Moore MD [address] [place] [phone] PCP - General Family Medicine 04/25/18 documented as of this encounter
--- OUTSIDE RECORDS SUMMARY | 2025-07-03 00:15 | XMS_ITS | Encounter Summary ---
Author Organization [employer] Address [address] [facility] 7t [place] [address] Care Team Providers Care Training Manager Name Role Phone Carina Moore MD Primary Care Provide r Encounter Details Date Type Department Care Team (Late Contact Info) Description 02/07/2023 Orders Only [facility] & PEDS [address] [place], [place] [phone] Tabby Howe LPN Social History Tobacco Use [...] Info) Description 10/03/2025 10:00 AM EST Telemedicine [facility] MEDICINE [address] [place] [address] Myra Bishop RN documented as of this encounter Visit Diagnoses Not on filedocumented in this encounter Additional Health Concerns Assessment Noted Time PHQ-9 Depression Total Score: 0 12/21/19 23 10:37 AM EDT documented as of this encounter Care Teams Training Manager Relationship Specialty Start Date End Date Carina Moore MD [address] [place] [address] PCP - General Family Medicine 04/25/18 documented as of this encounter
--- OUTSIDE RECORDS SUMMARY | 2025-07-03 00:15 | XMS_ITS | Encounter Summary ---
Author Organization [employer] Address [address] [facility] 7t [place] [address] Care Team Providers Care Construction Scheduler Name Role Phone Carina Moore MD Primary Care Provide r Reason for Visit * Reason Comments Med Refill Encounter Details Date Type Department Care Team ([facility] st Contact Info) Description 12/19/2022 Refill [facility] [address] [place], [place] [phone] Carina Moore MD [address] [place], [place] [phone] Anxiety; Other chronic pain; Insomnia, unspecified type [...] Info) Description 10/03/2025 10:00 AM EST Telemedicine [facility] [address] [place] [address] Myra Bishop RN documented as of this encounter Visit Diagnoses Diagnosis Anxiety Anxiety state, unspecified Other chronic pain Insomnia, unspecified type documented in this encounter Care Teams Construction Scheduler Relationship Specialty Start Date End Date Carina Moore MD [address] [place] [phone] PCP - General Family Medicine 04/25/18 documented as of this encounter
--- OUTSIDE RECORDS SUMMARY | 2025-07-03 00:16 | XMS_ITS | Clinical Summary ---
Author Organization [employer] Address [address] [facility] [address] [place] [address] Care Team Providers Care Floral Arranger Name Role Phone Carina Moore MD Primary Care Provide r Allergies Active Allergy Reactions Criticality Noted Date Comments Ibuprofen 01/27/2015 Levofloxacin 06/22/2016 Other reaction(s): Rash Medications FREESTYLE LITE test stripIndication s:Type 2 diabetes mellitus with hyperglycemia, unspecified whether mcfp insulin use (HCC) CHECK BY FINGERSTICK ROUTE 2 TIMES EVERY DAY 100 each 3 09/07/19 23 Active Diclofenac Sodium 1 % gelIndications: Other chronic pain Apply 2 g topically if needed in the morning, at noon, in the evening, and at bedtime (pain). 150 g 3 05/14/20 24 Active metFORMIN (Glucophage) 500 MG tabletIndicatio ns:Type 2 diabetes mellitus without complication, unspecified whether ad terminal makeup operator insulin use TAKE 1 TABLET BY MOUTH TWICE A DAY 180 tablet 1 01/14/20 25 Active Ketotifen Fumarate 0.035 % solution PLACE 1 DROP IN THE AFFECTED EYE(S) TWICE DAILY NEEDED FOR ALLERGIES 15 mL 1 02/28/20 25 Active metoprolol succinate XL (Toprol-XL) 100 [...] NECESARIO 18 g 1 03/20/20 25 Active montelukast (Singulair) 10 MG tabletIndicatio ns:Mild intermittent asthma without complication TAKE 1 TABLET BY MOUTH EVERY DAY 90 tablet 1 04/11/20 25 Active atorvastatin (Lipitor) 40 MG tabletIndicatio ns:Essential hypertension TOME 1 TABLETA POR VIA ORAL TODOS [place] 90 tablet 1 04/21/20 25 Active fluticasone furoate (Arnuity Ellipta) 200 MCG/ACT inhaler INHALE 1 PUFF BY MOUTH ONCE DAILY 30 each 3 04/29/20 25 Active clonazePAM (KlonoPIN) 0.5 MG tabletIndicatio ns:Anxiety TOME 1 TABLETA POR VIA ORAL DOS VECES AL MIKE 28 tablet 05/26/20 25 Active pantoprazole (ProtoNix) 40 MG EC tablet TAKE 1 TABLET BY MOUTH EVERY DAY 90 tablet 1 06/09/20 25 Active Mounjaro 2.5 MG/0.5ML solution auto-injectorIn dications:Type 2 diabetes mellitus with stage 3 chronic kidney disease, without long-term current use of insulin, unspecified whether stage 3a or 3b CKD (HCC) INYECTE 2.5 MG POR VIA SUBCUTANEA RYLAN VEZ POR SEMANA 2 mL 2 06/09/20 25 Active traMADol (Ultram) 50 MG tabletIndicatio ns:Other chronic pain Take 1 tablet (50 mg) by mouth every 8 (eight) hours if needed for severe pain for up to 28 days. Do not start before June 30, 2025. 84 tablet 06/30/20 25 2024 Active pantoprazole (ProtoNix) 40 MG EC tablet TOME 1 TABLETA POR VIA ORAL TODOS [place] 90 tablet 1 09/09/19 25 2024 Discontinued Tirzepatide (Mounjaro) 2.5 MG/0.5ML solution auto-injectorIn dications:Type 2 diabetes mellitus with stage 3 chronic kidney disease, without long-term current use of insulin, unspecified whether stage 3a or 3b CKD (HCC) Inject 2.5 mg under the skin 1 (one) time per week. 2 mL 2 03/10/20 25 2024 Discontinued traMADol (Ultram) 50 MG tabletIndicatio ns:Other chronic pain TOME 1 TABLETA POR VIA ORAL CADA 8 HORAS CUANDO SEA NECESARIO PARA EL DOLOR *DNF 04/25/25* 84 tablet 05/27/202024 Discontinued(R eorder (will not trigger notification to Pharmacy)) Active Problems Problem Noted Date Diagnosed Date Long-term current use of opiate analgesic 2024 Long-term current use of benzodiazepine 04/04/20 Chronic congestive heart rafael lure, unspecified heart failure type 03/10/2025 Assessment & Plan (03/10/2025 1:47 PM EDT): Patient has been followed closely by cardiology Stage 3a chronic kidney disease ([facility]) 2024 Assessment & Plan (12/06/2024 5:00 PM EDT): [...] Gastrointestinal hemorrhage 05/15/2018 Insomnia 05/03/2018 Benzodiazepine dependence (CMS/HCC) 02/19/2018 Chronic generalized pain disorder 02/19/2018 Assessment [...] an appointment with me or specialist like vehicle body sander or school bus monitor Assessment & Plan (12/06/2024 5:00 PM EDT): [...] Hyperlipidemia 02/19/2018 Cardiac resynchronization th erapy defibrillator (ASSISTANT CENTER DIRECTOR-D) in place 02/19/2018 Male hypogonadism 02/19/2018 Class [...] Encounters Date Type Department Care Team Description 07/02/[address] [facility] [place] [address] Carina Moore MD Mild persistent asthma without complication 07/02/2025 Orders Only GENERIC EXTERNAL DATA DEPARTMENT Provider, Generic External Data 06/26/2025 9:30 AM EST Telemedicine [facility] [place] [address] Myra Bishop RN Long-term current use of opiate analgesic; Long-term current use of benzodiazepine 06/26/2025 Refill [facility] [place] [address] Myra Bishop RN Other chronic pain 06/26/2025 Travel 06/16/2025 11:15 AM EST Office Visit [facility] [place] [facility] [place] [address] Carina Moore MD Type 2 diabetes mellitus with stage 3 chronic kidney disease, without long-term current use of insulin, unspecified whether stage 3a or 3b CKD (HCC); Dietary counseling; Exercise counseling; Class 1 obesity due to excess calories with serious comorbidity and body mass index (BMI) of 31.0 to 31.9 in adult 06/16/2025 Travel 06/13/[address] 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 [address] [place] [address] Carina Moore MD Type 2 diabetes mellitus with stage 3 chronic kidney disease, without long-term current use of insulin, unspecified whether stage 3a or 3b CKD (HCC) 06/07/[address] [facility] [address] [place] [address] Che Jones MD 05/19/[address] [facility] [address] [place] [address] Craina Moore MD Other chronic pain; Anxiety 05/12/2025 Orders Only GENERIC EXTERNAL DATA DEPARTMENT Provider, Generic External Data 04/28/[address] [facility] [address] [place] [address] Carina Moore MD 04/22/[address] [facility] [address] [place] [address] Carina Moore MD Other chronic pain; Anxiety 04/19/[address] [facility] [address] [place] [address] Carina Moore MD Essential hypertension 04/11/[address] [facility] [address] [place] [address] Carina Moore MD Mild intermittent asthma without complication 04/10/2025 Orders Only GENERIC EXTERNAL DATA DEPARTMENT Provider, Generic External Data 04/04/2025 10:30 AM EDT Telemedicine [facility] [address] [place] [address] Myra Bishop RN Long-term current use of opiate analgesic; Long-term current use of benzodiazepine 04/04/2025 Orders Only [facility] [address] [place] [phone] Carina Moore MD 04/04/[address] [facility] [address] [place] [address] Myra Bishop, RN SLOT MACHINE DEPARTMENT FLOORPERSON Agreement renewed 04/04/2025 Travel from Last 3 Months Immunizations Immunization Administration [...] Sign Reading Time Taken Comments Blood Pressure 130/88 06/16/2025 11:20 AM EST Pulse 76 06/16/2025 11:20 AM EST Temperature 36.3 C (97.4 F) 06/16/2025 11:20 AM EST Respiratory Rate 16 06/16/2025 11:20 AM EST Oxygen Saturation 97% 06/16/2025 11:20 AM EST Inhaled Oxygen Concentration - - Weight 83 kg (183 lb) 06/16/2025 11:20 AM EST Height 162.6 cm (5' 4 ) 06/16/2025 11:20 AM EST Body Mass Index 31.41 06/16/2025 11:20 AM EST Plan of Treatment Upcoming Encounters Date Type Department Care Team (Late st Contact Info) Description 10/03/2025 10:00 AM EST Telemedicine [facility] [address] [place] [phone] Myra Bishop, RN Health Maintenance Due Date Last Done Comments CT Colonography 1954 FIT DNA/Cologuard 1954 FIT 1954 FOBT 1954 Sigmoidoscopy 1954 Diabetes: Foot Exam 1964 Eye Exam 1964 Hepatitis C Screening 1972 RSV Patients and Patients Aged 60 years or older (1 - Risk 50-74 years 1-dose series) 2004 Zoster Vaccines (2 of 3) 11/20/2018 09/25/2018 DTaP/Tdap/Td Vaccines (2 - Td or Tdap) 06/28/2022 06/28/2012 COVID-19 Vaccine (3 - season) 2025 12/23/2020, 11/25/2020 Influenza Vaccine (#1) 2025 6, 06/05/2015, 06/16/2014, Additional history exists Colonoscopy 11/18/2025 11/19/2015 Colorectal Cancer Screening 11/18/2025 Diabetes: Hemoglobin A1C 12/30/2025 025, 06/16/2025, 12/06/2024, Additional history exists Alcohol/Substance Use Screening 03/10/2026 03/10/2025 Depression Screening 03/10/2026 03/10/2025, 03/10/20 Lipid Panel 03/10/2026 03/10/2025, 02/2025, 03/14/2024, Additional history exists SDOH Screening 03/10/2026 03/10/2025 Tobacco Screening 06/16/2026 06/16/2025 Pneumococcal Vaccine: 50+ Years Completed 11/08/2023, 08/14/2008 [...] on patient's age to complete this topic Goals Goal Patient Goal Type Associated Problems Recent Progress Patient-Stated? Author Help patients manage their type 2 diabetes Care Plan Help patients manage their type 2 diabetes No Myra Bishop RN Weekly blood pressure task Care Plan Weekly blood pressure task No Myra Bishop RN Help patients manage their type 2 diabetes Care Plan Help patients manage their type 2 diabetes No Myra Bishop RN Patient has chronic kidney disease Care Plan Patient has chronic kidney disease No Myra Bishop RN Weekly blood pressure task Care Plan Weekly blood pressure task No Myra Bishop RN Patient has chronic kidney disease Care Plan Patient has chronic kidney disease No Myra Bishop RN Weekly blood pressure task Care Plan Weekly blood pressure task No Myra Bishop RN Weekly blood pressure task Care Plan Weekly blood pressure task No Myra Bishop RN Patient has chronic kidney disease Care Plan Patient has chronic kidney disease No Myra Bishop RN Patient has chronic kidney disease Care Plan Patient has chronic kidney disease No Myra Bishop RN Procedures Procedure Name Priority Date/Time Associated Diagnosis Comments PSA, TOTAL Routine 07/02/2025 12:57 PM EST CREATININE, SERUM Routine 07/02/2025 12: 57 PM EST UREA NITROGEN (BUN) Routine 07/02/2025 1 2:57 PM EST ELECTROLYTE PANEL Routine 07/02/2025 12: 57 PM EST HEMOGLOBIN A1C Routine 07/02/2025 12:57 PM EST CBC Routine 07/02/2025 12:57 PM EST PROTEIN CREATININE RATIO, URINE Routine 07/02/2025 12:50 PM EST POCT GLYCATED HEMOGLOBIN, TOTAL Routine 06/16/2025 11:22 AM EST Type 2 diabetes mellitus with stage 3 chronic kidney disease, without long-term current use of insulin, unspecified whether stage 3a or 3b CKD (HCC) POCT GLUCOSE Routine 06/16/2025 11:21 AM EST Type 2 diabetes mellitus with stage 3 chronic kidney disease, without long-term current use of insulin, unspecified whether stage 3a or 3b CKD (HCC) BASIC METABOLIC PANEL Routine 05/12/2025 12:04 PM EDT TESTOSTERONE, FREE (DIALYSIS) AND TOTAL,MS Routine 04/10/2025 10:55 AM EDT PSA, TOTAL Routine 04/10/2025 10:55 AM EDT CREATININE, SERUM Routine 04/10/2025 10: 55 AM EDT ELECTROLYTE PANEL Routine 04/10/2025 10: 55 AM EDT CBC Routine 04/10/2025 10:55 AM EDT LIPID PANEL, STANDARD Routine 03/10/2025 12:06 PM EDT Type 2 diabetes mellitus with stage 3 chronic kidney disease, without long-term current use of insulin, unspecified whether stage 3a or 3b CKD ([facility]) HM COLONOSCOPY Routine 11/19/2015 from Last 3 Months or Most Recently Relevant to Health Maintenance Results * Creatinine, Serum (07/02/2025 12:57 PM EST) Only the most recent of2 resultswithin the time period is included. Creatinine, Serum 1.11 0.5 - 1.4 mg/dL [facility] Estimated Glomerular Filt Rate >60 [facility] Comment:Chronic Kidney Disea se: Estimated GFR < 60 mL/min/1.99w2Ulpjgy Kidney Disease: Estimated GFR < 15 mL/min/1.73m2 07/02/2025 12:5 7 PM EST 07/02/2025 12:57 PM EST us Generic External Data Provider LAB BLOOD ORDERAB LES Final Result [facility] [address] [place] [address] [phone] * CBC (07/02/2025 12:57 PM EST) Only the most recent of2 resultswithin the time period is included. White Blood Count 9.8 4.8 - 10.8 X10*3/uL [facility] Red Blood Count 4.93 4.60 - 5.80 X10*6/uL [facility] Hemoglobin 15.3 14.0 - 18.0 g/dl [facility] Hematocrit 48.0 42.0 - 52.0 % [facility] Mean Corpuscular Volume 97.4 80.0 - 98.0 fL [facility] Mean Corpuscular Hemoglobin 31.0 27.0 - 33.0 pg [facility] Mean Corpuscular HGB Conc 31.9 31.0 - 36.0 g/dl [facility] Red Cell Distribution Width 14.0 11.0 - 16.0 % [facility] Platelet Count 301 160 - 400 X10*3/uL [facility] Mean Platelet Volume 9.7 9.4 - 12.4 fL [facility] NRBC Pct Auto 0.0 0.0 - 0.2 /100WBC [facility] NRBC Abs Auto 0.000 0.0 - 0.012 X10*3/uL [facility] 07/02/2025 12:5 7 PM EST 07/02/2025 12:57 PM EST us Generic External Data Provider LAB BLOOD ORDERAB LES Final Result Performing Organization Address City/[facility]/ZIP Co de Phone Number [facility] [address] [place] [phone] * BUN (Blood Urea Nitrogen) (07/02/2025 12:57 PM EST) Urea Nitrogen (BUN) 16 9 - 16 mg/dL [facility] 07/02/2025 12:5 7 PM EST 07/02/2025 12:57 PM EST Generic External Data Provider LAB BLOOD ORDERAB LES Final Result Performing Organization Address [facility] Co de Phone Number [facility] [address] [place] [phone] * PSA,Total (07/02/2025 12:57 PM EST) Only the most recent of2 resultswithin the time period is included. Prostate Specific Antigen 3.31 <0.05 - 4.0 ng/mL [facility] Comment:PSA methodology: Abb sunday Alinity i ChemiluminescentMicroparticle Immunoassay (CMIA) 07/02/2025 12:5 7 PM EST 07/02/2025 12:57 PM EST Generic External Data Provider LAB BLOOD ORDERAB LES Final Result Performing Organization Address [facility] Co de Phone Number [facility] [address] [place] [phone] * Hemoglobin A1c (07/02/2025 12:57 PM EST) Hemoglobin A1c 5.6 <6.0 % [facility] Comment:Hemoglobin A1C Refer ence Range Adults: 4.8 - 6.0 % Non diabetic: < 6.0 % Goal: < 7.0 %Additional Action Suggested: > 8.0 %Note: Hemoglobin A1c results are invalid for patients with abnormal amounts of HbF. Blood transfusions may impact the HbA1c concentration in the patient sample. Estimated Average Glucose 114 mg/dL [facility] Comment:eAG = Estimated ave rage glucose which is %A1C expressed asaverage glucose, using the formula of the L1W-NlitbewNwqmhff Glucose study (ADAG), Diabetes Care, Vol.31,#8,2007 07/02/2025 12:5 7 PM EST 07/02/2025 12:57 PM EST Generic External Data Provider LAB BLOOD ORDERAB LES Final Result Performing Organization Address [facility] [[email or web address]] de Phone Number [facility] [address] [place] [phone] * (ABNORMAL) Electrolyte Panel (07/02/2025 12:57 PM EST) Only the most recent of2 resultswithin the time period is included. Sodium 139 135 - 145 mmol/L [facility] Potassium 5.2(H) 3.3 - 5.1 mmol/L [facility] Chloride 104 96 - 108 mmol/L [facility] Carbon Dioxide 28 22 - 29 mmol/L [facility] Anion Gap 12 12 - 20 [facility] 07/02/2025 12:5 7 PM EST 07/02/2025 12:57 PM EST Generic External Data Provider LAB BLOOD ORDERAB LES Final Result Performing Organization Address [facility] Co de Phone Number [facility] [address] [place] [phone] * Protein Creatinine Ratio, Urine (07/02/2025 12:50 PM EST) Creatinine, Urine 125.03 mg/dL [facility] Protein, Total, Random Urine 12 <12 mg/dL [facility] Protein/Creati nine Ratio, Ur 0.10 <0.2 [facility] Comment:The spot urine prote in:creatinine ratio may increase to 0.3during normal . 07/02/2025 12:5 0 PM EST 07/02/2025 1:54 PM EST Generic External Data Provider LAB URINE ORDERAB LES Final Result Performing Organization Address [facility] Co de Phone Number [facility] [address] [place] [phone] * (ABNORMAL) POCT Hgb A1c (06/16/2025 11:22 AM EST) Hemoglobin A1C 5.8(A) 4.0 - 5.7 % QC Media Lot # [id number] Lot# Expiration Date [id number] Blood 06/16/2025 11:2 2 AM EST us Carina Emery MD POINT OF CARE TEST EN TER/EDIT ORDERABLES Final Result * POCT Glucose (06/16/2025 11:21 AM EST) Glucose Blood, POC 121 60 - 200 mg/dL QC Media Lot # [id number] Lot# Expiration Date [id number] Blood Capillary blood specimen / Unknown 06/16/2025 11:21 AM EST us Carina Emery MD POINT OF CARE TEST EN TER/EDIT ORDERABLES Final Result * (ABNORMAL) Basic Metabolic Panel (05/12/2025 12:04 PM EDT) Sodium 142 135 - 145 mmol/L [facility] Potassium 5.6(H) 3.3 - 5.1 mmol/L [facility] Chloride 106 96 - 108 mmol/L [facility] Carbon Dioxide 29 22 - 29 mmol/L [facility] Anion Gap 13 12 - 20 [facility] Urea Nitrogen (BUN) 25(H) 9 - 16 mg/dL [facility] Creatinine, Serum 1.57(H) 0.5 - 1.4 mg/dL [facility] Estimated Glomerular Filt Rate 44 [facility] Comment:Chronic Kidney Disea se: Estimated GFR < 60 mL/min/1.97i2Uvmwwt Kidney Disease: Estimated GFR < 15 mL/min/1.73m2 Glucose 110 60 - 115 mg/dL [facility] Calcium 9.1 8.4 - 10.2 mg/dL [facility] 05/12/2025 12:0 4 PM EDT 05/12/2025 12:04 PM EDT us Generic External Data Provider LAB BLOOD ORDERAB LES Final Result [facility] [address] [place] [phone] * (ABNORMAL) Testosterone, Free (Dialysis) And Total, MS (04/10/2025 10:55 AM EDT) Testosterone, Total 146(A) 250 - 1100 ng/dL [facility] Comment:Men with clinically significant hypogonadalsymptoms and testosterone values repeatedly inthe range of the 200-300 ng/dL or less, maybenefit from testosterone treatment afteradequate risk and benefits counseling.For additional information, please refer [email or web address].Imagistx/faq/[email or web address](This link is being provided for informational/educational purposes only.)This test was developed and its analytical performancecharacteristics have been determined by [employer] [place], [place]. It hasnot been cleared or approved by the U.S. Food and DrugAdministration. This assay has been validated pursuantto the CLIA regulations and is used for clinicalpurposes. Testosterone, Free 20.1(A) 30.0 - 135.0 pg/mL [facility] Comment:This test was develo ped and its analytical performancecharacteristics have been determined by [employer] [place], [place]. It hasnot been cleared or approved by the U.S. Food and DrugAdministration. This assay has been validated pursuantto the CLIA regulations and is used for clinicalpurposes.THIS TEST WAS PERFORMED AT:[employer] [place] [phone] STEEL MD,PHD 04/10/2025 10:5 5 AM EDT 04/10/2025 10:55 AM EDT us Generic External Data Provider LAB BLOOD ORDERAB LES Final Result [facility] [address] [place] [phone] * (ABNORMAL) Lipid Panel, Standard (03/10/2025 12:06 PM EDT) Triglycerides 179(H) <150 mg/dL [facility] Comment:Desirable Triglyceri de: less than 150 mg/dLBorderline High Triglyceride 150-199 mg/dLHigh Triglyceride: 200-499 mg/dLVery High Triglyceride: greater than or equal to 5OO mg/dL Cholesterol 168 <200 mg/dL [facility] Comment:Desirable Cholestero l: less than 200 mg/dLBorderline High Cholesterol: 200-239 mg/dLHigh Cholesterol: greater than 239 mg/dL LDL Cholesterol Calculated 91 <100 mg/dL [facility] Comment:Desirable LDL: less than 100 mg/dLNear Optimal/Above Optimal LDL: 110- 129 mg/dLBorderline High LDL: 130-159 mg/dLHigh LDL: 160-189 mg/dLVery High LDL: greater than or equal to 190 mg/dL HDL Cholesterol 42 >40 mg/dL [facility] Comment:Desirable HDL: great er than 40 mg/dL Note: This HDL assay may give artificially low results in patients with liver disease. Blood Venous blood specimen / Unknown 03/10/2025 12:06 PM EDT 03/10/2025 1:03 PM EDT us Carina Emery MD LAB BLOOD ORDERABLES Final Result [facility] [address] [place] [phone] * Hm Colonoscopy (11/19/2015) us Historical Provider HEALTH MAINTENANCE Final Result from Last 3 Months or Most Recently Relevant to Health Maintenance Additional Health Concerns Active Problems Noted Date Diagnosed Date Help patients manage their type 2 diabetes 06/26 Weekly blood pressure task 06/26/2025 Help patients manage their type 2 diabetes 06/26 Patient has chronic kidney disease 06/26/2025 Weekly blood pressure task 06/26/2025 Patient has chronic kidney disease 06/26/2025 Weekly blood pressure task 06/26/2025 Weekly blood pressure task 06/26/2025 Patient has chronic kidney disease 06/26/2025 Patient has chronic kidney disease 06/26/2025 Insurance [facility] [employer] OPTIONS (O D-SNP) [place] [id number] Care Teams Floral Arranger Relationship Specialty Start Date End Date Carina Moore MD [address] [place] [phone] PCP - General Family Medicine 04/25/18
--- OUTSIDE RECORDS SUMMARY | 2025-07-03 00:16 | XMS_ITS | Encounter Summary ---
Author Organization [employer] Address [address] [facility] 7t [place] [address] Care Team Providers Care Motor Power Connector Name Role Phone Carina Moore MD Primary Care Provide r Encounter Details Date Type Department Care Team ([facility] Contact Info) Description 07/02/2025 Orders Only GENERIC EXTERNAL DATA DEPARTMENT [...] Info) Description 10/03/2025 10:00 AM EST Telemedicine [facility] [address] [place] [address] Myra Bishop RN documented as of this encounter Goals Goal Patient Goal Type Associated Problems [...] chronic kidney disease No Myra Bishop RN documented as of this encounter Procedures Procedure Name Priority Date/Time Associated Diagnosis Comments CREATININE, SERUM Routine 07/02/2025 12: 57 PM EST CBC Routine 07/02/2025 12:57 PM EST UREA NITROGEN (BUN) Routine 07/02/2025 1 2:57 PM EST PSA, TOTAL Routine 07/02/2025 12:57 PM EST HEMOGLOBIN A1C Routine 07/02/2025 12:57 PM EST ELECTROLYTE PANEL Routine 07/02/2025 12: 57 PM EST PROTEIN CREATININE RATIO, URINE Routine 07/02/2025 12:50 PM EST documented in this encounter Results * PSA,Total (07/02/2025 12:57 PM EST) Prostate Specific Antigen 3.31 <0.05 - 4.0 ng/mL [facility] Comment:PSA methodology: Cris Rodriguez i ChemiluminescentMicroparticle Immunoassay (CMIA) 07/02/2025 12:5 7 PM EST 07/02/2025 12:57 PM EST Generic External Data Provider LAB BLOOD ORDERAB LES Final Result Performing Organization Address City/[facility]/ZIP Co de Phone Number [facility] [address] [place] [phone] * Creatinine, Serum (07/02/2025 12:57 PM EST) Creatinine, Serum 1.11 0.5 - 1.4 mg/dL [facility] Estimated Glomerular Filt Rate >60 [facility] Comment:Chronic Kidney Disea se: Estimated GFR < 60 mL/min/1.91j6Lisekc Kidney Disease: Estimated GFR < 15 mL/min/1.73m2 07/02/2025 12:5 7 PM EST 07/02/2025 12:57 PM EST us Generic External Data Provider LAB BLOOD ORDERAB LES Final Result Performing Organization Address City/[facility]/ZIP Co de Phone Number [facility] [address] [place] [phone] * BUN (Blood Urea Nitrogen) (07/02/2025 12:57 PM EST) Urea Nitrogen (BUN) 16 9 - 16 mg/dL [facility] 07/02/2025 12:5 7 PM EST 07/02/2025 12:57 PM EST Generic External Data Provider LAB BLOOD ORDERAB LES Final Result Performing Organization Address [facility]/ZIP Co de Phone Number [facility] [address] [place] [phone] * (ABNORMAL) Electrolyte Panel (07/02/2025 12:57 PM EST) Sodium 139 135 - 145 mmol/L [facility] Potassium 5.2(H) 3.3 - 5.1 mmol/L [facility] Chloride 104 96 - 108 mmol/L [facility] Carbon Dioxide 28 22 - 29 mmol/L [facility] Anion Gap 12 12 - 20 [facility] 07/02/2025 12:5 7 PM EST 07/02/2025 12:57 PM EST Generic External Data Provider LAB BLOOD ORDERAB LES Final Result Performing Organization Address [facility] Co de Phone Number [facility] [address] [place] [phone] * Hemoglobin A1c (07/02/2025 12:57 PM EST) Hemoglobin A1c 5.6 <6.0 % [facility] Comment:Hemoglobin A1C Refer ence Range Adults: 4.8 - 6.0 % Non diabetic: < 6.0 % Goal: < 7.0 %Additional Action Suggested: > 8.0 %Note: Hemoglobin A1c results are invalid for patients with abnormal amounts of HbF. Blood transfusions may impact the HbA1c concentration in the patient sample. Estimated Average Glucose 114 mg/dL [facility] Comment:eAG = Estimated ave rage glucose which is %A1C expressed asaverage glucose, using the formula of the [id number] Glucose study (ADAG), Diabetes Care, Vol.31,#8,2007 07/02/2025 12:5 7 PM EST 07/02/2025 12:57 PM EST us Generic External Data Provider LAB BLOOD ORDERAB LES Final Result Performing Organization Address [facility]/ZIP Co de Phone Number [facility] [address] [place] [phone] * CBC (07/02/2025 12:57 PM EST) White Blood Count 9.8 4.8 - 10.8 X10*3/uL [facility] Red Blood Count 4.93 4.60 - 5.80 X10*6/uL [facility] Hemoglobin 15.3 14.0 - 18.0 g/dl [facility] Hematocrit 48.0 42.0 - 52.0 % [facility] Mean Corpuscular Volume 97.4 80.0 - 98.0 fL [facility] Mean Corpuscular Hemoglobin 31.0 27.0 - 33.0 pg [facility] Mean Corpuscular HGB Conc 31.9 31.0 - 36.0 g/dl [facility] Red Cell Distribution Width 14.0 11.0 - 16.0 % [facility] Platelet Count 301 160 - 400 X10*3/uL [facility] Mean Platelet Volume 9.7 9.4 - 12.4 fL [facility] NRBC Pct Auto 0.0 0.0 - 0.2 /100WBC [facility] NRBC Abs Auto 0.000 0.0 - 0.012 X10*3/uL [facility] 07/02/2025 12:5 7 PM EST 07/02/2025 12:57 PM EST Generic External Data Provider LAB BLOOD ORDERAB LES Final Result Performing Organization Address [facility] Co de Phone Number [facility] [address] [place] [phone] * Protein Creatinine Ratio, Urine (07/02/2025 12:50 PM EST) Creatinine, Urine 125.03 mg/dL [facility] Protein, Total, Random Urine 12 <12 mg/dL [facility] Protein/Creati nine Ratio, Ur 0.10 <0.2 [facility] Comment:The spot urine prote in:creatinine ratio may increase to 0.3during normal . 07/02/2025 12:5 0 PM EST 07/02/2025 1:54 PM EST us Generic External Data Provider LAB URINE ORDERAB LES Final Result [facility] [address] [place] [phone] documented in this encounter Visit Diagnoses Not on filedocumented in this encounter Additional Health Concerns Active Problems Noted Date [...] 06/26/2025 Patient has chronic kidney disease 06/26/2025 Assessment Noted Time PHQ-9 Depression Total Score: 0 03/10/20 25 11:35 AM EDT documented as of this encounter Care Teams Motor Power Connector Relationship Specialty Start Date End Date Carina Moore MD [address] [place] [phone] PCP - General Family Medicine 04/25/18 documented as of this encounter
--- OUTSIDE RECORDS SUMMARY | 2025-07-03 00:16 | XMS_ITS | Encounter Summary ---
Author Organization [employer] Address [address] [facility] [address] [place] [address] Care Team Providers Care Machine Coil Assembler Name Role Phone Cairna Moore MD Primary Care Provide r Reason for Visit * Reason Comments Med Refill Encounter Details Date Type Department Care Team ([facility] st Contact Info) Description 07/02/2025 Refill [facility] [address] [place], [place] [phone] Carina Moore MD [address] [place], [place] [phone] Mild persistent asthma without complication Social History Tobacco Use Types Packs/Day Years [...] 10/03/2025 10:00 AM EST Telemedicine [facility] [address] [place] [phone] Myra Bishop RN documented as of this encounter Goals Goal Patient Goal Type Associated Problems Recent Progress Patient-Stated? Author Help patients manage their type 2 diabetes Care Plan Help patients manage their type 2 diabetes Myra Mcdaniel RN Weekly blood pressure task Care Plan Weekly blood pressure task No Myra Bishop RN Help patients manage their type 2 diabetes Care Plan Help patients manage their type 2 diabetes Myra Mcdaniel RN Patient has chronic kidney disease Care Plan Patient has chronic kidney disease No Myra Bishop RN Weekly blood pressure task Care Plan Weekly blood pressure task Myra Mcdaniel RN Patient has chronic kidney disease Care Plan Patient has chronic kidney disease Myra Mcdaniel RN Weekly blood pressure task Care Plan Weekly blood pressure task Myra Mcdaniel RN Weekly blood pressure task Care Plan Weekly blood pressure task Myra Mcdaniel RN Patient has chronic kidney disease Care Plan Patient has chronic kidney disease Myra Mcdaniel RN Patient has chronic kidney disease Care Plan Patient has chronic kidney disease No Myra Bishop RN documented as of this encounter Visit Diagnoses Diagnosis Mild persistent asthma without complication documented in this encounter Additional Health Concerns Active [...] Time PHQ-9 Depression Total Score: 0 03/10/20 11:35 AM EDT documented as of this encounter Care Teams Machine Coil Assembler Relationship Specialty Start Date End Date Carina Moore MD [address] [place] [phone] PCP - General Family Medicine 04/25/18 documented as of this encounter
--- OUTSIDE RECORDS SUMMARY | 2025-07-03 00:16 | XMS_ITS | Encounter Summary ---
Author Organization [employer] Address [address] [place] [address] 7t [place] [address] Care Team Providers Care Senior Test Engineer Name Role Phone Carina Moore MD Primary Care Provide r Encounter Details Date Type Department Care Team (Late Contact Info) Description 04/24/2023 Orders Only [facility] [address] [place] [phone] Provider, Charu, Social History Tobacco Use Types Packs/Day Years [...] Info) Description 10/03/2025 10:00 AM EST Telemedicine [facility] [address] [place] [phone] Myra Bishop RN documented as of this [...] as of this encounter Care Teams Senior Test Engineer Relationship Specialty Start Date End Date Carina Moore MD [address] [place] [phone] PCP - General Family Medicine 04/25/18 documented as of this encounter
--- OUTSIDE RECORDS SUMMARY | 2025-07-03 00:17 | XMS_ITS | Encounter Summary ---
Author Organization [employer] Address [address] [facility] [address]t [place] [address] Care Team Providers Care Business Technology Teacher Name Role Phone Carina Moore MD Primary Care Provide r Encounter Details Date Type Department Care Team (Late st Contact Info) Description 09/19/2022 Orders Only [facility] [address] [place] [address] Tabby Howe LPN Social History Tobacco Use [...] Info) Description 10/03/2025 10:00 AM EST Telemedicine [facility] [address] [place] [address] Myra Bishop, RN documented as of this encounter Visit Diagnoses Not on filedocumented in this encounter Care Teams Business Technology Teacher Relationship Specialty Start Date End Date Carina Moore MD [address] [place] [address] PCP - General Family Medicine 04/25/18 documented as of this encounter
--- OUTSIDE RECORDS SUMMARY | 2025-07-03 00:17 | XMS_ITS | Encounter Summary ---
Author Organization [employer] Address [address] [facility] [address] [place] [address] Care Team Providers Care Poker In Name Role Phone aCrina Moore MD Primary Care Provide r Reason for Visit * Reason Comments Med Refill Encounter Details Date Type Department Care Team ([facility] Contact Info) Description 10/14/2022 Refill [facility] [address] [place] [address] Cyndi Leach MD [address] [place] [phone] Other chronic pain; Anxiety; Insomnia, unspecified type [...] Info) Description 10/03/2025 10:00 AM EST Telemedicine [facility] [address] [place] [address] [phone] Myra Bishop RN documented as of this encounter Visit Diagnoses Diagnosis Other chronic pain Anxiety Anxiety state, unspecified Insomnia, unspecified type documented in this encounter Care Teams Poker In Relationship Specialty Start Date End Date Carina Moore MD [address] [place] [phone] PCP - General Family Medicine 04/25/18 documented as of this encounter
[2025-07-07 15:18] LABS: Testosterone, Free 76.8 pg/mL (30.0-135.0)
== END 2025-07-02 12:45 | disposition home or self-care (01) ==
LOC: HO.LAB 12:44
PROVIDERS: Absent Provider Internal Medicine Nephrology; PCP Internal Medicine; Visit Provider Nurse Practitioner Family
DX: Z12.5 Encounter for screening for malignant neoplasm of prostate (principal); I12.9 Hypertensive chronic kidney disease with stage 1 through stage 4 chronic kidney disease, or unspecified chronic kidney disease; E11.22 Type 2 diabetes mellitus with diabetic chronic kidney disease; N18.31 Chronic kidney disease, stage 3a; N17.9 Acute kidney failure, unspecified; E29.1 Testicular hypofunction; E11.69 Type 2 diabetes mellitus with other specified complication; N52.1 Erectile dysfunction due to diseases classified elsewhere; F52.0 Hypoactive sexual desire disorder
CPT/HCPCS: 36415; 80051; 82565; 82570; 83036; 84153; 84156; 84402; 84403; 84520; 85027

== ENCOUNTER 2025-07-16 10:12 | Outpatient (AMB) | payer OTHER, SELFPAY ==
--- NOTE | 2025-07-16 10:23 | HO.NEPHOV ---
Vital Signs 07/16/25 10:24 Height 5 ft 4 in Weight 178 lb 6 oz BMI 30.6 BP 116/64 Blood Pressure Location Lt brachial Position Sitting Pulse 71 Pulse Source Pulse Oximeter Pulse Oximetry (%) 94 Oxygen Delivery Method Room Air Intake Visit Reasons: 1 month f/u w/ labs-Conf Selling Specialist Required: Yes Selling Specialist Language: Fingerer Services: Selling Specialist Offered & Declined ([facility] Selling Specialist services refused ) Accompanied by: Self / Same As Patient Allergies ibuprofen (From MOTRIN) Allergy (Intermediate, Verified 07/16/25 10:24) KIDNEY INJURY tramadol (TRAMADOL) Allergy (Mild, Verified 07/16/25 10:24) ITCHING Motrin Allergy (Mild, Uncoded 04/22/25 11:52) rash HPI Comments Details: Fabrice was seen for follow up of CKD. He is 70 years of age and has H/O DM, HTN as well as cardiomyopathy. He is on Farxiga as well as Entresto. He denies any SOB, weight gain, PND, orthostatic symptoms edema, orthopnea, deafness, sinusitis, hematuria, proteinuria or retinopathy. He has no H/O hepatitis, skin rashes, hypercalcemia, new bone or back pain . He does not take excess NSAID's. His serum creatinine is at baseline . [facility] Medical History Chronic kidney disease, stage 3a Myofascial pain GERD (gastroesophageal reflux disease) Cervical spondylosis Cardiomyopathy Polyarthralgia Epigastric pain Type 2 diabetes mellitus Perirectal abscess Onychomycosis REGLA (obstructive sleep apnea) Neck pain Class 1 obesity Moderate asthma Insomnia Cardiac resynchronization therapy defibrillator ([employer]-D) in place Gastrointestinal hemorrhage Left bundle branch block Chronic generalized pain disorder Chronic low back pain Benzodiazepine dependence Allergic conjunctivitis Hyperlipidemia Fibromatosis Dysphagia Anxiety Cervical radiculitis Hypogonadism in male Erectile dysfunction due to diseases classified elsewhere Anal fistula Diverticulosis of large intestine without hemorrhage Diabetes mellitus Finger amputee Pacemaker High cholesterol Hypokalemia HTN (hypertension) Surgical History History of surgery History of surgery on arm Family History Father Stroke Maternal Uncle Diabetes Mother Asthma Diabetes Arthritis Social History Household Members: None Housing: Apartment Alcohol intake: current Alcohol intake frequency: a few times a week Alcohol type: hard liquor Patient Tobacco Use Status: Former Tobacco user Current occupational status: disabled Review of Systems Const All systems reviewed & are unremarkable except as noted in HPI and below Physical Exam Vital Signs: Last Vital Signs Pulse 71 07/16/25 10:24 BP 116/64 07/16/25 10:24 Pulse Ox 94 07/16/25 10:24 Oxygen Delivery Method Room Air 07/16/25 10:24 BMI result Body Mass Index 30.6 Const General: comfortable and no acute distress Orientation/consciousness: patient oriented x3 HEENT Head: Yes normocephalic Mouth: Normal oral and palatal mucosa present Eyes EOM: EOMs intact bilaterally Neck Neck: Yes supple Resp Auscultation: clear to auscultation bilaterally Cardio Jugular venous distension: no JVD Rate: regular rate GI Palpation (GI): Soft to palpation Auscultation: normal bowel sounds General: Yes no CVA tenderness Back/Spine/Pelvis Back: no CVA tenderness Skin General skin exam: no rashes or lesions noted Neuro General: patient oriented x3 and moves all extremities Extrem General: Yes no pedal edema Results Reviewed Nephrology Results: Hgb, (14.0-18.0) 15.3 g/dl Δ 07/02/25 WBC, (4.8-10.8) 9.8 X10*3/uL 07/02/25 Plt Count, (160-400) 301 X10*3/uL 07/02/25 Sodium, (135-145) 139 mmol/L 07/02/25 Potassium, (3.3-5.1) 5.2 mmol/L H 07/02/25 Chloride, (96-108) 104 mmol/L 07/02/25 Carbon Dioxide, (22-29) 28 mmol/L 07/02/25 BUN, (9-16) 16 mg/dL 07/02/25 Creatinine, (0.5-1.4) 1.11 mg/dL 07/02/25 Calcium, (8.4-10.2) 9.1 mg/dL 05/12/25 Urine Creatinine 125.03 mg/dL 07/02/25 Protein/Creatinin Ratio, (<0.2) 0.10 07/02/25 Renal US 03/06/25 Assessment & Plan Assessment & Plan (1) HTN (hypertension): Code(s): I10 - Essential (primary) hypertension Category: Medical Qualifiers: Hypertension type: primary hypertension Qualified Code(s): I10 - Essential (primary) hypertension (2) Chronic kidney disease, stage 3a: Code(s): N18.31 - Chronic kidney disease, stage 3a Category: Medical Plan Fabrice has CKD 3 at baseline most likely due to vascular disease. He has long standing DM without proteinuria. He intermittently may be having altered autoregulation within the kidney due to fluctuant hemodynamics due to his cardiomyopathy and being on Entresto as well as Farxiga. His renal function is stable. He needs to be on low K diet. He needs to monitor his weight, limit his salt intake and avoid NSAID's. Answered all questions and F/U was given. Orders: Orders Electrolytes 3 Months N18.31 - Chronic kidney disease, stage 3a Blood Urea Nitrogen 3 Months N18.31 - Chronic kidney disease, stage 3a Creatinine 3 Months N18.31 - Chronic kidney disease, stage 3a Coding Level of Care Code Est Pt Level 4 (11014) Diagnoses Primary hypertension I10 Hypertension type: primary hypertension Chronic kidney disease, stage 3a N18.31
[2025-07-16 10:24] VITALS: BP 116/64; PULSE 71; O2SAT 94; BMI 30.6
== END 2025-07-16 10:36 | disposition home or self-care (01) ==
PROVIDERS: PCP Internal Medicine; Visit Provider Internal Medicine Nephrology
DX: I10 Essential (primary) hypertension (principal); N18.31 Chronic kidney disease, stage 3a
CPT/HCPCS: 99214

== ENCOUNTER → 2025-07-16 10:12 | Outpatient (BNVA) | payer OTHER, SELFPAY | PROVIDERS: PCP Internal Medicine; Visit Provider Internal Medicine Nephrology | DX: I12.9 Hypertensive chronic kidney disease with stage 1 through stage 4 chronic kidney disease, or unspecified chronic kidney disease (principal); E11.22 Type 2 diabetes mellitus with diabetic chronic kidney disease; N18.31 Chronic kidney disease, stage 3a; I42.9 Cardiomyopathy, unspecified; Z79.84 Long term (current) use of oral hypoglycemic drugs; Z79.899 Other long term (current) drug therapy; Z87.891 Personal history of nicotine dependence; Z71.3 Dietary counseling and surveillance | CPT/HCPCS: 99212 ==

== ENCOUNTER 2025-07-22 11:02 | Outpatient (AMB) | payer OTHER, SELFPAY ==
--- NOTE | 2025-07-22 11:02 | A.OFFVIS_ITS ---
Intake Visit Reasons: 3m/Labs Intake Note: Patient is present for 3M/LABS Urology Medication:TESTOSTERONE Antibiotic Allergy:NONE Blood Thinner:NONE [facility] Compliance Coordinator Required: Yes [facility] Compliance Coordinator Services: [facility] Compliance Coordinator Present [facility] Compliance Coordinator Name: Richard [id number] Allergies ibuprofen (From MOTRIN) Allergy (Intermediate, Verified 07/22/25 11:29) KIDNEY INJURY tramadol (TRAMADOL) Allergy (Mild, Verified 07/22/25 11:29) ITCHING Motrin Allergy (Mild, Uncoded 07/22/25 11:29) rash Medication List - Last Reconciled 07/22/25 by TARAS Nunez albuterol sulfate 90 mcg/actuation (Ventolin HFA) 0 mcg inhalation atorvastatin 40 mg PO DAILY blood sugar diagnostic (FreeStyle Lite Strips) As directed blood-glucose meter (FreeStyle [place] Lite kit) As directed clonazepam 0.5 mg PO ONCE PRN dapagliflozin propanediol (Farxiga) 10 mg PO DAILY fluticasone furoate 200 mcg/actuation (Arnuity Ellipta) 1 inh inhalation DAILY lancets (FreeStyle Lancets) As directed metformin 500 mg PO DAILY metoprolol succinate ER 200 mg PO DAILY montelukast 10 mg PO BEDTIME multivitamin (Multiple Vitamins tablet) 1 tab PO DAILY needle (disp) 18 G (BD Regular Bevel [place]) As directed pantoprazole 40 mg PO DAILY sacubitril-valsartan 49-51 mg (Entresto) 1 tab PO BID sodium polystyrene sulfonate 30 grams PO ONCE syringe with needle (BD Luer-Janet Syringe) As directed testosterone enanthate (Xyosted) 50 mg (0.5 mL) subcut QWEEK 4 weeks tirzepatide (Mounjaro) 2.5 mg subcut QWEEK tramadol 50 mg PO DAILY PRN HPI Comments Details: Fabrice is a pleasant 70 year old Angolan speaking male patient of Dr. Emery. He has a PMH of anal fistula, anxiety, asthma, cervical radiculitis, diabetes mellitus, diverticulosis, dysphagia, fibromatosis, finger amputee, hypercholesteremia, sleep apnea, hypertension, hyperlipidemia, hypogonadism, hypokalemia, and pacemaker. He is being followed up on today via telehealth for his erectile dysfunction in the setting of diabetes and hypogonadism in the setting of obstructive sleep apnea. In discussion with the patient today he reports to be doing and feeling well. He reports since his last office visit here he has been compliant was I instead as prescribed in discusses how well he has been feeling with re-initiation in testosterone replacement. He continues to manage his erectile dysfunction with 10 mg of Cialis daily and does feel this has also been helpful. Reviewed most recent PSA, testosterone, free testosterone, and hemoglobin hematocrit results as noted and trended below: PSA: 03/05 2.3, 09/06 3.0, 01/04 4.1, 03/06 3.4, 06/06 3.46, 01/05 3.1, 04/07 2.3, 07/08 3.3 Total Testoserone: 08/04 169, 03/05 190, 03/05 174, 09/06 392, 01/04 564, 03/06 807, 06/06 457, 01/05 100, 04/07 146, 07/08 499 Free Testosterone: 08/04 25.9, 03/05 28.9, 03/05 26.1, 09/06 67.0, 03/06 134.5, 06/06 TNP, 01/05 12, 04/07 20.1, 07/08 76.8 H&H: 09/06 13.9/43.3, 01/04 16.4/50.8, 03/06 17.2/52.4, 06/06 16.7/50.5, 01/05 12.9/40.0, 04/07 12.3/36.7, 07/08 15.3/48.0 A1c: 07/08 5.6% Discussed at length the importance of managing diabetes for improvement in erections, testosterone levels, and overall health and well being. Also discussed importance of compliance with CPAP machine for improvement in erections, testosterone levels, and overall health and well being. When asked patient denies any urinary issues or concerns. He denies urinary urgency, urinary frequency, incontinence, nocturia, hematuria, dysuria, foul smelling urine, changes to urinary stream, flank pain, fever, and or chills. He is happy with his current voiding parameters. All questions were answered. He otherwise offers no other issues or concerns at this time. Erectile dysfunction Diabetic Progressive Failed on demand medications Current therapy tadalafil 10 mg daily Multiple cardiovascular risk factors - hypertension, dyslipidemia, cardiomyopathy Investigations - 08/04 T 170 F 26 HBA1c 6.9 PFSH Medical History Chronic kidney disease, stage 3a Myofascial pain GERD (gastroesophageal reflux disease) Cervical spondylosis Cardiomyopathy Polyarthralgia Epigastric pain Type 2 diabetes mellitus Perirectal abscess Onychomycosis REGLA (obstructive sleep apnea) Neck pain Class 1 obesity Moderate asthma Insomnia Cardiac resynchronization therapy defibrillator ([employer]D) in place Gastrointestinal hemorrhage Left bundle branch block Chronic generalized pain disorder Chronic low back pain Benzodiazepine dependence Allergic conjunctivitis Hyperlipidemia Fibromatosis Dysphagia Anxiety Cervical radiculitis Hypogonadism in male Erectile dysfunction due to diseases classified elsewhere Anal fistula Diverticulosis of large intestine without hemorrhage Diabetes mellitus Finger amputee Pacemaker High cholesterol Hypokalemia HTN (hypertension) Surgical History History of surgery History of surgery on arm Family History Father Stroke Maternal Uncle Diabetes Mother Asthma Diabetes Arthritis Social History Household Members: None Housing: Apartment Alcohol intake: current Alcohol intake frequency: a few times a week Alcohol type: hard liquor Patient Tobacco Use Status: Former Tobacco user Current occupational status: disabled Review of Systems Const All systems reviewed & are unremarkable except as noted in HPI and below Physical Exam Const General: cooperative Resp Effort & Inspection: able to speak in complete sentences Psych Speech and movement: Clear speech present Attitude: cooperative Insight: Fair insight present (Psych) Judgement: Fair judgement present (Psych) Telehealth Telehealth Telehealth Platform: Telephone Location of provider rendering services: practice address Location of patient: address on file Patient Identification confirmed using: Name, : Yes Telehealth method: voice only Patient verbally consented to treatment: Yes Patient verbally consented to billing insurance company: Yes Patient informed of any privacy concerns related to visit: Yes Minutes spent on Phone/Video with Pt.: 15 Assessment & Plan Assessment & Plan (1) Erectile dysfunction associated with type 2 diabetes mellitus: Code(s): E11.69 - Type 2 diabetes mellitus with other specified complication; N52.1 - Erectile dysfunction due to diseases classified elsewhere Category: Medical (2) Hypogonadism in male: Code(s): E29.1 - Testicular hypofunction Category: Medical (3) Lack of libido: Code(s): F52.0 - Hypoactive sexual desire disorder Category: Medical Plan In office urinalysis results reviewed with the patient today; as noted above Recent labs reviewed with results reviewed with the patient today as noted above. Continue 10 mg of Cialis as prescribed; refill provided Continue Zyosted as prescribed; sent [facility] pharmacy as requested by patient. Patient otherwise denies any urinary issues or concerns at this time. He is happy with his current voiding parameters. Discussed at length importance of weight loss, brisk walking, and adequate sleep to assist with improvement in erections, testosterone levels, and overall health and well-being. Discussed at length importance of compliance with CPAP machine as well as manag ing diabetes for improvement in erections, testosterone levels, and overall health and well-being. Will obtain CBC, A1c, Testosterone free and total and PSA in 3 months. Follow-up in 3 months with labs to be completed prior; or sooner with any issues, concerns, and or questions. Orders: Orders Complete Blood Count no Diff 3 Months E29.1 - Testicular hypofunction Testosterone, Free/Total 3 Months E11.69 - Type 2 diabetes mellitus with other specified complication, N52.1 - Erectile dysfunction due to diseases classified elsewhere Prostate Specific Antigen 3 Months E29.1 - Testicular hypofunction Medications: Refilled testosterone enanthate (Xyosted) 50 mg (0.5 mL) subcut QWEEK 2 mL 4RF 4 weeks E29.1 - Testicular hypofunction Patient Instructions: The patient had an opportunity to ask questions regarding the treatment plan. All questions were answered. Physical exam, labs, and imaging were discussed and reviewed in detail. As well as risks, benefits, and discussion of treatment choices. No major barriers to understanding were identified. The patient expressed understanding and agreement with the above treatment plan. The patient was made aware they should contact our office by phone for worsening of their current condition, the appearance of new symptoms, or with any questions or concerns. Compliance is encouraged with any medications and follow up testing that is ordered. It is a privilege to be allowed the opportunity to participate in? your urological care.? Again, if you have any questions or concerns If you have any questions or concerns please do not hesitate to contact me. The office is [phone]. This note is constructed using voice recognition software. While every effort has been made to ensure accuracy seed production field supervisor errors may have been included. Yours sincerely, FILEMON Nunez Coding Level of Care Code Tele Est Pt Level 3 (54285) Complex visit Add On G2211 Diagnoses Erectile dysfunction associated with type 2 diabetes mellitus E11.69; N52.1 Hypogonadism in male E29.1 Lack of libido F52.0
== END 2025-07-22 12:07 | disposition home or self-care (01) ==
LOC: HO.HUSH 11:02
PROVIDERS: PCP Internal Medicine; Visit Provider Nurse Practitioner Family
DX: E11.69 Type 2 diabetes mellitus with other specified complication (principal); N52.1 Erectile dysfunction due to diseases classified elsewhere; E29.1 Testicular hypofunction; F52.0 Hypoactive sexual desire disorder
CPT/HCPCS: 99213; G2211